=== PATIENT | female | born 1935 | race African-American/Black ===

== ENCOUNTER 2018-01-19 12:11 | Inpatient (IN) | payer OTHER ==
[2018-01-19] MEDS ORDERED: ACETAMINOPHEN 1000 MG/100 ML VIAL (NON FORMULARY) IVPB ONE ×2 (12:38→17:57)
[2018-01-19] MEDS ORDERED: ACETAMINOPHEN INJECTION 100 ML IVPB ONE ×2 (12:40→13:04)
[2018-01-19] MEDS ORDERED: SODIUM CHLORIDE 1,000 ML IV SCH (12:45)
[2018-01-19 13:15] LABS: BASO % 0.4 % (0-2.0); HEMATOCRIT 38.2 % (32.4-45.2); HEMOGLOBIN 12.4 GM/dL (10.7-15.3); LYMPH % 7.8 % (8-40); MCH 28.6 pg (25.7-33.7); MCHC 32.3 g/dl (32.0-36.0); MEAN CELL VOLUME 88.4 fl (80-96); MEAN PLT VOLUME 10.2 fl (7.5-11.1); MONO % 6.7 % (3.8-10.2); NEUT % 85.1 % (42.8-82.8); PLATELET COUNT 183 K/MM3 (134-434); RBC 4.32 M/mm3 (3.60-5.2); RDW 15.8 % (11.6-15.6); WHITE BLOOD COUNT 9.6 K/mm3 (4.0-10.0)
--- NOTE | 2018-01-19 13:20 | PDOC ---
History of Present Illness - General Chief Complaint: Weakness Stated Complaint: STROKE Time Seen by Provider: 01/19/18 13:03 History Source: Patient, Family Exam Limitations: No Limitations - History of Present Illness Initial Comments: 01/19/18 14:54 82 persistent atrial fibrillation/flutter s/p cardioversion , dCHF with mod pHTN , DM, HTN/HL and carotid stenosis s/p R CEA 07/2015 and endarterectomy presents with right side paralysis since Wednesday night. She states that she felt very weak on Wednesday night and went to bed but couldnt get out of it and couldnt reach her phone by her left side. Was found by daughter who saw her face was drooping on the right side, slurring her speech and called 911. Past History - Past Medical History Allergies/Adverse Reactions: Allergies Allergy/AdvReac Type Severity Reaction Status Date / Time pregabalin [From Lyrica] Allergy Severe Hives Verified 01/19/18 12:20 ceftriaxone sodium Allergy Intermediate Hives Verified 01/19/18 12:20 [From Rocephin] Penicillins Allergy Intermediate Hives Verified 01/19/18 12:20 chicken derived Allergy Mild Hives Verified 01/19/18 12:20 oats AdvReac Mild DIARRHEA Verified 01/19/18 12:20 Home Medications: Ambulatory Orders Spironolactone 25 mg PO UTDICT 11/29/14 Atorvastatin Ca [Lipitor] 20 mg PO DAILY 06/12/15 Ferrous Sulfate [Feosol] 325 mg PO DAILY 06/12/15 Potassium Chloride 20 meq PO DAILY 06/12/15 Ascorbate Calcium [Vitamin C] 500 mg PO DAILY 06/13/15 Levocarnitine Tartrate [l-Carnitine] 500 mg PO DAILY 06/13/15 Pantoprazole Sodium [Protonix] 40 mg PO DAILY #30 tablet. 06/13/15 Ubidecarenone [Coq-10] 100 mg PO DAILY 06/13/15 Vitamin B Complex [B Complex] 1 each PO DAILY 06/13/15 Vitamin E 100 unit PO DAILY 06/13/15 metFORMIN XR [Glucophage Xr -] 500 mg PO ACDIN 06/13/15 Amiodarone HCl 200 mg PO DAILY 11/18/15 Rivaroxaban [Xarelto -] 20 mg PO DAILY 11/18/15 Valsartan [Diovan] 160 mg PO DAILY 11/18/15 Torsemide [Demadex -] 40 mg PO DAILY #30 tablet 11/20/15 Fluocinonide 0.05% Cream [Lidex 0.05% Cream -] 1 applic TP DAILY #1 tube Anemia: Yes Asthma: No Cancer: No Cardiac Disorders: Yes (A FIB) CVA: No COPD: No CHF: Yes Dementia: No Diabetes: Yes GI Disorders: Yes (COLONIC POLYPS) Disorders: No HTN: Yes Hypercholesterolemia: Yes Liver Disease: No Seizures: No Thyroid Disease: No - Surgical History Abdominal Surgery: No Appendectomy: No Cardiac Surgery: Yes (CARDIOVERSION (12/10)) Cholecystectomy: No Lung Surgery: No Neurologic Surgery: No Orthopedic Surgery: No - Immunization History Immunization Up to Date: Yes - Suicide/Smoking/Psychosocial Hx Smoking History: Unknown if ever smoked Have you smoked in the past 12 months: No If you are a former smoker, when did you quit?: Never smoker Information on smoking cessation initiated: No Hx Alcohol Use: No Drug/Substance Use Hx: No Substance Use Type: None Hx Substance Use Treatment: No Review of Systems - Review of Systems Able to Perform ROS?: Yes Is the patient limited Croatian proficient: No Constitutional: Yes: Weakness HEENTM: No: Symptoms Reported Respiratory: No: Symptoms reported, Hemoptysis Cardiac (ROS): No: Symptoms Reported ABD/GI: No: Symptoms Reported : No: Symptoms Reported Musculoskeletal: No: Symptoms Reported Integumentary: No: Symptoms Reported Neurological: Yes: See HPI, Numbness, Paresthesia, Weakness All Other Systems: Reviewed and Negative *Physical Exam - Vital Signs Last Vital Signs Temp Pulse Resp BP Pulse Ox 101.7 F H 74 18 143/93 92 L 01/19/18 12:23 01/19/18 12:23 01/19/18 12:23 01/19/18 12:23 01/19/18 12:23 - Physical Exam General Appearance: Yes: Nourished, Appropriately Dressed, Apparent Distress HEENT: positive: Other (flattening nasolabial fold right side, slurred speech) Neck: negative: Carotid bruit Respiratory/Chest: positive: Lungs Clear, Normal Breath Sounds. negative: Chest Tender, Respiratory Distress Cardiovascular: positive: Irregularly Irregular Gastrointestinal/Abdominal: positive: Normal Bowel Sounds, Soft, Protuberent. negative: Tender Musculoskeletal: positive: Other (paralysis of right art and leg, full sensory loss on right arm, decreased sensory over right leg. ) Extremity: positive: Normal Capillary Refill, Normal Inspection, Normal Range of Motion Integumentary: positive: Normal Color, Dry, Warm Neurologic: positive: Fully Oriented, Alert, Normal Mood/Affect, Normal Response ED Treatment Course - LABORATORY CBC & Chemistry Diagram: 01/19/18 13:00 01/19/18 13:00 - ADDITIONAL ORDERS Additional order review: Laboratory Results 01/19/18 12:23 POC Glucometer [id number] 01/19/18 01/19/18 13:00 12:23 RBC 4.32 MCV 88.4 MCHC 32.3 RDW 15.8 H D MPV 10.2 Neutrophils % 85.1 H D Lymphocytes % 7.8 L D Monocytes % 6.7 Eosinophils % 0.0 D Basophils % 0.4 POC Glucometer [id number] - Medications Given in the ED: ED Medications Discontinued Medications Generic Name Dose Route Start Last Admin Trade Name Fatimah PRN Reason Stop Dose Admin Acetaminophen 1,000 mg 01/19/18 12:38 01/19/18 13:05 Ofirmev Injection - IVPB 01/19/18 12:39 1,000 mg ONCE ONE Administration Medical Decision Making - Medical Decision Making 01/19/18 15:10 Stroke order set, Ct head pending. CT negative. Consulted with Dr. Dumont who suggest admit with MRI/MRA order. This is likely L MCA ischemic stroke. Will admit. 01/19/18 15:19 EKG: Atrial fibrillation with pvcs, nonspecific intraventricular block, cannot rule out anterior infarct. 01/19/18 15:22 Previous EKG from 10/2015: a-flutter with variable AV Block. 01/19/18 15:23 Elevated troponin. Consult with Cardiology. Will admit to telemetry. 01/19/18 15:39 01/19/18 15:48 CXR: Imaging reveals a large heart, sclerotic unfolded aorta and some congestive changes. An early right upper lobe infiltrate cannot be excluded. Follow-up recommended. 01/19/18 15:[address]: No evidence of acute intracranial hemorrhage, edema, midline shift, mass effect, or skull fracture. No CT evidence of acute territorial ischemic changes. White matter microangiopathic changes are noted in the posterior limb of internal capsules, left retrolenticular portion of the internal capsule. *DC/Admit/Observation/Transfer Diagnosis at time of Disposition: Stroke - Referrals Referrals: Rajesh Mas MD [Primary Care Provider] - - Patient Instructions - Post Discharge Activity NIH Stroke Scale - Last Known Well Date/Time & Onset Date Last Known Well: 01/16/18 - Initial Evaluation Level of consciousness: Alert Ask patient the month and their age: Answers both correctly Ask patient to open & close eyes; make fist and let go: Obeys both correctly Best gaze (horizontal eye movement): Normal Visual field testing: No visual field loss Facial paresis (Show teeth/raise eyebrows/close eyes tight): Minor paralysis ( flattened nasolabial fold, asymmetry on smiling) Motor Function: Left Arm: Normal Motor Function: Right Arm: No movement Motor Function: Left Leg: Normal (extends leg 30 degrees for 5 seconds without drift) Motor Function: Right Leg: No movement Limb Ataxia: Present in two limbs Sensory(Use pinprick test arms,legs,trunk,face/side to side): Severe to total sensory loss Best language (Describe picture, name items, read sentences): No Aphasia Dysarthria (read several words): Mild to moderate slurring of words Extinction and Inattention: No abnormality - Total Score NIH Stroke Scale Score: 14
[2018-01-19 13:38] LABS: ANION GAP 11 (8-16); BILIRUBIN,TOTAL 0.9 mg/dL (0.2-1.0); BLOOD UREA NITROGEN 16 mg/dL (7-18); CALCIUM 8.5 mg/dL (8.5-10.1); CHLORIDE 105 mmol/L (98-107); CHOLESTEROL 195 mg/dL (50-200); CO2 24 mmol/L (21-32); CREATININE 1.1 mg/dL (0.55-1.02); GLUCOSE,RANDOM 184 mg/dL (74-106); POTASSIUM 3.9 mmol/L (3.5-5.1); SGOT/AST 19 U/L (15-37); SGPT/ALT 18 U/L (12-78); SODIUM 140 mmol/L (136-145); TOT PROT 7.8 g/dl (6.4-8.2); TRIGLYCERIDES 106 mg/dL (35-160)
[2018-01-19 13:39] LABS: ALK PHOS 125 U/L (45-117); HDL CHOLESTEROL 48 mg/dL (40-60)
[2018-01-19 13:56] LABS: INR 1.26 (0.82-1.09); PROTHROMBIN TIME (PATIENT) 14.2 SEC (9.7-13.0)
[2018-01-19 13:58] LABS: ACTIVATED PTT 23.5 SECONDS (25.2-36.5)
[2018-01-19] MEDS ORDERED: SODIUM CHLORIDE 500 ML IV STA (14:56)
[2018-01-19] MEDS ORDERED: VANCOMYCIN 1,500 MG in DEXTROSE 5%-WATER - 250 ML IVPB ONE (15:16)
[2018-01-19] MEDS ORDERED: AZTREONAM 2 GM in DEXTROSE 5%-WATER 100 ML IVPB ONE (15:16)
--- NOTE | 2018-01-19 15:17 | PDOC ---
Attending Attestation - Resident Resident Name: Branden Madera - ED Attending Attestation I have performed the following: I have examined & evaluated the patient, The case was reviewed & discussed with the resident, I agree w/resident's findings & plan, Exceptions are as noted - HPI HPI: 01/19/18 15:14 "The patient is an 82 year old female with significant past medical history of anemia, a-fib, diastolic CHF, diabetes, colonic polyps, hypertension, hypercholesterolemia, who presents to the emergency department with R sided weakness. The patient states that she first noticed the weakness 3 days ago while she was walking to the bathroom. She states that she felt herself leaning to one side and unable to maintain her balance. She went back to bed and states that once she reached her bed, she was unable to get up until she was found by family today. Denies HUIZAR. Denies CP/SOB. Allergies: pregabalin, ceftriaxone sodium, Penicillins, oats, chicken derivatives Social history: None reported Surgical history: cardioversion (11/2014) PCP: Dr. Rajesh Mas " - Physicial Exam PE: 01/19/18 15:15 "GENERAL: Awake, alert, and fully oriented, in no acute distress. HEAD: No signs of trauma EYES: PERRLA, EOMI, sclera anicteric, conjunctiva clear ENT: Auricles normal inspection, hearing grossly normal, nares patent, oropharynx clear without exudates. Moist mucosa NECK: Nontender, no stepoffs, Normal ROM, supple, no lymphadenopathy, JVD, or masses LUNGS: Breath sounds equal, clear to auscultation bilaterally. No wheezes, and no crackles HEART: Regular rate and rhythm, normal S1 and S2, no murmurs, rubs or gallops ABDOMEN: Soft, nontender, normoactive bowel sounds. No guarding, no rebound. No masses EXTREMITIES: Normal range of motion, no edema. No clubbing or cyanosis. No cords, erythema, or tenderness NEUROLOGICAL: + R sided flaccid paralysis, + R facial droop SKIN: Warm, Dry, normal turgor, no rashes or lesions noted. " - Medical Decision Making 01/19/18 15:16 82 F with new R sided paralysis x 3 days. Likely CVA. Pt outside window for TPA. Pt also found to be febrile to 101.7 with O2 sat 92. Concerning for possible PNA. Pt is aspiration risk. - Labs - CT head - Cultures - Neuro consult - CXR - Admit 01/19/18 15:33 CTH unremarkable. Neuro consulted, Dr. Pierre recommends further stroke w/u with MRI. CXR notable for possible RUL PNA, will cover with vanc and aztreonam (pen allergic) Labs notable for trop 4, EKG without SANYA/STDs. Will consult cards. Pt admitted to Dr. Mills <Saqib Perdomo - Last Filed: 01/19/18 15:33> ED Treatment Course - LABORATORY CBC & Chemistry Diagram: 01/19/18 13:00 01/19/18 13:00 - ADDITIONAL ORDERS Additional order review: Laboratory Results 01/19/18 01/19/18 01/19/18 13:07 13:00 13:00 PT with INR 14.20 H INR 1.26 H PTT (Actin FS) 23.5 L Sodium 140 Potassium 3.9 Chloride 105 Carbon Dioxide 24 Anion Gap 11 BUN 16 Creatinine 1.1 H Creat Clearance w eGFR 47.67 POC Glucometer Random Glucose 184 H Calcium 8.5 Total Bilirubin 0.9 AST 19 ALT 18 Alkaline Phosphatase 125 H Creatine Kinase 120 Troponin I 4.77 H* Total Protein 7.8 Albumin 3.0 L Triglycerides 106 Cholesterol 195 Total LDL Cholesterol 132 H HDL Cholesterol 48 Blood Type A POSITIVE Antibody Screen Negative 01/19/18 12:23 PT with INR INR PTT (Actin FS) Sodium Potassium Chloride Carbon Dioxide Anion Gap BUN Creatinine Creat Clearance w eGFR POC Glucometer [id number] Random Glucose Calcium Total Bilirubin AST ALT Alkaline Phosphatase Creatine Kinase Troponin I Total Protein Albumin Triglycerides Cholesterol Total LDL Cholesterol HDL Cholesterol Blood Type Antibody Screen 01/19/18 01/19/18 13:00 12:23 RBC 4.32 MCV 88.4 MCHC 32.3 RDW 15.8 H D MPV 10.2 Neutrophils % 85.1 H D Lymphocytes % 7.8 L D Monocytes % 6.7 Eosinophils % 0.0 D Basophils % 0.4 POC Glucometer [id number] - RADIOLOGY Radiograph Interpretation: 01/19/18 16:[address] was reviewed by Dr. Perdomo and over-read by Radiology. Impression: No evidence of acute intracranial hemorrhage, edema, midline shift, mass effect , or skull fracture. No CT evidence of acute territorial ischemic changes. White matter microangiopathic changes are noted in the posterior limb of internal capsules, left retrolenticular portion of the internal capsule. If acute stroke is suspected, MRI of the brain may be considered for further evaluation. Chest X-Ray was reviewed by Dr. Perdomo and over-read by Radiology. Radiology report: Imaging reveals a large heart, sclerotic unfolded aorta and some congestive changes. An early right upper lobe infiltrate cannot be excluded. Follow-up recommended. - Medications Given in the ED: ED Medications Discontinued Medications Generic Name Dose Route Start Last Admin Trade Name Ginoq PRN Reason Stop Dose Admin Acetaminophen 1,000 mg 01/19/18 12:38 01/19/18 13:05 Ofirmev Injection - IVPB 01/19/18 12:39 1,000 mg ONCE ONE Administration Sodium Chloride 500 mls @ 500 mls/hr 01/19/18 14:56 01/19/18 15:06 Normal Saline - IV 01/19/18 15:55 500 mls/hr ASDIR STA Administration <Gretchen Luong - Last Filed: 01/19/18 16:28> Attestations - Attestations 01/19/18 16:27 Documentation prepared by Gretchen Luong, acting as medical insurance collector for Saqib Perdomo MD. <Gretchen Luong - Last Filed: 01/19/18 16:28>
--- NOTE | 2018-01-19 15:49 | EKG ---
Test Reason : Blood Pressure : / mmHG Vent. Rate : 087 BPM Atrial Rate : 071 BPM P-R Int : 000 ms QRS Dur : 138 ms QT Int : 430 ms P-R-T Axes : 000 017 071 degrees QTc Int : 517 ms ATRIAL FIBRILLATION WITH PREMATURE VENTRICULAR OR ABERRANTLY CONDUCTED COMPLEXES NON-SPECIFIC INTRA-VENTRICULAR CONDUCTION BLOCK CANNOT RULE OUT ANTERIOR INFARCT , AGE UNDETERMINED ABNORMAL ECG WHEN COMPARED WITH ECG OF 18-NOV-2015 15:15, ATRIAL FIBRILLATION HAS REPLACED ATRIAL FLUTTER QRS DURATION HAS INCREASED ST ELEVATION NOW PRESENT IN ANTERIOR LEADS QT HAS LENGTHENED Confirmed by CLIFF SCHERER, YUMI ([id number]) on 01/19/2018 3:49:34 PM Referred By: Confirmed By:YUMI CORONADO MD
--- NOTE | 2018-01-19 15:50 | PDOC ---
*Physical Exam - Vital Signs Last Vital Signs Temp Pulse Resp BP Pulse Ox 98.2 F 79 21 159/84 100 01/19/18 15:07 01/19/18 15:07 01/19/18 15:07 01/19/18 15:07 01/19/18 15:07 ED Treatment Course - LABORATORY CBC & Chemistry Diagram: 01/19/18 13:00 01/19/18 13:00 - ADDITIONAL ORDERS Additional order review: Laboratory Results 01/19/18 01/19/18 01/19/18 13:07 13:00 13:00 PT with INR 14.20 H INR 1.26 H PTT (Actin FS) 23.5 L Sodium 140 Potassium 3.9 Chloride 105 Carbon Dioxide 24 Anion Gap 11 BUN 16 Creatinine 1.1 H Creat Clearance w eGFR 47.67 POC Glucometer Random Glucose 184 H Calcium 8.5 Total Bilirubin 0.9 AST 19 ALT 18 Alkaline Phosphatase 125 H Creatine Kinase 120 Troponin I 4.77 H* Total Protein 7.8 Albumin 3.0 L Triglycerides 106 Cholesterol 195 Total LDL Cholesterol 132 H HDL Cholesterol 48 Blood Type A POSITIVE Antibody Screen Negative 01/19/18 12:23 PT with INR INR PTT (Actin FS) Sodium Potassium Chloride Carbon Dioxide Anion Gap BUN Creatinine Creat Clearance w eGFR POC Glucometer 212.10794 Random Glucose Calcium Total Bilirubin AST ALT Alkaline Phosphatase Creatine Kinase Troponin I Total Protein Albumin Triglycerides Cholesterol Total LDL Cholesterol HDL Cholesterol Blood Type Antibody Screen 01/19/18 01/19/18 13:00 12:23 RBC 4.32 MCV 88.4 MCHC 32.3 RDW 15.8 H D MPV 10.2 Neutrophils % 85.1 H D Lymphocytes % 7.8 L D Monocytes % 6.7 Eosinophils % 0.0 D Basophils % 0.4 POC Glucometer [id number] - RADIOLOGY Radiology Studies Ordered: Category Date Time Status BRAIN MRA W&W/O CONTRAST [MRI] Stat MRI 01/19/18 14:52 Ordered BRAIN MRI W/O CONTRAST [MRI] Stat MRI 01/19/18 14:52 Ordered NECK MRA W&W/O CONTRAST [MRI] Stat MRI 01/19/18 14:52 Ordered - Medications Given in the ED: ED Medications Discontinued Medications Generic Name Dose Route Start Last Admin Trade Name Freq PRN Reason Stop Dose Admin Acetaminophen 1,000 mg 01/19/18 12:38 01/19/18 13:05 Ofirmev Injection - IVPB 01/19/18 12:39 1,000 mg ONCE ONE Administration *DC/Admit/Observation/Transfer Diagnosis at time of Disposition: Stroke, Atrial fibrillation and flutter, CHF (congestive heart failure), HLD ( hyperlipidemia), Elevated troponin - Discharge Dispostion Condition at time of disposition: Stable Decision to Admit order: Yes - Referrals Referrals: Rajesh Mas MD [Primary Care Provider] - - Patient Instructions - Post Discharge Activity
[2018-01-19] MEDS ORDERED: VANCOMYCIN 1,500 MG in DEXTROSE 5%-WATER - 500 ML IVPB ONE (16:00)
--- NOTE | 2018-01-19 16:53 | HP ---
Admitting History and Physical - Primary Care Physician PCP: Rajesh Mas - Admission Chief Complaint: I had a stroke History of Present Illness: Ms Cooper is a very pleasant 82 year old female coming in with complaint of having a stroke. Her symptoms began on Wednesday morning. She says that she went to the bathroom and she says she felt strange. She says that she felt very weak and had a hard time making it back to bed. She said it was mainly her right side that felt weak. She made it to bed and could not get up. Because of that she laid in bed and was not found until today by her daughter who brought her in. Patient is confused and unclear on many questions. However she says she did not have lightheadedness, dizziness, passing out, chest pain or pressure, shortness of breath, nausea, vomiting, diarrhea, constipation, she held her urine according to her, and she did not have leg swelling. She is quite confused though and often pauses long periods of time and appears to not be sure of many of her answers. History Source: Patient Limitations to Obtaining History: No Limitations - Past Medical History Cardiovascular: Yes: AFIB (Persistent. History of cardioversion. ), CHF ( diastolic), HTN, Hyperlipdemia, Pulmonary Hypertension, Other (carotid artery stenosis) Heme/Onc: Yes: Anemia Endocrine: Yes: Diabetes Mellitus - Past Surgical History Past Surgical History: Yes: Colonoscopy, Tonsillectomy - Smoking History Smoking history: Unknown if ever smoked Have you smoked in the past 12 months: No If you are a former smoker, when did you quit?: Never smoker - Alcohol/Substance Use Hx Alcohol Use: No History of Substance Use: reports: None - Social History Usual Living Arrangement: Yes: Alone ADL: Independent History of Recent Travel: No Home Medications - Allergies Allergies/Adverse Reactions: Allergies Allergy/AdvReac Type Severity Reaction Status Date / Time pregabalin [From Lyrica] Allergy Severe Hives Verified 01/19/18 12:20 ceftriaxone sodium Allergy Intermediate Hives Verified 01/19/18 12:20 [From Rocephin] Penicillins Allergy Intermediate Hives Verified 01/19/18 12:20 chicken derived Allergy Mild Hives Verified 01/19/18 12:20 oats AdvReac Mild DIARRHEA Verified 01/19/18 12:20 - Home Medications Home Medications: Ambulatory Orders Spironolactone 25 mg PO UTDICT 11/29/14 Atorvastatin Ca [Lipitor] 20 mg PO DAILY 06/12/15 Ferrous Sulfate [Feosol] 325 mg PO DAILY 06/12/15 Potassium Chloride 20 meq PO DAILY 06/12/15 Ascorbate Calcium [Vitamin C] 500 mg PO DAILY 06/13/15 Levocarnitine Tartrate [l-Carnitine] 500 mg PO DAILY 06/13/15 Pantoprazole Sodium [Protonix] 40 mg PO DAILY #30 tablet. 06/13/15 Ubidecarenone [Coq-10] 100 mg PO DAILY 06/13/15 Vitamin B Complex [B Complex] 1 each PO DAILY 06/13/15 Vitamin E 100 unit PO DAILY 06/13/15 metFORMIN XR [Glucophage Xr -] 500 mg PO ACDIN 06/13/15 Amiodarone HCl 200 mg PO DAILY 11/18/15 Rivaroxaban [Xarelto -] 20 mg PO DAILY 11/18/15 Valsartan [Diovan] 160 mg PO DAILY 11/18/15 Torsemide [Demadex -] 40 mg PO DAILY #30 tablet 11/20/15 Fluocinonide 0.05% Cream [Lidex 0.05% Cream -] 1 applic TP DAILY #1 tube Family Disease History - Family Disease History Family Disease History: Other: Father (, hip fracture), Mother ( , unknown) Review of Systems Findings/Remarks: full review of systems obtained, as per HPI and otherwise negative Physical Examination Vital Signs: Vital Signs Temperature 36.8 C 01/19/18 15:07 Pulse Rate 79 01/19/18 15:07 Respiratory Rate 21 01/19/18 15:07 Blood Pressure 159/84 01/19/18 15:07 O2 Sat by Pulse Oximetry (%) 100 01/19/18 15:07 Constitutional: Yes: No Distress, Calm, Obese Eyes: Yes: Conjunctiva Clear, EOM Intact, PERRL HENT: Yes: Atraumatic, Normocephalic Cardiovascular: Yes: Pulse Irregular. No: Tachycardia, Gallop, Murmur, Rub Respiratory: Yes: Regular, CTA Bilaterally. No: Rales, Rhonchi, Wheezes Gastrointestinal: Yes: Normal Bowel Sounds, Soft. No: Distention, Tenderness Neurological: Yes: Loss of Sensation (RUE and RLE) ...Motor Strength: RUE (0/5), RLE (0/5) Labs: CBC, BMP 01/19/18 13:00 01/19/18 13:00 Imaging - Results Chest X-ray: Report Reviewed, Image Reviewed Cat Scan: Report Reviewed Problem List - Problems (1) Acute CVA (cerebrovascular accident) Assessment/Plan: -suspect large L sided stroke -case d/w Dr Pierre -will continue aspirin and plavix -MRI head ordered -ECHO and carotid ultrasound -max out lipitor dose -physical and speech therapy consulted -monitor on telemetry Code(s): I63.9 - CEREBRAL INFARCTION, UNSPECIFIED (2) Atrial fibrillation and flutter Assessment/Plan: -unable to be anticoagulated secondary to bleeding -maintained on aspirin and plavix -suspect cause of acute CVA -monitor on telemetry -cannot anticoagulate now secondary to possible hemorrhagic conversion of CVA -case discussed with cardiology -currently rate controlled Code(s): I48.91 - UNSPECIFIED ATRIAL FIBRILLATION; I48.92 - UNSPECIFIED ATRIAL FLUTTER (3) CHF (congestive heart failure) Assessment/Plan: -not in exacerbation -will continue aldactone currently -hold torsemide and aldactone currently Code(s): I50.9 - HEART FAILURE, UNSPECIFIED (4) Elevated troponin Assessment/Plan: -concern for possible NSTEMI -however could be secondary to stroke -no cp or sob, EKG unchanged -however patient may not recall earlier chest pain -case d/w Dr Hough -trend currently -cannot anticoagulate as above Code(s): R74.8 - ABNORMAL LEVELS OF OTHER SERUM ENZYMES (5) HLD (hyperlipidemia) Assessment/Plan: -LDL not in range -increase lipitor to 80mg Code(s): E78.5 - HYPERLIPIDEMIA, UNSPECIFIED (6) Carotid artery stenosis Assessment/Plan: -carotid artery ultrasound ordered -continue aspirin and plavix Code(s): I65.29 - OCCLUSION AND STENOSIS OF UNSPECIFIED CAROTID ARTERY (7) Diabetes Assessment/Plan: -currently npo until seen by speech therapy -manage on SSI currently Code(s): E11.9 - TYPE 2 DIABETES MELLITUS WITHOUT COMPLICATIONS (8) HTN (hypertension), malignant Assessment/Plan: -allow permissive HTN tonight Code(s): I10 - ESSENTIAL (PRIMARY) HYPERTENSION (9) Continued fever Assessment/Plan: -suspect patient has UTI from inability to urinate -however possibly could be pneumonia -blood cultures drawn before antibiotics, to be sent -unable to obtain urine, awaiting patient to urinate and she refuses cath currently -will continue aztreonam since patient has multiple allergies -ID consult Code(s): R50.9 - FEVER, UNSPECIFIED
--- NOTE | 2018-01-19 17:02 | PN ---
Progress Note (short form) - Note Progress Note: CC: right sided weakness hpi: 82 yo f, patient of Dr. Coley, with history of persistent atrial fibrillation/flutter s/p cardioversion with reversion back to flutter, dCHF with mod pHTN, DM, HTN/HL and carotid stenosis s/p R CEA 07/2015 who is here with right sided weakness. Wednesday noticed right sided arm and leg weakness. She was too weak to get out of bed or use phone so was not found at home until today (wednesday) and she was brought to ER. Suspected cva. Also with +trops. No cp, sob, palps dizzy loc pnd orthopnea le edema. Past Medical hx: per hpi past surg hx: Colonoscopy, Tonsillectomy Social hx: Former tobacco (as teenager), no etoh or illicits Family hx: Mother with unknown heart problems. ROS: per hpi; no nvd cough vision changes, muscle pain gib hematuria dysuria Home Medications Medication Instructions Recorded Spironolactone 25 mg PO UTDICT 11/29/14 Atorvastatin Ca [Lipitor] 20 mg PO DAILY 06/12/15 Ferrous Sulfate [Feosol] 325 mg PO DAILY 06/12/15 Potassium Chloride 20 meq PO DAILY 06/12/15 Ascorbate Calcium [Vitamin C] 500 mg PO DAILY 06/13/15 Levocarnitine Tartrate 500 mg PO DAILY 06/13/15 [l-Carnitine] Pantoprazole Sodium [Protonix] 40 mg PO DAILY #30 tablet. 06/13/15 Ubidecarenone [Coq-10] 100 mg PO DAILY 06/13/15 Vitamin B Complex [B Complex] 1 each PO DAILY 06/13/15 Vitamin E 100 unit PO DAILY 06/13/15 metFORMIN XR [Glucophage Xr -] 500 mg PO ACDIN 06/13/15 Amiodarone HCl 200 mg PO DAILY 11/18/15 Rivaroxaban [Xarelto -] 20 mg PO DAILY 11/18/15 Valsartan [Diovan] 160 mg PO DAILY 11/18/15 Torsemide [Demadex -] 40 mg PO DAILY #30 tablet 11/20/15 Fluocinonide 0.05% Cream [Lidex 1 applic TP DAILY #1 tube 02/22/17 0.05% Cream -] Vital Signs Temp 98.2 F 01/19/18 15:07 Pulse 79 01/19/18 15:07 Resp 21 01/19/18 15:07 BP 159/84 01/19/18 15:07 Pulse Ox 100 01/19/18 15:07 Intake & Output 01/18/18 01/19/18 01/19/18 23:59 11:59 23:59 Weight 230 lb Other: Voiding Method Toilet Height 5 ft 8 in Body Mass Index (BMI) 34.9 Weight Measurement Method Est/Stated by Patient NAD, calm JVD flat, neck supple CTAB, nl effort Irregular rhythm, regular rate nl s1, s2 no m/r/g + bs soft nt nd ext with trace edema, no clubbing or cyanosis + dp/pt, no carotid bruits no jaundice, diaphoresis Laboratory Last Values WBC 9.6 K/mm3 (4.0-10.0) 01/19/18 13:00 RBC 4.32 M/mm3 (3.60-5.2) 01/19/18 13:00 Hgb 12.4 GM/dL (10.7-15.3) 01/19/18 13:00 Hct 38.2 % (32.4-45.2) D 01/19/18 13:00 MCV 88.4 fl (80-96) 01/19/18 13:00 MCH 28.6 pg (25.7-33.7) 01/19/18 13:00 MCHC 32.3 g/dl (32.0-36.0) 01/19/18 13:00 RDW 15.8 % (11.6-15.6) H D 01/19/18 13:00 Plt Count 183 K/MM3 (134-434) 01/19/18 13:00 MPV 10.2 fl (7.5-11.1) 01/19/18 13:00 Absolute Neuts (auto) 8.1 # 01/19/18 13:00 Neutrophils % 85.1 % (42.8-82.8) H D 01/19/18 13:00 Lymphocytes % 7.8 % (8-40) L D 01/19/18 13:00 Monocytes % 6.7 % (3.8-10.2) 01/19/18 13:00 Eosinophils % 0.0 % (0-4.5) D 01/19/18 13:00 Basophils % 0.4 % (0-2.0) 01/19/18 13:00 Nucleated RBC % 0 % (0-0) 01/19/18 13:00 PT with INR 14.20 SEC (9.7-13.0) H 01/19/18 13:00 INR 1.26 (0.82-1.09) H 01/19/18 13:00 PTT (Actin FS) 23.5 SECONDS (25.2-36.5) L 01/19/18 13:00 Sodium 140 mmol/L (136-145) 01/19/18 13:00 Potassium 3.9 mmol/L (3.5-5.1) 01/19/18 13:00 Chloride 105 mmol/L (98-107) 01/19/18 13:00 Carbon Dioxide 24 mmol/L (21-32) 01/19/18 13:00 Anion Gap 11 (8-16) 01/19/18 13:00 BUN 16 mg/dL (7-18) 01/19/18 13:00 Creatinine 1.1 mg/dL (0.55-1.02) H 01/19/18 13:00 Creat Clearance w eGFR 47.67 (>60) 01/19/18 13:00 POC Glucometer 212.08467 UNITS (80-120) 01/19/18 12:23 Random Glucose 184 mg/dL (74-106) H 01/19/18 13:00 Calcium 8.5 mg/dL (8.5-10.1) 01/19/18 13:00 Total Bilirubin 0.9 mg/dL (0.2-1.0) 01/19/18 13:00 AST 19 U/L (15-37) 01/19/18 13:00 ALT 18 U/L (12-78) 01/19/18 13:00 Alkaline Phosphatase 125 U/L (45-117) H 01/19/18 13:00 Creatine Kinase 120 IU/L (26-192) 01/19/18 13:00 Troponin I 4.77 ng/ml (0.00-0.05) H* 01/19/18 13:00 Total Protein 7.8 g/dl (6.4-8.2) 01/19/18 13:00 Albumin 3.0 g/dl (3.4-5.0) L 01/19/18 13:00 Triglycerides 106 mg/dL (35-160) 01/19/18 13:00 Cholesterol 195 mg/dL (50-200) 01/19/18 13:00 Total LDL Cholesterol 132 mg/dL (5-100) H 01/19/18 13:00 HDL Cholesterol 48 mg/dL (40-60) 01/19/18 13:00 Blood Type A POSITIVE 01/19/18 13:07 Antibody Screen Negative 01/19/18 13:07 EKG: A flutter with variable block. No ischemic changes CXR: ?right infiltrate MIBI 10/10 (deena): AF/flutter, no STs; no ischemia (+ breast); nl EF, mild LVE, no TID SANTA 12/10: nl LV/RV, severe TANIKA, mild LAE; mild MR; mod-sev TR Echo 09/09: NL LV/RV; L/TANIKA, tethered MV with mod MR; mod TR; mod pHTN echo 08/2017: nl lv/rv, sev lae, mod tanika, mod mr/tr, mod phtn Carotids 12/10: SANJAY 80-99% stenosis head acute: no acute findings tele: aflutter , rate ok est cct 35 mins a/p: 82 yo f, patient of Dr. Coley, with history of persistent atrial fibrillation/flutter s/p cardioversion with reversion back to flutter, dCHF with mod pHTN, DM, HTN/HL and carotid stenosis s/p R CEA 07/2015 who is here with right sided weakness. suspected cva: -head ct w/o acute findings, mri pending -possibly related to afib/flutter (pt not on ac 2/2 gib) -on dapt -check echo, monitor on tele chronic diastolic CHF: -stable, no vol overload -was on torsemide 20/40 qd alternating days at home -can hold for now as pt has not been eating/drinking much past few days aflutter - rate controlled off of meds, monitor on tele - was on ac in past but had recurrent gib so it has been stopped and pt has been on dapt since then HTN - con't spironolactone, monitor bp s/p CEA - cont atorvastatin, asa pos trops/possible nstemi: -trop mildly elevated with normal ck. no cardiac sxs. no ischemic ecg changes. possibly trop related to cva. would trend for now. check echo for new wma's. would hold off on ac in setting of acute cva until bleed ruled out
[2018-01-19 20:55] LABS: VENOUS PH 7.39 (7.32-7.42)
[2018-01-19 20:56] LABS: VENOUS PC02 36.5 mmHg (38-52); VENOUS PO2 30.4 mmHg (28-48)
[2018-01-19 21:09] LABS: URINE APPEARANCE CLOUDY; URINE BILIRUBIN NEGATIVE (<2.0 mg/dL); URINE COLOR YELLOW; URINE GLUCOSE (UA) NEGATIVE (NEGATIVE); URINE KETONE TRACE (NEGATIVE); URINE LEUK ESTERASE NEGATIVE (NEGATIVE); URINE NITRITE NEGATIVE (NEGATIVE); URINE PROTEIN 2+ (NEGATIVE)
[2018-01-19 21:13] LABS: EPI CELLS MANY /HPF (FEW); URINE BACTERIA FEW /hpf (NONE SEEN); URINE MUCUS FEW
[2018-01-19] MEDS: INSULIN SLIDING SCALE (NOVOLOG) 1 VIAL SQ SCH ×2 (22:49→23:23)
[2018-01-19] MEDS: ASPIRIN 81 MG CHEWABLE TABLETS PO SCH (23:54)
[2018-01-19] MEDS: CLOPIDOGREL BISULFATE 75 MG TABLET (FP) PO SCH (23:54)
[2018-01-19] MEDS: ATORVASTATIN CA 80 MG TABLET (FP) PO SCH (23:54)
[2018-01-20] MEDS ORDERED: AZTREONAM 1 GM in DEXTROSE 5%-WATER - 50 ML IVPB ONE (06:00)
[2018-01-20] MEDS: INSULIN SLIDING SCALE (NOVOLOG) 1 VIAL SQ SCH ×4 (06:02→21:23)
[2018-01-20 07:01] LABS: CHLORIDE 105 mmol/L (98-107); POTASSIUM 4.3 mmol/L (3.5-5.1); SODIUM 139 mmol/L (136-145)
[2018-01-20 07:14] LABS: ALBUMIN 2.8 g/dl (3.4-5.0); ALK PHOS 106 U/L (45-117); ANION GAP 7 (8-16); BILIRUBIN,TOTAL 0.9 mg/dL (0.2-1.0); BLOOD UREA NITROGEN 21 mg/dL (7-18); CALCIUM 8.3 mg/dL (8.5-10.1); CO2 27 mmol/L (21-32); CREATININE 1.1 mg/dL (0.55-1.02); GLUCOSE,RANDOM 143 mg/dL (74-106); MAGNESIUM 2.6 mg/dL (1.8-2.4); PHOSPHOROUS 3.9 mg/dL (2.5-4.9); SGOT/AST 20 U/L (15-37); SGPT/ALT 18 U/L (12-78); TOT PROT 7.2 g/dl (6.4-8.2)
[2018-01-20] MEDS: CLOPIDOGREL BISULFATE 75 MG TABLET (FP) PO SCH (09:24)
[2018-01-20] MEDS: ASCORBIC ACID 500 MG TABLET (FP) PO SCH (09:24)
[2018-01-20] MEDS: ASPIRIN 81 MG CHEWABLE TABLETS PO SCH (09:24)
[2018-01-20] MEDS: FERROUS SO4 325 MG TABLET (FP) PO SCH (09:24)
[2018-01-20] MEDS: PANTOPRAZOLE 40 MG TABLET (FP) PO SCH (09:24)
--- NOTE | 2018-01-20 09:31 | CONSULT ---
Consult - text type - Consultation Consultation Note: Neurology History of Present Illness: 82 year old female coming in with complaint of weakness. Per patient, symptoms began on Tuesday 01/16, morning when went to the bathroom and she says she felt very weak and had a difficulty with ambulation. She said it was mainly her right sideed and went to bed. Reportedly not found until daughter who brought her in the following Wednesday. I was contacted by ER and patient was out of TPA window. CT head was completed and without acute changes. MRI brain done the of admission and showed L striatial and capsular infarcts, also in L insula and L external capsule. Not large in size but has hemiplegia in RUE and b/l LE. Patient on ASA, plavix. Further complication is she also has elevated troponins which cardiology would typically treat possible MA with anticoagulation. However , given recent CVA, would not recommend this right now. However, can be started tomorrow if cardiology desires. At that point, would be 5 days since symptoms onset and lower risk for hemoragic conversion. Patient does have prior h/o of bleed on Xarelto so AC may not be pursued at all, defer to cards. Discussed all this with daughter, Josie, at bedside in detail. Also discussed importance of therapy, likely rehab placement (she lives in [place], but interested in [place]) . - Past Medical History Cardiovascular: Yes: AFIB (Persistent. History of cardioversion. ), CHF ( diastolic), HTN, Hyperlipdemia, Pulmonary Hypertension, Other (carotid artery stenosis) Heme/Onc: Yes: Anemia Endocrine: Yes: Diabetes Mellitus - Past Surgical History Past Surgical History: Yes: Colonoscopy, Tonsillectomy - Smoking History Smoking history: Unknown if ever smoked Have you smoked in the past 12 months: No If you are a former smoker, when did you quit?: Never smoker - Alcohol/Substance Use Hx Alcohol Use: No History of Substance Use: reports: None - Social History Usual Living Arrangement: Yes: Alone ADL: Independent History of Recent Travel: No Home Medications - Allergies Allergies/Adverse Reactions: Allergies Allergy/AdvReac Type Severity Reaction Status Date / Time pregabalin [From Lyrica] Allergy Severe Hives Verified 01/19/18 12:20 ceftriaxone sodium Allergy Intermediate Hives Verified 01/19/18 12:20 [From Rocephin] Penicillins Allergy Intermediate Hives Verified 01/19/18 12:20 chicken derived Allergy Mild Hives Verified 01/19/18 12:20 oats AdvReac Mild DIARRHEA Verified 01/19/18 12:20 Active Medications Acetaminophen (Tylenol -) 650 mg PO Q4H PRN PRN Reason: PAIN LEVEL 1-5 Ascorbic Acid (Vitamin C -) 500 mg PO DAILY [facility] Last Admin: 01/20/18 09:24 Dose: 500 mg Aspirin (Asa -) 81 mg PO DAILY [facility] Last Admin: 01/20/18 09:24 Dose: 81 mg Atorvastatin Calcium (Lipitor -) 80 mg PO HS [facility] Last Admin: 01/19/18 23:54 Dose: 80 mg Clopidogrel Bisulfate (Plavix -) 75 mg PO DAILY [facility] Last Admin: 01/20/18 09:24 Dose: 75 mg Ferrous Sulfate (Feosol -) 325 mg PO DAILY [facility] Last Admin: 01/20/18 09:24 Dose: 325 mg Aztreonam 1 gm/ Dextrose 50 mls @ 100 mls/hr IVPB Q12H [facility]; Protocol Insulin Aspart (Novolog Vial Sliding Scale -) 1 vial SQ ACHS [facility]; Protocol Last Admin: 01/20/18 06:02 Dose: Not Given Pantoprazole Sodium (Protonix -) 40 mg PO DAILY [facility] Last Admin: 01/20/18 09:24 Dose: 40 mg Family Disease History - Family Disease History Family Disease History: Other: Father (, hip fracture), Mother ( , unknown) Review of Systems Findings/Remarks: full review of systems obtained, as per HPI and otherwise negative Physical Examination Vital Signs: Vital Signs Period Temp Pulse Resp BP Sys/Vasquez Pulse Ox Last 24 Hr 97.6 F-101.7 F 64-92 18-21 125-159/60-101 92-100 Constitutional: Yes: No Distress, Calm, Obese Eyes: Yes: Conjunctiva Clear, EOM Intact, PERRL HENT: Yes: Atraumatic, Normocephalic Cardiovascular: Yes: Pulse Irregular. No: Tachycardia, Gallop, Murmur, Rub Respiratory: Yes: Regular, CTA Bilaterally. No: Rales, Rhonchi, Wheezes Gastrointestinal: Yes: Normal Bowel Sounds, Soft. No: Distention, Tenderness Neurological: R Facial droop noted, diminished PP on RUE and RLE, 0/5 in b/l LE , 0/5 in RUE, 5-/5 in LUE. CBCD WBC 9.6 K/mm3 (4.0-10.0) 01/19/18 13:00 RBC 4.32 M/mm3 (3.60-5.2) 01/19/18 13:00 Hgb 12.4 GM/dL (10.7-15.3) 01/19/18 13:00 Hct 38.2 % (32.4-45.2) D 01/19/18 13:00 MCV 88.4 fl (80-96) 01/19/18 13:00 MCHC 32.3 g/dl (32.0-36.0) 01/19/18 13:00 RDW 15.8 % (11.6-15.6) H D 01/19/18 13:00 Plt Count 183 K/MM3 (134-434) 01/19/18 13:00 MPV 10.2 fl (7.5-11.1) 01/19/18 13:00 CMP Sodium 139 mmol/L (136-145) 01/20/18 06:00 Potassium 4.3 mmol/L (3.5-5.1) 01/20/18 06:00 Chloride 105 mmol/L (98-107) 01/20/18 06:00 Carbon Dioxide 27 mmol/L (21-32) 01/20/18 06:00 Anion Gap 7 (8-16) L 01/20/18 06:00 BUN 21 mg/dL (7-18) H 01/20/18 06:00 Creatinine 1.1 mg/dL (0.55-1.02) H 01/20/18 06:00 Creat Clearance w eGFR 47.67 (>60) 01/20/18 06:00 Calcium 8.3 mg/dL (8.5-10.1) L 01/20/18 06:00 Total Bilirubin 0.9 mg/dL (0.2-1.0) 01/20/18 06:00 AST 20 U/L (15-37) 01/20/18 06:00 ALT 18 U/L (12-78) 01/20/18 06:00 Alkaline Phosphatase 106 U/L (45-117) D 01/20/18 06:00 Total Protein 7.2 g/dl (6.4-8.2) 01/20/18 06:00 Albumin 2.8 g/dl (3.4-5.0) L 01/20/18 06:[address] head reviewed MRI brain reviewed Plan: 82 year old female coming in with complaint of weakness. Per patient, symptoms began on Tuesday 01/16, morning when went to the bathroom and she says she felt very weak and had a difficulty with ambulation. She said it was mainly her right sideed and went to bed. Reportedly not found until daughter who brought her in the following Wednesday. I was contacted by ER and patient was out of TPA window. CT head was completed and without acute changes. MRI brain done the of admission and showed L striatial and capsular infarcts, also in L insula and L external capsule. Not large in size but has hemiplegia in RUE and b/l LE. Can continue ASA, plavix. From neuro point of view can be started on AC tomorrow if cardiology desires. Would be 5 days since symptoms onset and lower risk for hemoragic conversion. Patient does have prior h/o of bleed on Xarelto so AC may not be pursued at all , defer to cards. Discussed all this with daughter, Josie, at bedside in detail. Also discussed importance of therapy, likely rehab placement (she lives in [place] , but interested in [place]) Continue Statin 80mg for now, goal LDL < 70 Monitor Afib, CVA likely embolic based on distribution Monitor glucose, maintain normal range Monitor bp, would recommend < 150/90 Permissive HTN no longer required
[2018-01-20 09:46] LABS: BASO % 0.4 % (0-2.0); EOS % 0.4 % (0-4.5); HEMATOCRIT 33.3 % (32.4-45.2); HEMOGLOBIN 10.7 GM/dL (10.7-15.3); LYMPH % 14.5 % (8-40); MCH 28.8 pg (25.7-33.7); MCHC 32.1 g/dl (32.0-36.0); MEAN CELL VOLUME 89.7 fl (80-96); MEAN PLT VOLUME 10.4 fl (7.5-11.1); MONO % 11.3 % (3.8-10.2); NEUT % 73.4 % (42.8-82.8); PLATELET COUNT 157 K/MM3 (134-434); RBC 3.71 M/mm3 (3.60-5.2); RDW 15.9 % (11.6-15.6); WHITE BLOOD COUNT 7.8 K/mm3 (4.0-10.0)
[2018-01-20] MEDS ORDERED: SPIRONOLACTONE 25 MG TABLET (FP) PO SCH (10:00)
--- NOTE | 2018-01-20 10:38 | CONSULT ---
Admitting History and Physical - Primary Care Physician PCP: Crescencio Mills - Admission History of Present Illness: 82 yo f, PMH of persistent atrial fibrillation/flutter s/p cardioversion with reversion back to flutter, dCHF with mod pHTN, DM, HTN/HL and carotid stenosis s /p R CEA 07/2015 who is here with right sided weakness. Passed Bedside swallow eval. ASA, plavix, and lipitor ordered. Otherwise Npo Patient was out of TPA window. CT head was completed and without acute changes. MRI brain done the of admission and showed L striatial and capsular infarcts, also in L insula and L external capsule. Right Hemiplegia. Right hand dominant. Echo ordered. History Source: Patient, Family Member, Medical Record Limitations to Obtaining History: No Limitations - Past Medical History Cardiovascular: Yes: AFIB (Persistent. History of cardioversion. ), CHF ( diastolic), HTN, Hyperlipdemia, Pulmonary Hypertension, Other (carotid artery stenosis) ...: No Heme/Onc: Yes: Anemia Endocrine: Yes: Diabetes Mellitus - Past Surgical History Past Surgical History: Yes: Colonoscopy, Tonsillectomy - Advance Directives Advance Directives: Yes: Health Care Proxy - Smoking History Smoking history: Never smoked Have you smoked in the past 12 months: No Aproximately how many cigarettes per day: 0 If you are a former smoker, when did you quit?: Never smoker - Alcohol/Substance Use Hx Alcohol Use: No History of Substance Use: reports: None - Social History ADL: Independent 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 History of Recent Travel: No History - Admission Reason For Visit: ATRIAL FIB & FLUTTER,CHF,ELEVATED TROPONIN LEVEL - Diagnostics X-ray: Report Reviewed CT Scan: Report Reviewed MRI: Report Reviewed - General Mental Status: Alert and Oriented, Awake and Alert, Able to Follow Commands Attention: Intact Ability to Follow Directions: Excellent - Hearing Hearing: Normal Speech Evaluation - Communication Primary Language: CHINESE Communication: Yes: Within Normal Limits Oral Expression Ability: Yes: No Impairment - Speech Production Able to Make Needs Known: Yes: WNL Intelligibility: Yes: WNL - Speech Characteristics Voice Loudness: Normal Voice Pitch: Yes: Pitch Breaks Voice Phonatory-based Quality: Yes: Normal Speech Pattern: Normal Speech Clarity: < 100% Nasal Resonance: Normal Articulation: Yes: Precise Rate of Speech: Intact - Language/Auditory Comprehension Follows: Yes: 2 Stage Simple Commands - Language/Verbal Expression Able to Respond to Simple Queries: Yes: WNL Able to Communicate Wants and Needs: Yes: WNL Functional Communication Status: Yes: WNL - Memory/Perception longterm Memory: Yes: WNL Short Term Memory: Yes: WNL - Swallow Evaluation/Bedside Assessment Current Nutritional Intake: NPO Oral Secretions: Yes: WFL Dentition: Yes: Adequate Facial Symmetry at Rest: Symmetrical Facial Symmetry on Retraction: Symmetrical Sensation: Normal Against Resistance Opening: Normal Against Resistance Closing: Normal Pucker Lips: Normal Smile: Normal Lingual Movement: Normal, Symmetric Lingual Speed of Movement: Normal Lingual Movement Strgth Against Opposition: Normal Lingual Movement Characteristics: Normal Velopharyngeal Movement: Normal Laryngeal Elevation: WFL Laryngeal Movement: Able to Palpate Rate of Intake: WFL Bolus Size: WFL Labial Seal: WFL Chewing: WFL Oral Prep Time: WFL A-P Transit: WFL Timing of Swallow: WFL Coughing/Throat Clear: No Change in Voice: No Recommendations - Speech Evaluation, Impression/Plan Impression: Speech,language,swallowing,cognition appear intact. Pitch breaks- baseline? - [facility]position [facility] to[facility] ([facility] - Dysphagia Impressions/Plan Swallowing Skills: WFL Dysphagia Impressions: No Impairment *Silent aspiration: cannot be R/O at bedside Recommendations: Other (Monitor tolerance) - Recommendations Diet Consistency: Regular Medication Administration: Whole with water Liquids: Thin Liquids
--- NOTE | 2018-01-20 10:49 | PN ---
Progress Note (short form) - Note Progress Note: s: no cp sob palps dizzy no cigs o: Vital Signs Temp 98.6 F 01/20/18 05:55 Pulse 64 01/20/18 05:55 Resp 18 01/20/18 05:55 BP 125/60 01/20/18 05:55 Pulse Ox 97 01/19/18 22:00 Intake & Output 01/19/18 01/19/18 01/20/18 11:59 23:59 11:59 Intake Total 500 0 Balance 500 0 Weight 231 lb 3.2 oz Intake: IVPB 500 Oral 0 Other: Voiding Method Toilet Bowel Movement No Height 5 ft 8 in Body Mass Index (BMI) 35.2 Weight Measurement Method Patient Lift Scale Weight Measurement Method Est/Stated by Patient NAD, calm JVD flat, neck supple CTAB, nl effort Irregular rhythm, regular rate nl s1, s2 no m/r/g + bs soft nt nd ext with trace edema, no clubbing or cyanosis + dp/pt, no carotid bruits no jaundice, diaphoresis Current Medications Generic Name Dose Route Start Last Admin Trade Name Freq PRN Reason Stop Dose Admin Acetaminophen 650 mg 01/19/18 16:27 Tylenol - PO Q4H PRN PAIN LEVEL 1-5 Ascorbic Acid 500 mg 01/20/18 10:00 01/20/18 09:24 Vitamin C - PO 500 mg DAILY RAGINI Administration Aspirin 81 mg 01/19/18 17:00 01/20/18 09:24 Asa - PO 81 mg DAILY RAGINI Administration Atorvastatin Calcium 80 mg 01/19/18 22:00 01/19/18 23:54 Lipitor - PO 80 mg HS RAGINI Administration Clopidogrel Bisulfate 75 mg 01/19/18 17:00 01/20/18 09:24 Plavix - PO 75 mg DAILY RAGINI Administration Ferrous Sulfate 325 mg 01/20/18 10:00 01/20/18 09:24 Feosol - PO 325 mg DAILY RAGINI Administration Aztreonam 1 gm/ Dextrose 50 mls @ 100 mls/hr 01/19/18 16:45 IVPB Q12H RAGINI Protocol Insulin Aspart 1 vial 01/19/18 16:30 01/20/18 06:02 Novolog Vial Sliding Scale - SQ Not Given ACHS [facility] Protocol Pantoprazole Sodium 40 mg 01/20/18 10:00 01/20/18 09:24 Protonix - PO 40 mg DAILY RAGINI Administration Laboratory Last Values WBC 7.8 K/mm3 (4.0-10.0) 01/20/18 06:00 RBC 3.71 M/mm3 (3.60-5.2) 01/20/18 06:00 Hgb 10.7 GM/dL (10.7-15.3) 01/20/18 06:00 Hct 33.3 % (32.4-45.2) 01/20/18 06:00 MCV 89.7 fl (80-96) 01/20/18 06:00 MCH 28.8 pg (25.7-33.7) 01/20/18 06:00 MCHC 32.1 g/dl (32.0-36.0) 01/20/18 06:00 RDW 15.9 % (11.6-15.6) H 01/20/18 06:00 Plt Count 157 K/MM3 (134-434) 01/20/18 06:00 MPV 10.4 fl (7.5-11.1) 01/20/18 06:00 Absolute Neuts (auto) 5.7 # 01/20/18 06:00 Neutrophils % 73.4 % (42.8-82.8) 01/20/18 06:00 Lymphocytes % 14.5 % (8-40) D 01/20/18 06:00 Monocytes % 11.3 % (3.8-10.2) H 01/20/18 06:00 Eosinophils % 0.4 % (0-4.5) D 01/20/18 06:00 Basophils % 0.4 % (0-2.0) 01/20/18 06:00 Nucleated RBC % 0 % (0-0) 01/20/18 06:00 PT with INR 14.20 SEC (9.7-13.0) H 01/19/18 13:00 INR 1.26 (0.82-1.09) H 01/19/18 13:00 PTT (Actin FS) 23.5 SECONDS (25.2-36.5) L 01/19/18 13:00 VBG pH 7.39 (7.32-7.42) 01/19/18 13:00 POC VBG pCO2 36.5 mmHg (38-52) L 01/19/18 13:00 POC VBG pO2 30.4 mmHg (28-48) 01/19/18 13:00 Mixed VBG HCO3 21.7 meq/L (19-25) 01/19/18 13:00 Sodium 139 mmol/L (136-145) 01/20/18 06:00 Potassium 4.3 mmol/L (3.5-5.1) 01/20/18 06:00 Chloride 105 mmol/L (98-107) 01/20/18 06:00 Carbon Dioxide 27 mmol/L (21-32) 01/20/18 06:00 Anion Gap 7 (8-16) L 01/20/18 06:00 BUN 21 mg/dL (7-18) H 01/20/18 06:00 Creatinine 1.1 mg/dL (0.55-1.02) H 01/20/18 06:00 Creat Clearance w eGFR 47.67 (>60) 01/20/18 06:00 POC Glucometer 155 UNITS (80-120) 01/20/18 05:35 Random Glucose 143 mg/dL (74-106) H 01/20/18 06:00 Lactic Acid 1.7 mmol/L (0.0-2.0) 01/19/18 21:45 Calcium 8.3 mg/dL (8.5-10.1) L 01/20/18 06:00 Phosphorus 3.9 mg/dL (2.5-4.9) 01/20/18 06:00 Magnesium 2.6 mg/dL (1.8-2.4) H 01/20/18 06:00 Total Bilirubin 0.9 mg/dL (0.2-1.0) 01/20/18 06:00 AST 20 U/L (15-37) 01/20/18 06:00 ALT 18 U/L (12-78) 01/20/18 06:00 Alkaline Phosphatase 106 U/L (45-117) D 01/20/18 06:00 Creatine Kinase 178 IU/L (26-192) 01/20/18 06:00 Troponin I 5.07 ng/ml (0.00-0.05) H* 01/20/18 06:00 Total Protein 7.2 g/dl (6.4-8.2) 01/20/18 06:00 Albumin 2.8 g/dl (3.4-5.0) L 01/20/18 06:00 Triglycerides 106 mg/dL (35-160) 01/19/18 13:00 Cholesterol 195 mg/dL (50-200) 01/19/18 13:00 Total LDL Cholesterol 132 mg/dL (5-100) H 01/19/18 13:00 HDL Cholesterol 48 mg/dL (40-60) 01/19/18 13:00 Urine Color Yellow 01/19/18 20:45 Urine Appearance Cloudy 01/19/18 20:45 Urine pH 5.0 (5.0-8.0) 01/19/18 20:45 Ur Specific Panther Burn 1.029 (1.001-1.035) 01/19/18 20:45 Urine Protein 2+ (NEGATIVE) H 01/19/18 20:45 Urine Glucose (UA) Negative (NEGATIVE) 01/19/18 20:45 Urine Ketones Trace (NEGATIVE) H 01/19/18 20:45 Urine Blood Negative (NEGATIVE) 01/19/18 20:45 Urine Nitrite Negative (NEGATIVE) 01/19/18 20:45 Urine Bilirubin Negative (<2.0 mg/dL) 01/19/18 20:45 Urine Urobilinogen 2.0 mg/dL (0.2-1.0) H 01/19/18 20:45 Ur Leukocyte Esterase Negative (NEGATIVE) 01/19/18 20:45 Urine WBC (Auto) 3 /hpf (3-5) 01/19/18 20:45 Urine RBC (Auto) 4 /hpf (0-3) 01/19/18 20:45 Ur Epithelial Cells Many /HPF (FEW) 01/19/18 20:45 Urine Bacteria Few /hpf (NONE SEEN) 01/19/18 20:45 Urine Mucus Few 01/19/18 20:45 Blood Type A POSITIVE 01/19/18 13:07 Antibody Screen Negative 01/19/18 13:07 EKG: A flutter with variable block. No ischemic changes CXR: ?right infiltrate MIBI 10/10 (deena): AF/flutter, no STs; no ischemia (+ breast); nl EF, mild LVE, no TID SANTA 12/10: nl LV/RV, severe TANIKA, mild LAE; mild MR; mod-sev TR Echo 09/09: NL LV/RV; L/TANIKA, tethered MV with mod MR; mod TR; mod pHTN echo 08/2017: nl lv/rv, sev lae, mod tanika, mod mr/tr, mod phtn Carotids 12/10: SANJAY 80-99% stenosis tele: aflutter , rate ok a/p: 82 yo f, patient of Dr. Coley, with history of persistent atrial fibrillation/flutter s/p cardioversion with reversion back to flutter, dCHF with mod pHTN, DM, HTN/HL and carotid stenosis s/p R CEA 07/2015 who is here with right sided weakness. acute cva: -seen on mri -possibly related to afib/flutter (pt not on ac 07/30 gib) -on dapt -check echo, monitor on tele -neuro following chronic diastolic CHF: -stable, no vol overload -was on torsemide 20/40 qd alternating days at home -can hold for now until pt eating/drinking better aflutter - rate controlled off of meds - was on ac in past but had recurrent gib so it has been stopped and pt has been on dapt since then - she was also evaluated for watchman device but pt declined this - discussed ac, watchman again today but pt still declining HTN - resume home bp meds s/p CEA - cont atorvastatin, asa pos trops/possible nstemi: -trop mildly elevated with flat trend and normal ck. no cardiac sxs. no ischemic ecg changes. possibly trop related to cva. check echo for new wma's.
--- NOTE | 2018-01-20 11:28 | PN ---
Progress Note, Physician Chief Complaint: Ms Cooper says she is feeling better today now that she can eat. Still with right sided weakness and loss of sensation, unchanged. No cp, sob, n/v. - Current Medication List Current Medications: Active Medications Acetaminophen (Tylenol -) 650 mg PO Q4H PRN PRN Reason: PAIN LEVEL 1-5 Ascorbic Acid (Vitamin C -) 500 mg PO DAILY [facility] Last Admin: 01/20/18 09:24 Dose: 500 mg Aspirin (Asa -) 81 mg PO DAILY [facility] Last Admin: 01/20/18 09:24 Dose: 81 mg Atorvastatin Calcium (Lipitor -) 80 mg PO HS [facility] Last Admin: 01/19/18 23:54 Dose: 80 mg Clopidogrel Bisulfate (Plavix -) 75 mg PO DAILY [facility] Last Admin: 01/20/18 09:24 Dose: 75 mg Ferrous Sulfate (Feosol -) 325 mg PO DAILY [facility] Last Admin: 01/20/18 09:24 Dose: 325 mg Aztreonam 1 gm/ Dextrose 50 mls @ 100 mls/hr IVPB Q12H [facility]; Protocol Insulin Aspart (Novolog Vial Sliding Scale -) 1 vial SQ ACHS [facility]; Protocol Last Admin: 01/20/18 06:02 Dose: Not Given Metoprolol Tartrate (Lopressor -) 25 mg PO BID [facility] Pantoprazole Sodium (Protonix -) 40 mg PO DAILY [facility] Last Admin: 01/20/18 09:24 Dose: 40 mg - Objective Vital Signs: Vital Signs Temperature 37.0 C 01/20/18 05:55 Pulse Rate 64 01/20/18 05:55 Respiratory Rate 18 01/20/18 05:55 Blood Pressure 125/60 01/20/18 05:55 O2 Sat by Pulse Oximetry (%) 97 01/19/18 22:00 Constitutional: Yes: No Distress, Calm, Obese Cardiovascular: Yes: Pulse Irregular. No: Gallop, Murmur, Rub Respiratory: Yes: Regular, CTA Bilaterally. No: Rales, Rhonchi, Wheezes Gastrointestinal: Yes: Normal Bowel Sounds, Soft. No: Distention, Tenderness Extremities: Yes: WNL Edema: No Labs: CBC, BMP 01/20/18 06:00 01/20/18 06:00 INR, PTT INR 1.26 (0.82-1.09) H 01/19/18 13:00 Problem List - Problems (1) Acute CVA (cerebrovascular accident) Code(s): I63.9 - CEREBRAL INFARCTION, UNSPECIFIED (2) Atrial fibrillation and flutter Code(s): I48.91 - UNSPECIFIED ATRIAL FIBRILLATION; I48.92 - UNSPECIFIED ATRIAL FLUTTER (3) CHF (congestive heart failure) Code(s): I50.9 - HEART FAILURE, UNSPECIFIED (4) Elevated troponin Code(s): R74.8 - ABNORMAL LEVELS OF OTHER SERUM ENZYMES (5) HLD (hyperlipidemia) Code(s): E78.5 - HYPERLIPIDEMIA, UNSPECIFIED (6) Carotid artery stenosis Code(s): I65.29 - OCCLUSION AND STENOSIS OF UNSPECIFIED CAROTID ARTERY (7) Diabetes Code(s): E11.9 - TYPE 2 DIABETES MELLITUS WITHOUT COMPLICATIONS (8) HTN (hypertension), malignant Code(s): I10 - ESSENTIAL (PRIMARY) HYPERTENSION (9) Continued fever Code(s): R50.9 - FEVER, UNSPECIFIED Assessment/Plan (1) Acute CVA (cerebrovascular accident) Assessment/Plan: -appreciate neurology assistance -MRI positive for acute CVA -continue aspirin and plavix currently -continue max dose lipitor -cleared by speech therapy -PT following -ECHO reviewed -carotid dopplers pending Code(s): I63.9 - CEREBRAL INFARCTION, UNSPECIFIED (2) Atrial fibrillation and flutter Assessment/Plan: -cause of acute CVA -cardiology following -will add low dose metoprolol for both HTN and HR control -d/w patient possibility of future anticoagulation, will consider Code(s): I48.91 - UNSPECIFIED ATRIAL FIBRILLATION; I48.92 - UNSPECIFIED ATRIAL FLUTTER (3) CHF (congestive heart failure) Assessment/Plan: -not in exacerbation -holding torsemide and aldactone Code(s): I50.9 - HEART FAILURE, UNSPECIFIED (4) Elevated troponin Assessment/Plan: -ECHO reviewed -trending down -less likely NSTEMI -cardiology following -start metoprolol -may benefit from low dose ACEI, will follow blood pressure and renal function -continue to trend Code(s): R74.8 - ABNORMAL LEVELS OF OTHER SERUM ENZYMES (5) HLD (hyperlipidemia) Assessment/Plan: -LDL not in range -increased lipitor to 80mg Code(s): E78.5 - HYPERLIPIDEMIA, UNSPECIFIED (6) Carotid artery stenosis Assessment/Plan: -carotid artery ultrasound ordered -continue aspirin and plavix Code(s): I65.29 - OCCLUSION AND STENOSIS OF UNSPECIFIED CAROTID ARTERY (7) Diabetes Assessment/Plan: -diabetic diet -continue SSI Code(s): E11.9 - TYPE 2 DIABETES MELLITUS WITHOUT COMPLICATIONS (8) HTN (hypertension), malignant Assessment/Plan: -control blood pressure -add low dose metoprolol -consider ACEI if needed -will add back torsemide and aldactone prior to adding ACEI Code(s): I10 - ESSENTIAL (PRIMARY) HYPERTENSION (9) Continued fever Assessment/Plan: -currently resolved -? if secondary to immobility and stroke -urinalysis negative -await cultures -ID consulted but will stop antibiotics currently Code(s): R50.9 - FEVER, UNSPECIFIED
--- NOTE | 2018-01-20 14:51 | ECHO ---
Name: SEBASTIEN, HEATH Exam:Adult Echocardiogram Study Date: 01/20/2018 11:30 AM Age: 82 yrs Reason For Study: ACUTE CVA Height: 68 in Weight: 230 lb BSA: 2.2 m2 MMode/2D Measurements & Calculations IVSd: 1.0 cm Ao root diam: 2.9 cm LVIDd: 5.4 cm LA dimension: 4.0 cm LVIDs: 4.1 cm LVPWd: 0.80 cm EDV(Teich): 142.3 ml RV S Rj: 12.0 cm/sec ESV(Teich): 75.5 ml Doppler Measurements & Calculations MV E max rj: 67.6 cm/sec MR max rj: 500.7 cm/sec MV A max rj: 45.4 cm/sec MR max P.3 mmHg MV E/A: 1.5 MV dec time: 0.14 sec TR max rj: 227.3 cm/sec PI end-d rj: 89.3 cm/sec TR max P.2 mmHg Med Peak E' Rj: 7.3 cm/sec Med E/e': 9.2 Lat Peak E' Rj: 5.9 cm/sec Lat E/e': 11.5 Procedure A complete two-dimensional transthoracic echocardiogram was performed (2D, M-mode, Doppler and color flow Doppler). The study was technically difficult with many images being suboptimal in quality. Left Ventricle The left ventricular size, thickness and function are normal. Ejection Fraction = 55-60%. The left ve ntricular ejection fraction is normal. No regional wall motion abnormalities noted. Right Ventricle The right ventricle is normal in size and function. Atria The left atrium is mildly dilated. Right atrial size is normal. Mitral Valve There is moderate mitral regurgitation. Tricuspid Valve There is trace tricuspid regurgitation. Aortic Valve The aortic valve is trileaflet. No hemodynamically significant valvular aortic stenosis. No aortic regurgitation is present. Pulmonic Valve Trace pulmonic valvular regurgitation. Great Vessels The aortic root is normal size. Pericardium/Pleura There is no pericardial effusion. Interpretation Summary The study was technically difficult with many images being suboptimal in quality. The left ventricular size, thickness and function are normal. The right ventricle is normal in size and function. The left atrium is mildly dilated. There is moderate mitral regurgitation. There is trace tricuspid regurgitation. Trace pulmonic valvular regurgitation. MD Anirudh Hough 01/20/2018 02:50 PM
--- NOTE | 2018-01-20 16:06 | PN ---
Progress Note, Physician - Current Medication List Current Medications: Active Medications Acetaminophen (Tylenol -) 650 mg PO Q4H PRN PRN Reason: PAIN LEVEL 1-5 Ascorbic Acid (Vitamin C -) 500 mg PO DAILY [facility] Last Admin: 01/20/18 09:24 Dose: 500 mg Aspirin (Asa -) 81 mg PO DAILY [facility] Last Admin: 01/20/18 09:24 Dose: 81 mg Atorvastatin Calcium (Lipitor -) 80 mg PO HS [facility] Last Admin: 01/19/18 23:54 Dose: 80 mg Clopidogrel Bisulfate (Plavix -) 75 mg PO DAILY [facility] Last Admin: 01/20/18 09:24 Dose: 75 mg Ferrous Sulfate (Feosol -) 325 mg PO DAILY [facility] Last Admin: 01/20/18 09:24 Dose: 325 mg Insulin Aspart (Novolog Vial Sliding Scale -) 1 vial SQ ACHS [facility]; Protocol Last Admin: 01/20/18 12:01 Dose: Not Given Metoprolol Tartrate (Lopressor -) 25 mg PO BID [facility] Pantoprazole Sodium (Protonix -) 40 mg PO DAILY [facility] Last Admin: 01/20/18 09:24 Dose: 40 mg - Objective Vital Signs: Vital Signs Temperature 98.8 F 01/20/18 15:02 Pulse Rate 69 01/20/18 15:02 Respiratory Rate 18 01/20/18 15:02 Blood Pressure 161/76 01/20/18 15:02 O2 Sat by Pulse Oximetry (%) 97 01/20/18 10:00 Labs: CBC, BMP 01/20/18 06:00 01/20/18 06:00 INR, PTT INR 1.26 (0.82-1.09) H 01/19/18 13:00
[2018-01-20] MEDS: AZTREONAM 1 GM in DEXTROSE 5%-WATER - 50 ML IVPB SCH ×2 (16:09→17:53)
[2018-01-20] MEDS: ACETAMINOPHEN 325 MG TABLET (FP) PO PRN ×2 (18:26→23:04)
[2018-01-20] MEDS: METOPROLOL TARTRATE 25 MG TABLET (FP) PO SCH (21:23)
[2018-01-20] MEDS: ATORVASTATIN CA 80 MG TABLET (FP) PO SCH (21:23)
[2018-01-21] MEDS: INSULIN SLIDING SCALE (NOVOLOG) 1 VIAL SQ SCH ×4 (06:04→22:26)
[2018-01-21 08:20] LABS: BASO % 0.4 % (0-2.0); EOS % 1.1 % (0-4.5); HEMATOCRIT 36.4 % (32.4-45.2); HEMOGLOBIN 11.8 GM/dL (10.7-15.3); LYMPH % 22.4 % (8-40); MCH 28.9 pg (25.7-33.7); MCHC 32.4 g/dl (32.0-36.0); MEAN CELL VOLUME 89.4 fl (80-96); MEAN PLT VOLUME 10.6 fl (7.5-11.1); NEUT % 65.1 % (42.8-82.8); PLATELET COUNT 178 K/MM3 (134-434); RBC 4.07 M/mm3 (3.60-5.2); RDW 15.4 % (11.6-15.6); WHITE BLOOD COUNT 6.4 K/mm3 (4.0-10.0)
[2018-01-21 08:22] LABS: CHLORIDE 106 mmol/L (98-107); POTASSIUM 4.6 mmol/L (3.5-5.1); SODIUM 142 mmol/L (136-145)
[2018-01-21 08:28] LABS: ANION GAP 9 (8-16); BLOOD UREA NITROGEN 26 mg/dL (7-18); CALCIUM 8.6 mg/dL (8.5-10.1); CO2 27 mmol/L (21-32); CREATININE 1.1 mg/dL (0.55-1.02); GLUCOSE,RANDOM 156 mg/dL (74-106); MAGNESIUM 2.8 mg/dL (1.8-2.4); PHOSPHOROUS 4.5 mg/dL (2.5-4.9)
--- NOTE | 2018-01-21 09:22 | PN ---
Progress Note (short form) - Note Progress Note: Neurology History of Present Illness: 82 year old female coming in with complaint of weakness. Per patient, symptoms began on Tuesday 01/16, morning when went to the bathroom and she says she felt very weak and had a difficulty with ambulation. She said it was mainly her right sideed and went to bed. Reportedly not found until daughter who brought her in the following Wednesday. I was contacted by ER and patient was out of TPA window. CT head was completed and without acute changes. MRI brain done the night of admission and showed L striatial and capsular infarcts, also in L insula and L external capsule. Not large in size but has hemiplegia in RUE and b /l LE. Patient on ASA, plavix. Further complication is she also has elevated troponins which cardiology would typically treat possible UT with anticoagulation. However, given recent CVA, was not recommend. However, can be started now if cardiology desires. 5 days since symptoms onset and lower risk for hemoragic conversion. Patient does have prior h/o of bleed on Xarelto so AC may not be pursued at all, defer to cards. Discussed all this with daughter, Josie, and other daughter at bedside today. Echo reviewed and nml LV function, RV nml size and function, moderate TR. Also discussed importance of therapy, likely rehab placement (she [facility], but [place]). No new neurologic events overnight or this. No significant change in exam. Active Medications Acetaminophen (Tylenol -) 650 mg PO Q4H PRN PRN Reason: PAIN LEVEL 1-5 Last Admin: 01/20/18 23:04 Dose: 650 mg Ascorbic Acid (Vitamin C -) 500 mg PO DAILY [facility] Last Admin: 01/20/18 09:24 Dose: 500 mg Aspirin (Asa -) 81 mg PO DAILY [facility] Last Admin: 01/20/18 09:24 Dose: 81 mg Atorvastatin Calcium (Lipitor -) 80 mg PO HS [facility] Last Admin: 01/20/18 21:23 Dose: 80 mg Clopidogrel Bisulfate (Plavix -) 75 mg PO DAILY [facility] Last Admin: 01/20/18 09:24 Dose: 75 mg Ferrous Sulfate (Feosol -) 325 mg PO DAILY [facility] Last Admin: 01/20/18 09:24 Dose: 325 mg Insulin Aspart (Novolog Vial Sliding Scale -) 1 vial SQ [facility]; Protocol Last Admin: 01/21/18 06:04 Dose: Not Given Metoprolol Tartrate (Lopressor -) 25 mg PO BID [facility] Last Admin: 01/20/18 21:23 Dose: 25 mg Pantoprazole Sodium (Protonix -) 40 mg PO DAILY [facility] Last Admin: 01/20/18 09:24 Dose: 40 mg Vital Signs Period Temp Pulse Resp BP Sys/Vasquez Pulse Ox Last 24 Hr 97.5 F-99.6 F 53-84 18-20 124-161/52-88 97-97 Constitutional: Yes: No Distress, Calm, Obese Eyes: Yes: Conjunctiva Clear, EOM Intact, PERRL HENT: Yes: Atraumatic, Normocephalic Cardiovascular: Yes: Pulse Irregular. No: Tachycardia, Gallop, Murmur, Rub Respiratory: Yes: Regular, CTA Bilaterally. No: Rales, Rhonchi, Wheezes Gastrointestinal: Yes: Normal Bowel Sounds, Soft. No: Distention, Tenderness Neurological: R Facial droop noted, diminished PP on RUE and RLE, 0/5 in b/l LE , 0/5 in RUE, 5-/5 in LUE. CBCD WBC 6.4 K/mm3 (4.0-10.0) 01/21/18 06:58 RBC 4.07 M/mm3 (3.60-5.2) 01/21/18 06:58 Hgb 11.8 GM/dL (10.7-15.3) 01/21/18 06:58 Hct 36.4 % (32.4-45.2) 01/21/18 06:58 MCV 89.4 fl (80-96) 01/21/18 06:58 MCHC 32.4 g/dl (32.0-36.0) 01/21/18 06:58 RDW 15.4 % (11.6-15.6) 01/21/18 06:58 Plt Count 178 K/MM3 (134-434) 01/21/18 06:58 MPV 10.6 fl (7.5-11.1) 01/21/18 06:58 CMP Sodium 142 mmol/L (136-145) 01/21/18 06:58 Potassium 4.6 mmol/L (3.5-5.1) 01/21/18 06:58 Chloride 106 mmol/L (98-107) 01/21/18 06:58 Carbon Dioxide 27 mmol/L (21-32) 01/21/18 06:58 Anion Gap 9 (8-16) 01/21/18 06:58 BUN 26 mg/dL (7-18) H 01/21/18 06:58 Creatinine 1.1 mg/dL (0.55-1.02) H 01/21/18 06:58 Creat Clearance w eGFR 47.67 (>60) 01/21/18 06:58 Random Glucose 156 mg/dL (74-106) H 01/21/18 06:58 Calcium 8.6 mg/dL (8.5-10.1) 01/21/18 06:58 Total Bilirubin 0.9 mg/dL (0.2-1.0) 01/20/18 06:00 AST 20 U/L (15-37) 01/20/18 06:00 ALT 18 U/L (12-78) 01/20/18 06:00 Alkaline Phosphatase 106 U/L (45-117) D 01/20/18 06:00 Total Protein 7.2 g/dl (6.4-8.2) 01/20/18 06:00 Albumin 2.8 g/dl (3.4-5.0) L 01/20/18 06:00 CARDIAC ENZYMES Creatine Kinase 237 IU/L (26-192) H 01/21/18 06:58 Troponin I 4.25 ng/ml (0.00-0.05) H* 01/21/18 06:[address] head reviewed MRI brain reviewed Echo reviewed Plan: 82 year old female coming in with complaint of weakness. Per patient, symptoms began on Tuesday 01/16, morning when went to the bathroom and she says she felt very weak and had a difficulty with ambulation. She said it was mainly her right sideed and went to bed. Reportedly not found until daughter who brought her in the following Wednesday. I was contacted by ER and patient was out of TPA window. CT head was completed and without acute changes. MRI brain done the of admission and showed L striatial and capsular infarcts, also in L insula and L external capsule. Not large in size but has hemiplegia in RUE and b/l LE. Can continue ASA, plavix. From neuro point of view can be started on AC 5 days since symptoms onset and lower risk for hemoragic conversion. Patient does have prior h/o of bleed on Xarelto so AC may not be pursued at all , defer to cards. Discussed all this with daughter, Josie, at bedside in detail again along with second daughter Also discussed importance of therapy, likely rehab placement (she lives in [facility] , but interested in [place]) Continue Statin 80mg for now, goal LDL < 70 Monitor Afib, CVA likely embolic based on distribution Monitor glucose, maintain normal range Monitor bp, would recommend < 140/90 Permissive HTN no longer required Placement planning
[2018-01-21] MEDS: METOPROLOL TARTRATE 25 MG TABLET (FP) PO SCH ×2 (10:15→22:29)
[2018-01-21] MEDS: ASPIRIN 81 MG CHEWABLE TABLETS PO SCH (10:15)
[2018-01-21] MEDS: ASCORBIC ACID 500 MG TABLET (FP) PO SCH (10:15)
[2018-01-21] MEDS: CLOPIDOGREL BISULFATE 75 MG TABLET (FP) PO SCH (10:15)
[2018-01-21] MEDS: ACETAMINOPHEN 325 MG TABLET (FP) PO PRN (10:17)
--- NOTE | 2018-01-21 11:19 | PN ---
Progress Note (short form) - Note Progress Note: s: no cp sob palps dizzy no cigs o: Vital Signs Temp 98 F 01/21/18 10:00 Pulse 64 01/21/18 10:00 Resp 20 01/21/18 10:00 BP 144/65 01/21/18 10:00 Pulse Ox 97 01/20/18 20:45 Intake & Output 01/20/18 01/20/18 01/21/18 11:59 23:59 11:59 Intake Total 0 450 Balance 0 450 Intake: Oral 0 450 Other: Voiding Method Toilet Toilet # Unmeasured Voids Void 1 1 Bowel Movement No No NAD, calm JVD flat, neck supple CTAB, nl effort Irregular rhythm, regular rate nl s1, s2 no m/r/g + bs soft nt nd ext with trace edema, no clubbing or cyanosis + dp/pt, no carotid bruits no jaundice, diaphoresis Current Medications Generic Name Dose Route Start Last Admin Trade Name Freq PRN Reason Stop Dose Admin Acetaminophen 650 mg 01/19/18 16:27 01/21/18 10:17 Tylenol - PO 650 mg Q4H PRN Administration PAIN LEVEL 1-5 Ascorbic Acid 500 mg 01/20/18 10:00 01/21/18 10:15 Vitamin C - PO 500 mg DAILY [facility] Administration Aspirin 81 mg 01/19/18 17:00 01/21/18 10:15 Asa - PO 81 mg DAILY [facility] Administration Atorvastatin Calcium 80 mg 01/19/18 22:00 01/20/18 21:23 Lipitor - PO 80 mg HS [facility] Administration Clopidogrel Bisulfate 75 mg 01/19/18 17:00 01/21/18 10:15 Plavix - PO 75 mg DAILY [facility] Administration Ferrous Sulfate 325 mg 01/20/18 10:00 01/20/18 09:24 Feosol - PO 325 mg DAILY [facility] Administration Insulin Aspart 1 vial 01/19/18 16:30 01/21/18 06:04 Novolog Vial Sliding Scale - SQ Not Given ACHS [facility] Protocol Metoprolol Tartrate 25 mg 01/20/18 22:00 01/21/18 10:15 Lopressor - PO 25 mg BID [facility] Administration Pantoprazole Sodium 40 mg 01/20/18 10:00 01/20/18 09:24 Protonix - PO 40 mg DAILY [facility] Administration Laboratory Last Values WBC 6.4 K/mm3 (4.0-10.0) 01/21/18 06:58 RBC 4.07 M/mm3 (3.60-5.2) 01/21/18 06:58 Hgb 11.8 GM/dL (10.7-15.3) 01/21/18 06:58 Hct 36.4 % (32.4-45.2) 01/21/18 06:58 MCV 89.4 fl (80-96) 01/21/18 06:58 MCH 28.9 pg (25.7-33.7) 01/21/18 06:58 MCHC 32.4 g/dl (32.0-36.0) 01/21/18 06:58 RDW 15.4 % (11.6-15.6) 01/21/18 06:58 Plt Count 178 K/MM3 (134-434) 01/21/18 06:58 MPV 10.6 fl (7.5-11.1) 01/21/18 06:58 Absolute Neuts (auto) 4.2 # 01/21/18 06:58 Neutrophils % 65.1 % (42.8-82.8) 01/21/18 06:58 Lymphocytes % 22.4 % (8-40) D 01/21/18 06:58 Monocytes % 11.0 % (3.8-10.2) H 01/21/18 06:58 Eosinophils % 1.1 % (0-4.5) D 01/21/18 06:58 Basophils % 0.4 % (0-2.0) 01/21/18 06:58 Nucleated RBC % 0 % (0-0) 01/21/18 06:58 PT with INR 14.20 SEC (9.7-13.0) H 01/19/18 13:00 INR 1.26 (0.82-1.09) H 01/19/18 13:00 PTT (Actin FS) 23.5 SECONDS (25.2-36.5) L 01/19/18 13:00 VBG pH 7.39 (7.32-7.42) 01/19/18 13:00 POC VBG pCO2 36.5 mmHg (38-52) L 01/19/18 13:00 POC VBG pO2 30.4 mmHg (28-48) 01/19/18 13:00 Mixed VBG HCO3 21.7 meq/L (19-25) 01/19/18 13:00 Sodium 142 mmol/L (136-145) 01/21/18 06:58 Potassium 4.6 mmol/L (3.5-5.1) 01/21/18 06:58 Chloride 106 mmol/L (98-107) 01/21/18 06:58 Carbon Dioxide 27 mmol/L (21-32) 01/21/18 06:58 Anion Gap 9 (8-16) 01/21/18 06:58 BUN 26 mg/dL (7-18) H 01/21/18 06:58 Creatinine 1.1 mg/dL (0.55-1.02) H 01/21/18 06:58 Creat Clearance w eGFR 47.67 (>60) 01/21/18 06:58 POC Glucometer 153 UNITS (80-120) 01/21/18 05:22 Random Glucose 156 mg/dL (74-106) H 01/21/18 06:58 Lactic Acid 1.7 mmol/L (0.0-2.0) 01/19/18 21:45 Calcium 8.6 mg/dL (8.5-10.1) 01/21/18 06:58 Phosphorus 4.5 mg/dL (2.5-4.9) 01/21/18 06:58 Magnesium 2.8 mg/dL (1.8-2.4) H 01/21/18 06:58 Total Bilirubin 0.9 mg/dL (0.2-1.0) 01/20/18 06:00 AST 20 U/L (15-37) 01/20/18 06:00 ALT 18 U/L (12-78) 01/20/18 06:00 Alkaline Phosphatase 106 U/L (45-117) D 01/20/18 06:00 Creatine Kinase 237 IU/L (26-192) H 01/21/18 06:58 Creatine Kinase Index 1.0 % (0.0-5.0) 01/21/18 06:58 CK-MB (CK-2) 2.44 ng/mL (0.5-3.6) 01/21/18 06:58 Troponin I 4.25 ng/ml (0.00-0.05) H* 01/21/18 06:58 Total Protein 7.2 g/dl (6.4-8.2) 01/20/18 06:00 Albumin 2.8 g/dl (3.4-5.0) L 01/20/18 06:00 Triglycerides 106 mg/dL (35-160) 01/19/18 13:00 Cholesterol 195 mg/dL (50-200) 01/19/18 13:00 Total LDL Cholesterol 132 mg/dL (5-100) H 01/19/18 13:00 HDL Cholesterol 48 mg/dL (40-60) 01/19/18 13:00 Urine Color Yellow 01/19/18 20:45 Urine Appearance Cloudy 01/19/18 20:45 Urine pH 5.0 (5.0-8.0) 01/19/18 20:45 Ur Specific [place] 1.029 (1.001-1.035) 01/19/18 20:45 Urine Protein 2+ (NEGATIVE) H 01/19/18 20:45 Urine Glucose (UA) Negative (NEGATIVE) 01/19/18 20:45 Urine Ketones Trace (NEGATIVE) H 01/19/18 20:45 Urine Blood Negative (NEGATIVE) 01/19/18 20:45 Urine Nitrite Negative (NEGATIVE) 01/19/18 20:45 Urine Bilirubin Negative (<2.0 mg/dL) 01/19/18 20:45 Urine Urobilinogen 2.0 mg/dL (0.2-1.0) H 01/19/18 20:45 Ur Leukocyte Esterase Negative (NEGATIVE) 01/19/18 20:45 Urine WBC (Auto) 3 /hpf (3-5) 01/19/18 20:45 Urine RBC (Auto) 4 /hpf (0-3) 01/19/18 20:45 Ur Epithelial Cells Many /HPF (FEW) 01/19/18 20:45 Urine Bacteria Few /hpf (NONE SEEN) 01/19/18 20:45 Urine Mucus Few 01/19/18 20:45 Blood Type A POSITIVE 01/19/18 13:07 Antibody Screen Negative 01/19/18 13:07 EKG: A flutter with variable block. No ischemic changes CXR: ?right infiltrate MIBI 10/10 (deena): AF/flutter, no STs; no ischemia (+ breast); nl EF, mild LVE, no TID SANTA 12/10: nl LV/RV, severe TANIKA, mild LAE; mild MR; mod-sev TR Echo 09/09: NL LV/RV; L/TANIKA, tethered MV with mod MR; mod TR; mod pHTN echo 08/2017: nl lv/rv, sev lae, mod tanika, mod mr/tr, mod phtn echo12/2017: tds; nl lv/rv, lae, mod mr Carotids 12/10: SANJAY 80-99% stenosis tele: aflutter , rate ok a/p: 82 yo f, patient of Dr. Coley, with history of persistent atrial fibrillation/flutter s/p cardioversion with reversion back to flutter, dCHF with mod pHTN, DM, HTN/HL and carotid stenosis s/p R CEA 07/2015 who is here with right sided weakness. acute cva: -seen on mri -possibly related to afib/flutter (pt not on ac 07/30 gib) -on dapt -neuro following chronic diastolic CHF: -stable, no vol overload -was on torsemide 20/40 qd alternating days at home -can hold for now until pt eating/drinking better aflutter - rate controlled off of meds - was on ac in past but had recurrent gib so it has been stopped and pt has been on dapt since then - she was also evaluated for watchman device but pt declined this - discussed ac, watchman again while here but pt still declining HTN - controlled on bb s/p CEA - cont atorvastatin, asa pos trops/possible nstemi: -trop mildly elevated with flat trend and normal ck. no cardiac sxs. no ischemic ecg changes. echo with preserved lvef. possibly trop related to cva, not acs. cardiac groves stable
[2018-01-21] MEDS ORDERED: morphine CARPU-JECT 2 MG/1 ML DISP.SYRIN IVPUSH PRN (12:22)
[2018-01-21 12:26] VITALS: BMI 35.1
[2018-01-21] MEDS ORDERED: morphine SULFATE 4 MG/ML VIAL ONE (12:27)
[2018-01-21] MEDS ORDERED: SODIUM CHLORIDE 250 ML IV STA (12:44)
--- NOTE | 2018-01-21 13:26 | PN ---
Progress Note, Physician - Current Medication List Current Medications: Active Medications Acetaminophen (Tylenol -) 650 mg PO Q4H PRN PRN Reason: PAIN LEVEL 1-5 Last Admin: 01/21/18 10:17 Dose: 650 mg Ascorbic Acid (Vitamin C -) 500 mg PO DAILY [facility] Last Admin: 01/21/18 10:15 Dose: 500 mg Aspirin (Asa -) 81 mg PO DAILY [facility] Last Admin: 01/21/18 10:15 Dose: 81 mg Atorvastatin Calcium (Lipitor -) 80 mg PO HS [facility] Last Admin: 01/20/18 21:23 Dose: 80 mg Clopidogrel Bisulfate (Plavix -) 75 mg PO DAILY [facility] Last Admin: 01/21/18 10:15 Dose: 75 mg Ferrous Sulfate (Feosol -) 325 mg PO DAILY [facility] Last Admin: 01/20/18 09:24 Dose: 325 mg Sodium Chloride (Normal Saline -) 250 mls @ 42 mls/hr IV ASDIR STA Stop: 01/21/18 18:41 Insulin Aspart (Novolog Vial Sliding Scale -) 1 vial SQ [facility]; Protocol Last Admin: 01/21/18 12:45 Dose: Not Given Metoprolol Tartrate (Lopressor -) 25 mg PO BID [facility] Last Admin: 01/21/18 10:15 Dose: 25 mg Morphine Sulfate (Morphine Injection -) 1 mg IVPUSH Q6H PRN PRN Reason: PAIN LEVEL 6-10 Pantoprazole Sodium (Protonix -) 40 mg PO DAILY [facility] Last Admin: 01/20/18 09:24 Dose: 40 mg - Objective Vital Signs: Vital Signs Temperature 98 F 01/21/18 10:00 Pulse Rate 64 01/21/18 10:00 Respiratory Rate 20 01/21/18 10:00 Blood Pressure 144/65 01/21/18 10:00 O2 Sat by Pulse Oximetry (%) 97 01/20/18 20:45 Labs: CBC, BMP 01/21/18 06:58 01/21/18 06:58 INR, PTT INR 1.26 (0.82-1.09) H 01/19/18 13:00
[2018-01-21] MEDS: PANTOPRAZOLE 40 MG TABLET (FP) PO SCH (13:35)
[2018-01-21] MEDS: FERROUS SO4 325 MG TABLET (FP) PO SCH (13:35)
--- NOTE | 2018-01-21 14:18 | EKG ---
Test Reason : Blood Pressure : / mmHG Vent. Rate : 057 BPM Atrial Rate : 046 BPM P-R Int : 312 ms QRS Dur : 138 ms QT Int : 556 ms P-R-T Axes : 018 026 -15 degrees QTc Int : 541 ms NORMAL SINUS RHYTHM 0CC PREMATURE VENTRICULAR COMPLEXES 1 st degree AVB NON-SPECIFIC INTRA-VENTRICULAR CONDUCTION BLOCK POSSIBLE ANTEROLATERAL INFARCT (CITED ON OR BEFORE 19-JAN-2018) T WAVE ABNORMALITY, CONSIDER INFERIOR ISCHEMIA ABNORMAL ECG Confirmed by YUMI CORONADO MD ([id number]) on 01/21/2018 2:18:09 PM Referred By: BARNEY YAP DR Confirmed By:YUMI CORONADO MD
[2018-01-21] MEDS ORDERED: SIMETHICONE 40 MG/0.6 ML BOTTLE PO PRN (14:59)
--- NOTE | 2018-01-21 16:01 | PN ---
Progress Note, Physician Chief Complaint: Ms Cooper is in acute distress upon seeing. She is diaphoretic and complaining of severe nausea and left back and shoulder pain. Unable to obtain further subjective until after receiving morphine where she says she feels better but still with nausea. - Current Medication List Current Medications: Active Medications Acetaminophen (Tylenol -) 650 mg PO Q4H PRN PRN Reason: PAIN LEVEL 1-5 Last Admin: 01/21/18 10:17 Dose: 650 mg Ascorbic Acid (Vitamin C -) 500 mg PO DAILY [facility] Last Admin: 01/21/18 10:15 Dose: 500 mg Aspirin (Asa -) 81 mg PO DAILY [facility] Last Admin: 01/21/18 10:15 Dose: 81 mg Atorvastatin Calcium (Lipitor -) 80 mg PO HS [facility] Last Admin: 01/20/18 21:23 Dose: 80 mg Clopidogrel Bisulfate (Plavix -) 75 mg PO DAILY [facility] Last Admin: 01/21/18 10:15 Dose: 75 mg Ferrous Sulfate (Feosol -) 325 mg PO DAILY [facility] Last Admin: 01/21/18 13:35 Dose: Not Given Sodium Chloride (Normal Saline -) 250 mls @ 42 mls/hr IV ASDIR STA Stop: 01/21/18 18:41 Last Admin: 01/21/18 12:30 Dose: 42 mls/hr Insulin Aspart (Novolog Vial Sliding Scale -) 1 vial SQ ACHS [facility]; Protocol Last Admin: 01/21/18 12:45 Dose: Not Given Metoprolol Tartrate (Lopressor -) 25 mg PO BID [facility] Last Admin: 01/21/18 10:15 Dose: 25 mg Morphine Sulfate (Morphine Injection -) 1 mg IVPUSH Q6H PRN PRN Reason: PAIN LEVEL 6-10 Last Admin: 01/21/18 12:30 Dose: 1 mg Pantoprazole Sodium (Protonix -) 40 mg PO DAILY [facility] Last Admin: 01/21/18 13:35 Dose: Not Given Simethicone (Mylicon Liquid -) 80 mg PO QID PRN PRN Reason: GAS Last Admin: 01/21/18 15:32 Dose: 80 mg - Objective Vital Signs: Vital Signs Temperature 36.6 C 01/21/18 10:00 Pulse Rate 64 01/21/18 10:00 Respiratory Rate 20 01/21/18 10:00 Blood Pressure 144/65 01/21/18 10:00 O2 Sat by Pulse Oximetry (%) 97 01/20/18 20:45 Constitutional: Yes: Diaphoresis, Mild Distress, Obese Cardiovascular: Yes: Pulse Irregular. No: Tachycardia, Gallop, Murmur, Rub Respiratory: Yes: CTA Bilaterally, On Nasal O2, Tachypnea. No: Regular, Rales, Rhonchi, Wheezes Gastrointestinal: Yes: Normal Bowel Sounds, Soft. No: Distention, Tenderness Extremities: Yes: WNL Edema: No Labs: CBC, BMP 01/21/18 06:58 01/21/18 06:58 INR, PTT INR 1.26 (0.82-1.09) H 01/19/18 13:00 Problem List - Problems (1) Acute CVA (cerebrovascular accident) Code(s): I63.9 - CEREBRAL INFARCTION, UNSPECIFIED (2) Atrial fibrillation and flutter Code(s): I48.91 - UNSPECIFIED ATRIAL FIBRILLATION; I48.92 - UNSPECIFIED ATRIAL FLUTTER (3) CHF (congestive heart failure) Code(s): I50.9 - HEART FAILURE, UNSPECIFIED (4) Elevated troponin Code(s): R74.8 - ABNORMAL LEVELS OF OTHER SERUM ENZYMES (5) HLD (hyperlipidemia) Code(s): E78.5 - HYPERLIPIDEMIA, UNSPECIFIED (6) Carotid artery stenosis Code(s): I65.29 - OCCLUSION AND STENOSIS OF UNSPECIFIED CAROTID ARTERY (7) Diabetes Code(s): E11.9 - TYPE 2 DIABETES MELLITUS WITHOUT COMPLICATIONS (8) HTN (hypertension), malignant Code(s): I10 - ESSENTIAL (PRIMARY) HYPERTENSION (9) Continued fever Code(s): R50.9 - FEVER, UNSPECIFIED Assessment/Plan (1) Acute CVA (cerebrovascular accident) Assessment/Plan: -appreciate neurology assistance -MRI positive for acute CVA -continue aspirin and plavix currently -continue max dose lipitor -plan for rehab when stable Code(s): I63.9 - CEREBRAL INFARCTION, UNSPECIFIED (2) Atrial fibrillation and flutter Assessment/Plan: -continue metoprolol -rate controlled -no AC currently Code(s): I48.91 - UNSPECIFIED ATRIAL FIBRILLATION; I48.92 - UNSPECIFIED ATRIAL FLUTTER (3) CHF (congestive heart failure) Assessment/Plan: -not in exacerbation -holding torsemide and aldactone -will give NS 250ml x1 Code(s): I50.9 - HEART FAILURE, UNSPECIFIED (4) Elevated troponin Assessment/Plan: -presentation concerning for ACS -case d/w cardiology -stat EKG reviewed, unchanged -given dose of morphine, symptoms improved -on max medical management with exception of ACEI but bp can not tolerate at this time -troponin trending down -check second troponin in 6 hours Code(s): R74.8 - ABNORMAL LEVELS OF OTHER SERUM ENZYMES (5) HLD (hyperlipidemia) Assessment/Plan: -LDL not in range -increased lipitor to 80mg Code(s): E78.5 - HYPERLIPIDEMIA, UNSPECIFIED (6) Carotid artery stenosis Assessment/Plan: -carotid artery ultrasound recently performed, does not need to be repeated -continue aspirin and plavix Code(s): I65.29 - OCCLUSION AND STENOSIS OF UNSPECIFIED CAROTID ARTERY (7) Diabetes Assessment/Plan: -diabetic diet -continue SSI Code(s): E11.9 - TYPE 2 DIABETES MELLITUS WITHOUT COMPLICATIONS (8) HTN (hypertension), malignant Assessment/Plan: -control blood pressure -add low dose metoprolol -consider ACEI if needed -will add back torsemide and aldactone prior to adding ACEI Code(s): I10 - ESSENTIAL (PRIMARY) HYPERTENSION (9) Continued fever Assessment/Plan: -resolved Code(s): R50.9 - FEVER, UNSPECIFIED 40 minutes spent in care of this patient
[2018-01-21] MEDS ORDERED: LORazepam 2 MG/ML SDV VIAL IVPUSH PRN (16:17)
[2018-01-21] MEDS: MORPHINE SULFATE 2 MG/ML VIAL IVPUSH PRN (19:49)
[2018-01-21] MEDS: ATORVASTATIN CA 80 MG TABLET (FP) PO SCH (22:27)
[2018-01-22] MEDS: INSULIN SLIDING SCALE (NOVOLOG) 1 VIAL SQ SCH ×4 (07:36→22:26)
[2018-01-22 07:46] LABS: BASO % 0.3 % (0-2.0); EOS % 1.8 % (0-4.5); HEMATOCRIT 32.3 % (32.4-45.2); HEMOGLOBIN 10.4 GM/dL (10.7-15.3); LYMPH % 25.9 % (8-40); MCHC 32.3 g/dl (32.0-36.0); MEAN CELL VOLUME 89.8 fl (80-96); MEAN PLT VOLUME 10.2 fl (7.5-11.1); MONO % 9.8 % (3.8-10.2); NEUT % 62.2 % (42.8-82.8); PLATELET COUNT 168 K/MM3 (134-434); RDW 15.3 % (11.6-15.6); WHITE BLOOD COUNT 5.8 K/mm3 (4.0-10.0)
[2018-01-22 08:06] LABS: ANION GAP 6 (8-16); BLOOD UREA NITROGEN 31 mg/dL (7-18); CALCIUM 8.2 mg/dL (8.5-10.1); CHLORIDE 104 mmol/L (98-107); CO2 29 mmol/L (21-32); GLUCOSE,RANDOM 131 mg/dL (74-106); MAGNESIUM 2.7 mg/dL (1.8-2.4); POTASSIUM 4.6 mmol/L (3.5-5.1); SODIUM 139 mmol/L (136-145)
[2018-01-22 08:13] LABS: PHOSPHOROUS 3.7 mg/dL (2.5-4.9)
--- NOTE | 2018-01-22 08:52 | PN ---
Progress Note, Physician Chief Complaint: No new complaints remained hemodynamically stable - Current Medication List Current Medications: Active Medications Acetaminophen (Tylenol -) 650 mg PO Q4H PRN PRN Reason: PAIN LEVEL 1-5 Last Admin: 01/21/18 10:17 Dose: 650 mg Ascorbic Acid (Vitamin C -) 500 mg PO DAILY [facility] Last Admin: 01/21/18 10:15 Dose: 500 mg Aspirin (Asa -) 81 mg PO DAILY [facility] Last Admin: 01/21/18 10:15 Dose: 81 mg Atorvastatin Calcium (Lipitor -) 80 mg PO HS [facility] Last Admin: 01/21/18 22:27 Dose: 80 mg Clopidogrel Bisulfate (Plavix -) 75 mg PO DAILY [facility] Last Admin: 01/21/18 10:15 Dose: 75 mg Ferrous Sulfate (Feosol -) 325 mg PO DAILY [facility] Last Admin: 01/21/18 13:35 Dose: Not Given Insulin Aspart (Novolog Vial Sliding Scale -) 1 vial SQ [facility]; Protocol Last Admin: 01/22/18 07:36 Dose: Not Given Lorazepam (Ativan Injection -) 0.5 mg IVPUSH Q8H PRN PRN Reason: NAUSEA Metoprolol Tartrate (Lopressor -) 25 mg PO BID [facility] Last Admin: 01/21/18 22:29 Dose: Not Given Morphine Sulfate (Morphine Sulfate) 1 mg IVPUSH Q6H PRN PRN Reason: PAIN LEVEL 6-10 Last Admin: 01/21/18 19:49 Dose: 1 mg Pantoprazole Sodium (Protonix -) 40 mg PO DAILY [facility] Last Admin: 01/21/18 13:35 Dose: Not Given Simethicone (Mylicon Liquid -) 80 mg PO QID PRN PRN Reason: GAS Last Admin: 01/21/18 15:32 Dose: 80 mg - Objective Vital Signs: Vital Signs Temperature 97.8 F 01/22/18 06:00 Pulse Rate 60 01/22/18 06:00 Respiratory Rate 18 01/22/18 06:00 Blood Pressure 141/68 01/22/18 06:00 O2 Sat by Pulse Oximetry (%) 97 01/21/18 21:00 Elderly F not in distress HEENT: Mm moist, mild anemia NECK: No JVD No Bruit CHEST: CTA b/L CVS; s1S2 Irr ABD: No distention, non tender Bs + EXT: No edema feet STUMP BLOWER: AOx3 Rt sided weakness Labs: CBC, BMP 01/22/18 06:00 01/22/18 06:00 INR, PTT INR 1.26 (0.82-1.09) H 01/19/18 13:00 Problem List - Problems (1) Acute CVA (cerebrovascular accident) Assessment/Plan: With Afib not on AC Cont ASA, Plavix, BP optimization and PT evaluation., Neurology on the case, MRI shows new Left Striatal infarct Code(s): I63.9 - CEREBRAL INFARCTION, UNSPECIFIED (2) NSTEMI (non-ST elevated myocardial infarction) Assessment/Plan: Elevated troponin on admission now Plateued , cont Statin, B Blockers, ASA and Plavix F/U Cardiology recommendations. Code(s): I21.4 - NON-ST ELEVATION (NSTEMI) MYOCARDIAL INFARCTION (3) Permanent atrial fibrillation Assessment/Plan: Not on AC due to H/O GI bleed in the past , AC was offerred patient declined cont ASA and Plavix Code(s): I48.2 - CHRONIC ATRIAL FIBRILLATION (4) Diastolic CHF Assessment/Plan: Compensated Code(s): I50.30 - UNSPECIFIED DIASTOLIC (CONGESTIVE) HEART FAILURE Qualifiers: Heart failure chronicity: chronic Qualified Code(s): I50.32 - Chronic diastolic (congestive) heart failure (5) HLD (hyperlipidemia) Assessment/Plan: Cont Statin Code(s): E78.5 - HYPERLIPIDEMIA, UNSPECIFIED (6) Carotid artery stenosis Assessment/Plan: Cont Statin Plavix and ASA Code(s): I65.29 - OCCLUSION AND STENOSIS OF UNSPECIFIED CAROTID ARTERY (7) HTN (hypertension) Code(s): I10 - ESSENTIAL (PRIMARY) HYPERTENSION Qualifiers: Qualified Code(s): I10 - Essential (primary) hypertension (8) Anemia Assessment/Plan: Cont Iron and PPI H/H stable Code(s): D64.9 - ANEMIA, UNSPECIFIED
--- NOTE | 2018-01-22 09:16 | PN ---
Progress Note (short form) - Note Progress Note: [facility] *LIVE* Progress Note: s: no cp sob palps dizzy. had episode of left arm pain yesterday that resolved with morphine, stable EKG and trop. this morning low rates on tele tele SB 40s-50s o: Vital Signs Period Temp Pulse Resp BP Sys/Vasquez Pulse Ox Last 24 Hr 97 F-98.5 F 40-78 18-24 108-157/38-78 97 NAD, calm JVD flat, neck supple CTAB, nl effort Irregular rhythm, regular rate nl s1, s2 no m/r/g + bs soft nt nd ext with trace edema, no clubbing or cyanosis + dp/pt, no carotid bruits no jaundice, diaphoresis Current Medications Generic Name Dose Route Start Last Admin Trade Name Freq PRN Reason Stop Dose Admin Acetaminophen 650 mg 01/19/18 16:27 01/21/18 10:17 Tylenol - PO 650 mg Q4H PRN Administration PAIN LEVEL 1-5 Ascorbic Acid 500 mg 01/20/18 10:00 01/21/18 10:15 Vitamin C - PO 500 mg DAILY RAGINI Administration Aspirin 81 mg 01/19/18 17:00 01/21/18 10:15 Asa - PO 81 mg DAILY [facility] Administration Atorvastatin Calcium 80 mg 01/19/18 22:00 01/21/18 22:27 Lipitor - PO 80 mg HS [facility]AG[facility]I Administration Clopidogrel Bisulfate 75 mg 01/19/18 17:00 01/21/18 10:15 Plavix - PO 75 mg DAILY RAG[facility]I Administration Ferrous Sulfate 325 mg 01/20/18 10:00 01/21/18 13:35 Feosol - PO Not Given DAILY RAGINI Insulin Aspart 1 vial 01/19/18 16:30 01/22/18 07:36 Novolog Vial Sliding Scale - SQ Not Given ACHS [facility] Protocol Lorazepam 0.5 mg 01/21/18 16:17 Ativan Injection - IVPUSH Q8H PRN NAUSEA Metoprolol Tartrate 25 mg 01/20/18 22:00 01/21/18 22:29 Lopressor - PO Not Given BID RAGINI Morphine Sulfate 1 mg 01/21/18 19:41 01/21/18 19:49 Morphine Sulfate IVPUSH 1 mg Q6H PRN Administration PAIN LEVEL 6-10 Pantoprazole Sodium 40 mg 01/20/18 10:00 01/21/18 13:35 Protonix - PO Not Given DAILY [facility] Simethicone 80 mg 01/21/18 14:59 01/21/18 15:32 Mylicon Liquid - PO 80 mg QID PRN Administration GAS EKG: A flutter with variable block. No ischemic changes CXR: ?right infiltrate MIBI 10/10 (deena): AF/flutter, no STs; no ischemia (+ breast); nl EF, mild LVE, no TID SANTA 12/10: nl LV/RV, severe TANIKA, mild LAE; mild MR; mod-sev TR Echo 09/09: NL LV/RV; L/TANIKA, tethered MV with mod MR; mod TR; mod pHTN echo 08/2017: nl lv/rv, sev lae, mod tanika, mod mr/tr, mod phtn echo12/2017: tds; nl lv/rv, lae, mod mr Carotids 12/10: SANJAY 80-99% stenosis tele: aflutter , rate ok a/p: 82 yo f, patient of Dr. Mena's, with history of persistent atrial fibrillation/flutter s/p cardioversion with reversion back to flutter, dCHF with mod pHTN, DM, HTN/HL and carotid stenosis s/p R CEA 07/2015 who is here with right sided weakness. acute cva: -seen on mri -possibly related to afib/flutter (pt not on ac 2/2 gib) -on dapt -neuro following chronic diastolic CHF: -stable, no vol overload -was on torsemide 20/40 qd alternating days at home - holding until pt eating/drinking better aflutter - rate controlled off of meds - was on ac in past but had recurrent gib so it has been stopped and pt has been on dapt since then - she was also evaluated for watchman device but pt declined this - discussed ac, watchman again while here but pt still declining HTN - dc metoprolol due to bradycardia,per patient has had this issue in the past s/p CEA - cont atorvastatin, asa pos trops/possible nstemi: -trop mildly elevated with flat trend and normal ck. no cardiac sxs. no ischemic ecg changes. echo with preserved lvef. possibly trop related to cva, not acs. - trop now downtrending cardiac groves stable
[2018-01-22] MEDS: ASPIRIN 81 MG CHEWABLE TABLETS PO SCH (11:06)
[2018-01-22] MEDS: ASCORBIC ACID 500 MG TABLET (FP) PO SCH (11:06)
[2018-01-22] MEDS: CLOPIDOGREL BISULFATE 75 MG TABLET (FP) PO SCH (11:06)
[2018-01-22] MEDS: PANTOPRAZOLE 40 MG TABLET (FP) PO SCH (11:07)
[2018-01-22] MEDS: METOPROLOL TARTRATE 25 MG TABLET (FP) PO SCH (11:07)
[2018-01-22] MEDS: FERROUS SO4 325 MG TABLET (FP) PO SCH (11:07)
--- NOTE | 2018-01-22 11:40 | PN ---
Progress Note (short form) - Note Progress Note: Neurology History of Present Illness: 82 year old female coming in with complaint of weakness. Per patient, symptoms began on Tuesday 01/16, morning when went to the bathroom and she says she felt very weak and had a difficulty with ambulation. She said it was mainly her right sideed and went to bed. Reportedly not found until daughter who brought her in the following Wednesday. I was contacted by ER and patient was out of TPA window. CT head was completed and without acute changes. MRI brain done the night of admission and showed L striatial and capsular infarcts, also in L insula and L external capsule. Not large in size but has hemiplegia in RUE and b /l LE. Patient on ASA, plavix. Further complication is she also has elevated troponins which cardiology would typically treat possible MO with anticoagulation. However, given recent CVA, was not recommend. However, can be started now if cardiology desires. 5 days since symptoms onset and lower risk for hemoragic conversion. Patient does have prior h/o of bleed on Xarelto so AC may not be pursued at all, defer to cards. Discussed all this with daughter, Josie, and other daughter previously. Echo with nml LV function, RV nml size and function, moderate TR. Likely rehab placement (she lives in [facility], but interested in [place]). No new neurologic events overnight or this. No significant improvement in exam. Daughter at bedside and they are also considering [facility] if [facility] does not accept as PCP, Dr. Mas goes to that facility and would helpful in continuity of care. Informed nurse who will inform social psychologist. Cardiology note reviewed, not planned for AC. Active Medications Acetaminophen (Tylenol -) 650 mg PO Q4H PRN PRN Reason: PAIN LEVEL 1-5 Last Admin: 01/21/18 10:17 Dose: 650 mg Ascorbic Acid (Vitamin C -) 500 mg PO DAILY [facility] Last Admin: 01/22/18 11:06 Dose: 500 mg Aspirin (Asa -) 81 mg PO DAILY [facility] Last Admin: 01/22/18 11:06 Dose: 81 mg Atorvastatin Calcium (Lipitor -) 80 mg PO HS [facility] Last Admin: 01/21/18 22:27 Dose: 80 mg Clopidogrel Bisulfate (Plavix -) 75 mg PO DAILY [facility] Last Admin: 01/22/18 11:06 Dose: 75 mg Ferrous Sulfate (Feosol -) 325 mg PO DAILY [facility] Last Admin: 01/22/18 11:07 Dose: Not Given Insulin Aspart (Novolog Vial Sliding Scale -) 1 vial SQ ACHS [facility]; Protocol Last Admin: 01/22/18 07:36 Dose: Not Given Lorazepam (Ativan Injection -) 0.5 mg IVPUSH Q8H PRN PRN Reason: NAUSEA Morphine Sulfate (Morphine Sulfate) 1 mg IVPUSH Q6H PRN PRN Reason: PAIN LEVEL 6-10 Last Admin: 01/21/18 19:49 Dose: 1 mg Pantoprazole Sodium (Protonix -) 40 mg PO DAILY [facility] Last Admin: 01/22/18 11:07 Dose: Not Given Simethicone (Mylicon Liquid -) 80 mg PO QID PRN PRN Reason: GAS Last Admin: 01/21/18 15:32 Dose: 80 mg Vital Signs Period Temp Pulse Resp BP Sys/Vasquez Pulse Ox Last 24 Hr 97 F-98.5 F 40-78 18-24 108-164/38-78 97 Constitutional: Yes: No Distress, Calm, Obese Eyes: Yes: Conjunctiva Clear, EOM Intact, PERRL HENT: Yes: Atraumatic, Normocephalic Cardiovascular: Yes: Pulse Irregular. No: Tachycardia, Gallop, Murmur, Rub Respiratory: Yes: Regular, CTA Bilaterally. No: Rales, Rhonchi, Wheezes Gastrointestinal: Yes: Normal Bowel Sounds, Soft. No: Distention, Tenderness Neurological: R Facial droop noted, diminished PP on RUE and RLE, 0/5 in b/l LE , 0/5 in RUE, 5-/5 in LUE. CBCD WBC 5.8 K/mm3 (4.0-10.0) 01/22/18 06:00 RBC 3.60 M/mm3 (3.60-5.2) 01/22/18 06:00 Hgb 10.4 GM/dL (10.7-15.3) L 01/22/18 06:00 Hct 32.3 % (32.4-45.2) L 01/22/18 06:00 MCV 89.8 fl (80-96) 01/22/18 06:00 MCHC 32.3 g/dl (32.0-36.0) 01/22/18 06:00 RDW 15.3 % (11.6-15.6) 01/22/18 06:00 Plt Count 168 K/MM3 (134-434) 01/22/18 06:00 MPV 10.2 fl (7.5-11.1) 01/22/18 06:00 CMP Sodium 139 mmol/L (136-145) 01/22/18 06:00 Potassium 4.6 mmol/L (3.5-5.1) 01/22/18 06:00 Chloride 104 mmol/L (98-107) 01/22/18 06:00 Carbon Dioxide 29 mmol/L (21-32) 01/22/18 06:00 Anion Gap 6 (8-16) L 01/22/18 06:00 BUN 31 mg/dL (7-18) H 01/22/18 06:00 Creatinine 1.0 mg/dL (0.55-1.02) 01/22/18 06:00 Creat Clearance w eGFR 53.21 (>60) 01/22/18 06:00 Random Glucose 131 mg/dL (74-106) H 01/22/18 06:00 Calcium 8.2 mg/dL (8.5-10.1) L 01/22/18 06:00 Total Bilirubin 0.9 mg/dL (0.2-1.0) 01/20/18 06:00 AST 20 U/L (15-37) 01/20/18 06:00 ALT 18 U/L (12-78) 01/20/18 06:00 Alkaline Phosphatase 106 U/L (45-117) D 01/20/18 06:00 Total Protein 7.2 g/dl (6.4-8.2) 01/20/18 06:00 Albumin 2.8 g/dl (3.4-5.0) L 01/20/18 06:00 CARDIAC ENZYMES Creatine Kinase 211 IU/L (26-192) H 01/22/18 06:00 Troponin I 3.58 ng/ml (0.00-0.05) H* 01/22/18 06:[address] head reviewed MRI brain reviewed Echo reviewed Plan: 82 year old female coming in with complaint of weakness. Per patient, symptoms began on Tuesday 01/16, morning when went to the bathroom and she says she felt very weak and had a difficulty with ambulation. She said it was mainly her right sideed and went to bed. Reportedly not found until daughter who brought her in the following Wednesday. I was contacted by ER and patient was out of TPA window. CT head was completed and without acute changes. MRI brain done the of admission and showed L striatial and capsular infarcts, also in L insula and L external capsule. Not large in size but has hemiplegia in RUE and b/l LE. Can continue ASA, plavix. From neuro point of view can be started on AC Patient does have prior h/o of bleed defer to cards, not planned to be started on AC [facility] sent in, if not accepted they're interested in [facility] Continue Statin 80mg for now, goal LDL < 70 Monitor Afib, CVA likely embolic based on distribution Monitor glucose, maintain normal range Monitor bp, would recommend < 140/90 Permissive HTN no longer required Placement planning
--- NOTE | 2018-01-22 16:16 | PN ---
Progress Note, Physician - Current Medication List Current Medications: Active Medications Acetaminophen (Tylenol -) 650 mg PO Q4H PRN PRN Reason: PAIN LEVEL 1-5 Last Admin: 01/21/18 10:17 Dose: 650 mg Ascorbic Acid (Vitamin C -) 500 mg PO DAILY [facility] Last Admin: 01/22/18 11:06 Dose: 500 mg Aspirin (Asa -) 81 mg PO DAILY [facility] Last Admin: 01/22/18 11:06 Dose: 81 mg Atorvastatin Calcium (Lipitor -) 80 mg PO HS [facility] Last Admin: 01/21/18 22:27 Dose: 80 mg Clopidogrel Bisulfate (Plavix -) 75 mg PO DAILY [facility] Last Admin: 01/22/18 11:06 Dose: 75 mg Ferrous Sulfate (Feosol -) 325 mg PO DAILY [facility] Last Admin: 01/22/18 11:07 Dose: Not Given Insulin Aspart (Novolog Vial Sliding Scale -) 1 vial SQ [facility]; Protocol Last Admin: 01/22/18 12:18 Dose: Not Given Lorazepam (Ativan Injection -) 0.5 mg IVPUSH Q8H PRN PRN Reason: NAUSEA Morphine Sulfate (Morphine Sulfate) 1 mg IVPUSH Q6H PRN PRN Reason: PAIN LEVEL 6-10 Last Admin: 01/21/18 19:49 Dose: 1 mg Pantoprazole Sodium (Protonix -) 40 mg PO DAILY [facility] Last Admin: 01/22/18 11:07 Dose: Not Given Simethicone (Mylicon Liquid -) 80 mg PO QID PRN PRN Reason: GAS Last Admin: 01/21/18 15:32 Dose: 80 mg - Objective Vital Signs: Vital Signs Temperature 99.4 F 01/22/18 13:15 Pulse Rate 57 L 01/22/18 13:15 Respiratory Rate 18 01/22/18 13:15 Blood Pressure 142/60 01/22/18 13:15 O2 Sat by Pulse Oximetry (%) 97 01/22/18 09:00 Labs: CBC, BMP 01/22/18 06:00 01/22/18 06:00 INR, PTT INR 1.26 (0.82-1.09) H 01/19/18 13:00
[2018-01-22] MEDS: ATORVASTATIN CA 80 MG TABLET (FP) PO SCH (22:26)
[2018-01-22] MEDS: ACETAMINOPHEN 325 MG TABLET (FP) PO PRN (22:26)
[2018-01-23] MEDS: INSULIN SLIDING SCALE (NOVOLOG) 1 VIAL SQ SCH ×4 (06:39→22:07)
[2018-01-23] MEDS ORDERED: INSULIN (NOVOLOG) ASPART 100 UNITS/ML 10ML VIAL ONE (07:01)
[2018-01-23] MEDS ORDERED: INSULIN (LEVEMIR) 100 UNITS/ML UNITS SQ ONE (07:01)
[2018-01-23 07:29] LABS: BASO % 0.6 % (0-2.0); EOS % 2.2 % (0-4.5); HEMOGLOBIN 10.8 GM/dL (10.7-15.3); LYMPH % 24.8 % (8-40); MCH 29.1 pg (25.7-33.7); MCHC 32.6 g/dl (32.0-36.0); MEAN CELL VOLUME 89.2 fl (80-96); MEAN PLT VOLUME 10.2 fl (7.5-11.1); MONO % 10.2 % (3.8-10.2); NEUT % 62.2 % (42.8-82.8); PLATELET COUNT 184 K/MM3 (134-434); RDW 15.4 % (11.6-15.6); WHITE BLOOD COUNT 5.4 K/mm3 (4.0-10.0)
[2018-01-23 07:51] LABS: ANION GAP 6 (8-16); BLOOD UREA NITROGEN 26 mg/dL (7-18); CALCIUM 8.6 mg/dL (8.5-10.1); CHLORIDE 104 mmol/L (98-107); CO2 30 mmol/L (21-32); CREATININE 0.9 mg/dL (0.55-1.02); GLUCOSE,RANDOM 153 mg/dL (74-106); POTASSIUM 4.3 mmol/L (3.5-5.1); SODIUM 140 mmol/L (136-145)
[2018-01-23] MEDS: ASCORBIC ACID 500 MG TABLET (FP) PO SCH (09:36)
[2018-01-23] MEDS: ASPIRIN 81 MG CHEWABLE TABLETS PO SCH (09:36)
[2018-01-23] MEDS: CLOPIDOGREL BISULFATE 75 MG TABLET (FP) PO SCH (09:36)
[2018-01-23] MEDS: PANTOPRAZOLE 40 MG TABLET (FP) PO SCH (09:36)
[2018-01-23] MEDS: FERROUS SO4 325 MG TABLET (FP) PO SCH (09:36)
--- NOTE | 2018-01-23 09:47 | PN ---
Progress Note (short form) - Note Progress Note: [facility] *LIVE* Progress Note: s: no cp sob palps dizzy. has right leg pain, going for ultrasound today tele sinus with PVCs o: Vital Signs Period Temp Pulse Resp BP Sys/Vasquez Pulse Ox Last 24 Hr 98 F-99.8 F 57-80 18-20 110-164/57-76 97 NAD, calm JVD flat, neck supple CTAB, nl effort Irregular rhythm, regular rate nl s1, s2 no m/r/g + bs soft nt nd ext with trace edema, no clubbing or cyanosis + dp/pt, no carotid bruits no jaundice, diaphoresis Current Medications Generic Name Dose Route Start Last Admin Trade Name Freq PRN Reason Stop Dose Admin Acetaminophen 650 mg 01/19/18 16:27 01/22/18 22:26 Tylenol - PO 650 mg Q4H PRN Administration PAIN LEVEL 1-5 Ascorbic Acid 500 mg 01/20/18 10:00 01/23/18 09:36 Vitamin C - PO 500 mg DAILY RAGINI Administration Aspirin 81 mg 01/19/18 17:00 01/23/18 09:36 Asa - PO 81 mg DAILY [facility]I Administration Atorvastatin Calcium 80 mg 01/19/18 22:00 01/22/18 22:26 Lipitor - PO 80 mg HS RAG[facility]I Administration Clopidogrel Bisulfate 75 mg 01/19/18 17:00 01/23/18 09:36 Plavix - PO 75 mg DAILY RAG[facility]I Administration Ferrous Sulfate 325 mg 01/20/18 10:00 01/23/18 09:36 Feosol - PO 325 mg DAILY [facility]AG[facility] Administration Insulin Aspart 1 vial 01/19/18 16:30 01/23/18 06:39 Novolog Vial Sliding Scale - SQ Not Given ACHS [facility] Protocol Lorazepam 0.5 mg 01/21/18 16:17 Ativan Injection - IVPUSH Q8H PRN NAUSEA Morphine Sulfate 1 mg 01/21/18 19:41 01/21/18 19:49 Morphine Sulfate IVPUSH 1 mg Q6H PRN Administration PAIN LEVEL 6-10 Pantoprazole Sodium 40 mg 01/20/18 10:00 01/23/18 09:36 Protonix - PO 40 mg DAILY [facility]I Administration Simethicone 80 mg 01/21/18 14:59 01/21/18 15:32 Mylicon Liquid - PO 80 mg QID PRN Administration GAS EKG: A flutter with variable block. No ischemic changes CXR: ?right infiltrate MIBI 10/10 (deena): AF/flutter, no STs; no ischemia (+ breast); nl EF, mild LVE, no TID SANTA 12/10: nl LV/RV, severe TANIKA, mild LAE; mild MR; mod-sev TR Echo 09/09: NL LV/RV; L/TANIKA, tethered MV with mod MR; mod TR; mod pHTN echo 08/2017: nl lv/rv, sev lae, mod tanika, mod mr/tr, mod phtn echo12/2017: tds; nl lv/rv, lae, mod mr Carotids 12/10: SANJAY 80-99% stenosis tele: aflutter , rate ok a/p: 82 yo f, patient of Dr. Coley, with history of persistent atrial fibrillation/flutter s/p cardioversion with reversion back to flutter, dCHF with mod pHTN, DM, HTN/HL and carotid stenosis s/p R CEA 07/2015 who is here with right sided weakness. acute cva: -seen on mri -possibly related to afib/flutter (pt not on ac / gib) -on dapt -neuro following chronic diastolic CHF: -stable, no vol overload -was on torsemide 20/40 qd alternating days at home - holding until pt eating/drinking better aflutter - rate controlled off of meds - was on ac in past but had recurrent gib so it has been stopped and pt has been on dapt since then - she was also evaluated for watchman device but pt declined this - discussed ac, watchman again while here but pt still declining - on metoprolol during hospitalization whch was dc due to bradycardia - continue to hold anticoagulation given prior bleed hx HTN - stable not on meds, metoprolol dc due to bradycardia s/p CEA - cont atorvastatin, asa pos trops/possible nstemi: -trop mildly elevated with flat trend and normal ck. no cardiac sxs. no ischemic ecg changes. echo with preserved lvef. possibly trop related to cva, not acs. - trop now downtrending cardiac groves stable
--- NOTE | 2018-01-23 09:51 | PN ---
Progress Note, Physician Chief Complaint: No new complaints remained hemodynamically stable - Current Medication List Current Medications: Active Medications Acetaminophen (Tylenol -) 650 mg PO Q4H PRN PRN Reason: PAIN LEVEL 1-5 Last Admin: 01/22/18 22:26 Dose: 650 mg Ascorbic Acid (Vitamin C -) 500 mg PO DAILY [facility] Last Admin: 01/23/18 09:36 Dose: 500 mg Aspirin (Asa -) 81 mg PO DAILY [facility] Last Admin: 01/23/18 09:36 Dose: 81 mg Atorvastatin Calcium (Lipitor -) 80 mg PO HS [facility] Last Admin: 01/22/18 22:26 Dose: 80 mg Clopidogrel Bisulfate (Plavix -) 75 mg PO DAILY [facility] Last Admin: 01/23/18 09:36 Dose: 75 mg Ferrous Sulfate (Feosol -) 325 mg PO DAILY [facility] Last Admin: 01/23/18 09:36 Dose: 325 mg Insulin Aspart (Novolog Vial Sliding Scale -) 1 vial SQ [facility]; Protocol Last Admin: 01/23/18 06:39 Dose: Not Given Lorazepam (Ativan Injection -) 0.5 mg IVPUSH Q8H PRN PRN Reason: NAUSEA Morphine Sulfate (Morphine Sulfate) 1 mg IVPUSH Q6H PRN PRN Reason: PAIN LEVEL 6-10 Last Admin: 01/21/18 19:49 Dose: 1 mg Pantoprazole Sodium (Protonix -) 40 mg PO DAILY [facility] Last Admin: 01/23/18 09:36 Dose: 40 mg Simethicone (Mylicon Liquid -) 80 mg PO QID PRN PRN Reason: GAS Last Admin: 01/21/18 15:32 Dose: 80 mg - Objective Vital Signs: Vital Signs Temperature 99.4 F 01/23/18 09:47 Pulse Rate 60 01/23/18 09:47 Respiratory Rate 18 01/23/18 09:47 Blood Pressure 155/53 01/23/18 09:47 O2 Sat by Pulse Oximetry (%) 97 01/22/18 21:00 Elderly F not in distress HEENT: Mm moist, mild anemia NECK: No JVD No Bruit CHEST: CTA b/L CVS; s1S2 Irr ABD: No distention, non tender Bs + EXT: No edema feet [employer]OR: AOx3 Rt sided weakness Labs: CBC, BMP 01/23/18 06:00 01/23/18 06:00 INR, PTT INR 1.26 (0.82-1.09) H 01/19/18 13:00 Problem List - Problems (1) Acute CVA (cerebrovascular accident) Assessment/Plan: With Afib not on AC Cont ASA, Plavix, BP optimization and PT evaluation., Neurology on the case, MRI shows new Left Striatal infarct Code(s): I63.9 - CEREBRAL INFARCTION, UNSPECIFIED (2) NSTEMI (non-ST elevated myocardial infarction) Assessment/Plan: Elevated troponin on admission now Plateued , cont Statin, B Blockers, ASA and Plavix F/U Cardiology recommendations. Code(s): I21.4 - NON-ST ELEVATION (NSTEMI) MYOCARDIAL INFARCTION (3) Permanent atrial fibrillation Assessment/Plan: Not on AC due to H/O GI bleed in the past , AC was offerred patient declined cont ASA and Plavix Code(s): I48.2 - CHRONIC ATRIAL FIBRILLATION (4) Diastolic CHF Assessment/Plan: Compensated Qualifiers: Heart failure chronicity: chronic Qualified Code(s): I50.32 - Chronic diastolic (congestive) heart failure (5) HLD (hyperlipidemia) Assessment/Plan: Cont Statin Code(s): E78.5 - HYPERLIPIDEMIA, UNSPECIFIED (6) Carotid artery stenosis Assessment/Plan: Cont Statin Plavix and ASA Code(s): I65.29 - OCCLUSION AND STENOSIS OF UNSPECIFIED CAROTID ARTERY (7) HTN (hypertension) Assessment/Plan: Well controlled cont current regimen Code(s): I10 - ESSENTIAL (PRIMARY) HYPERTENSION Qualifiers: Qualified Code(s): I10 - Essential (primary) hypertension (8) Anemia Assessment/Plan: Cont Iron and PPI H/H stable Code(s): D64.9 - ANEMIA, UNSPECIFIED (9) Lower extremity pain, right Assessment/Plan: Most likely due to post CVa contracture at Tylenol No3 F/U LE venous Doppler to R/O DVT Code(s): M79.604 - PAIN IN RIGHT LEG
--- NOTE | 2018-01-23 11:24 | PN ---
Progress Note, Physician - Current Medication List Current Medications: Active Medications Acetaminophen (Tylenol -) 650 mg PO Q4H PRN PRN Reason: PAIN LEVEL 1-5 Last Admin: 01/22/18 22:26 Dose: 650 mg Ascorbic Acid (Vitamin C -) [address] [facility] Last Admin: 01/23/18 09:36 Dose: 500 mg Aspirin (Asa -) [address] [facility] Last Admin: 01/23/18 09:36 Dose: 81 mg Atorvastatin Calcium (Lipitor -) [address] [facility] Last Admin: 01/22/18 22:26 Dose: 80 mg Clopidogrel Bisulfate (Plavix -) [address] [facility] Last Admin: 01/23/18 09:36 Dose: 75 mg Ferrous Sulfate (Feosol -) [address] [facility] Last Admin: 01/23/18 09:36 Dose: 325 mg Insulin Aspart (Novolog Vial Sliding Scale -) 1 vial SQ [facility]; Protocol Last Admin: 01/23/18 06:39 Dose: Not Given Lorazepam (Ativan Injection -) 0.5 mg IVPUSH Q8H PRN PRN Reason: NAUSEA Morphine Sulfate (Morphine Sulfate) 1 mg IVPUSH Q6H PRN PRN Reason: PAIN LEVEL 6-10 Last Admin: 01/21/18 19:49 Dose: 1 mg Pantoprazole Sodium (Protonix -) [address] [facility] Last Admin: 01/23/18 09:36 Dose: 40 mg Simethicone (Mylicon Liquid -) 80 mg PO QID PRN PRN Reason: GAS Last Admin: 01/21/18 15:32 Dose: 80 mg - Objective Vital Signs: Vital Signs Temperature 99.4 F 01/23/18 09:47 Pulse Rate 60 01/23/18 09:47 Respiratory Rate 18 01/23/18 09:47 Blood Pressure 155/53 01/23/18 09:47 O2 Sat by Pulse Oximetry (%) 97 01/22/18 21:00 Labs: CBC, BMP 01/23/18 06:00 01/23/18 06:00 INR, PTT INR 1.26 (0.82-1.09) H 01/19/18 13:00
--- NOTE | 2018-01-23 12:19 | PN ---
Progress Note (short form) - Note Progress Note: Neurology History of Present Illness: 82 year old female coming in with complaint of weakness. Per patient, symptoms began on Tuesday 01/16, morning when went to the bathroom and she says she felt very weak and had a difficulty with ambulation. She said it was mainly her right sideed and went to bed. Reportedly not found until daughter who brought her in the following Wednesday. I was contacted by ER and patient was out of TPA window. CT head was completed and without acute changes. MRI brain done the night of admission and showed L striatial and capsular infarcts, also in L insula and L external capsule. Not large in size but has hemiplegia in RUE and b /l LE. Patient on ASA, plavix. Further complication is she also has elevated troponins which cardiology would typically treat possible [place] with anticoagulation. However, given recent CVA, was not recommend. However, can be started now if cardiology desires. 5 days since symptoms onset and lower risk for hemoragic conversion. Patient does have prior h/o of bleed on Xarelto so AC may not be pursued at all, defer to cards. Discussed all this with daughter, Josie, and other daughter previously. Echo with nml LV function, RV nml size and function, moderate TR. Likely rehab placement (she lives in [facility], but interested in [place]). No new neurologic events overnight or this. No significant improvement in exam. Daughter at bedside and they are also considering [facility] if [facility] does not accept as PCP, Dr. Mas goes to that facility and would helpful in continuity of care. Cardiology note reviewed , not planned for AC. Was having discomfort in knees as only new complaints. Otherwise, neurologically stable. Active Medications Acetaminophen (Tylenol -) 650 mg PO Q4H PRN PRN Reason: PAIN LEVEL 1-5 Last Admin: 01/22/18 22:26 Dose: 650 mg Ascorbic Acid (Vitamin C -) 500 mg PO DAILY [facility] Last Admin: 01/23/18 09:36 Dose: 500 mg Aspirin (Asa -) 81 mg PO DAILY [facility] Last Admin: 01/23/18 09:36 Dose: 81 mg Atorvastatin Calcium (Lipitor -) 80 mg PO HS [facility] Last Admin: 01/22/18 22:26 Dose: 80 mg Clopidogrel Bisulfate (Plavix -) 75 mg PO DAILY [facility] Last Admin: 01/23/18 09:36 Dose: 75 mg Ferrous Sulfate (Feosol -) 325 mg PO DAILY [facility] Last Admin: 01/23/18 09:36 Dose: 325 mg Insulin Aspart (Novolog Vial Sliding Scale -) 1 vial SQ [facility]; Protocol Last Admin: 01/23/18 06:39 Dose: Not Given Lorazepam (Ativan Injection -) 0.5 mg IVPUSH Q8H PRN PRN Reason: NAUSEA Morphine Sulfate (Morphine Sulfate) 1 mg IVPUSH Q6H PRN PRN Reason: PAIN LEVEL 6-10 Last Admin: 01/21/18 19:49 Dose: 1 mg Pantoprazole Sodium (Protonix -) 40 mg PO DAILY [facility] Last Admin: 01/23/18 09:36 Dose: 40 mg Simethicone (Mylicon Liquid -) 80 mg PO QID PRN PRN Reason: GAS Last Admin: 01/21/18 15:32 Dose: 80 mg Vital Signs Period Temp Pulse Resp BP Sys/Vasquez Pulse Ox Last 24 Hr 98.2 F-99.8 F 57-80 18-20 110-155/53-76 97 Constitutional: Yes: No Distress, Calm, Obese Eyes: Yes: Conjunctiva Clear, EOM Intact, PERRL HENT: Yes: Atraumatic, Normocephalic Cardiovascular: Yes: Pulse Irregular. No: Tachycardia, Gallop, Murmur, Rub Respiratory: Yes: Regular, CTA Bilaterally. No: Rales, Rhonchi, Wheezes Gastrointestinal: Yes: Normal Bowel Sounds, Soft. No: Distention, Tenderness Neurological: R Facial droop noted, diminished PP on RUE and RLE, 0/5 in b/l LE , 0/5 in RUE, 5-/5 in LUE. CBCD WBC 5.4 K/mm3 (4.0-10.0) 01/23/18 06:00 RBC 3.70 M/mm3 (3.60-5.2) 01/23/18 06:00 Hgb 10.8 GM/dL (10.7-15.3) 01/23/18 06:00 Hct 33.0 % (32.4-45.2) 01/23/18 06:00 MCV 89.2 fl (80-96) 01/23/18 06:00 MCHC 32.6 g/dl (32.0-36.0) 01/23/18 06:00 RDW 15.4 % (11.6-15.6) 01/23/18 06:00 Plt Count 184 K/MM3 (134-434) 01/23/18 06:00 MPV 10.2 fl (7.5-11.1) 01/23/18 06:00 CMP Sodium 140 mmol/L (136-145) 01/23/18 06:00 Potassium 4.3 mmol/L (3.5-5.1) 01/23/18 06:00 Chloride 104 mmol/L (98-107) 01/23/18 06:00 Carbon Dioxide 30 mmol/L (21-32) 01/23/18 06:00 Anion Gap 6 (8-16) L 01/23/18 06:00 BUN 26 mg/dL (7-18) H 01/23/18 06:00 Creatinine 0.9 mg/dL (0.55-1.02) 01/23/18 06:00 Creat Clearance w eGFR > 60 (>60) 01/23/18 06:00 Calcium 8.6 mg/dL (8.5-10.1) 01/23/18 06:00 Total Bilirubin 0.9 mg/dL (0.2-1.0) 01/20/18 06:00 AST 20 U/L (15-37) 01/20/18 06:00 ALT 18 U/L (12-78) 01/20/18 06:00 Alkaline Phosphatase 106 U/L (45-117) D 01/20/18 06:00 Total Protein 7.2 g/dl (6.4-8.2) 01/20/18 06:00 Albumin 2.8 g/dl (3.4-5.0) L 01/20/18 06:[address] head reviewed MRI brain reviewed Echo reviewed Plan: 82 year old female coming in with complaint of weakness. Per patient, symptoms began on Tuesday 01/16, morning when went to the bathroom and she says she felt very weak and had a difficulty with ambulation. She said it was mainly her right sideed and went to bed. Reportedly not found until daughter who brought her in the following Wednesday. I was contacted by ER and patient was out of TPA window. CT head was completed and without acute changes. MRI brain done the of admission and showed L striatial and capsular infarcts, also in L insula and L external capsule. Not large in size but has hemiplegia in RUE and b/l LE. Can continue ASA, plavix. Not planned to be started on AC [facility] sent in, if not accepted they're interested in [facility] Continue Statin 80mg for now, goal LDL < 70 Monitor Afib, CVA likely embolic based on distribution Monitor glucose, maintain normal range Monitor bp, would recommend < 140/90 Permissive HTN no longer required Placement planning Family in agreement
[2018-01-23] MEDS ORDERED: ACETAMINOPHEN WITH CODEINE 300MG/30MG TABLET PO PRN (16:05)
[2018-01-23] MEDS: ATORVASTATIN CA 80 MG TABLET (FP) PO SCH (22:00)
[2018-01-23] MEDS: MORPHINE SULFATE 2 MG/ML VIAL IVPUSH PRN (22:00)
[2018-01-23] MEDS: ACETAMINOPHEN 325 MG TABLET (FP) PO PRN (22:30)
[2018-01-23] MEDS ORDERED: MORPHINE SULFATE 2 MG/ML VIAL IVPUSH ONE (23:15)
[2018-01-24 06:25] LABS: BASO % 0.4 % (0-2.0); HEMATOCRIT 33.4 % (32.4-45.2); HEMOGLOBIN 11.1 GM/dL (10.7-15.3); LYMPH % 20.9 % (8-40); MCH 29.1 pg (25.7-33.7); MCHC 33.1 g/dl (32.0-36.0); MEAN CELL VOLUME 88.1 fl (80-96); MEAN PLT VOLUME 10.2 fl (7.5-11.1); MONO % 9.9 % (3.8-10.2); NEUT % 66.8 % (42.8-82.8); PLATELET COUNT 183 K/MM3 (134-434); RBC 3.79 M/mm3 (3.60-5.2); RDW 15.3 % (11.6-15.6); WHITE BLOOD COUNT 6.5 K/mm3 (4.0-10.0)
[2018-01-24 06:58] LABS: ANION GAP 7 (8-16); BLOOD UREA NITROGEN 20 mg/dL (7-18); CALCIUM 8.3 mg/dL (8.5-10.1); CHLORIDE 105 mmol/L (98-107); CO2 28 mmol/L (21-32); CREATININE 0.8 mg/dL (0.55-1.02); GLUCOSE,RANDOM 133 mg/dL (74-106); POTASSIUM 4.5 mmol/L (3.5-5.1); SODIUM 140 mmol/L (136-145)
--- NOTE | 2018-01-24 09:14 | PN ---
Progress Note (short form) - Note Progress Note: Neurology History of Present Illness: 82 year old female coming in with complaint of weakness. Per patient, symptoms began on Tuesday 01/16, morning when went to the bathroom and she says she felt very weak and had a difficulty with ambulation. She said it was mainly her right sideed and went to bed. Reportedly not found until daughter who brought her in the following Wednesday. I was contacted by ER and patient was out of TPA window. CT head was completed and without acute changes. MRI brain done the night of admission and showed L striatial and capsular infarcts, also in L insula and L external capsule. Not large in size but has hemiplegia in RUE and b/l LE. Patient on ASA, plavix. Further complication is she also has elevated troponins which cardiology would typically treat possible [place] with anticoagulation. However, given recent CVA, was not recommend. No started on AC by cards. Patient does have prior h/o of bleed on Xarelto. Discussed all this with daughter, Josie, and other daughter previously. Echo with nml LV function, RV nml size and function, moderate TR. Likely rehab placement (she lives in [facility], but interested in [place]). No new neurologic events overnight or this. No significant improvement in exam. No family at bedside. Considering [facility] if [facility] not accept as PCP, Dr. Mas goes to that facility and would helpful in continuity of care. Mentioned R foot pain overnight but improved. Otherwise, neurologically stable. Active Medications Acetaminophen (Tylenol -) 650 mg PO Q4H PRN PRN Reason: PAIN LEVEL 1-3 Last Admin: 01/23/18 22:30 Dose: 650 mg Acetaminophen/Codeine Phosphate (Tylenol # 3 -) 1 tab PO Q8H PRN PRN Reason: PAIN 4-6 Last Admin: 01/23/18 17:40 Dose: 1 tab Ascorbic Acid (Vitamin C -) 500 mg PO DAILY [facility] Last Admin: 01/23/18 09:36 Dose: 500 mg Aspirin (Asa -) 81 mg PO DAILY [facility] Last Admin: 01/23/18 09:36 Dose: 81 mg Atorvastatin Calcium (Lipitor -) 80 mg PO HS [facility] Last Admin: 01/23/18 22:00 Dose: 80 mg Clopidogrel Bisulfate (Plavix -) 75 mg PO DAILY [facility] Last Admin: 01/23/18 09:36 Dose: 75 mg Ferrous Sulfate (Feosol -) 325 mg PO DAILY [facility] Last Admin: 01/23/18 09:36 Dose: 325 mg Insulin Aspart (Novolog Vial Sliding Scale -) 1 vial SQ [facility]; Protocol Last Admin: 01/23/18 22:07 Dose: Not Given Lorazepam (Ativan Injection -) 0.5 mg IVPUSH Q8H PRN PRN Reason: NAUSEA Morphine Sulfate (Morphine Sulfate) 1 mg IVPUSH Q6H PRN PRN Reason: PAIN LEVEL 7-10 Last Admin: 01/23/18 22:00 Dose: 1 mg Pantoprazole Sodium (Protonix -) 40 mg PO DAILY [facility] Last Admin: 01/23/18 09:36 Dose: 40 mg Simethicone (Mylicon Liquid -) 80 mg PO QID PRN PRN Reason: GAS Last Admin: 01/21/18 15:32 Dose: 80 mg Vital Signs Period Temp Pulse Resp BP Sys/Vasquez Pulse Ox Last 24 Hr 97.6 F-99.4 F 58-76 18-20 140-159/53-76 97-97 Constitutional: Yes: No Distress, Calm, Obese Eyes: Yes: Conjunctiva Clear, EOM Intact, PERRL HENT: Yes: Atraumatic, Normocephalic Cardiovascular: Yes: Pulse Irregular. No: Tachycardia, Gallop, Murmur, Rub Respiratory: Yes: Regular, CTA Bilaterally. No: Rales, Rhonchi, Wheezes Gastrointestinal: Yes: Normal Bowel Sounds, Soft. No: Distention, Tenderness Neurological: R Facial droop noted, diminished PP on RUE and RLE, 0/5 in b/l LE , 0/5 in RUE, 5-/5 in LUE. CBCD WBC 6.5 K/mm3 (4.0-10.0) 01/24/18 05:45 RBC 3.79 M/mm3 (3.60-5.2) 01/24/18 05:45 Hgb 11.1 GM/dL (10.7-15.3) 01/24/18 05:45 Hct 33.4 % (32.4-45.2) 01/24/18 05:45 MCV 88.1 fl (80-96) 01/24/18 05:45 MCHC 33.1 g/dl (32.0-36.0) 01/24/18 05:45 RDW 15.3 % (11.6-15.6) 01/24/18 05:45 Plt Count 183 K/MM3 (134-434) 01/24/18 05:45 MPV 10.2 fl (7.5-11.1) 01/24/18 05:45 CMP Sodium 140 mmol/L (136-145) 01/24/18 05:45 Potassium 4.5 mmol/L (3.5-5.1) 01/24/18 05:45 Chloride 105 mmol/L (98-107) 01/24/18 05:45 Carbon Dioxide 28 mmol/L (21-32) 01/24/18 05:45 Anion Gap 7 (8-16) L 01/24/18 05:45 BUN 20 mg/dL (7-18) H 01/24/18 05:45 Creatinine 0.8 mg/dL (0.55-1.02) 01/24/18 05:45 Creat Clearance w eGFR > 60 (>60) 01/24/18 05:45 Random Glucose 133 mg/dL (74-106) H 01/24/18 05:45 Calcium 8.3 mg/dL (8.5-10.1) L 01/24/18 05:45 Total Bilirubin 0.9 mg/dL (0.2-1.0) 01/20/18 06:00 AST 20 U/L (15-37) 01/20/18 06:00 ALT 18 U/L (12-78) 01/20/18 06:00 Alkaline Phosphatase 106 U/L (45-117) D 01/20/18 06:00 Total Protein 7.2 g/dl (6.4-8.2) 01/20/18 06:00 Albumin 2.8 g/dl (3.4-5.0) L 01/20/18 06:00 CARDIAC ENZYMES Creatine Kinase 211 IU/L (26-192) H 01/22/18 06:00 Troponin I 3.58 ng/ml (0.00-0.05) H* 01/22/18 06:[address] head reviewed MRI brain reviewed Echo reviewed Plan: 82 year old female coming in with complaint of weakness. Per patient, symptoms began on Tuesday 01/16, morning when went to the bathroom and she says she felt very weak and had a difficulty with ambulation. She said it was mainly her right sideed and went to bed. Reportedly not found until daughter who brought her in the following Wednesday. I was contacted by ER and patient was out of TPA window. CT head was completed and without acute changes. MRI brain done the of admission and showed L striatial and capsular infarcts, also in L insula and L external capsule. Not large in size but has hemiplegia in RUE and b/l LE. Can continue ASA, plavix. Not planned to be started on AC [facility] sent in, if not accepted they're interested in [facility] Continue Statin 80mg for now, goal LDL < 70 Monitor Afib, CVA likely embolic based on distribution Monitor glucose, maintain normal range Monitor bp, would recommend < 140/90 Permissive HTN no longer required Placement planning No new neurologic events
[2018-01-24] MEDS: CLOPIDOGREL BISULFATE 75 MG TABLET (FP) PO SCH (09:32)
[2018-01-24] MEDS: ASPIRIN 81 MG CHEWABLE TABLETS PO SCH (09:32)
[2018-01-24] MEDS: FERROUS SO4 325 MG TABLET (FP) PO SCH (09:32)
[2018-01-24] MEDS: PANTOPRAZOLE 40 MG TABLET (FP) PO SCH (09:33)
[2018-01-24] MEDS: ASCORBIC ACID 500 MG TABLET (FP) PO SCH (09:33)
[2018-01-24] MEDS ORDERED: INSULIN (NOVOLOG) ASPART 100 UNITS/ML 10ML VIAL ONE (11:40)
[2018-01-24] MEDS: INSULIN SLIDING SCALE (NOVOLOG) 1 VIAL SQ SCH ×3 (11:55→21:42)
--- NOTE | 2018-01-24 13:04 | PN ---
Progress Note, Physician - Current Medication List Current Medications: Active Medications Acetaminophen (Tylenol -) 650 mg PO Q4H PRN PRN Reason: PAIN LEVEL 1-3 Last Admin: 01/23/18 22:30 Dose: 650 mg Acetaminophen/Codeine Phosphate (Tylenol # 3 -) 1 tab PO Q8H PRN PRN Reason: PAIN 4-6 Last Admin: 01/23/18 17:40 Dose: 1 tab Ascorbic Acid (Vitamin C -) 500 mg PO DAILY [facility] Last Admin: 01/24/18 09:33 Dose: 500 mg Aspirin (Asa -) 81 mg PO DAILY [facility] Last Admin: 01/24/18 09:32 Dose: 81 mg Atorvastatin Calcium (Lipitor -) 80 mg PO HS [facility] Last Admin: 01/23/18 22:00 Dose: 80 mg Clopidogrel Bisulfate (Plavix -) 75 mg PO DAILY [facility] Last Admin: 01/24/18 09:32 Dose: 75 mg Ferrous Sulfate (Feosol -) 325 mg PO DAILY [facility] Last Admin: 01/24/18 09:32 Dose: 325 mg Insulin Aspart (Novolog Vial Sliding Scale -) 1 vial SQ [facility]; Protocol Last Admin: 01/24/18 11:55 Dose: Not Given Lorazepam (Ativan Injection -) 0.5 mg IVPUSH Q8H PRN PRN Reason: NAUSEA Morphine Sulfate (Morphine Sulfate) 1 mg IVPUSH Q6H PRN PRN Reason: PAIN LEVEL 7-10 Last Admin: 01/23/18 22:00 Dose: 1 mg Pantoprazole Sodium (Protonix -) 40 mg PO DAILY [facility] Last Admin: 01/24/18 09:33 Dose: 40 mg Simethicone (Mylicon Liquid -) 80 mg PO QID PRN PRN Reason: GAS Last Admin: 01/21/18 15:32 Dose: 80 mg - Objective Vital Signs: Vital Signs Temperature 98.2 F 01/24/18 09:00 Pulse Rate 74 01/24/18 09:00 Respiratory Rate 18 01/24/18 09:00 Blood Pressure 141/99 01/24/18 09:00 O2 Sat by Pulse Oximetry (%) 97 01/23/18 21:00 Labs: CBC, BMP 01/24/18 05:45 01/24/18 05:45 INR, PTT INR 1.26 (0.82-1.09) H 01/19/18 13:00
[2018-01-24] MEDS ORDERED: oxyCODONE HCL 5 MG TABLET PO PRN (13:09)
--- NOTE | 2018-01-24 13:16 | PN ---
Progress Note, Physician Chief Complaint: Ms Cooper complains of RLE pain. No cp, sob, n/v. - Current Medication List Current Medications: Active Medications Acetaminophen (Tylenol -) 650 mg PO Q4H PRN PRN Reason: PAIN LEVEL 1-3 Last Admin: 01/23/18 22:30 Dose: 650 mg Ascorbic Acid (Vitamin C -) 500 mg PO DAILY [facility] Last Admin: 01/24/18 09:33 Dose: 500 mg Aspirin (Asa -) 81 mg PO DAILY [facility] Last Admin: 01/24/18 09:32 Dose: 81 mg Atorvastatin Calcium (Lipitor -) 80 mg PO HS [facility] Last Admin: 01/23/18 22:00 Dose: 80 mg Clopidogrel Bisulfate (Plavix -) 75 mg PO DAILY [facility] Last Admin: 01/24/18 09:32 Dose: 75 mg Cyclobenzaprine HCl (Cyclobenzaprine Hcl) 5 mg PO DAILY [facility] Ferrous Sulfate (Feosol -) 325 mg PO DAILY [facility] Last Admin: 01/24/18 09:32 Dose: 325 mg Insulin Aspart (Novolog Vial Sliding Scale -) 1 vial SQ [facility]; Protocol Last Admin: 01/24/18 11:55 Dose: Not Given Lorazepam (Ativan Injection -) 0.5 mg IVPUSH Q8H PRN PRN Reason: NAUSEA Morphine Sulfate (Morphine Sulfate) 1 mg IVPUSH Q6H PRN PRN Reason: PAIN LEVEL 7-10 Last Admin: 01/23/18 22:00 Dose: 1 mg Oxycodone HCl (Roxicodone -) 5 mg PO Q6H PRN PRN Reason: PAIN LEVEL 4 - 6 Pantoprazole Sodium (Protonix -) 40 mg PO DAILY [facility] Last Admin: 01/24/18 09:33 Dose: 40 mg Simethicone (Mylicon Liquid -) 80 mg PO QID PRN PRN Reason: GAS Last Admin: 01/21/18 15:32 Dose: 80 mg - Objective Vital Signs: Vital Signs Temperature 36.8 C 01/24/18 09:00 Pulse Rate 74 01/24/18 09:00 Respiratory Rate 18 01/24/18 09:00 Blood Pressure 141/99 01/24/18 09:00 O2 Sat by Pulse Oximetry (%) 97 01/23/18 21:00 Constitutional: Yes: No Distress, Calm, Obese Cardiovascular: Yes: Pulse Irregular. No: Gallop, Murmur, Rub Respiratory: Yes: Regular, CTA Bilaterally. No: Rales, Rhonchi, Wheezes Gastrointestinal: Yes: Normal Bowel Sounds, Soft. No: Distention, Tenderness Extremities: Yes: WNL Edema: No Labs: CBC, BMP 01/24/18 05:45 01/24/18 05:45 INR, PTT INR 1.26 (0.82-1.09) H 01/19/18 13:00 Problem List - Problems (1) Acute CVA (cerebrovascular accident) Code(s): I63.9 - CEREBRAL INFARCTION, UNSPECIFIED (2) Atrial fibrillation and flutter Code(s): I48.91 - UNSPECIFIED ATRIAL FIBRILLATION; I48.92 - UNSPECIFIED ATRIAL FLUTTER (3) CHF (congestive heart failure) Code(s): I50.9 - HEART FAILURE, UNSPECIFIED (4) Elevated troponin Code(s): R74.8 - ABNORMAL LEVELS OF OTHER SERUM ENZYMES (5) HLD (hyperlipidemia) Code(s): E78.5 - HYPERLIPIDEMIA, UNSPECIFIED (6) Carotid artery stenosis Code(s): I65.29 - OCCLUSION AND STENOSIS OF UNSPECIFIED CAROTID ARTERY (7) Diabetes Code(s): E11.9 - TYPE 2 DIABETES MELLITUS WITHOUT COMPLICATIONS (8) HTN (hypertension), malignant Code(s): I10 - ESSENTIAL (PRIMARY) HYPERTENSION (9) Continued fever Code(s): R50.9 - FEVER, UNSPECIFIED Assessment/Plan (1) Acute CVA (cerebrovascular accident) Assessment/Plan: -with pain in RLE secondary to immobility -will add daily flexeril -prn oxycodone -continue current management -will check LFTs tomorrow since on high dose lipitor Code(s): I63.9 - CEREBRAL INFARCTION, UNSPECIFIED (2) Atrial fibrillation and flutter Assessment/Plan: -continue metoprolol -rate controlled -no AC currently Code(s): I48.91 - UNSPECIFIED ATRIAL FIBRILLATION; I48.92 - UNSPECIFIED ATRIAL FLUTTER (3) CHF (congestive heart failure) Assessment/Plan: -not in exacerbation -cardiology holding diuretics Code(s): I50.9 - HEART FAILURE, UNSPECIFIED (4) Elevated troponin Assessment/Plan: -secondary to acute CVA -stable Code(s): R74.8 - ABNORMAL LEVELS OF OTHER SERUM ENZYMES (5) HLD (hyperlipidemia) Assessment/Plan: -LDL not in range -increased lipitor to 80mg Code(s): E78.5 - HYPERLIPIDEMIA, UNSPECIFIED (6) Carotid artery stenosis Assessment/Plan: -carotid artery ultrasound recently performed, does not need to be repeated -continue aspirin and plavix Code(s): I65.29 - OCCLUSION AND STENOSIS OF UNSPECIFIED CAROTID ARTERY (7) Diabetes Assessment/Plan: -diabetic diet -continue SSI Code(s): E11.9 - TYPE 2 DIABETES MELLITUS WITHOUT COMPLICATIONS (8) HTN (hypertension), malignant Assessment/Plan: -control blood pressure -add low dose metoprolol -consider ACEI if needed -d/w cardiology, considering adding back aldactone and torsemide Code(s): I10 - ESSENTIAL (PRIMARY) HYPERTENSION (9) Continued fever Assessment/Plan: -resolved Code(s): R50.9 - FEVER, UNSPECIFIED
--- NOTE | 2018-01-24 13:20 | PN ---
Progress Note (short form) - Note Progress Note: [facility] *LIVE* Progress Note: s: no cp sob palps dizzy. no complaints tele: sinus rhythm, PVCs o: Vital Signs Period Temp Pulse Resp BP Sys/Vasquez Pulse Ox Last 24 Hr 97.6 F-98.4 F 58-76 18-20 140-159/59-99 97 NAD, calm JVD flat, neck supple CTAB, nl effort Irregular rhythm, regular rate nl s1, s2 no m/r/g + bs soft nt nd ext with trace edema, no clubbing or cyanosis + dp/pt, no carotid bruits no jaundice, diaphoresis Current Medications Generic Name Dose Route Start Last Admin Trade Name Freq PRN Reason Stop Dose Admin Acetaminophen 650 mg 01/19/18 16:27 01/23/18 22:30 Tylenol - PO 650 mg Q4H PRN Administration PAIN LEVEL 1-3 Ascorbic Acid 500 mg 01/20/18 10:00 01/24/18 09:33 Vitamin C - PO 500 mg DAILY RAGINI Administration Aspirin 81 mg 01/19/18 17:00 01/24/18 09:32 Asa - PO 81 mg DAILY RAGINI Administration Atorvastatin Calcium 80 mg 01/19/18 22:00 01/23/18 22:00 Lipitor - PO 80 mg HS RAGINI Administration Clopidogrel Bisulfate 75 mg 01/19/18 17:00 01/24/18 09:32 Plavix - PO 75 mg DAILY RAGINI Administration Cyclobenzaprine HCl 5 mg 01/24/18 13:15 Flexeril - PO DAILY RAGINI Ferrous Sulfate 325 mg 01/20/18 10:00 01/24/18 09:32 Feosol - PO 325 mg DAILY RAGINI Administration Insulin Aspart 1 vial 01/19/18 16:30 01/24/18 11:55 Novolog Vial Sliding Scale - SQ Not Given ACHS [facility] Protocol Lorazepam 0.5 mg 01/21/18 16:17 Ativan Injection - IVPUSH Q8H PRN NAUSEA Morphine Sulfate 1 mg 01/21/18 19:41 01/23/18 22:00 Morphine Sulfate IVPUSH 1 mg Q6H PRN Administration PAIN LEVEL 7-10 Oxycodone HCl 5 mg 01/24/18 13:09 Roxicodone - PO Q6H PRN PAIN LEVEL 4 - 6 Pantoprazole Sodium 40 mg 01/20/18 10:00 01/24/18 09:33 Protonix - PO 40 mg DAILY RAGINI Administration Simethicone 80 mg 01/21/18 14:59 01/21/18 15:32 Mylicon Liquid - PO 80 mg QID PRN Administration GAS EKG: A flutter with variable block. No ischemic changes CXR: ?right infiltrate MIBI 10/10 (deena): AF/flutter, no STs; no ischemia (+ breast); nl EF, mild LVE, no TID SANTA 12/10: nl LV/RV, severe TANIKA, mild LAE; mild MR; mod-sev TR Echo 09/09: NL LV/RV; L/TANIKA, tethered MV with mod MR; mod TR; mod pHTN echo 08/2017: nl lv/rv, sev lae, mod tanika, mod mr/tr, mod phtn echo12/2017: tds; nl lv/rv, lae, mod mr Carotids 12/10: SANJAY 80-99% stenosis a/p: 82 yo f, patient of Dr. Coley, with history of persistent atrial fibrillation/flutter s/p cardioversion with reversion back to flutter, dCHF with mod pHTN, DM, HTN/HL and carotid stenosis s/p R CEA 07/2015 who is here with right sided weakness. acute cva: -seen on mri -possibly related to afib/flutter (pt not on ac 2/2 gib) -on dapt -neuro following chronic diastolic CHF: -stable, no vol overload -was on torsemide 20/40 qd alternating days at home - restarted home spironolactone, if Cr and BP stable may restart torsemide as well if patient's PO intake improving aflutter - rate controlled off of meds - was on ac in past but had recurrent gib so it has been stopped and pt has been on dapt since then - she was also evaluated for watchman device but pt declined this - discussed ac, watchman again while here but pt still declining - on metoprolol during hospitalization whch was dc due to bradycardia - continue to hold anticoagulation given prior bleed hx HTN - metoprolol dc due to bradycardia - restarting home spironolactone. monitor Cr s/p CEA - cont atorvastatin, asa pos trops/possible nstemi: -trop mildly elevated with flat trend and normal ck. no cardiac sxs. no ischemic ecg changes. echo with preserved lvef. possibly trop related to cva, not acs. - trop now downtrending cardiac groves stable
[2018-01-24] MEDS: CYCLOBENZAPRINE HCL 10 MG TABLET (FP) PO SCH (13:37)
[2018-01-24] MEDS: SPIRONOLACTONE 25 MG TABLET (FP) PO SCH (13:37)
[2018-01-24] MEDS: POLYETHYLENE GLYCOL 3350 119 GM BTL PO SCH ×2 (16:13→21:42)
[2018-01-24] MEDS: DOCUSATE SODIUM 100 MG CAPSULE (FP) PO SCH ×2 (16:13→21:42)
[2018-01-24] MEDS: ATORVASTATIN CA 80 MG TABLET (FP) PO SCH (21:42)
[2018-01-24] MEDS: MORPHINE SULFATE 2 MG/ML VIAL IVPUSH PRN (22:20)
[2018-01-25] MEDS: INSULIN SLIDING SCALE (NOVOLOG) 1 VIAL SQ SCH (06:06)
[2018-01-25 07:56] LABS: ALBUMIN 2.6 g/dl (3.4-5.0)
[2018-01-25 08:00] LABS: BILIRUBIN,DIRECT 0.2 mg/dL (0.0-0.2); BILIRUBIN,TOTAL 0.7 mg/dL (0.2-1.0); TOT PROT 6.6 g/dl (6.4-8.2)
--- NOTE | 2018-01-25 09:14 | PN ---
Progress Note (short form) - Note Progress Note: Neurology History of Present Illness: 82 year old female coming in with complaint of weakness. Per patient, symptoms began on Tuesday 01/16, morning when went to the bathroom and she says she felt very weak and had a difficulty with ambulation. She said it was mainly her right sideed and went to bed. Reportedly not found until daughter who brought her in the following Wednesday. I was contacted by ER and patient was out of TPA window. CT head was completed and without acute changes. MRI brain done the night of admission and showed L striatial and capsular infarcts, also in L insula and L external capsule. Not large in size but has hemiplegia in RUE and b/l LE. Patient on ASA, plavix. Further complication is she also has elevated troponins which cardiology would typically treat possible IN with anticoagulation. However, given recent CVA, was not recommend. No started on AC by cards. Patient does have prior h/o of bleed on Xarelto. Discussed all this with daughter, Josie, and other daughter previously. Echo with nml LV function, RV nml size and function, moderate TR. Likely rehab placement (she lives in [facility], but interested in [place]). No new neurologic events overnight or this. No significant improvement in exam. No family at bedside. Considering [facility] if [facility] does not accept as PCP, Dr. Mas goes to that facility and would helpful in continuity of care. Somewhat discouraged and tried to encourage her for rehab and therapy. Seems frustrated with situation. Work up completed, awaiting placement. Active Medications Acetaminophen (Tylenol -) 650 mg PO Q4H PRN PRN Reason: PAIN LEVEL 1-3 Last Admin: 01/23/18 22:30 Dose: 650 mg Ascorbic Acid (Vitamin C -) 500 mg PO DAILY [facility] Last Admin: 01/24/18 09:33 Dose: 500 mg Aspirin (Asa -) 81 mg PO DAILY [facility] Last Admin: 01/24/18 09:32 Dose: 81 mg Atorvastatin Calcium (Lipitor -) 80 mg PO HS [facility] Last Admin: 01/24/18 21:42 Dose: 80 mg Clopidogrel Bisulfate (Plavix -) 75 mg PO DAILY [facility] Last Admin: 01/24/18 09:32 Dose: 75 mg Cyclobenzaprine HCl (Flexeril -) 5 mg PO DAILY [facility] Last Admin: 01/24/18 13:37 Dose: 5 mg Docusate Sodium (Colace -) 100 mg PO BID [facility] Last Admin: 01/24/18 21:42 Dose: 100 mg Ferrous Sulfate (Feosol -) 325 mg PO DAILY [facility] Last Admin: 01/24/18 09:32 Dose: 325 mg Insulin Aspart (Novolog Vial Sliding Scale -) 1 vial SQ [facility]; Protocol Last Admin: 01/25/18 06:06 Dose: Not Given Lorazepam (Ativan Injection -) 0.5 mg IVPUSH Q8H PRN PRN Reason: NAUSEA Morphine Sulfate (Morphine Sulfate) 1 mg IVPUSH Q6H PRN PRN Reason: PAIN LEVEL 7-10 Last Admin: 01/24/18 22:20 Dose: 1 mg Oxycodone HCl (Roxicodone -) 5 mg PO Q6H PRN PRN Reason: PAIN LEVEL 4 - 6 Pantoprazole Sodium (Protonix -) 40 mg PO DAILY [facility] Last Admin: 01/24/18 09:33 Dose: 40 mg Polyethylene Glycol (Miralax (For Daily Use) -) 17 gm PO BID [facility] Last Admin: 01/24/18 21:42 Dose: 17 gm Simethicone (Mylicon Liquid -) 80 mg PO QID PRN PRN Reason: GAS Last Admin: 01/21/18 15:32 Dose: 80 mg Spironolactone (Aldactone -) 25 mg PO DAILY [facility] Last Admin: 01/24/18 13:37 Dose: 25 mg Vital Signs Period Temp Pulse Resp BP Sys/Vasquez Pulse Ox Last 24 Hr 98.7 F-99.2 F 67-74 18-18 139-146/72-94 96-96 Constitutional: Yes: No Distress, Calm, Obese Eyes: Yes: Conjunctiva Clear, EOM Intact, PERRL HENT: Yes: Atraumatic, Normocephalic Cardiovascular: Yes: Pulse Irregular. No: Tachycardia, Gallop, Murmur, Rub Respiratory: Yes: Regular, CTA Bilaterally. No: Rales, Rhonchi, Wheezes Gastrointestinal: Yes: Normal Bowel Sounds, Soft. No: Distention, Tenderness Neurological: R Facial droop noted, diminished PP on RUE and RLE, 0/5 in b/l LE , 0/5 in RUE, 5-/5 in LUE. CBCD WBC 6.5 K/mm3 (4.0-10.0) 01/24/18 05:45 RBC 3.79 M/mm3 (3.60-5.2) 01/24/18 05:45 Hgb 11.1 GM/dL (10.7-15.3) 01/24/18 05:45 Hct 33.4 % (32.4-45.2) 01/24/18 05:45 MCV 88.1 fl (80-96) 01/24/18 05:45 MCHC 33.1 g/dl (32.0-36.0) 01/24/18 05:45 RDW 15.3 % (11.6-15.6) 01/24/18 05:45 Plt Count 183 K/MM3 (134-434) 01/24/18 05:45 MPV 10.2 fl (7.5-11.1) 01/24/18 05:45 CMP Sodium 140 mmol/L (136-145) 01/24/18 05:45 Potassium 4.5 mmol/L (3.5-5.1) 01/24/18 05:45 Chloride 105 mmol/L (98-107) 01/24/18 05:45 Carbon Dioxide 28 mmol/L (21-32) 01/24/18 05:45 Anion Gap 7 (8-16) L 01/24/18 05:45 BUN 20 mg/dL (7-18) H 01/24/18 05:45 Creatinine 0.8 mg/dL (0.55-1.02) 01/24/18 05:45 Creat Clearance w eGFR > 60 (>60) 01/24/18 05:45 Calcium 8.3 mg/dL (8.5-10.1) L 01/24/18 05:45 Total Bilirubin 0.7 mg/dL (0.2-1.0) 01/25/18 06:10 AST 17 U/L (15-37) 01/25/18 06:10 ALT 24 U/L (12-78) 01/25/18 06:10 Alkaline Phosphatase 110 U/L (45-117) 01/25/18 06:10 Total Protein 6.6 g/dl (6.4-8.2) 01/25/18 06:10 Albumin 2.6 g/dl (3.4-5.0) L 01/25/18 06:[address] head reviewed MRI brain reviewed Echo reviewed Plan: 82 year old female coming in with complaint of weakness. Per patient, symptoms began on Tuesday 01/16, morning when went to the bathroom and she says she felt very weak and had a difficulty with ambulation. She said it was mainly her right sideed and went to bed. Reportedly not found until daughter who brought her in the following Wednesday. I was contacted by ER and patient was out of TPA window. CT head was completed and without acute changes. MRI brain done the of admission and showed L striatial and capsular infarcts, also in L insula and L external capsule. Not large in size but has hemiplegia in RUE and b/l LE. Can continue ASA, plavix. Not planned to be started on AC [facility] sent in, if not accepted they're interested in [place] Continue Statin 80mg for now, goal LDL < 70 Monitor Afib, CVA likely embolic based on distribution Monitor glucose, maintain normal range Monitor bp, would recommend < 140/90 Permissive HTN no longer required Work up completed Placement planning Encouraged patient No new neurologic events Stable for rehab placement
[2018-01-25] MEDS: SPIRONOLACTONE 25 MG TABLET (FP) PO SCH (09:44)
[2018-01-25] MEDS: PANTOPRAZOLE 40 MG TABLET (FP) PO SCH (09:44)
[2018-01-25] MEDS: ASCORBIC ACID 500 MG TABLET (FP) PO SCH (09:44)
[2018-01-25] MEDS: DOCUSATE SODIUM 100 MG CAPSULE (FP) PO SCH (09:45)
[2018-01-25] MEDS: CLOPIDOGREL BISULFATE 75 MG TABLET (FP) PO SCH (09:45)
[2018-01-25] MEDS: CYCLOBENZAPRINE HCL 10 MG TABLET (FP) PO SCH (09:45)
[2018-01-25] MEDS: ASPIRIN 81 MG CHEWABLE TABLETS PO SCH (09:47)
[2018-01-25] MEDS: POLYETHYLENE GLYCOL 3350 119 GM BTL PO SCH (09:48)
[2018-01-25] MEDS: FERROUS SO4 325 MG TABLET (FP) PO SCH (09:48)
[2018-01-25 09:59] VITALS: BP 136/64; PULSE 73; TEMP 98.6
--- NOTE | 2018-01-25 11:17 | DS ---
Physical Examination Vital Signs: Vital Signs Temperature 37.0 C 01/25/18 09:00 Pulse Rate 73 01/25/18 09:00 Respiratory Rate 18 01/25/18 09:00 Blood Pressure 136/64 01/25/18 09:00 O2 Sat by Pulse Oximetry (%) 96 01/25/18 00:00 Labs: CBC, BMP 01/24/18 05:45 01/24/18 05:45 Discharge Summary Reason For Visit: ATRIAL FIB & FLUTTER,CHF,ELEVATED TROPONIN LEVEL Current Active Problems Acute CVA (cerebrovascular accident) (Acute) Anemia (Acute) Atrial fibrillation and flutter (Acute) CHF (congestive heart failure) (Acute) Continued fever (Acute) Diastolic CHF (Acute) Elevated troponin (Acute) HLD (hyperlipidemia) (Acute) HTN (hypertension) (Acute) Lower extremity pain, right (Acute) NSTEMI (non-ST elevated myocardial infarction) (Acute) Permanent atrial fibrillation (Acute) Stroke (Acute) Condition: Stable - Instructions Diet, Activity, Other Instructions: cholesterol controlled/diabetic diet. Up with assistance, further activity per PT at SNF/STR. Referrals: Rajesh Mas MD [Primary Care Provider] - William Pierre MD [Staff Physician] - Anirudh Hough MD [Staff Physician] - Disposition: [facility]ILITY - Home Medications Comprehensive Discharge Medication List: Ambulatory Orders Ferrous Sulfate [Feosol] 325 mg PO DAILY 06/12/15 Ascorbate Calcium [Vitamin C] 500 mg PO DAILY 06/13/15 metFORMIN XR [Glucophage Xr -] 500 mg PO ACDIN 06/13/15 Acetaminophen [Tylenol .Regular Strength -] 650 mg PO Q4H PRN tablet 01/25/18 Aspirin [ASA -] 81 mg PO DAILY tab.chew 01/25/18 Atorvastatin Ca [Lipitor] 80 mg PO HS tablet 01/25/18 Clopidogrel Bisulfate [Plavix -] 75 mg PO DAILY tablet 01/25/18 Cyclobenzaprine HCl [Flexeril -] 5 mg PO DAILY tablet 01/25/18 Docusate Sodium [Colace -] 100 mg PO BID capsule 01/25/18 Pantoprazole Sodium [Protonix -] 40 mg PO DAILY tablet.ec 01/25/18 Polyethylene Glycol 3350 [Miralax 119 gm Btl -] 17 gm PO BID bottle 01/25/18 Simethicone Liquid [Mylicon Liquid -] 80 mg PO QID PRN ml 01/25/18 Spironolactone [Aldactone -] 25 mg PO DAILY tablet 01/25/18 oxyCODONE HCL [Roxicodone -] 5 mg PO Q6H PRN tablet MDD 30mg 01/25/18
== END 2018-01-25 12:33 | DRG 65 ==
LOC: JER 12:11 → JERBED 15:50 → J4S 22:12
PROVIDERS: ADMIT Internal Medicine; ATTEND Internal Medicine
DX: I63.9 Cerebral infarction, unspecified (principal); I48.1 Persistent atrial fibrillation; I50.32 Chronic diastolic (congestive) heart failure; G81.91 Hemiplegia, unspecified affecting right dominant side; I48.92 Unspecified atrial flutter; I27.20 Pulmonary hypertension, unspecified; I11.0 Hypertensive heart disease with heart failure; E78.5 Hyperlipidemia, unspecified; Z88.0 Allergy status to penicillin; R29.714 NIHSS score 14; D64.9 Anemia, unspecified; E66.9 Obesity, unspecified; R50.9 Fever, unspecified; E11.9 Type 2 diabetes mellitus without complications; Z79.84 Long term (current) use of oral hypoglycemic drugs; Z68.35 Body mass index [BMI] 35.0-35.9, adult; R74.8 Abnormal levels of other serum enzymes; M79.604 Pain in right leg
CPT/HCPCS: 36415; 70450-TC; 70551-TC; 71045-TC-FY; 80048; 80053; 80076; 81003; 81015; 82465; 82550; 82553; 82803; 82962; 83605; 83718; 83721; 83735; 84100; 84478; 84484; 85025; 85610; 85730; 86850; 86900; 86901; 87040; 87086; 87186; 93005; 93010; 93306-TC; 93971-TC; 97161-GP; 99285-25; J0131

== ENCOUNTER 2018-05-11 19:22 | Emergency (ER) | payer OTHER ==
[2018-05-11 19:35] VITALS: TEMP 97.9; BMI 25.7
--- NOTE | 2018-05-11 19:46 | PDOC ---
History of Present Illness - General Chief Complaint: Pain, Acute Stated Complaint: ABDOMINAL PAIN Time Seen by Provider: 05/11/18 19:46 History Source: Patient - History of Present Illness Initial Comments: 05/11/18 23:25 82 year old female send by Katia Iglesias suprapubic pain today with difficulty urinating with dyauria. denies fever /chills. patient has a history of right hemiparesis s/p stroke, urinary retention, afib, dm., htn, denies chest pain, NVD, fever/ chills, Past History - Past Medical History Allergies/Adverse Reactions: Allergies Allergy/AdvReac Type Severity Reaction Status Date / Time pregabalin [From Lyrica] Allergy Severe Hives Verified 05/11/18 19:34 ceftriaxone sodium Allergy Intermediate Hives Verified 05/11/18 19:34 [From Rocephin] Penicillins Allergy Intermediate Hives Verified 05/11/18 19:34 chicken derived Allergy Mild Hives Verified 05/11/18 19:34 oats AdvReac Mild DIARRHEA Verified 05/11/18 19:34 Home Medications: Ambulatory Orders Ferrous Sulfate [Feosol] 325 mg PO DAILY 06/12/15 Ascorbate Calcium [Vitamin C] 500 mg PO DAILY 06/13/15 metFORMIN XR [Glucophage Xr -] 500 mg PO DAILY 06/13/15 Acetaminophen [Tylenol .Regular Strength -] 650 mg PO Q4H PRN tablet 01/25/18 Aspirin [ASA -] 81 mg PO DAILY tab.chew 01/25/18 Atorvastatin Ca [Lipitor] 80 mg PO HS tablet 01/25/18 Clopidogrel Bisulfate [Plavix -] 75 mg PO DAILY tablet 01/25/18 Polyethylene Glycol 3350 [Miralax 119 gm Btl -] 17 gm PO BID bottle 01/25/18 Spironolactone [Aldactone -] 25 mg PO DAILY tablet 01/25/18 Acetaminophen 2 tablet PO BID 05/11/18 Amlodipine Besylate [Norvasc -] 2.5 mg PO DAILY 05/11/18 Baclofen 10 mg PO BID 05/11/18 Bisacodyl [Dulcolax] 10 mg RC DAILY PRN 05/11/18 Cholecalciferol (Vitamin D3) [Vitamin D3] 1,000 unit PO DAILY 05/11/18 Docusate Sodium [Colace -] 100 mg PO TID 05/11/18 Furosemide [Lasix] 40 mg PO DAILY 05/11/18 Magnesium Hydroxide [Milk of Magnesia] 30 ml PO BID PRN 05/11/18 Magnesium Oxide [Magox 400] 400 mg PO BID 05/11/18 Metoprolol Succinate [Toprol Xl] 12.5 mg PO DAILY 05/11/18 Pantoprazole Sodium [Protonix -] 20 mg PO DAILY 05/11/18 Pramoxine HCl/Zinc Oxide [Hemorrhoid 1%-12.5% Ointment] 56 gm TP Q8H PRN Sennosides [Senokot] 2 tablet PO DAILY 05/11/18 Simethicone [Mylicon -] 80 mg PO Q6H PRN 05/11/18 levoFLOXacin [Levaquin -] 500 mg PO DAILY #7 tablet 05/11/18 Anemia: Yes Asthma: No Cancer: No Cardiac Disorders: Yes (A FIB) CVA: No COPD: No CHF: Yes Dementia: No Diabetes: Yes GI Disorders: Yes (COLONIC POLYPS) Disorders: No HTN: Yes Hypercholesterolemia: Yes Liver Disease: No Seizures: No Thyroid Disease: No - Surgical History Abdominal Surgery: No Appendectomy: No Cardiac Surgery: Yes (CARDIOVERSION (12/10)) Cholecystectomy: No Lung Surgery: No Neurologic Surgery: No Orthopedic Surgery: No - Immunization History Immunization Up to Date: Yes - Suicide/Smoking/Psychosocial Hx Smoking History: Never smoked Have you smoked in the past 12 months: No Number of Cigarettes Smoked Daily: 0 If you are a former smoker, when did you quit?: Never smoker Information on smoking cessation initiated: No Hx Alcohol Use: No Drug/Substance Use Hx: No Substance Use Type: None Hx Substance Use Treatment: No *Physical Exam - Vital Signs Last Vital Signs Temp Pulse Resp BP Pulse Ox 97.9 F 98 H 18 146/94 96 05/11/18 19:34 05/11/18 19:34 05/11/18 19:34 05/11/18 19:34 05/11/18 19:34 - Physical Exam General Appearance: Yes: Appropriately Dressed Respiratory/Chest: positive: Lungs Clear, Normal Breath Sounds Gastrointestinal/Abdominal: positive: Normal Bowel Sounds, Tender (suprapubic), Soft Extremity: positive: Normal Capillary Refill, Normal Inspection, Normal Range of Motion Integumentary: positive: Normal Color, Dry, Warm Neurologic: positive: Fully Oriented, Alert, Normal Mood/Affect ED Treatment Course - LABORATORY CBC & Chemistry Diagram: 05/11/18 21:00 05/11/18 21:00 Progress Note - Progress Note Progress Note: A: UTI; urinary retention P: chu inserted ; ua ucx, labs Medical Decision Making - Medical Decision Making 05/11/18 23:41 I spoke to nursing telemarketing supervisor Max HAUSER [facility]. updated on current status. patient does not have abdominal pain now. is having right leg spasms. will [facility]c back to [facility]. will give scheduled dose of baclofen for the spasm. *DC/Admit/Observation/Transfer Diagnosis at time of Disposition: Acute urinary retention UTI (urinary tract infection) Qualifiers: Urinary tract infection type: acute cystitis Hematuria presence: without hematuria Qualified Code(s): N30.00 - Acute cystitis without hematuria - Discharge Dispostion [facility]position: [facility] - Prescriptions Prescriptions: levoFLOXacin [Levaquin -] 500 mg PO DAILY #7 tablet - Referrals - Patient Instructions Printed Discharge Instructions: Urinary Tract Infection Additional Instructions: indwelling chu put in with good output. levaquin 500 mg once daily x 7 days. Additional Instructions: * Please call your personal physician to report your Emergency Department visit and to report your progress, if any. * If there is no improvement in symptoms in 2 days call your physician. * Return to the Emergency Department for any worsening symptoms. - Post Discharge Activity
[2018-05-11 21:09] LABS: BASO % 0.4 % (0-2.0); EOS % 1.5 % (0-4.5); HEMATOCRIT 33.9 % (32.4-45.2); HEMOGLOBIN 11.1 GM/dL (10.7-15.3); LYMPH % 25.7 % (8-40); MCH 29.4 pg (25.7-33.7); MCHC 32.9 g/dl (32.0-36.0); MEAN CELL VOLUME 89.3 fl (80-96); MEAN PLT VOLUME 10.6 fl (7.5-11.1); MONO % 8.1 % (3.8-10.2); NEUT % 64.3 % (42.8-82.8); PLATELET COUNT 262 K/MM3 (134-434); RBC 3.79 M/mm3 (3.60-5.2); RDW 20.3 % (11.6-15.6); WHITE BLOOD COUNT 10.2 K/mm3 (4.0-10.0)
[2018-05-11 21:33] LABS: ALBUMIN 2.4 g/dl (3.4-5.0); ALK PHOS 98 U/L (45-117); ANION GAP 8 MMOL/L (8-16); BILIRUBIN,TOTAL 0.5 mg/dL (0.2-1); BLOOD UREA NITROGEN 22 mg/dL (7-18); CALCIUM 8.1 mg/dL (8.5-10.1); CHLORIDE 104 mmol/L (98-107); CO2 27 mmol/L (21-32); CREATININE 0.7 mg/dL (0.55-1.3); GLUCOSE,RANDOM 121 mg/dL (74-106); POTASSIUM 4.5 mmol/L (3.5-5.1); SGOT/AST 15 U/L (15-37); SGPT/ALT 11 U/L (13-61); SODIUM 139 mmol/L (136-145); TOT PROT 6.8 g/dl (6.4-8.2)
[2018-05-11] MEDS ORDERED: SODIUM CHLORIDE 250 ML IV STA (21:36)
[2018-05-11 21:40] LABS: URINE APPEARANCE SLCLOUDY; URINE BILIRUBIN NEGATIVE (<2.0 mg/dL); URINE COLOR YELLOW; URINE GLUCOSE (UA) NEGATIVE (NEGATIVE); URINE KETONE NEGATIVE (NEGATIVE); URINE LEUK ESTERASE 2+ (NEGATIVE); URINE NITRITE NEGATIVE (NEGATIVE); URINE PROTEIN NEGATIVE (NEGATIVE); URINE UROBILINOGEN NEGATIVE mg/dL (0.2-1.0)
[2018-05-11 21:44] LABS: EPI CELLS RARE /HPF (FEW); URINE HYALINE CAST 6 /lpf; URINE MUCUS RARE
[2018-05-11] MEDS ORDERED: ACETAMINOPHEN 1000 MG/100 ML VIAL (NON FORMULARY) IVPB ONE (21:54)
[2018-05-11] MEDS ORDERED: ACETAMINOPHEN INJECTION 100 ML IVPB ONE (21:57)
[2018-05-11 21:59] LABS: LDH 153 U/L (84-246)
[2018-05-11] MEDS ORDERED: BACLOFEN 10 MG TABLET (FP) PO ONE (23:42)
[2018-05-12] MEDS ORDERED: BACLOFEN 10 MG TABLET (FP) ONE (00:07)
[2018-05-12 02:03] VITALS: BP 144/61; PULSE 82
== END 2018-05-12 02:03 ==
LOC: JER 19:22
PROC: 3E033NZ Introduction of Analgesics, Hypnotics, Sedatives into Peripheral Vein, Percutaneous Approach (ICD-10-PCS; principal; 2018-05-11)
PROC: 3E03329 Introduction of Other Anti-infective into Peripheral Vein, Percutaneous Approach (ICD-10-PCS; 2018-05-11)
PROC: 3E0337Z Introduction of Electrolytic and Water Balance Substance into Peripheral Vein, Percutaneous Approach (ICD-10-PCS; 2018-05-11)
DX: N30.00 Acute cystitis without hematuria (principal); E78.00 Pure hypercholesterolemia, unspecified; I48.91 Unspecified atrial fibrillation; D64.9 Anemia, unspecified; I50.9 Heart failure, unspecified
CPT/HCPCS: 36415; 80053; 81003; 81015; 83615; 85025; 87086; 99283-25; J0131; J0475

== ENCOUNTER 2018-06-24 14:45 | Inpatient (IN) | payer OTHER ==
--- NOTE | 2018-06-24 15:32 | PDOC ---
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 Her correction states that she's lost 25-30 pounds since her admission in December. Patient states that she's not eating because she's not hungry. She denies having any new complaints. Denies chest pain, fever, nausea, vomiting, shortness of breath, abdominal pain, chu catheter issues, leg swelling. Patient is fully alert and oriented. Discussed case with Dr Mas from [facility]. He states that he is concerned because the patient has not eaten for the past week and has lost a lot of weight recently. He states that he has worked her up to the maximum of his capabilities at [facility] and feels like he can no longer take care of her at [facility]. Past History - Past Medical History Allergies/Adverse Reactions: Allergies Allergy/AdvReac Type Severity Reaction Status Date / Time pregabalin [From Lyrica] Allergy Severe Hives Verified 06/24/18 15:11 ceftriaxone sodium Allergy Intermediate Hives Verified 06/24/18 15:11 [From Rocephin] Penicillins Allergy Intermediate Hives Verified 06/24/18 15:11 chicken derived Allergy Mild Hives Verified 06/24/18 15:11 oats AdvReac Mild DIARRHEA Verified 06/24/18 15:11 Home Medications: Ambulatory Orders Acetaminophen [Pain Reliever] 1,000 mg PO BID 06/24/18 Amlodipine Besylate [Norvasc -] 5 mg PO DAILY 06/24/18 Ascorbic Acid [Vitamin C -] 500 mg PO DAILY 06/24/18 Aspirin [ASA -] 81 mg PO DAILY 06/24/18 Atorvastatin Ca [Lipitor] 80 mg PO HS 06/24/18 Baclofen 10 mg PO BID 06/24/18 Bisacodyl [Dulcolax] 10 mg RC PRN PRN 06/24/18 Cholecalciferol (Vitamin D3) [Vitamin D3 -] 1,000 unit PO DAILY 06/24/18 Clopidogrel Bisulfate [Plavix -] 75 mg PO DAILY 06/24/18 Collagenase Clostridium Hist. [Santyl] 1 applic TP DAILY 06/24/18 Docusate Sodium [Colace -] 100 mg PO HS 06/24/18 Ferrous Sulfate 325 mg PO DAILY 06/24/18 Fluoxetine HCl Liquid [Prozac Oral Solution -] 20 mg PO DAILY 06/24/18 Furosemide [Lasix -] 40 mg PO DAILY 06/24/18 Gabapentin 100 mg PO TID 06/24/18 Mag Hydrox/Al Hydrox/Simeth [Mylanta *Suspension*] 30 ml PO Q4H 06/24/18 Magnesium Hydroxide [Milk of Magnesia -] 30 ml PO BID PRN 06/24/18 Magnesium Oxide [Magox 400] 400 mg PO BID 06/24/18 Metoprolol Succinate [Toprol Xl -] 12.5 mg PO HS 06/24/18 Mirtazepine Alejandra Tabs [Remeron Soltab -] 45 mg PO DAILY 06/24/18 PE/Shark Liver Oil/Glyc/Wh.pet [Hemorrhoidal Cream] 1 applic RC Q8H PRN Polyethylene Glycol 3350 [Miralax (For Daily Use) -] 17 gm PO BID 06/24/18 Ranitidine [Zantac -] 150 mg PO DAILY 06/24/18 Sennosides [Senokot] 2 tab PO HS 06/24/18 Simethicone [Mylicon -] 80 mg PO Q6H PRN 06/24/18 Spironolactone [Aldactone] 25 mg PO DAILY 06/24/18 metFORMIN HCL [Glucophage -] 500 mg PO HS 06/24/18 traMADol HCL [Ultram -] 50 mg PO TID PRN 06/24/18 Anemia: Yes Asthma: No Cancer: No Cardiac Disorders: Yes (A FIB) CVA: No COPD: No CHF: Yes Dementia: No Diabetes: Yes GI Disorders: Yes (COLONIC POLYPS) Disorders: No HTN: Yes Hypercholesterolemia: Yes Liver Disease: No Seizures: No Thyroid Disease: No - Surgical History Abdominal Surgery: No Appendectomy: No Cardiac Surgery: Yes (CARDIOVERSION (12/10)) Cholecystectomy: No Lung Surgery: No Neurologic Surgery: No Orthopedic Surgery: No - Immunization History Immunization Up to Date: Yes - Suicide/Smoking/Psychosocial Hx Smoking History: Never smoked Have you smoked in the past 12 months: No Number of Cigarettes Smoked Daily: 0 If you are a former smoker, when did you quit?: Never smoker Information on smoking cessation initiated: No Hx Alcohol Use: No Drug/Substance Use Hx: No Substance Use Type: None Hx Substance Use Treatment: No Review of Systems - Review of Systems Comments:: 06/24/18 15:34 GENERAL/CONSTITUTIONAL: No fever or chills. No weakness. HEAD, EYES, EARS, NOSE AND THROAT: No change in vision. No ear pain or discharge. No sore throat. CARDIOVASCULAR: No chest pain or shortness of breath RESPIRATORY: No cough, wheezing, or hemoptysis. GASTROINTESTINAL: No nausea, vomiting, diarrhea or constipation. GENITOURINARY: No dysuria, frequency, or change in urination. MUSCULOSKELETAL: No joint or muscle swelling or pain. No neck or back pain. SKIN: No rash NEUROLOGIC: No headache, vertigo, loss of consciousness, +R sided hemiparesis, chronic ENDOCRINE: No increased thirst. No abnormal weight change HEMATOLOGIC/LYMPHATIC: No anemia, easy bleeding, or history of blood clots. ALLERGIC/IMMUNOLOGIC: No hives or skin allergy. *Physical Exam - Vital Signs Last Vital Signs Temp Pulse Resp BP Pulse Ox 98.1 F 83 16 143/73 95 06/24/18 14:45 06/24/18 14:45 06/24/18 14:45 06/24/18 14:45 06/24/18 14:45 - Physical Exam Comments: 06/24/18 15:35 GENERAL: Awake, alert, and fully oriented, in no acute distress HEAD: No signs of trauma, normocephalic, atraumatic EYES: PERRLA, EOMI, sclera anicteric, conjunctiva clear ENT: Auricles normal inspection, hearing grossly normal, nares patent, oropharynx clear without exudates. Moist mucosa NECK: Normal ROM, supple, no lymphadenopathy, JVD, or masses LUNGS: No distress, speaks full sentences, clear to auscultation bilaterally HEART: Regular rate and rhythm, normal S1 and S2, no murmurs, rubs or gallops, peripheral pulses normal and equal bilaterally. ABDOMEN: Soft, nontender, normoactive bowel sounds. No guarding, no rebound. No masses NEUROLOGICAL: Cranial nerves II through XII grossly intact. Normal speech, normal gait, +R arm and leg hemiparesis, chu in place SKIN: Warm, Dry, normal turgor, no rashes or lesions noted. EXTREMITIES: R leg wrapped by wound care, R arm swollen Moderate Sedation - Procedure Monitoring Vital Signs: Procedure Monitoring Vital Signs Temperature 98.1 F 06/24/18 14:45 Pulse Rate 83 06/24/18 14:45 Respiratory Rate 16 06/24/18 14:45 Blood Pressure 143/73 06/24/18 14:45 O2 Sat by Pulse Oximetry (%) 95 06/24/18 14:45 ED Treatment Course - LABORATORY CBC & Chemistry Diagram: 06/24/18 15:49 06/24/18 15:49 - RADIOLOGY Radiology Studies Ordered: Category Date Time Status CHEST X-RAY PORTABLE* [RAD] Stat Radiology 06/24/18 15:28 Ordered Medical Decision Making - Medical Decision Making 06/24/18 15:35 Patient is 82F here today with failure to thrive. Vitals normal and stable. No complaints at this time. Will evaluate with basic labs, UA/UC, cxr. Concern for failure to thrive, UTI, pneumonia. 06/24/18 17:40 EKG shows afib with rate of 102. No st elevations/depressions. Normal axis. Normal QTc/QRS. No significant t-wave abnormalities. EKG limited by motion artifact. Trop positive to 0.5. Patient given aspirin. Patient denies chest pain at this time and in the recent past. Patient is immobilized, will CTA for PE, then admit for likely nstemi. UA pending. Cr normal. CBC reassuring. 06/24/18 17:48 UA+ culture sent. PCN and ceftriaxone allergy. Given aztreonam in past and has tolerated. 06/24/18 20:29 Repeat trop hemolyzed, third ordered. D/w Dr Woods. *DC/Admit/Observation/Transfer Diagnosis at time of Disposition: UTI (urinary tract infection), Elevated troponin - Discharge Dispostion Condition at time of disposition: Stable Decision to Admit order: Yes - Referrals Referrals: Rajesh Mas MD [Primary Care Provider] - - Patient Instructions - Post Discharge Activity
--- NOTE | 2018-06-24 15:55 | PDOC ---
Attending Attestation - Resident Resident Name: Saul Morelos - ED Attending Attestation I have performed the following: I have examined & evaluated the patient, The case was reviewed & discussed with the resident, I agree w/resident's findings & plan, Exceptions are as noted - HPI HPI: 82 yo F history CVA with R hemiparesis, DM, anemia, indwelling chu sent by PMD for failure to thrive. She has been in fdc since her CVA in December and states that she does not like the food. Denies any specific complaint- no cp , SOB, abd pain, fever, chills. She states her chu bag was recently changed, however, the catheter itself was not changed since April. - Physicial Exam PE: GENERAL: Awake, alert, and fully oriented, in no acute distress HEAD: No signs of trauma EYES: PERRLA, EOMI, sclera anicteric, conjunctiva clear ENT: Auricles normal inspection, hearing grossly normal, nares patent, oropharynx clear without exudates. Dry mucosa NECK: Normal ROM, supple, no lymphadenopathy, JVD, or masses LUNGS: Breath sounds equal, clear to auscultation bilaterally. No wheezes, and no crackles HEART: Regular rate and rhythm, normal S1 and S2, no murmurs, rubs or gallops ABDOMEN: Soft, nontender, normoactive bowel sounds. No guarding, no rebound. No masses : +Chu catheter. EXTREMITIES: Normal range of motion, no edema. No clubbing or cyanosis. No cords, erythema, or tenderness NEUROLOGICAL: Cranial nerves II through XII grossly intact. +R hemiparesis. SKIN: Warm, Dry, normal turgor, no rashes or lesions noted. - Medical Decision Making Pt sent for evaluation for poss failure to thrive. Will search for any infectious causes. Urine in the chu appears cloudy, will change chu in ED. Likely admit.
[2018-06-24 16:12] LABS: HEMATOCRIT 31.3 % (32.4-45.2); HEMOGLOBIN 10.7 GM/dL (10.7-15.3); MCH 30.7 pg (25.7-33.7); MCHC 34.2 g/dl (32.0-36.0); MEAN CELL VOLUME 89.9 fl (80-96); MEAN PLT VOLUME 9.7 fl (7.5-11.1); PLATELET COUNT 324 K/MM3 (134-434); RBC 3.48 M/mm3 (3.60-5.2); RDW 16.8 % (11.6-15.6)
[2018-06-24 16:41] LABS: INR 1.16 (0.83-1.09); PROTHROMBIN TIME (PATIENT) 13.7 SEC (9.7-13.0)
[2018-06-24 17:16] LABS: URINE APPEARANCE CLOUDY; URINE BILIRUBIN NEGATIVE (<2.0 mg/dL); URINE COLOR AMBER; URINE GLUCOSE (UA) NEGATIVE (NEGATIVE); URINE KETONE NEGATIVE (NEGATIVE); URINE LEUK ESTERASE 3+ (NEGATIVE); URINE NITRITE NEGATIVE (NEGATIVE); URINE PROTEIN 2+ (NEGATIVE)
[2018-06-24 17:24] LABS: ALBUMIN 2.1 g/dl (3.4-5.0); ALK PHOS 84 U/L (45-117); ANION GAP 7 MMOL/L (8-16); BILIRUBIN,TOTAL 0.3 mg/dL (0.2-1); BLOOD UREA NITROGEN 12 mg/dL (7-18); CHLORIDE 100 mmol/L (98-107); CO2 29 mmol/L (21-32); CREATININE 0.7 mg/dL (0.55-1.3); GLUCOSE,RANDOM 146 mg/dL (74-106); MAGNESIUM 1.9 mg/dL (1.8-2.4); PHOSPHOROUS 3.2 mg/dL (2.5-4.9); POTASSIUM 4.4 mmol/L (3.5-5.1); SGOT/AST 18 U/L (15-37); SGPT/ALT 10 U/L (13-61); SODIUM 136 mmol/L (136-145); TOT PROT 7.1 g/dl (6.4-8.2)
[2018-06-24] MEDS ORDERED: ASPIRIN 81 MG CHEWABLE TABLETS PO ONE (17:29)
[2018-06-24 17:35] LABS: EPI CELLS RARE /HPF (FEW); URINE BACTERIA RARE /hpf (NONE SEEN); URINE MUCUS FEW
[2018-06-24] MEDS ORDERED: AZTREONAM 2 GM in DEXTROSE 5%-WATER 100 ML IVPB ONE (17:48)
[2018-06-24] MEDS ORDERED: ASPIRIN 81 MG CHEWABLE TABLETS ONE (19:34)
[2018-06-24] MEDS ORDERED: MAG HYDROX/AL HYDROX/SIMETH 30 ML UNIT-DOSE CUP PO SCH (21:30)
[2018-06-24] MEDS ORDERED: BISACODYL 10 MG SUPP.RECT RC PRN (21:30)
--- NOTE | 2018-06-24 21:31 | PN ---
Teaching Attending Note Name of Resident: Portia Woods ATTENDING PHYSICIAN STATEMENT I saw and evaluated the patient. I reviewed the resident's note and discussed the case with the resident. I agree with the resident's findings and plan as documented. CC: [facility]; she feels she has a chest cold SUBJECTIVE: Seen and examined; please refer to resident note for further historical information. Briefly, this is an 82 y/o female with a complex PMH involving Afib (s/p cardioversion 2014 not on AC), D-CHF, HTN, HLD, Pulmonary HTN, CA Stenosis s/p CEA (2016, Dr. Russo), CVA with R-sided hemiparesis. She presents to the hospital from her NH after being sent in by her primary for weight loss/ suspected FTT; she states that this is because she doens't have an appetite and doesn't like the food. Estimated 10-15lb weight loss. She is concerned she has a chest cold as she has had a mild unproductive cough; afebrile, hemodynamics stable, saturating well on RA. She just had her chu bag changed but I am told by the ER that the chu itself hasn't been exchanged since some time in april. She had some mild SPT on exam. She noticed some leg swelling over the past month or two with R-leg swelling worse than L;She doesn' t have any other complaints. Possible subacute PE seen on CTA alongside +UA and mildly +troponin. Will admit her to the medicine service and monitor her on telemetry. 10 sys ROS done and negative aside from HPI PMH and PSH reviewed FH asked and noncontributory Socially she is a [facility] and has a chronic chu, needs help with IADLs, is a nonsmoker/nondrinker. Wheelchair bound. Medication list reviewed with resident and is pending reconciliation. OBJECTIVE: VS, labs, imaging reviewed Labs show no white count, unremarkable H/H, unremarkable coags, unremarkable chemistry. Troponin is 0.54 with repeat pending; albumin is 2.1. UA shows 2+ protein, negative nitrite, 3+ LE with 769 WBC and rare epithelial cells. CTA shows subacute vs. chronic PE; recommended LE UA, possible LLL nodule vs. atelectesis ASSESSMENT AND PLAN: Patient presents with weight loss and complains of nonproductive cough, swelling ; found to have a subacute vs. chronic PE with likely UTI. 1) Weakness/Weight Loss/Failure to Thrive -PT consultation; encourage mobilization, fall precautions. Note that she is wheelchair bound at bedside. -Confirmed Full Code -Check prealbumin (albumin 2.1); obtain nutrition consultation 2) Subacute Vs. Chronic PE in the Setting of RLE>LLE swelling -Noted on CTA; she does have the aforementioned swelling. Venous duplex pending -1mg/kg BID lovenox; need to discuss with family overall risks v benefits with this as she is a fall risk, was not on AC for the Afib. She is already on ASA and Plavix which does increase the bleeding risk. Need to consider overarching goals of care, etc. -Incentive spirometry 3) Positive Troponin -Only 0.54; could be secondary to demand/strain. Checking BNP to see if any component of CHF (though clinically euvolemic) and also considering this could have a component from the subacute/chronic PE especially when considering any input from the infection. We will check a R-sided echo to see if any strain from the aforementioned. 4) Dry Cough -Check flu, BNP. Not requiring O2 satting 98% on RA. Could also be 2/2 #2 5) History of D-CHF -Last echo reviewed; suboptimal quality but noted normal LVEF and RVEF without any severe valvular abnormalities. Careful fluid management. Could be contributing to strain, especially given any impaired relaxation with a subacute PE. 6) Hx DM -SSI while inpt. 7) Hx HTN -Continue home norvasc, etc. FENA -PO fluids with QD weights and strict Is and Os -PRN replete -Cardiac diet, nutrition consult, 2.5L restriction on fluid -As tolerated, PT consult Consultations: None Full Code
--- NOTE | 2018-06-24 21:35 | HP ---
<Portia Woods - Last Filed: 06/25/18 07:00> CHIEF COMPLAINT: failure to thrive, chest cold PCP: Dr. Mas HISTORY OF PRESENT ILLNESS: 82 y/o F with PMH CVA (R hemiparesis; December 2017), DM, anemia, indwelling chu for urinary retention (April), afib (on asa), CHF, pulm HTN, who was brought to [facility] ED from [facility] for FTT by PMD, Dr. Mas. As per pt, since December, she has had 15 lb weight loss. Denies constitutional sx; states that she would "not prepare the food as they do at [facility]." Pt's only other complaints are that she is just getting over a "chest cold" that she has had for the past two weeks. States that she has had productive cough, however does not know the color of her sputum. During this time, she also endorses dysuria and swelling in her RLE that "improved recently". Unable to specify further. Otherwise pt without complaint. Denies HUIZAR, fever, chills, SOB, chest pain or pressure, or changes in bowel function. States that ever since her CVA in December 2017, pt has been bed-ridden and has only been able to use wheelchair to ambulate. ER course was notable for: (1) azactam x 1 (2) trop 0.54 (3) Recent Travel: denies PAST MEDICAL HISTORY: as above PAST SURGICAL HISTORY: states that she does not remember Social History: Smoking: states she experimented with cigarettes in past; does not know for how many years or how much Alcohol: in past, socially Drugs: denies Family History: mother- DM, HTN, HLD Allergies pregabalin [From Lyrica] Allergy (Severe, Verified 06/24/18 15:11) Hives ceftriaxone sodium [From Rocephin] Allergy (Intermediate, Verified 06/24/18 15: 11) Hives Penicillins Allergy (Intermediate, Verified 06/24/18 15:11) Hives HIVES chicken derived Allergy (Mild, Verified 06/24/18 15:11) Hives oats Adverse Reaction (Mild, Verified 06/24/18 15:11) DIARRHEA HOME MEDICATIONS: Home Medications Medication Instructions Recorded Acetaminophen [Pain Reliever] 1,000 mg PO BID 06/24/18 Amlodipine Besylate [Norvasc -] 5 mg PO DAILY 06/24/18 Ascorbic Acid [Vitamin C -] 500 mg PO DAILY 06/24/18 Aspirin [ASA -] 81 mg PO DAILY 06/24/18 Atorvastatin Ca [Lipitor] 80 mg PO HS 06/24/18 Baclofen 10 mg PO BID 06/24/18 Bisacodyl [Dulcolax] 10 mg RC PRN PRN 06/24/18 Cholecalciferol (Vitamin D3) 1,000 unit PO DAILY 06/24/18 [Vitamin D3 -] Clopidogrel Bisulfate [Plavix -] 75 mg PO DAILY 06/24/18 Collagenase Clostridium Hist. 1 applic TP DAILY 06/24/18 [Santyl] Docusate Sodium [Colace -] 100 mg PO HS 06/24/18 Ferrous Sulfate 325 mg PO DAILY 06/24/18 Fluoxetine HCl Liquid [Prozac Oral 20 mg PO DAILY 06/24/18 Solution -] Furosemide [Lasix -] 40 mg PO DAILY 06/24/18 Gabapentin 100 mg PO TID 06/24/18 Mag Hydrox/Al Hydrox/Simeth 30 ml PO Q4H 06/24/18 [Mylanta *Suspension*] Magnesium Hydroxide [Milk of 30 ml PO BID PRN 06/24/18 Magnesia -] Magnesium Oxide [Magox 400] 400 mg PO BID 06/24/18 Metoprolol Succinate [Toprol Xl -] 12.5 mg PO HS 06/24/18 Mirtazepine Alejandra Tabs [Remeron 45 mg PO DAILY 06/24/18 Soltab -] PE/Shark Liver Oil/Glyc/Wh.pet 1 applic RC Q8H PRN 06/24/18 [Hemorrhoidal Cream] Polyethylene Glycol 3350 [Miralax 17 gm PO BID 06/24/18 (For Daily Use) -] Ranitidine [Zantac -] 150 mg PO DAILY 06/24/18 Sennosides [Senokot] 2 tab PO HS 06/24/18 Simethicone [Mylicon -] 80 mg PO Q6H PRN 06/24/18 Spironolactone [Aldactone] 25 mg PO DAILY 06/24/18 metFORMIN HCL [Glucophage -] 500 mg PO HS 06/24/18 traMADol HCL [Ultram -] 50 mg PO TID PRN 06/24/18 REVIEW OF SYSTEMS CONSTITUTIONAL: +loss of appetite, weight change Absent: fever, chills, diaphoresis, generalized weakness, malaise HEENT: Absent: rhinorrhea, nasal congestion, throat pain, throat swelling, difficulty swallowing, mouth swelling, ear pain, eye pain, visual changes CARDIOVASCULAR: Absent: chest pain, syncope, palpitations, irregular heart rate, lightheadedness , peripheral edema RESPIRATORY: Absent: cough, shortness of breath, dyspnea with exertion, orthopnea, wheezing, stridor, hemoptysis GASTROINTESTINAL: Absent: abdominal pain, abdominal distension, nausea, vomiting, diarrhea, constipation, melena, hematochezia GENITOURINARY: +dysuria Absent: frequency, urgency, hesitancy, hematuria, flank pain, genital pain MUSCULOSKELETAL: +leg swelling Absent: myalgia, arthralgia, joint swelling, back pain, neck pain SKIN: Absent: rash, itching, pallor HEMATOLOGIC/IMMUNOLOGIC: Absent: easy bleeding, easy bruising, lymphadenopathy, frequent infections ENDOCRINE: Absent: unexplained weight gain, unexplained weight loss, heat intolerance, cold intolerance NEUROLOGIC: Absent: headache, focal weakness or paresthesias, dizziness, unsteady gait, seizure, mental status changes, bladder or bowel incontinence PSYCHIATRIC: Absent: anxiety, depression, suicidal or homicidal ideation, hallucinations. PHYSICAL EXAMINATION Vital Signs - 24 hr 06/24/18 14:45 Temperature 98.1 F Pulse Rate 83 Respiratory 16 Rate Blood Pressure 143/73 O2 Sat by Pulse 95 Oximetry (%) GENERAL: Very pleasant. Resting in bed. Awake, alert, and fully oriented, in no acute distress. Sat well on RA (98) HEAD: Normal with no signs of trauma. EYES: Pupils equal, round and reactive to light, extraocular movements intact, sclera anicteric, conjunctiva clear. EARS, NOSE, THROAT: Ears normal, nares patent, oropharynx clear without exudates. Moist mucous membranes. NECK: Normal range of motion, supple LUNGS: Breath sounds equal, clear to auscultation bilaterally. No wheezes, and no crackles. No accessory muscle use. HEART: +irregularly irregular rate and rhythm, normal S1 and S2 without murmur, rub or gallop. ABDOMEN: Soft, not distended, normoactive bowel sounds, no guarding, no rebound. +suprapubic tenderness UPPER EXTREMITIES: +RUE- swollen and tender. without erythema. unable to lift LOWER EXTREMITIES: 2+ pt pulses, warm, well-perfused. +RLE - unable to move, contracted. with bandages ("from sores" as per pt) NEUROLOGICAL: Cranial nerves II-XII intact. good inker machine strength in LUE. difficulty moving RUE, RLE, LLE. sensation intact. PSYCHIATRIC: Cooperative. Good eye contact. Laboratory Results - last 24 hr 06/24/18 06/24/18 06/24/18 15:49 15:49 15:49 WBC 7.0 RBC 3.48 L Hgb 10.7 Hct 31.3 L MCV 89.9 MCH 30.7 MCHC 34.2 RDW 16.8 H Plt Count 324 D MPV 9.7 PT with INR 13.70 H INR 1.16 H Sodium 136 Potassium 4.4 Chloride 100 Carbon Dioxide 29 Anion Gap 7 L BUN 12 Creatinine 0.7 Creat Clearance w eGFR > 60 Random Glucose 146 H Calcium 8.0 L Phosphorus 3.2 Magnesium 1.9 Total Bilirubin 0.3 AST 18 ALT 10 L Alkaline Phosphatase 84 Creatine Kinase 34 Troponin I 0.54 H Total Protein 7.1 Albumin 2.1 L Urine Color Urine Appearance Urine Protein Urine Glucose (UA) Urine Blood Urine Nitrite Urine Urobilinogen Ur Leukocyte Esterase Urine WBC (Auto) Urine RBC (Auto) Ur Epithelial Cells Urine Bacteria Urine Mucus 06/24/18 06/24/18 17:00 21:00 WBC Hgb Hct MCV MCH MCHC RDW MPV PT with INR INR Sodium Potassium Chloride Carbon Dioxide Anion Gap BUN Creatinine Creat Clearance w eGFR Random Glucose Calcium Magnesium Total Bilirubin AST ALT Alkaline Phosphatase Creatine Kinase 28 Troponin I 0.53 H Total Protein Albumin Urine Color Maye Urine Appearance Cloudy Urine pH 5.0 Ur Specific Colo 1.030 Urine Protein 2+ H Urine Glucose (UA) Negative Urine Ketones Negative Urine Blood Negative Urine Nitrite Negative Urine Bilirubin Negative Urine Urobilinogen 2.0 H Ur Leukocyte Esterase 3+ H Urine WBC (Auto) 769 Urine RBC (Auto) 36 Ur Epithelial Cells Rare Urine Bacteria Rare Urine Mucus Few CTA: small intraluminal linear strand seen in posterior basal segmental branch of RLL which may represent a chronic or subacute embolus and much less likely an acute embolus. no other intraluminal defect is seen. trace L pleural effusion , 1.3cm focal subpleural opacity in posterior basal segment of LLL probably on basis of atelectasis. EKG: with afib, PVCs. no ST-t wave changes seen. Qtc 453ms ASSESSMENT/PLAN: 82 y/o F with PMH CVA (R hemiparesis; December 2017), DM, anemia, indwelling chu for urinary retention (April), afib (on asa), CHF, pulm HTN, who was brought to [facility] ED from [facility] for FTT by PMD, Dr. Mas. #FTT -without constitutional sx less likely malignancy. likely 2/2 poor appetite from diet -nutrition consult -pre-albumin -f/u tsh to check for alternate etiology #UTI -s/p azactam in ED -PCN allergic, rocephin allergic -will start on levaquin IVPB 750mg qd to start tomorrow for next dose. -f/u Ucx -need to change chu -cont to follow Qtc currently 453ms #Possible PE -with evidence of chronic/subacute embolus as seen on CTA. sat well (98) on RA. without resp distress -without ambulation (wheelchair bound), as well as swollen leg -f/u duplex lower extremities, as well as RUE. d/t swelling -will tx with lovenox. 70mg BID -f/u ECHO to check for RH strain -tele monitoring #elevated troponin -may be demand ischemia 2/2 clot burden as seen on CTA, however could also be 2/ 2 infection. -continue to trend -repeat EKG in AM to check for changes -consider cardio consult in AM if without improvement #afib -cont asa 81mg qd. likely her a/c d/t fall risk #HTN- currently uncontrolled -c/w toprol, norvasc #CHF -c/w lasix, aldactone #HLD -c/w lipitor #carotid dz -cont plavix #F/E/N no fluids at this time; avoid overload w/hx CHF continue to follow lytes sodium controlled, diabetic heart healthy diet #PPX on lovenox #Dispo monitoring on tele Visit type - Emergency Visit Emergency Visit: Yes ED Registration Date: 06/24/18 Care time: The patient presented to the Emergency Department on the above date and was hospitalized for further evaluation of their emergent condition. - New Patient This patient is new to me today: Yes Date on this admission: 06/25/18 - Critical Care Critical Care patient: No <Danilo Hearn - Last Filed: 07/07/18 20:41> Was present for all vital parts of encounter; plan discussed with me. Agree with above as documented by the resident.
[2018-06-24] MEDS ORDERED: ENOXAPARIN NA (PORCINE) 80 MG/0.8 ML DISP.SYRIN SQ SCH (22:00)
[2018-06-24] MEDS ORDERED: GABAPENTIN 100 MG CAPSULE (FP) PO SCH (22:00)
[2018-06-24] MEDS ORDERED: ATORVASTATIN CA 80 MG TABLET (FP) ONE (22:24)
[2018-06-24] MEDS ORDERED: BACLOFEN 10 MG TABLET (FP) ONE (22:24)
[2018-06-24] MEDS ORDERED: DOCUSATE SODIUM 100 MG CAPSULE (FP) PO ONE (22:24)
[2018-06-24] MEDS ORDERED: METOPROLOL TARTRATE 25 MG TABLET (FP) ONE (22:24)
[2018-06-24] MEDS ORDERED: ENOXAPARIN NA (PORCINE) 80 MG/0.8 ML DISP.SYRIN SQ ONE (22:25)
[2018-06-24] MEDS: ATORVASTATIN CA 80 MG TABLET (FP) PO SCH (22:32)
[2018-06-24] MEDS: BACLOFEN 10 MG TABLET (FP) PO SCH (22:32)
[2018-06-24] MEDS: DOCUSATE SODIUM 100 MG CAPSULE (FP) PO SCH (22:32)
[2018-06-24] MEDS: metoPROLOL SUCCINATE 25 MG TAB.SR.24H (FP) PO SCH (22:33)
[2018-06-24] MEDS: POLYETHYLENE GLYCOL 3350 119 GM BTL PO SCH (22:33)
[2018-06-24] MEDS: SENNOSIDES 8.6MG TABLET (FP) PO SCH (22:33)
[2018-06-24] MEDS: INSULIN SLIDING SCALE (NOVOLOG) 1 VIAL SQ SCH (22:39)
[2018-06-24] MEDS ORDERED: MAG HYDROX/AL HYDROX/SIMETH 30 ML UNIT-DOSE CUP PO PRN (23:14)
[2018-06-25 01:42] LABS: PREALBUMIN 9.5 mg/dl (20-40)
[2018-06-25 06:14] LABS: BASO % 0.6 % (0-2.0); EOS % 2.8 % (0-4.5); HEMATOCRIT 31.3 % (32.4-45.2); HEMOGLOBIN 9.9 GM/dL (10.7-15.3); MCH 28.8 pg (25.7-33.7); MCHC 31.7 g/dl (32.0-36.0); MEAN PLT VOLUME 9.4 fl (7.5-11.1); MONO % 8.4 % (3.8-10.2); NEUT % 64.2 % (42.8-82.8); PLATELET COUNT 283 K/MM3 (134-434); RBC 3.44 M/mm3 (3.60-5.2); WHITE BLOOD COUNT 6.4 K/mm3 (4.0-10.0)
[2018-06-25 06:33] LABS: ALBUMIN 2.1 g/dl (3.4-5.0); ALK PHOS 83 U/L (45-117); ANION GAP 6 MMOL/L (8-16); BILIRUBIN,TOTAL 0.5 mg/dL (0.2-1); BLOOD UREA NITROGEN 10 mg/dL (7-18); CALCIUM 8.2 mg/dL (8.5-10.1); CHLORIDE 101 mmol/L (98-107); CO2 30 mmol/L (21-32); CREATININE 0.6 mg/dL (0.55-1.3); GLUCOSE,RANDOM 118 mg/dL (74-106); MAGNESIUM 2.1 mg/dL (1.8-2.4); PHOSPHOROUS 3.5 mg/dL (2.5-4.9); POTASSIUM 4.1 mmol/L (3.5-5.1); SGOT/AST 15 U/L (15-37); SGPT/ALT 10 U/L (13-61); SODIUM 138 mmol/L (136-145); TOT PROT 6.9 g/dl (6.4-8.2)
[2018-06-25] MEDS: INSULIN SLIDING SCALE (NOVOLOG) 1 VIAL SQ SCH ×3 (06:42→16:50)
--- NOTE | 2018-06-25 08:23 | PN ---
Progress Note, Physician Chief Complaint: Ms Cooper says she is doing well. Denies cp, sob, n/v. Is hoping to not be in the hospital long. - Current Medication List Current Medications: Active Medications Al Hydroxide/Mg Hydroxide (Mylanta Oral Suspension -) 30 ml PO Q4H PRN PRN Reason: INDIGESTION Amlodipine Besylate (Norvasc -) 5 mg PO DAILY [facility] Aspirin (Asa -) 81 mg PO DAILY [facility] Atorvastatin Calcium (Lipitor -) 80 mg PO HS [facility] Last Admin: 06/24/18 22:32 Dose: 80 mg Baclofen (Lioresal -) 10 mg PO BID [facility] Last Admin: 06/24/18 22:32 Dose: 10 mg Bisacodyl (Dulcolax Suppository -) 10 mg RC PRN PRN PRN Reason: CONSTIPATION Clopidogrel Bisulfate (Plavix -) 75 mg PO DAILY [facility] Collagenase (Santyl -) 1 applic TP DAILY [facility]; Protocol Docusate Sodium (Colace -) 100 mg PO HS [facility] Last Admin: 06/24/18 22:32 Dose: Not Given Enoxaparin Sodium (Lovenox -) 70 mg SQ BID [facility] Last Admin: 06/24/18 22:33 Dose: Not Given Ferrous Sulfate (Feosol -) 325 mg PO DAILY [facility] Fluoxetine HCl (Prozac -) 20 mg PO DAILY [facility] Furosemide (Lasix -) 40 mg PO DAILY [facility] Levofloxacin (Levaquin 750 Mg Premixed Ivpb -) 750 mg in 150 mls @ 100 mls/hr IVPB Q24H [facility]; Protocol Insulin Aspart (Novolog Vial Sliding Scale -) 1 vial SQ TIDAC [facility]; Protocol Last Admin: 06/25/18 06:42 Dose: Not Given Metoprolol Succinate (Toprol Xl -) 12.5 mg PO HS [facility] Last Admin: 06/24/18 22:33 Dose: 12.5 mg Mirtazapine (Remeron -) 45 mg PO HS [facility] Polyethylene Glycol (Miralax (For Daily Use) -) 17 gm PO BID [facility] Last Admin: 06/24/18 22:33 Dose: Not Given Ranitidine HCl (Zantac -) 150 mg PO DAILY [facility] Senna (Senna -) 2 tab PO HS [facility] Last Admin: 06/24/18 22:33 Dose: Not Given Spironolactone (Aldactone -) 25 mg PO DAILY [facility] Tramadol HCl (Ultram -) 50 mg PO TID PRN PRN Reason: PAIN - Objective Vital Signs: Vital Signs Temperature 36.7 C 06/25/18 07:23 Pulse Rate 89 06/25/18 07:23 Respiratory Rate 17 06/25/18 07:23 Blood Pressure 146/82 06/25/18 07:23 O2 Sat by Pulse Oximetry (%) 98 06/25/18 07:23 Constitutional: Yes: Well Nourished, No Distress, Calm Cardiovascular: Yes: Regular Rate and Rhythm. No: Gallop, Murmur, Rub Respiratory: Yes: Regular, CTA Bilaterally. No: Rales, Rhonchi, Wheezes Gastrointestinal: Yes: Normal Bowel Sounds, Soft. No: Distention, Tenderness Extremities: Yes: Other (R foot wrapped) Edema: No Labs: CBC, BMP 06/25/18 05:49 06/25/18 05:49 INR, PTT INR 1.16 (0.83-1.09) H 06/24/18 15:49 Problem List - Problems (1) UTI (urinary tract infection) Assessment/Plan: -urinalysis positive for UTI -given aztreonam in the ED -agree with change to levaquin -follow up urine culture Code(s): N39.0 - URINARY TRACT INFECTION, SITE NOT SPECIFIED Qualifiers: Urinary tract infection type: catheter-associated UTI Indwelling urinary catheter type: indwelling urethral catheter Encounter type: initial encounter Qualified Code(s): T83.511A - Infection and inflammatory reaction due to indwelling urethral catheter, initial encounter; N39.0 - Urinary tract infection , site not specified (2) Elevated troponin Assessment/Plan: -suspect stress induced -trending down -cardiology consulted for further recommendations -treat underlying infection and PE Code(s): R74.8 - ABNORMAL LEVELS OF OTHER SERUM ENZYMES (3) Pulmonary embolism Assessment/Plan: -subacute to chronic PE -agree with ECHO for R heart strain -stable -patient refused lovenox overnight -will change to eliquis -has h/o GIB in past so will place on 5mg bid since this is not an acute PE -will stop DAPT while on eliquis -GI protection Code(s): I26.99 - OTHER PULMONARY EMBOLISM WITHOUT ACUTE COR PULMONALE Qualifiers: Pulmonary embolism type: unspecified Chronicity: chronic Acute cor pulmonale presence: without acute cor pulmonale Qualified Code(s): I27.82 - Chronic pulmonary embolism (4) CHF (congestive heart failure) Assessment/Plan: -not in exacerbation -follow up ECHO -continue lasix and aldactone Code(s): I50.9 - HEART FAILURE, UNSPECIFIED Qualifiers: Heart failure type: diastolic Heart failure chronicity: chronic Qualified Code(s): I50.32 - Chronic diastolic (congestive) heart failure (5) Atrial fibrillation and flutter Assessment/Plan: -currently sounds in sinus rhythm -was taken off xarelto in the past secondary to GIB -using DAPT instead -however now with small PE -will stop DAPT and place on eliquis -continue toprol xl Code(s): I48.91 - UNSPECIFIED ATRIAL FIBRILLATION; I48.92 - UNSPECIFIED ATRIAL FLUTTER (6) Diabetes Assessment/Plan: -diabetic diet -monitor FSBS -currently on SSI -if remains controlled for 24 hours, stop FSBS and SSI and monitor on BMP Code(s): E11.9 - TYPE 2 DIABETES MELLITUS WITHOUT COMPLICATIONS (7) HLD (hyperlipidemia) Assessment/Plan: -continue statin -will check lipid profile -if with weight loss and FTT, consider decreasing or stopping Code(s): E78.5 - HYPERLIPIDEMIA, UNSPECIFIED (8) HTN (hypertension) Assessment/Plan: -controlled -continue home regimen -does not need tight blood pressure control Code(s): I10 - ESSENTIAL (PRIMARY) HYPERTENSION Qualifiers: Qualified Code(s): I10 - Essential (primary) hypertension (9) Lower extremity pain, right Assessment/Plan: -consult Dr Russo for chronic wound -follows as an outpatient Code(s): M79.604 - PAIN IN RIGHT LEG (10) History of stroke Assessment/Plan: -noted Code(s): Z86.73 - PRSNL HX OF TIA (TIA), AND CEREB INFRC W/O RESID DEFICITS (11) Failure to thrive in adult Assessment/Plan: -sent over from [facility] for this -suspect multifactorial -will treat infection -will attempt to simplify medication regimen -add supplements -may need to liberalize diet to make it more appetizing Code(s): R62.7 - ADULT FAILURE TO THRIVE
[2018-06-25] MEDS: SPIRONOLACTONE 25 MG TABLET (FP) PO SCH (09:26)
[2018-06-25] MEDS: SUCRALFATE 1 GM TABLET (FP) PO SCH ×2 (09:26→21:46)
[2018-06-25] MEDS: APIXABAN 5 MG TABLET PO SCH ×2 (09:27→21:48)
[2018-06-25] MEDS: BACLOFEN 10 MG TABLET (FP) PO SCH ×2 (09:27→21:48)
[2018-06-25] MEDS: FERROUS SO4 325 MG TABLET (FP) PO SCH (09:27)
[2018-06-25] MEDS: FUROSEMIDE 40 MG TABLET (FP) PO SCH (09:27)
[2018-06-25] MEDS: POLYETHYLENE GLYCOL 3350 119 GM BTL PO SCH ×2 (09:27→21:48)
[2018-06-25] MEDS: FLUoxetine HCL 20 MG CAPSULE (FP) PO SCH (09:28)
[2018-06-25] MEDS: amLODIPine BESYLATE 5 MG TABLET (FP) PO SCH (09:28)
[2018-06-25] MEDS: PANTOPRAZOLE 20 MG TABLET (FP) PO SCH (09:28)
[2018-06-25] MEDS: MIRTAZAPINE 15 MG TABLET (FP) PO SCH ×2 (09:29→21:46)
[2018-06-25] MEDS: COLLAGENASE CLOSTRIDIUM HIST. 30 GRAMS TUBE TP SCH (09:29)
[2018-06-25] MEDS ORDERED: RANITIDINE HCL 150 MG TABLET (FP) PO SCH (10:00)
[2018-06-25] MEDS ORDERED: ASPIRIN 81 MG CHEWABLE TABLETS PO SCH (10:00)
[2018-06-25] MEDS ORDERED: CLOPIDOGREL BISULFATE 75 MG TABLET (FP) PO SCH (10:00)
--- NOTE | 2018-06-25 10:09 | EKG ---
Test Reason : Blood Pressure : / mmHG Vent. Rate : 102 BPM Atrial Rate : 249 BPM P-R Int : 000 ms QRS Dur : 116 ms QT Int : 348 ms P-R-T Axes : 000 -24 116 degrees QTc Int : 453 ms POOR DATA QUALITY, INTERPRETATION MAY BE ADVERSELY AFFECTED ATRIAL FLUTTER WITH VARIABLE A-V BLOCK WITH PREMATURE VENTRICULAR OR ABERRANTLY CONDUCTED COMPLEXES CANNOT RULE OUT ANTERIOR INFARCT (CITED ON OR BEFORE 19-JAN-2018) ABNORMAL ECG WHEN COMPARED WITH ECG OF 21-JAN-2018 12:29, SIGNIFICANT CHANGES HAVE OCCURRED Confirmed by EZEQUIEL SPIVEY MD ([id number]) on 06/25/2018 10:08:34 AM Referred By: Confirmed By:EZEQUIEL SPIVEY MD
--- NOTE | 2018-06-25 12:55 | CON.CARD ---
Cardiology Consult (text) - Consultation Consultation Note: CC: sent from [place] for FTT hpi: 82 yo f, patient of Dr. Coley, with history of persistent atrial fibrillation/flutter s/p cardioversion with reversion back to flutter, dCHF with mod pHTN, DM, HTN/HL and carotid stenosis s/p R CEA 07/2015 who was sent from [place] for FTT. Pt denies complaints. No cp sob palps dizzy loc pnd orthopnea le edema. Found to have PE and uti. Past Medical hx: per hpi past surg hx: Colonoscopy, Tonsillectomy Social hx: Former tobacco (as teenager), no etoh or illicits Family hx: Mother with unknown heart problems. ROS: per hpi; no nvd cough vision changes, muscle pain gib hematuria dysuria Current Medications Generic Name Dose Route Start Last Admin Trade Name Freq PRN Reason Stop Dose Admin Al Hydroxide/Mg Hydroxide 30 ml 06/24/18 23:14 Mylanta Oral Suspension - PO Q4H PRN INDIGESTION Amlodipine Besylate 5 mg 06/25/18 10:00 06/25/18 09:28 Norvasc - PO 5 mg DAILY [facility] Administration Apixaban 5 mg 06/25/18 10:00 06/25/18 09:27 Eliquis - PO 5 mg BID [facility] Administration Atorvastatin Calcium 80 mg 06/24/18 22:00 06/24/18 22:32 Lipitor - PO 80 mg HS [facility] Administration Baclofen 10 mg 06/24/18 22:00 06/25/18 09:27 Lioresal - PO 10 mg BID [facility] Administration Bisacodyl 10 mg 06/24/18 21:30 Dulcolax Suppository - RC PRN PRN CONSTIPATION Collagenase 1 applic 06/25/18 10:00 06/25/18 09:29 Santyl - TP 1 applic DAILY [facility] Administration Protocol Docusate Sodium 100 mg 06/24/18 22:00 06/24/18 22:32 Colace - PO Not Given HS [facility] Ferrous Sulfate 325 mg 06/25/18 10:00 06/25/18 09:27 Feosol - PO 325 mg DAILY [facility] Administration Fluoxetine HCl 20 mg 06/25/18 10:00 06/25/18 09:28 Prozac - PO 20 mg DAILY [facility] Administration Furosemide 40 mg 06/25/18 10:00 06/25/18 09:27 Lasix - PO 40 mg DAILY [facility] Administration Levofloxacin 750 mg in 150 mls @ 100 mls/hr 06/25/18 19:00 Levaquin 750 Mg Premixed Ivpb - IVPB Q24H [facility] Protocol Insulin Aspart 1 vial 06/24/18 21:45 06/25/18 10:11 Novolog Vial Sliding Scale - SQ Not Given TIDAC [facility] Protocol Metoprolol Succinate 12.5 mg 06/24/18 22:00 06/24/18 22:33 Toprol Xl - PO 12.5 mg HS [facility] Administration Mirtazapine 45 mg 06/25/18 10:00 06/25/18 09:29 Remeron - PO 45 mg HS [facility] Administration Pantoprazole Sodium 20 mg 06/25/18 10:00 06/25/18 09:28 Protonix - PO 20 mg DAILY [facility] Administration Polyethylene Glycol 17 gm 06/24/18 22:00 06/25/18 09:27 Miralax (For Daily Use) - PO 17 gm BID [facility] Administration Senna 2 tab 06/24/18 22:00 06/24/18 22:33 Senna - PO Not Given HS [facility] Spironolactone 25 mg 06/25/18 10:00 06/25/18 09:26 Aldactone - PO 25 mg DAILY [facility] Administration Sucralfate 1 gm 06/25/18 10:00 06/25/18 09:26 Carafate - PO 1 gm BID [facility] Administration Tramadol HCl 50 mg 06/24/18 21:30 Ultram - PO TID PRN PAIN Vital Signs Period Temp Pulse Resp BP Sys/Vasquez Pulse Ox Last 24 Hr 98.1 F-98.1 F 83-90 16-17 140-146/68-82 95-98 NAD, calm JVD flat, neck supple CTAB, nl effort Irregular rhythm, regular rate nl s1, s2 no m/r/g + bs soft nt nd ext with trace edema, no clubbing or cyanosis + dp/pt, no carotid bruits no jaundice, diaphoresis Laboratory Last Values WBC 6.4 K/mm3 (4.0-10.0) 06/25/18 05:49 RBC 3.44 M/mm3 (3.60-5.2) L 06/25/18 05:49 Hgb 9.9 GM/dL (10.7-15.3) L 06/25/18 05:49 Hct 31.3 % (32.4-45.2) L 06/25/18 05:49 MCV 91.0 fl (80-96) 06/25/18 05:49 MCH 28.8 pg (25.7-33.7) 06/25/18 05:49 MCHC 31.7 g/dl (32.0-36.0) L 06/25/18 05:49 RDW 17.0 % (11.6-15.6) H 06/25/18 05:49 Plt Count 283 K/MM3 (134-434) 06/25/18 05:49 MPV 9.4 fl (7.5-11.1) 06/25/18 05:49 Absolute Neuts (auto) 4.1 K/mm3 (1.5-8.0) 06/25/18 05:49 Neutrophils % 64.2 % (42.8-82.8) 06/25/18 05:49 Lymphocytes % 24.0 % (8-40) 06/25/18 05:49 Monocytes % 8.4 % (3.8-10.2) 06/25/18 05:49 Eosinophils % 2.8 % (0-4.5) D 06/25/18 05:49 Basophils % 0.6 % (0-2.0) 06/25/18 05:49 Nucleated RBC % 0 % (0-0) 06/25/18 05:49 PT with INR 13.70 SEC (9.7-13.0) H 06/24/18 15:49 INR 1.16 (0.83-1.09) H 06/24/18 15:49 Sodium 138 mmol/L (136-145) 06/25/18 05:49 Potassium 4.1 mmol/L (3.5-5.1) 06/25/18 05:49 Chloride 101 mmol/L (98-107) 06/25/18 05:49 Carbon Dioxide 30 mmol/L (21-32) 06/25/18 05:49 Anion Gap 6 MMOL/L (8-16) L 06/25/18 05:49 BUN 10 mg/dL (7-18) 06/25/18 05:49 Creatinine 0.6 mg/dL (0.55-1.3) 06/25/18 05:49 Creat Clearance w eGFR > 60 (>60) 06/25/18 05:49 POC Glucometer 137.23145 UNITS (80-120) 06/25/18 10:04 Random Glucose 118 mg/dL (74-106) H 06/25/18 05:49 Calcium 8.2 mg/dL (8.5-10.1) L 06/25/18 05:49 Phosphorus 3.5 mg/dL (2.5-4.9) 06/25/18 05:49 Magnesium 2.1 mg/dL (1.8-2.4) 06/25/18 05:49 Total Bilirubin 0.5 mg/dL (0.2-1) 06/25/18 05:49 AST 15 U/L (15-37) 06/25/18 05:49 ALT 10 U/L (13-61) L 06/25/18 05:49 Alkaline Phosphatase 83 U/L (45-117) 06/25/18 05:49 Creatine Kinase 28 IU/L (26-192) 06/24/18 21:00 Troponin I 0.35 ng/ml (0.00-0.05) H 06/25/18 04:00 Total Protein 6.9 g/dl (6.4-8.2) 06/25/18 05:49 Albumin 2.1 g/dl (3.4-5.0) L 06/25/18 05:49 Prealbumin 9.5 mg/dl (20-40) L 06/24/18 15:50 TSH 3.01 uIU/ml (0.358-3.74) 06/24/18 15:50 Urine Color Maye 06/24/18 17:00 Urine Appearance Cloudy 06/24/18 17:00 Urine pH 5.0 (5.0-8.0) 06/24/18 17:00 Ur Specific [place] 1.030 (1.010-1.035) 06/24/18 17:00 Urine Protein 2+ (NEGATIVE) H 06/24/18 17:00 Urine Glucose (UA) Negative (NEGATIVE) 06/24/18 17:00 Urine Ketones Negative (NEGATIVE) 06/24/18 17:00 Urine Blood Negative (NEGATIVE) 06/24/18 17:00 Urine Nitrite Negative (NEGATIVE) 06/24/18 17:00 Urine Bilirubin Negative (<2.0 mg/dL) 06/24/18 17:00 Urine Urobilinogen 2.0 mg/dL (0.2-1.0) H 06/24/18 17:00 Ur Leukocyte Esterase 3+ (NEGATIVE) H 06/24/18 17:00 Urine WBC (Auto) 769 /hpf (3-5) 06/24/18 17:00 Urine RBC (Auto) 36 /hpf (0-3) 06/24/18 17:00 Ur Epithelial Cells Rare /HPF (FEW) 06/24/18 17:00 Urine Bacteria Rare /hpf (NONE SEEN) 06/24/18 17:00 Urine Mucus Few 06/24/18 17:00 Influenza A (Rapid) Negative 06/25/18 01:20 Influenza B (Rapid) Negative 06/25/18 01:20 EKG: A flutter, rbbb, rate 102 cta chest: subacute vs chronic right pe MIBI 10/10 (deena): AF/flutter, no STs; no ischemia (+ breast); nl EF, mild LVE, no TID SANTA 12/10: nl LV/RV, severe TANIKA, mild LAE; mild MR; mod-sev TR Echo 09/09: NL LV/RV; L/TANIKA, tethered MV with mod MR; mod TR; mod pHTN echo 08/2017: nl lv/rv, sev lae, mod tanika, mod mr/tr, mod phtn echo12/2017: tds; nl lv/rv, lae, mod mr Carotids 12/10: SANJAY 80-99% stenosis a/p: 82 yo f, patient of Dr. Coley, with history of persistent atrial fibrillation/flutter s/p cardioversion with reversion back to flutter, dCHF with mod pHTN, DM, HTN/HL and carotid stenosis s/p R CEA 07/2015 who was sent from [place] for FTT. uti: -abc per pmd pe: -cta shows subacute vs chronic PE, pt now started on eliquis -check echo pos trop: -trop borderline elevated with flat trend and normal ck, levels similar to baseline in 2016. Not c/w acs. chronic diastolic CHF: -stable, no vol overload -cont home diuretics aflutter - rate controlled on bb - was on ac in past but had recurrent gib so it has been stopped and pt has been on dapt since then-->now dapt stopped and started on eliquis for PE HTN -cont home meds s/p CEA - cont atorvastatin, asa
--- NOTE | 2018-06-25 13:26 | EKG ---
Test Reason : Blood Pressure : / mmHG Vent. Rate : 082 BPM Atrial Rate : 245 BPM P-R Int : 000 ms QRS Dur : 116 ms QT Int : 402 ms P-R-T Axes : 000 -32 095 degrees QTc Int : 469 ms ATRIAL FLUTTER WITH VARIABLE A-V BLOCK WITH PREMATURE VENTRICULAR OR ABERRANTLY CONDUCTED COMPLEXES LEFT AXIS DEVIATION POSSIBLE ANTERIOR INFARCT (CITED ON OR BEFORE 19-JAN-2018) ABNORMAL ECG WHEN COMPARED WITH ECG OF 24-JUN-2018 15:25, NO SIGNIFICANT CHANGE WAS FOUND Confirmed by EZEQUIEL SPIVEY MD ([id number]) on 06/25/2018 1:25:46 PM Referred By: Lynda MIXON Confirmed By:EZEQUIEL SPIVEY MD
[2018-06-25] MEDS: metoPROLOL SUCCINATE 25 MG TAB.SR.24H (FP) PO SCH (21:47)
[2018-06-25] MEDS: DOCUSATE SODIUM 100 MG CAPSULE (FP) PO SCH (21:48)
[2018-06-25] MEDS: ATORVASTATIN CA 80 MG TABLET (FP) PO SCH (21:48)
[2018-06-25] MEDS: SENNOSIDES 8.6MG TABLET (FP) PO SCH (21:50)
[2018-06-25] MEDS: traMADol HCL 50 MG TABLET PO PRN (21:50)
[2018-06-26] MEDS: INSULIN SLIDING SCALE (NOVOLOG) 1 VIAL SQ SCH ×2 (06:34→12:39)
[2018-06-26 07:18] LABS: BASO % 0.4 % (0-2.0); EOS % 1.7 % (0-4.5); HEMATOCRIT 30.9 % (32.4-45.2); HEMOGLOBIN 9.9 GM/dL (10.7-15.3); LYMPH % 26.9 % (8-40); MCH 29.2 pg (25.7-33.7); MEAN CELL VOLUME 91.4 fl (80-96); MEAN PLT VOLUME 9.6 fl (7.5-11.1); MONO % 8.2 % (3.8-10.2); NEUT % 62.8 % (42.8-82.8); PLATELET COUNT 271 K/MM3 (134-434); RBC 3.38 M/mm3 (3.60-5.2); WHITE BLOOD COUNT 7.4 K/mm3 (4.0-10.0)
[2018-06-26 07:38] LABS: ANION GAP 6 MMOL/L (8-16); BLOOD UREA NITROGEN 12 mg/dL (7-18); CALCIUM 8.6 mg/dL (8.5-10.1); CHLORIDE 100 mmol/L (98-107); CHOLESTEROL 94 mg/dL (50-200); CO2 30 mmol/L (21-32); CREATININE 0.6 mg/dL (0.55-1.3); GLUCOSE,RANDOM 78 mg/dL (74-106); PHOSPHOROUS 4.2 mg/dL (2.5-4.9); POTASSIUM 4.5 mmol/L (3.5-5.1); SODIUM 136 mmol/L (136-145); TRIGLYCERIDES 90 mg/dL (0-150)
[2018-06-26 09:22] LABS: HDL CHOLESTEROL 29 mg/dL (40-60)
[2018-06-26] MEDS: FERROUS SO4 325 MG TABLET (FP) PO SCH (09:59)
[2018-06-26] MEDS: PANTOPRAZOLE 20 MG TABLET (FP) PO SCH (09:59)
[2018-06-26] MEDS: FUROSEMIDE 40 MG TABLET (FP) PO SCH (10:00)
[2018-06-26] MEDS: COLLAGENASE CLOSTRIDIUM HIST. 30 GRAMS TUBE TP SCH (10:00)
[2018-06-26] MEDS: SUCRALFATE 1 GM TABLET (FP) PO SCH ×2 (10:00→21:38)
[2018-06-26] MEDS: APIXABAN 5 MG TABLET PO SCH ×2 (10:00→21:39)
[2018-06-26] MEDS: BACLOFEN 10 MG TABLET (FP) PO SCH ×2 (10:00→21:39)
[2018-06-26] MEDS: POLYETHYLENE GLYCOL 3350 119 GM BTL PO SCH ×2 (10:00→21:43)
[2018-06-26] MEDS: amLODIPine BESYLATE 5 MG TABLET (FP) PO SCH (10:00)
[2018-06-26] MEDS: FLUoxetine HCL 20 MG CAPSULE (FP) PO SCH (10:00)
[2018-06-26] MEDS: SPIRONOLACTONE 25 MG TABLET (FP) PO SCH (10:01)
[2018-06-26] MEDS: traMADol HCL 50 MG TABLET PO PRN ×2 (10:04→17:34)
--- NOTE | 2018-06-26 11:01 | PN ---
Progress Note (short form) - Note Progress Note: s: no cp sob palps dizzy o: Vital Signs Period Temp Pulse Resp BP Sys/Vasquez Pulse Ox Last 24 Hr 97.7 F-99.5 F 79-94 18-20 115-140/61-75 98 NAD, calm JVD flat, neck supple CTAB, nl effort Irregular rhythm, regular rate nl s1, s2 no m/r/g + bs soft nt nd ext with trace edema, no clubbing or cyanosis no jaundice, diaphoresis Current Medications Generic Name Dose Route Start Last Admin Trade Name Freq PRN Reason Stop Dose Admin Al Hydroxide/Mg Hydroxide 30 ml 06/24/18 23:14 Mylanta Oral Suspension - PO Q4H PRN INDIGESTION Amlodipine Besylate 5 mg 06/25/18 10:00 06/26/18 10:00 Norvasc - PO 5 mg DAILY [facility] Administration Apixaban 5 mg 06/25/18 10:00 06/26/18 10:00 Eliquis - PO 5 mg BID [facility] Administration Atorvastatin Calcium 80 mg 06/24/18 22:00 06/25/18 21:48 Lipitor - PO 80 mg HS [facility] Administration Baclofen 10 mg 06/24/18 22:00 06/26/18 10:00 Lioresal - PO 10 mg BID [facility] Administration Bisacodyl 10 mg 06/24/18 21:30 Dulcolax Suppository - RC PRN PRN CONSTIPATION Collagenase 1 applic 06/25/18 10:00 06/26/18 10:00 Santyl - TP 1 applic DAILY [facility] Administration Protocol Docusate Sodium 100 mg 06/24/18 22:00 06/25/18 21:48 Colace - PO 100 mg HS [facility] Administration Ferrous Sulfate 325 mg 06/25/18 10:00 06/26/18 09:59 Feosol - PO 325 mg DAILY [facility] Administration Fluoxetine HCl 20 mg 06/25/18 10:00 06/26/18 10:00 Prozac - PO 20 mg DAILY [facility] Administration Furosemide 40 mg 06/25/18 10:00 06/26/18 10:00 Lasix - PO 40 mg DAILY [facility] Administration Levofloxacin 750 mg in 150 mls @ 100 mls/hr 06/25/18 19:00 06/25/18 19:04 Levaquin 750 Mg Premixed Ivpb - IVPB 100 mls/hr Q24H [facility] Administration Protocol Insulin Aspart 1 vial 06/24/18 21:45 06/26/18 06:34 Novolog Vial Sliding Scale - SQ Not Given TIDAC [facility] Protocol Metoprolol Succinate 12.5 mg 06/24/18 22:00 06/25/18 21:47 Toprol Xl - PO 12.5 mg HS [facility] Administration Mirtazapine 45 mg 06/25/18 10:00 06/25/18 21:46 Remeron - PO 45 mg HS [facility] Administration Pantoprazole Sodium 20 mg 06/25/18 10:00 06/26/18 09:59 Protonix - PO 20 mg DAILY [facility] Administration Polyethylene Glycol 17 gm 06/24/18 22:00 06/26/18 10:00 Miralax (For Daily Use) - PO Not Given BID [facility] Senna 2 tab 06/24/18 22:00 06/25/18 21:50 Senna - PO 2 tab HS [facility] Administration Spironolactone 25 mg 06/25/18 10:00 06/26/18 10:01 Aldactone - PO 25 mg DAILY [facility] Administration Sucralfate 1 gm 06/25/18 10:00 06/26/18 10:00 Carafate - PO 1 gm BID [facility] Administration Tramadol HCl 50 mg 06/24/18 21:30 06/26/18 10:04 Ultram - PO 50 mg TID PRN Administration PAIN CBC, BMP 06/26/18 06:15 06/26/18 06:15 EKG: A flutter, rbbb, rate 102 cta chest: subacute vs chronic right pe MIBI 10/10 (deena): AF/flutter, no STs; no ischemia (+ breast); nl EF, mild LVE, no TID SANTA 12/10: nl LV/RV, severe TANIKA, mild LAE; mild MR; mod-sev TR Echo 09/09: NL LV/RV; L/TANIKA, tethered MV with mod MR; mod TR; mod pHTN echo 08/2017: nl lv/rv, sev lae, mod tanika, mod mr/tr, mod phtn echo12/2017: tds; nl lv/rv, lae, mod mr Carotids 12/10: SANJAY 80-99% stenosis a/p: 82 yo f, patient of Dr. Gitig's, with history of persistent atrial fibrillation/flutter s/p cardioversion with reversion back to flutter, dCHF with mod pHTN, DM, HTN/HL and carotid stenosis s/p R CEA 07/2015 who was sent [place]. uti: -abx per pmd pe: -cta shows subacute vs chronic PE, pt now started on eliquis -check echo pos trop: -trop borderline elevated with flat trend and normal ck, levels similar to baseline in 2016. Not c/w acs. chronic diastolic CHF: -stable, no vol overload -cont home diuretics aflutter - rate controlled on bb - was on ac in past but had recurrent gib so it has been stopped and pt has been on dapt since then-->now dapt stopped and started on eliquis for PE HTN -cont home meds s/p CEA - cont atorvastatin, asa dc tele
[2018-06-26] MEDS ORDERED: PROMETHAZINE HCL 25 MG/1 ML VIAL IVPB PRN (16:30)
--- NOTE | 2018-06-26 16:34 | PN ---
Progress Note, Physician Chief Complaint: Ms Cooper says she felt nausea earlier but has resolved. No vomiting. No cp or sob. - Current Medication List Current Medications: Active Medications Al Hydroxide/Mg Hydroxide (Mylanta Oral Suspension -) 30 ml PO Q4H PRN PRN Reason: INDIGESTION Amlodipine Besylate (Norvasc -) 5 mg PO DAILY [facility] Last Admin: 06/26/18 10:00 Dose: 5 mg Apixaban (Eliquis -) 5 mg PO BID [facility] Last Admin: 06/26/18 10:00 Dose: 5 mg Atorvastatin Calcium (Lipitor -) 80 mg PO HS [facility] Last Admin: 06/25/18 21:48 Dose: 80 mg Baclofen (Lioresal -) 10 mg PO BID [facility] Last Admin: 06/26/18 10:00 Dose: 10 mg Bisacodyl (Dulcolax Suppository -) 10 mg RC PRN PRN PRN Reason: CONSTIPATION Collagenase (Santyl -) 1 applic TP DAILY [facility]; Protocol Last Admin: 06/26/18 10:00 Dose: 1 applic Docusate Sodium (Colace -) 100 mg PO [facility] Last Admin: 06/25/18 21:48 Dose: 100 mg Ferrous Sulfate (Feosol -) 325 mg PO DAILY [facility] Last Admin: 06/26/18 09:59 Dose: 325 mg Fluoxetine HCl (Prozac -) 20 mg PO DAILY [facility] Last Admin: 06/26/18 10:00 Dose: 20 mg Furosemide (Lasix -) 40 mg PO DAILY [facility] Last Admin: 06/26/18 10:00 Dose: 40 mg Levofloxacin (Levaquin 750 Mg Premixed Ivpb -) 750 mg in 150 mls @ 100 mls/hr IVPB Q24H [facility]; Protocol Last Admin: 06/25/18 19:04 Dose: 100 mls/hr Insulin Aspart (Novolog Vial Sliding Scale -) 1 vial SQ TIDAC [facility]; Protocol Last Admin: 06/26/18 12:39 Dose: Not Given Metoprolol Succinate (Toprol Xl -) 12.5 mg PO HS [facility] Last Admin: 06/25/18 21:47 Dose: 12.5 mg Mirtazapine (Remeron -) 45 mg PO HS [facility] Last Admin: 06/25/18 21:46 Dose: 45 mg Pantoprazole Sodium (Protonix -) 20 mg PO DAILY [facility] Last Admin: 06/26/18 09:59 Dose: 20 mg Polyethylene Glycol (Miralax (For Daily Use) -) 17 gm PO BID [facility] Last Admin: 06/26/18 10:00 Dose: Not Given Promethazine HCl (Phenergan Injection -) 12.5 mg IVPB Q6H PRN PRN Reason: NAUSEA AND/OR VOMITING Senna (Senna -) 2 tab PO HS [facility] Last Admin: 06/25/18 21:50 Dose: 2 tab Spironolactone (Aldactone -) 25 mg PO DAILY [facility] Last Admin: 06/26/18 10:01 Dose: 25 mg Sucralfate (Carafate -) 1 gm PO BID [facility] Last Admin: 06/26/18 10:00 Dose: 1 gm Tramadol HCl (Ultram -) 50 mg PO TID PRN PRN Reason: PAIN Last Admin: 06/26/18 10:04 Dose: 50 mg - Objective Vital Signs: Vital Signs Temperature 37.1 C 06/26/18 15:46 Pulse Rate 82 06/26/18 15:46 Respiratory Rate 20 06/26/18 15:46 Blood Pressure 177/69 H 06/26/18 15:46 O2 Sat by Pulse Oximetry (%) 99 06/26/18 09:00 Constitutional: Yes: Well Nourished, No Distress, Calm Cardiovascular: Yes: Regular Rate and Rhythm. No: Tachycardia, Gallop, Murmur, Rub Respiratory: Yes: Regular, CTA Bilaterally. No: Rales, Rhonchi, Wheezes Gastrointestinal: Yes: Normal Bowel Sounds, Soft. No: Distention, Tenderness Extremities: Yes: WNL Edema: No Labs: CBC, BMP 06/26/18 06:15 06/26/18 06:15 INR, PTT INR 1.16 (0.83-1.09) H 06/24/18 15:49 Problem List - Problems (1) UTI (urinary tract infection) Code(s): N39.0 - URINARY TRACT INFECTION, SITE NOT SPECIFIED Qualifiers: Urinary tract infection type: catheter-associated UTI Indwelling urinary catheter type: indwelling urethral catheter Encounter type: initial encounter Qualified Code(s): T83.511A - Infection and inflammatory reaction due to indwelling urethral catheter, initial encounter; N39.0 - Urinary tract infection , site not specified (2) Elevated troponin Code(s): R74.8 - ABNORMAL LEVELS OF OTHER SERUM ENZYMES (3) Pulmonary embolism Code(s): I26.99 - OTHER PULMONARY EMBOLISM WITHOUT ACUTE COR PULMONALE Qualifiers: Pulmonary embolism type: unspecified Chronicity: chronic Acute cor pulmonale presence: without acute cor pulmonale Qualified Code(s): I27.82 - Chronic pulmonary embolism (4) CHF (congestive heart failure) Code(s): I50.9 - HEART FAILURE, UNSPECIFIED Qualifiers: Heart failure type: diastolic Heart failure chronicity: chronic Qualified Code(s): I50.32 - Chronic diastolic (congestive) heart failure (5) Atrial fibrillation and flutter Code(s): I48.91 - UNSPECIFIED ATRIAL FIBRILLATION; I48.92 - UNSPECIFIED ATRIAL FLUTTER (6) Diabetes Code(s): E11.9 - TYPE 2 DIABETES MELLITUS WITHOUT COMPLICATIONS (7) HLD (hyperlipidemia) Code(s): E78.5 - HYPERLIPIDEMIA, UNSPECIFIED (8) HTN (hypertension) Code(s): I10 - ESSENTIAL (PRIMARY) HYPERTENSION Qualifiers: Qualified Code(s): I10 - Essential (primary) hypertension (9) Lower extremity pain, right Code(s): M79.604 - PAIN IN RIGHT LEG (10) History of stroke Code(s): Z86.73 - PRSNL HX OF TIA (TIA), AND CEREB INFRC W/O RESID DEFICITS (11) Failure to thrive in adult Code(s): R62.7 - ADULT FAILURE TO THRIVE Assessment/Plan (1) UTI (urinary tract infection) Assessment/Plan: -urinalysis positive for UTI -urinalysis growing gram negative rods -continue levaquin -follow up final culture results Code(s): N39.0 - URINARY TRACT INFECTION, SITE NOT SPECIFIED Qualifiers: Urinary tract infection type: catheter-associated UTI Indwelling urinary catheter type: indwelling urethral catheter Encounter type: initial encounter Qualified Code(s): T83.511A - Infection and inflammatory reaction due to indwelling urethral catheter, initial encounter; N39.0 - Urinary tract infection , site not specified (2) Elevated troponin Assessment/Plan: -appreciate cardiology assistance -stress induced -follow up ECHO -will transfer to med/surg Code(s): R74.8 - ABNORMAL LEVELS OF OTHER SERUM ENZYMES (3) Pulmonary embolism Assessment/Plan: -subacute to chronic PE -agree with ECHO for R heart strain -stable -continue eliquis 5mg, lower dose since stable and h/o GIB -will stop DAPT while on eliquis -GI protection Code(s): I26.99 - OTHER PULMONARY EMBOLISM WITHOUT ACUTE COR PULMONALE Qualifiers: Pulmonary embolism type: unspecified Chronicity: chronic Acute cor pulmonale presence: without acute cor pulmonale Qualified Code(s): I27.82 - Chronic pulmonary embolism (4) CHF (congestive heart failure) Assessment/Plan: -not in exacerbation -follow up ECHO -continue lasix and aldactone Code(s): I50.9 - HEART FAILURE, UNSPECIFIED Qualifiers: Heart failure type: diastolic Heart failure chronicity: chronic Qualified Code(s): I50.32 - Chronic diastolic (congestive) heart failure (5) Atrial fibrillation and flutter Assessment/Plan: -currently sounds in sinus rhythm -was taken off xarelto in the past secondary to GIB -using DAPT instead -however now with small PE -will stop DAPT and currently on eliquis -continue toprol xl Code(s): I48.91 - UNSPECIFIED ATRIAL FIBRILLATION; I48.92 - UNSPECIFIED ATRIAL FLUTTER (6) Diabetes Assessment/Plan: -diabetic diet -can monitor on bmp Code(s): E11.9 - TYPE 2 DIABETES MELLITUS WITHOUT COMPLICATIONS (7) HLD (hyperlipidemia) Assessment/Plan: -well controlled -will stop statin to simplify medication regimen Code(s): E78.5 - HYPERLIPIDEMIA, UNSPECIFIED (8) HTN (hypertension) Assessment/Plan: -controlled -continue home regimen -does not need tight blood pressure control Code(s): I10 - ESSENTIAL (PRIMARY) HYPERTENSION Qualifiers: Qualified Code(s): I10 - Essential (primary) hypertension (9) Lower extremity pain, right Assessment/Plan: -consult Dr Russo for chronic wound -follows as an outpatient Code(s): M79.604 - PAIN IN RIGHT LEG (10) History of stroke Assessment/Plan: -noted Code(s): Z86.73 - PRSNL HX OF TIA (TIA), AND CEREB INFRC W/O RESID DEFICITS (11) Failure to thrive in adult Assessment/Plan: -sent over from [facility] for this -suspect multifactorial -will treat infection -will attempt to simplify medication regimen -add supplements -may need to liberalize diet to make it more appetizing Code(s): R62.7 - ADULT FAILURE TO THRIVE
[2018-06-26] MEDS: MIRTAZAPINE 15 MG TABLET (FP) PO SCH (21:38)
[2018-06-26] MEDS: DOCUSATE SODIUM 100 MG CAPSULE (FP) PO SCH (21:38)
[2018-06-26] MEDS: metoPROLOL SUCCINATE 25 MG TAB.SR.24H (FP) PO SCH (21:39)
[2018-06-26] MEDS: SENNOSIDES 8.6MG TABLET (FP) PO SCH (21:39)
[2018-06-27] MEDS ORDERED: BISACODYL 10 MG SUPP.RECT RC PRN (00:26)
[2018-06-27] MEDS ORDERED: MAG HYDROX/AL HYDROX/SIMETH 30 ML UNIT-DOSE CUP PO PRN (00:26)
[2018-06-27] MEDS: traMADol HCL 50 MG TABLET PO PRN ×3 (00:56→18:32)
[2018-06-27 04:07] LABS: SERUM IRON SATURATION 14 % (15-55); TOTAL IRON BINDING CAPACITY 159 ug/dL (250-450); UIBC 136 ug/dL (118-369)
[2018-06-27 06:52] LABS: BASO % 0.5 % (0-2.0); EOS % 2.3 % (0-4.5); HEMOGLOBIN 9.9 GM/dL (10.7-15.3); LYMPH % 26.7 % (8-40); MCH 28.9 pg (25.7-33.7); MCHC 31.8 g/dl (32.0-36.0); MEAN CELL VOLUME 90.7 fl (80-96); MEAN PLT VOLUME 9.7 fl (7.5-11.1); NEUT % 60.5 % (42.8-82.8); PLATELET COUNT 303 K/MM3 (134-434); RBC 3.42 M/mm3 (3.60-5.2); RDW 17.2 % (11.6-15.6); WHITE BLOOD COUNT 7.9 K/mm3 (4.0-10.0)
[2018-06-27 07:18] LABS: ANION GAP 8 MMOL/L (8-16); BLOOD UREA NITROGEN 13 mg/dL (7-18); CALCIUM 8.8 mg/dL (8.5-10.1); CHLORIDE 98 mmol/L (98-107); CO2 28 mmol/L (21-32); CREATININE 0.7 mg/dL (0.55-1.3); GLUCOSE,RANDOM 89 mg/dL (74-106); MAGNESIUM 2.1 mg/dL (1.8-2.4); PHOSPHOROUS 3.4 mg/dL (2.5-4.9); POTASSIUM 4.3 mmol/L (3.5-5.1); SODIUM 135 mmol/L (136-145)
[2018-06-27] MEDS: SUCRALFATE 1 GM TABLET (FP) PO SCH ×2 (08:00→18:30)
[2018-06-27] MEDS: FLUoxetine HCL 20 MG CAPSULE (FP) PO SCH (09:10)
[2018-06-27] MEDS: FUROSEMIDE 40 MG TABLET (FP) PO SCH (09:11)
[2018-06-27] MEDS: APIXABAN 5 MG TABLET PO SCH ×2 (09:12→21:46)
[2018-06-27] MEDS: amLODIPine BESYLATE 5 MG TABLET (FP) PO SCH (09:12)
[2018-06-27] MEDS: PANTOPRAZOLE 20 MG TABLET (FP) PO SCH (09:12)
[2018-06-27] MEDS: BACLOFEN 10 MG TABLET (FP) PO SCH ×2 (09:12→21:46)
[2018-06-27] MEDS: SPIRONOLACTONE 25 MG TABLET (FP) PO SCH (09:13)
[2018-06-27] MEDS: POLYETHYLENE GLYCOL 3350 119 GM BTL PO SCH ×2 (09:23→21:47)
--- NOTE | 2018-06-27 09:29 | PN ---
Progress Note, Physician Chief Complaint: FTT History of Present Illness: denies sob, wheezing. denies cp, palpitations. RUE swelling/pain continues - Current Medication List Current Medications: Active Medications Al Hydroxide/Mg Hydroxide (Mylanta Oral Suspension -) 30 ml PO Q4H PRN PRN Reason: INDIGESTION Amlodipine Besylate (Norvasc -) 5 mg PO DAILY [facility] Last Admin: 06/27/18 09:12 Dose: 5 mg Apixaban (Eliquis -) 5 mg PO BID [facility] Last Admin: 06/27/18 09:12 Dose: 5 mg Baclofen (Lioresal -) 10 mg PO BID [facility] Last Admin: 06/27/18 09:12 Dose: 10 mg Bisacodyl (Dulcolax Suppository -) 10 mg RC PRN PRN PRN Reason: CONSTIPATION Collagenase (Santyl -) 1 applic TP DAILY [facility]; Protocol Docusate Sodium (Colace -) 100 mg PO HS [facility] Fluoxetine HCl (Prozac -) 20 mg PO DAILY [facility] Last Admin: 06/27/18 09:10 Dose: 20 mg Furosemide (Lasix -) 40 mg PO DAILY [facility] Last Admin: 06/27/18 09:11 Dose: 40 mg Levofloxacin (Levaquin 750 Mg Premixed Ivpb -) 750 mg in 150 mls @ 100 mls/hr IVPB Q24H [facility]; Protocol Metoprolol Succinate (Toprol Xl -) 12.5 mg PO HS [facility] Mirtazapine (Remeron -) 45 mg PO HS [facility] Pantoprazole Sodium (Protonix -) 20 mg PO DAILY [facility] Last Admin: 06/27/18 09:12 Dose: 20 mg Polyethylene Glycol (Miralax (For Daily Use) -) 17 gm PO BID [facility] Last Admin: 06/27/18 09:23 Dose: Not Given Promethazine HCl (Phenergan Injection -) 12.5 mg IVPB Q6H PRN PRN Reason: NAUSEA AND/OR VOMITING Senna (Senna -) 2 tab PO HS [facility] Spironolactone (Aldactone -) 25 mg PO DAILY [facility] Last Admin: 06/27/18 09:13 Dose: 25 mg [facility] Tramadol HCl (Ultram -) 50 mg PO TID PRN PRN Reason: PAIN Last Admin: 06/27/18 09:10 Dose: 50 mg - Objective Vital Signs: Vital Signs Temperature 97.6 F 06/27/18 05:48 Pulse Rate 103 H 06/27/18 05:48 Respiratory Rate 20 06/27/18 05:48 Blood Pressure 137/66 06/27/18 05:48 O2 Sat by Pulse Oximetry (%) 99 06/26/18 21:00 Constitutional: Yes: Well Nourished, No Distress, Calm Cardiovascular: Yes: Pulse Irregular. No: JVD, Gallop, Murmur Respiratory: Yes: Regular, CTA Bilaterally, Diminished (R base (difficult to examine due to pain in arm with movement)). No: Rales, Wheezes Extremities: No: Cold Edema: Yes (++ RUE) Neurological: Yes: Alert, Oriented Psychiatric: No: Agitated Labs: CBC, BMP 06/27/18 05:30 06/27/18 05:30 INR, PTT INR 1.16 (0.83-1.09) H 06/24/18 15:49 Assessment/Plan EKG: A flutter, rbbb, rate 102 cta chest: subacute vs chronic right pe MIBI 10/10 (deena): AF/flutter, no STs; no ischemia (+ breast); nl EF, mild LVE, no TID SANTA 12/10: nl LV/RV, severe TANIKA, mild LAE; mild MR; mod-sev TR Echo 09/09: NL LV/RV; L/TANIKA, tethered MV with mod MR; mod TR; mod pHTN echo 08/2017: nl lv/rv, sev lae, mod tanika, mod mr/tr, mod phtn echo 12/2017: tds; nl lv/rv, lae, mod mr Carotids 12/10: SANJAY 80-99% stenosis tele: AFL, good HR. a/p: 82 yo f, patient of Dr. Coley, with history of persistent atrial fibrillation/flutter s/p cardioversion with reversion back to flutter, dCHF with mod pHTN, DM, HTN/HL and carotid stenosis s/p R CEA 07/2015 who was sent from [place] for FTT. uti: -abx per pmd RUE swelling/pain: -no DVT on sono -plan per hospitalist pe: -cta shows subacute vs chronic PE, pt now started on eliquis -? 6 vs 12 mo course given age-indeterminate PE and ? provoked (long-term immobility)?? -if echo (done today) ok, will d/c telemetry pos trop: -trop borderline elevated with flat trend and normal ck, levels similar to baseline in 2016. Not c/w acs. chronic diastolic CHF: -stable, no vol overload -cont home diuretics aflutter - rate controlled on bb - was on ac in past. had UGIB with gastric AVMs cauterized by dr montes--he cleared pt for trial of AC after that but she declined due to fears of bleeding. - now on AC given age-indeterminate PE. - if tolerates AC, would continue this indefinitely (holding asa and plavix, as these are not obligatory). HTN -controlled -cont home meds s/p CEA - cont atorvastatin, asa
[2018-06-27] MEDS ORDERED: FERROUS SO4 325 MG TABLET (FP) PO SCH (10:00)
--- NOTE | 2018-06-27 10:37 | PN ---
Progress Note, Physician Chief Complaint: Pt lying in bed in no acute distress - Current Medication List Current Medications: Active Medications Al Hydroxide/Mg Hydroxide (Mylanta Oral Suspension -) 30 ml PO Q4H PRN PRN Reason: INDIGESTION Amlodipine Besylate (Norvasc -) 5 mg PO DAILY [facility] Last Admin: 06/27/18 09:12 Dose: 5 mg Apixaban (Eliquis -) 5 mg PO BID [facility] Last Admin: 06/27/18 09:12 Dose: 5 mg Baclofen (Lioresal -) 10 mg PO BID [facility] Last Admin: 06/27/18 09:12 Dose: 10 mg Bisacodyl (Dulcolax Suppository -) 10 mg RC PRN PRN PRN Reason: CONSTIPATION Collagenase (Santyl -) 1 applic TP DAILY [facility]; Protocol Docusate Sodium (Colace -) 100 mg PO HS [facility] Fluoxetine HCl (Prozac -) 20 mg PO DAILY [facility] Last Admin: 06/27/18 09:10 Dose: 20 mg Furosemide (Lasix -) 40 mg PO DAILY [facility] Last Admin: 06/27/18 09:11 Dose: 40 mg Levofloxacin (Levaquin 750 Mg Premixed Ivpb -) 750 mg in 150 mls @ 100 mls/hr IVPB Q24H [facility]; Protocol Metoprolol Succinate (Toprol Xl -) 12.5 mg PO HS [facility] Mirtazapine (Remeron -) 45 mg PO HS [facility] Pantoprazole Sodium (Protonix -) 20 mg PO DAILY [facility] Last Admin: 06/27/18 09:12 Dose: 20 mg Polyethylene Glycol (Miralax (For Daily Use) -) 17 gm PO BID [facility] Last Admin: 06/27/18 09:23 Dose: Not Given Promethazine HCl (Phenergan Injection -) 12.5 mg IVPB Q6H PRN PRN Reason: NAUSEA AND/OR VOMITING Senna (Senna -) 2 tab PO HS [facility] Spironolactone (Aldactone -) 25 mg PO DAILY [facility] Last Admin: 06/27/18 09:13 Dose: 25 mg Sucralfate (Carafate -) 1 gm PO BIDAC [facility] Tramadol HCl (Ultram -) 50 mg PO TID PRN PRN Reason: PAIN Last Admin: 06/27/18 09:10 Dose: 50 mg - Objective Vital Signs: Vital Signs Temperature 97.6 F 06/27/18 05:48 Pulse Rate 103 H 06/27/18 05:48 Respiratory Rate 20 06/27/18 05:48 Blood Pressure 137/66 06/27/18 05:48 O2 Sat by Pulse Oximetry (%) 99 06/26/18 21:00 Constitutional: Yes: No Distress Cardiovascular: Yes: Regular Rate and Rhythm Respiratory: Yes: WNL, Regular, CTA Bilaterally. No: Accessory Muscle Use, SOB , Tachypnea, Wheezes Gastrointestinal: Yes: WNL, Normal Bowel Sounds, Soft. No: Distention, Tenderness Genitourinary: Yes: Shepard Present Edema: Yes Edema: RUE: 2+ Integumentary: Yes: Other (right heel) Wound/Incision: Yes: Dressing Dry and Intact Neurological: Yes: WNL, Alert, Oriented Psychiatric: Yes: WNL, Alert, Oriented Labs: CBC, BMP 06/27/18 05:30 06/27/18 05:30 INR, PTT INR 1.16 (0.83-1.09) H 06/24/18 15:49 Assessment/Plan (1) UTI (urinary tract infection) Assessment/Plan: UA+, UC growing NLF gnb levaquin day 3 await final sensitivity Code(s): N39.0 - URINARY TRACT INFECTION, SITE NOT SPECIFIED Qualifiers: Urinary tract infection type: catheter-associated UTI Indwelling urinary catheter type: indwelling urethral catheter Encounter type: initial encounter Qualified Code(s): T83.511A - Infection and inflammatory reaction due to indwelling urethral catheter, initial encounter; N39.0 - Urinary tract infection , site not specified (2) Elevated troponin Assessment/Plan: no acute ACS cardiology evaluated Code(s): R74.8 - ABNORMAL LEVELS OF OTHER SERUM ENZYMES (3) Pulmonary embolism Assessment/Plan: subacute to chronic PE echo pending continue eliquis dapt stopped Code(s): I26.99 - OTHER PULMONARY EMBOLISM WITHOUT ACUTE COR PULMONALE Qualifiers: Pulmonary embolism type: unspecified Chronicity: chronic Acute cor pulmonale presence: without acute cor pulmonale Qualified Code(s): I27.82 - Chronic pulmonary embolism (4) CHF (congestive heart failure) Assessment/Plan: stable continue lasix and aldactone Code(s): I50.9 - HEART FAILURE, UNSPECIFIED Qualifiers: Heart failure type: diastolic Heart failure chronicity: chronic Qualified Code(s): I50.32 - Chronic diastolic (congestive) heart failure (5) Atrial fibrillation and flutter Assessment/Plan: controlled eliquis started- monitor for gib continue toprol xl Code(s): I48.91 - UNSPECIFIED ATRIAL FIBRILLATION; I48.92 - UNSPECIFIED ATRIAL FLUTTER (6) Diabetes Assessment/Plan: controlled diab diet Code(s): E11.9 - TYPE 2 DIABETES MELLITUS WITHOUT COMPLICATIONS (7) HLD (hyperlipidemia) Assessment/Plan: controlled discussed with cardiology, statin 40mg ordered Code(s): E78.5 - HYPERLIPIDEMIA, UNSPECIFIED (8) HTN (hypertension) Assessment/Plan: controlled continue home regimen Code(s): I10 - ESSENTIAL (PRIMARY) HYPERTENSION Qualifiers: Qualified Code(s): I10 - Essential (primary) hypertension (9) Lower extremity pain, right Assessment/Plan: chronic wound consult pending Code(s): M79.604 - PAIN IN RIGHT LEG (10) History of stroke Assessment/Plan: hemiplegia Code(s): Z86.73 - PRSNL HX OF TIA (TIA), AND CEREB INFRC W/O RESID DEFICITS (11) Failure to thrive in adult Assessment/Plan: currently treating UTI evaluated by skiing teacher pt started on glucerna Code(s): R62.7 - ADULT FAILURE TO THRIVE (2) Swelling of right upper extremity Assessment/Plan: per pt has been swollen since march, mild improvement duplex neg case discussed w/ radiology regarding venogram, reports no clinical benefit in attaining this appears chronic, monitor Code(s): M79.89 - OTHER SPECIFIED SOFT TISSUE DISORDERS
[2018-06-27] MEDS: COLLAGENASE CLOSTRIDIUM HIST. 30 GRAMS TUBE TP SCH (12:00)
--- NOTE | 2018-06-27 14:23 | ECHO ---
Name: SEBASTIEN, HEATH Exam:Adult Echocardiogram Study Date: 06/27/2018 08:45 AM Age: 82 yrs Reason For Study: RT HEART STRAIN Height: 64 in Weight: 169 lb BSA: 1.8 m2 MMode/2D Measurements & Calculations IVSd: 1.0 cm Ao root diam: 2.7 cm LVIDd: 5.4 cm LA dimension: 4.0 cm LVIDs: 3.5 cm LVPWd: 0.98 cm EDV(Teich): 138.9 ml LAV (MOD-bp): 105.0 ml ESV(Teich): 52.5 ml Doppler Measurements & Calculations MV E max rj: 90.7 cm/sec MR max rj: 544.9 cm/sec MV A max rj: 39.3 cm/sec MR max P.8 mmHg MV E/A: 2.3 MV dec time: 0.12 sec TR max rj: 325.3 cm/sec Med Peak E' Rj: 5.2 cm/sec TR max P.4 mmHg Med E/e': 17.4 Lat Peak E' Rj: 11.9 cm/sec Lat E/e': 7.6 PI Vmax: 244.3 cm/sec Procedure A complete two-dimensional transthoracic echocardiogram was performed (2D, M-mode, Doppler and color flow Doppler). Left Ventricle The left ventricle is normal in size. Left ventricular systolic function is moderately reduced. Eject ion Fraction = 40-45%. Diastolic dysfunction, Grade III (restrictive pattern), consistent with markedly i ncreased left atrial pressure. Ratio E/E'= 17. There is moderate global hypokinesis of the left ventricle. Right Ventricle The right ventricle is not well visualized. Atria The left atrium is severely dilated. LA volume index is 58 ml/m2. The right atrium is moderately dila sis. Mitral Valve The mitral valve is normal in structure and function. There is moderate mitral regurgitation. Tricuspid Valve The tricuspid valve is normal in structure and function. There is moderate tricuspid regurgitation. P ulmonary artery systolic pressure is at least 51 mmHg assuming RA pressure of 3 mmHg (normal IVC and >50% karma apse). Aortic Valve There is mild aortic sclerosis.;. No aortic regurgitation is present. Pulmonic Valve The pulmonic valve is not well visualized. Great Vessels The aortic root is normal size. Pericardium/Pleura There is no pericardial effusion. Interpretation Summary The left ventricle is normal in size. Left ventricular systolic function is moderately reduced. There is moderate global hypokinesis of the left ventricle. Ejection Fraction = 40-45%. Diastolic dysfunction, Grade III (restrictive pattern), consistent with markedly increased left atria l pressure. Ratio E/E'= 17 The right ventricle is not well visualized. The left atrium is severely dilated. LA volume index is 58 ml/m2 The right atrium is moderately dilated. There is moderate mitral regurgitation. There is moderate tricuspid regurgitation. Pulmonary artery systolic pressure is at least 51 mmHg assuming RA pressure of 3 mmHg (normal IVC and >50% collapse) There is mild aortic sclerosis. There is no pericardial effusion. When compared to study dated 01/20/18, LV systolic function appears diminished. Clinical correlation i s recommended Darrion Lantigua MD 06/27/2018 02:22 PM
[2018-06-27] MEDS ORDERED: PT OWN MED DRAWER 7, Y5N ONE (14:28)
[2018-06-27] MEDS ORDERED: MIRTAZAPINE 15 MG TABLET (FP) PO SCH (22:00)
[2018-06-27] MEDS ORDERED: ATORVASTATIN CA 40 MG TABLET (FP) PO SCH (22:00)
[2018-06-27] MEDS ORDERED: SENNOSIDES 8.6MG TABLET (FP) PO SCH (22:00)
[2018-06-27] MEDS ORDERED: metoPROLOL SUCCINATE 25 MG TAB.SR.24H (FP) PO SCH (22:00)
[2018-06-27] MEDS ORDERED: DOCUSATE SODIUM 100 MG CAPSULE (FP) PO SCH (22:00)
[2018-06-28] MEDS: SUCRALFATE 1 GM TABLET (FP) PO SCH ×2 (06:22→17:16)
[2018-06-28] MEDS: traMADol HCL 50 MG TABLET PO PRN ×2 (06:22→14:28)
[2018-06-28 07:40] LABS: BASO % 0.4 % (0-2.0); EOS % 1.4 % (0-4.5); HEMATOCRIT 31.4 % (32.4-45.2); MCH 29.3 pg (25.7-33.7); MCHC 31.9 g/dl (32.0-36.0); MEAN CELL VOLUME 91.8 fl (80-96); MEAN PLT VOLUME 9.7 fl (7.5-11.1); MONO % 7.8 % (3.8-10.2); NEUT % 73.4 % (42.8-82.8); PLATELET COUNT 256 K/MM3 (134-434); RBC 3.42 M/mm3 (3.60-5.2); RDW 16.9 % (11.6-15.6); WHITE BLOOD COUNT 6.5 K/mm3 (4.0-10.0)
[2018-06-28 08:21] LABS: ANION GAP 9 MMOL/L (8-16); BLOOD UREA NITROGEN 10 mg/dL (7-18); CALCIUM 8.5 mg/dL (8.5-10.1); CHLORIDE 98 mmol/L (98-107); CO2 28 mmol/L (21-32); CREATININE 0.6 mg/dL (0.55-1.3); GLUCOSE,RANDOM 97 mg/dL (74-106); POTASSIUM 4.2 mmol/L (3.5-5.1); SODIUM 136 mmol/L (136-145)
[2018-06-28] MEDS ORDERED: PT OWN MED DRAWER 7, Y5N ONE (08:28)
--- NOTE | 2018-06-28 09:00 | PN ---
Progress Note, Physician Chief Complaint: arm pain, wt loss History of Present Illness: denies sob, orthopnea no cp, palpit ongoing R arm pain - Current Medication List Current Medications: Active Medications Al Hydroxide/Mg Hydroxide (Mylanta Oral Suspension -) 30 ml PO Q4H PRN PRN Reason: INDIGESTION Last Admin: 06/27/18 21:56 Dose: 30 ml Amlodipine Besylate (Norvasc -) 5 mg PO DAILY [facility] Last Admin: 06/27/18 09:12 Dose: 5 mg Apixaban (Eliquis -) 5 mg PO BID [facility] Last Admin: 06/27/18 21:46 Dose: 5 mg Atorvastatin Calcium (Lipitor -) 40 mg PO HS [facility] Last Admin: 06/27/18 21:47 Dose: 40 mg Baclofen (Lioresal -) 10 mg PO BID [facility] Last Admin: 06/27/18 21:46 Dose: 10 mg Bisacodyl (Dulcolax Suppository -) 10 mg RC PRN PRN PRN Reason: CONSTIPATION Collagenase (Santyl -) 1 applic TP DAILY [facility]; Protocol Last Admin: 06/27/18 12:00 Dose: 1 applic Docusate Sodium (Colace -) 100 mg PO HS [facility] Last Admin: 06/27/18 21:46 Dose: 100 mg Fluoxetine HCl (Prozac -) 20 mg PO DAILY [facility] Last Admin: 06/27/18 09:10 Dose: 20 mg Furosemide (Lasix -) 40 mg PO DAILY [facility] Last Admin: 06/27/18 09:11 Dose: 40 mg Levofloxacin (Levaquin 750 Mg Premixed Ivpb -) 750 mg in 150 mls @ 100 mls/hr IVPB Q24H [facility]; Protocol Last Admin: 06/27/18 18:29 Dose: 100 mls/hr Metoprolol Succinate (Toprol Xl -) 12.5 mg PO HS [facility] Last Admin: 06/27/18 21:46 Dose: 12.5 mg Mirtazapine (Remeron -) 45 mg PO HS [facility] Last Admin: 06/27/18 21:47 Dose: 45 mg Pantoprazole Sodium (Protonix -) 20 mg PO DAILY [facility] Last Admin: 06/27/18 09:12 Dose: 20 mg Polyethylene Glycol (Miralax (For Daily Use) -) 17 gm PO BID [facility] Last Admin: 06/27/18 21:47 Dose: Not Given Promethazine HCl (Phenergan Injection -) 12.5 mg IVPB Q6H PRN PRN Reason: NAUSEA AND/OR VOMITING Senna (Senna -) 2 tab PO HS [facility] Last Admin: 06/27/18 21:47 Dose: 2 tab Spironolactone (Aldactone -) 25 mg PO DAILY [facility] Last Admin: 06/27/18 09:13 Dose: 25 mg Sucralfate (Carafate -) 1 gm PO BIDAC [facility] Last Admin: 06/28/18 06:22 Dose: 1 gm Tramadol HCl (Ultram -) 50 mg PO TID PRN PRN Reason: PAIN Last Admin: 06/28/18 06:22 Dose: 50 mg - Objective Vital Signs: Vital Signs Temperature 97.8 F 06/28/18 06:00 Pulse Rate 85 06/28/18 06:00 Respiratory Rate 20 06/28/18 06:00 Blood Pressure 155/61 06/28/18 06:00 O2 Sat by Pulse Oximetry (%) 93 L 06/27/18 21:00 Constitutional: Yes: Well Nourished, No Distress, Calm Cardiovascular: Yes: Pulse Irregular, JVD (prob (mild)), S1, S2. No: Gallop, Murmur Respiratory: Yes: Regular, CTA Bilaterally. No: Accessory Muscle Use, Rales, Wheezes Extremities: No: Cold Edema: Yes (R arm) Neurological: Yes: Alert, Oriented Psychiatric: No: Agitated Labs: CBC, BMP 06/28/18 06:25 06/28/18 06:25 INR, PTT INR 1.16 (0.83-1.09) H 06/24/18 15:49 Assessment/Plan EKG: A flutter, rbbb, rate 102 cta chest: subacute vs chronic right pe. bilat upper lobe groundglass findings c /w small airways dz vs subtle interstitial congestion MIBI 10/10 (deena): AF/flutter, no STs; no ischemia (+ breast); nl EF, mild LVE, no TID echo 06/14: mod decr EF 40-45%, global. hi E/e', restrictive filling pattern. RV tds. ++ R/LAE. mod MR/TR. PAST at least 51. echo 12/2017: tds; nl lv/rv, lae, mod mr echo 08/2017: nl lv/rv, sev lae, mod serena, mod mr/tr, mod phtn Carotids 12/10: SANJAY 80-99% stenosis tele: AFL, HR good. PVCs no VT a/p: 82 yo f, patient of Dr. Coley, with history of persistent atrial fibrillation/flutter s/p cardioversion with reversion back to flutter, dCHF with mod pHTN, DM, HTN/HL and carotid stenosis s/p R CEA 07/2015 who was sent from [place] for FTT. wt loss, FTT: -? etiology. per hospitalist uti: -abx per pmd RUE swelling/pain: -no DVT on sono -plan per hospitalist pe: -cta shows subacute vs chronic PE, pt now started on eliquis -? 6 vs 12 mo course given age-indeterminate PE and ? provoked (long-term immobility)?? mixed syst/diast CHF: -pt with chronic HFpEF syndrome well-controlled with diuretics in past -presently with mod decr EF (40-45%) with echo evidence of high filling pressure and at least mod pulm HTN. -no sob or LE swelling (which is prior HF sx), probable mild JVD on exam. possible mild intersitial pulm congestion on CT. check bnp. incr lasix 40 to 80 po daily. -global LV hypo, likely nonischemic etiology given many years of uncontrolled HTN (and DM?) prior to starting to see me few years back. (AF/flutter appears well-controlled, tachy-CMP unlikely). ? BUZZ--have to review prior office records re: PSGs, now s/p signif wt los. -will repeat ischemia eval with pharm MPI -titrate up metopr (change 12. to 25 qd, incr further as tolerates) -ARB as below -continue spironolactone 25 pos trop: -trop borderline elevated with flat trend and normal ck, levels similar to baseline in 2016. Not c/w acs. aflutter - rate controlled on bb - was on ac in past. had UGIB with gastric AVMs cauterized by dr montes--he cleared pt for trial of AC after that but she declined due to fears of bleeding. - now on AC given age-indeterminate PE. - if tolerates AC, would continue this indefinitely (holding asa and plavix, as these are not obligatory). HTN -resists increasing meds for long time as outpt -bp reasonably controlled here -rec target bp <130/80 given now with LV syst dysfunction -tolerated valsartan 320 qd in past, no hi creat/K on past trend here--start 80 bid (syst chf dosing) s/p CEA - cont atorvastatin, asa d/c tele
[2018-06-28] MEDS ORDERED: VALSARTAN 80 MG TABLET (UD) PO SCH (10:00)
[2018-06-28] MEDS ORDERED: metoPROLOL SUCCINATE 25 MG TAB.SR.24H (FP) PO SCH (10:00)
[2018-06-28] MEDS ORDERED: VALSARTAN 160 MG TABLET (UD) PO SCH (10:00)
[2018-06-28] MEDS: amLODIPine BESYLATE 5 MG TABLET (FP) PO SCH (10:05)
[2018-06-28] MEDS: FUROSEMIDE 40 MG TABLET (FP) PO SCH (10:05)
[2018-06-28] MEDS: FLUoxetine HCL 20 MG CAPSULE (FP) PO SCH (10:06)
[2018-06-28] MEDS: BACLOFEN 10 MG TABLET (FP) PO SCH ×2 (10:06→21:43)
[2018-06-28] MEDS: PANTOPRAZOLE 20 MG TABLET (FP) PO SCH (10:06)
[2018-06-28] MEDS: APIXABAN 5 MG TABLET PO SCH ×2 (10:06→21:42)
[2018-06-28] MEDS: SPIRONOLACTONE 25 MG TABLET (FP) PO SCH (10:06)
[2018-06-28] MEDS: POLYETHYLENE GLYCOL 3350 119 GM BTL PO SCH ×2 (10:07→21:52)
[2018-06-28] MEDS ORDERED: FUROSEMIDE 40 MG TABLET (FP) PO SCH (10:13)
[2018-06-28 10:51] LABS: N-TERMINAL BNP 2707.7 pg/ml (5-450)
--- NOTE | 2018-06-28 11:10 | PN ---
Progress Note, Physician Chief Complaint: Ms Cooper says she feels better today. No cp, sob, n/v. - Current Medication List Current Medications: Active Medications Al Hydroxide/Mg Hydroxide (Mylanta Oral Suspension -) 30 ml PO Q4H PRN PRN Reason: INDIGESTION Last Admin: 06/27/18 21:56 Dose: 30 ml Amlodipine Besylate (Norvasc -) 5 mg PO DAILY [facility] Last Admin: 06/28/18 10:05 Dose: 5 mg Apixaban (Eliquis -) 5 mg PO BID [facility] Last Admin: 06/28/18 10:06 Dose: 5 mg Atorvastatin Calcium (Lipitor -) 40 mg PO HS [facility] Last Admin: 06/27/18 21:47 Dose: 40 mg Baclofen (Lioresal -) 10 mg PO BID [facility] Last Admin: 06/28/18 10:06 Dose: 10 mg Bisacodyl (Dulcolax Suppository -) 10 mg RC PRN PRN PRN Reason: CONSTIPATION Collagenase (Santyl -) 1 applic TP DAILY [facility]; Protocol Last Admin: 06/27/18 12:00 Dose: 1 applic Docusate Sodium (Colace -) 100 mg PO HS [facility] Last Admin: 06/27/18 21:46 Dose: 100 mg Fluoxetine HCl (Prozac -) 20 mg PO DAILY [facility] Last Admin: 06/28/18 10:06 Dose: 20 mg Furosemide (Lasix -) 80 mg PO DAILY [facility] Levofloxacin (Levaquin 750 Mg Premixed Ivpb -) 750 mg in 150 mls @ 100 mls/hr IVPB Q24H [facility]; Protocol Last Admin: 06/27/18 18:29 Dose: 100 mls/hr Metoprolol Succinate (Toprol Xl -) 25 mg PO DAILY [facility] Last Admin: 06/28/18 10:06 Dose: 25 mg Mirtazapine (Remeron -) 45 mg PO HS [facility] Last Admin: 06/27/18 21:47 Dose: 45 mg Pantoprazole Sodium (Protonix -) 20 mg PO DAILY [facility] Last Admin: 06/28/18 10:06 Dose: 20 mg Polyethylene Glycol (Miralax (For Daily Use) -) 17 gm PO BID [facility] Last Admin: 06/28/18 10:07 Dose: 17 grams Promethazine HCl (Phenergan Injection -) 12.5 mg IVPB Q6H PRN PRN Reason: NAUSEA AND/OR VOMITING Senna (Senna -) 2 tab PO HS [facility] Last Admin: 06/27/18 21:47 Dose: 2 tab Spironolactone (Aldactone -) 25 mg PO DAILY [facility] Last Admin: 06/28/18 10:06 Dose: 25 mg Sucralfate (Carafate -) 1 gm PO BIDAC [facility] Last Admin: 06/28/18 06:22 Dose: 1 gm Tramadol HCl (Ultram -) 50 mg PO TID PRN PRN Reason: PAIN Last Admin: 06/28/18 06:22 Dose: 50 mg Valsartan (Diovan -) 80 mg PO BID [facility] Last Admin: 06/28/18 10:05 Dose: 80 mg - Objective Vital Signs: Vital Signs Temperature 36.6 C 06/28/18 10:00 Pulse Rate 85 06/28/18 10:00 Respiratory Rate 20 06/28/18 10:00 Blood Pressure 155/61 06/28/18 10:00 O2 Sat by Pulse Oximetry (%) 93 L 06/27/18 21:00 Constitutional: Yes: Well Nourished, No Distress, Calm Cardiovascular: Yes: Regular Rate and Rhythm. No: Gallop, Murmur, Rub Respiratory: Yes: Regular, CTA Bilaterally. No: Rales, Rhonchi, Wheezes Gastrointestinal: Yes: Normal Bowel Sounds, Soft. No: Distention, Tenderness Extremities: Yes: Other (RUE edema) Edema: No Labs: CBC, BMP 06/28/18 06:25 06/28/18 06:25 INR, PTT INR 1.16 (0.83-1.09) H 06/24/18 15:49 Problem List - Problems (1) UTI (urinary tract infection) Code(s): N39.0 - URINARY TRACT INFECTION, SITE NOT SPECIFIED Qualifiers: Urinary tract infection type: catheter-associated UTI Indwelling urinary catheter type: indwelling urethral catheter Encounter type: initial encounter Qualified Code(s): T83.511A - Infection and inflammatory reaction due to indwelling urethral catheter, initial encounter; N39.0 - Urinary tract infection , site not specified (2) Elevated troponin Code(s): R74.8 - ABNORMAL LEVELS OF OTHER SERUM ENZYMES (3) Pulmonary embolism Code(s): I26.99 - OTHER PULMONARY EMBOLISM WITHOUT ACUTE COR PULMONALE Qualifiers: Pulmonary embolism type: unspecified Chronicity: chronic Acute cor pulmonale presence: without acute cor pulmonale Qualified Code(s): I27.82 - Chronic pulmonary embolism (4) CHF (congestive heart failure) Code(s): I50.9 - HEART FAILURE, UNSPECIFIED Qualifiers: Heart failure type: diastolic Heart failure chronicity: chronic Qualified Code(s): I50.32 - Chronic diastolic (congestive) heart failure (5) Atrial fibrillation and flutter Code(s): I48.91 - UNSPECIFIED ATRIAL FIBRILLATION; I48.92 - UNSPECIFIED ATRIAL FLUTTER (6) Diabetes Code(s): E11.9 - TYPE 2 DIABETES MELLITUS WITHOUT COMPLICATIONS (7) HLD (hyperlipidemia) Code(s): E78.5 - HYPERLIPIDEMIA, UNSPECIFIED (8) HTN (hypertension) Code(s): I10 - ESSENTIAL (PRIMARY) HYPERTENSION Qualifiers: Qualified Code(s): I10 - Essential (primary) hypertension (9) Lower extremity pain, right Code(s): M79.604 - PAIN IN RIGHT LEG (10) History of stroke Code(s): Z86.73 - PRSNL HX OF TIA (TIA), AND CEREB INFRC W/O RESID DEFICITS (11) Failure to thrive in adult Code(s): R62.7 - ADULT FAILURE TO THRIVE Assessment/Plan (1) UTI (urinary tract infection) Assessment/Plan: -urine culture growing salmonella -continue levaquin -patient improved Code(s): N39.0 - URINARY TRACT INFECTION, SITE NOT SPECIFIED Qualifiers: Urinary tract infection type: catheter-associated UTI Indwelling urinary catheter type: indwelling urethral catheter Encounter type: initial encounter Qualified Code(s): T83.511A - Infection and inflammatory reaction due to indwelling urethral catheter, initial encounter; N39.0 - Urinary tract infection , site not specified (2) Elevated troponin Assessment/Plan: -stress induced Code(s): R74.8 - ABNORMAL LEVELS OF OTHER SERUM ENZYMES (3) Pulmonary embolism Assessment/Plan: -subacute to chronic PE -stable -continue eliquis 5mg, lower dose since stable and h/o GIB -will stop DAPT while on eliquis -GI protection Code(s): I26.99 - OTHER PULMONARY EMBOLISM WITHOUT ACUTE COR PULMONALE Qualifiers: Pulmonary embolism type: unspecified Chronicity: chronic Acute cor pulmonale presence: without acute cor pulmonale Qualified Code(s): I27.82 - Chronic pulmonary embolism (4) CHF (congestive heart failure) Assessment/Plan: -not in exacerbation -continue lasix and aldactone Code(s): I50.9 - HEART FAILURE, UNSPECIFIED Qualifiers: Heart failure type: diastolic Heart failure chronicity: chronic Qualified Code(s): I50.32 - Chronic diastolic (congestive) heart failure (5) Atrial fibrillation and flutter Assessment/Plan: -currently sounds in sinus rhythm -was taken off xarelto in the past secondary to GIB -using DAPT instead -however now with small PE -eliquis -continue toprol xl Code(s): I48.91 - UNSPECIFIED ATRIAL FIBRILLATION; I48.92 - UNSPECIFIED ATRIAL FLUTTER (6) Diabetes Assessment/Plan: -diabetic diet -can monitor on bmp Code(s): E11.9 - TYPE 2 DIABETES MELLITUS WITHOUT COMPLICATIONS (7) HLD (hyperlipidemia) Assessment/Plan: -well controlled -will stop statin to simplify medication regimen Code(s): E78.5 - HYPERLIPIDEMIA, UNSPECIFIED (8) HTN (hypertension) Assessment/Plan: -controlled -continue home regimen -does not need tight blood pressure control Code(s): I10 - ESSENTIAL (PRIMARY) HYPERTENSION Qualifiers: Qualified Code(s): I10 - Essential (primary) hypertension (9) Lower extremity pain, right Assessment/Plan: -consult Dr Russo for chronic wound -follows as an outpatient Code(s): M79.604 - PAIN IN RIGHT LEG (10) History of stroke Assessment/Plan: -noted Code(s): Z86.73 - PRSNL HX OF TIA (TIA), AND CEREB INFRC W/O RESID DEFICITS (11) Failure to thrive in adult Assessment/Plan: -continue supplements Code(s): R62.7 - ADULT FAILURE TO THRIVE
[2018-06-28] MEDS ORDERED: BISACODYL 10 MG SUPP.RECT RC PRN (16:56)
[2018-06-28] MEDS ORDERED: PROMETHAZINE HCL 25 MG/1 ML VIAL IVPB PRN (16:56)
[2018-06-28] MEDS ORDERED: MAG HYDROX/AL HYDROX/SIMETH 30 ML UNIT-DOSE CUP PO PRN (16:56)
[2018-06-28] MEDS: VALSARTAN 80 MG TABLET (UD) PO SCH (21:42)
[2018-06-28] MEDS: ATORVASTATIN CA 40 MG TABLET (FP) PO SCH (21:42)
[2018-06-28] MEDS: MIRTAZAPINE 15 MG TABLET (FP) PO SCH (21:42)
[2018-06-28] MEDS: SENNOSIDES 8.6MG TABLET (FP) PO SCH (21:42)
[2018-06-28] MEDS: DOCUSATE SODIUM 100 MG CAPSULE (FP) PO SCH (21:42)
[2018-06-29] MEDS: SUCRALFATE 1 GM TABLET (FP) PO SCH ×2 (06:19→16:36)
[2018-06-29 07:17] LABS: BASO % 0.4 % (0-2.0); EOS % 1.4 % (0-4.5); HEMATOCRIT 29.6 % (32.4-45.2); HEMOGLOBIN 9.5 GM/dL (10.7-15.3); LYMPH % 25.8 % (8-40); MCH 29.3 pg (25.7-33.7); MCHC 31.9 g/dl (32.0-36.0); MEAN CELL VOLUME 91.6 fl (80-96); MONO % 8.9 % (3.8-10.2); NEUT % 63.5 % (42.8-82.8); PLATELET COUNT 259 K/MM3 (134-434); RBC 3.23 M/mm3 (3.60-5.2); RDW 17.3 % (11.6-15.6); WHITE BLOOD COUNT 5.8 K/mm3 (4.0-10.0)
[2018-06-29 07:50] LABS: ANION GAP 6 MMOL/L (8-16); BLOOD UREA NITROGEN 14 mg/dL (7-18); CALCIUM 7.9 mg/dL (8.5-10.1); CHLORIDE 98 mmol/L (98-107); CO2 30 mmol/L (21-32); CREATININE 0.9 mg/dL (0.55-1.3); GLUCOSE,RANDOM 92 mg/dL (74-106); MAGNESIUM 1.8 mg/dL (1.8-2.4); PHOSPHOROUS 3.7 mg/dL (2.5-4.9); POTASSIUM 4.1 mmol/L (3.5-5.1); SODIUM 134 mmol/L (136-145)
--- NOTE | 2018-06-29 09:09 | CONSULT ---
- Consultation REQUESTING PROVIDER: CONSULT REQUEST: We have been asked to surgically evaluate this patient for ( specify). PCP:BRITTANI Garcia HISTORY OF PRESENT ILLNESS: Obtained from patient chart: Patient slightly confused, states she lives at home. 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 Her custodial states that she's lost 25-30 pounds since her admission in December. Patient states that she's not eating because she's not hungry. She is concerned she has a chest cold as she has had a mild unproductive cough; afebrile, hemodynamics stable, saturating well on RA. She noticed some leg swelling over the past month or two with R-leg swelling worse than L;She doesn't have any other complaints. She denies having any new complaints. Denies chest pain, fever, nausea, vomiting, shortness of breath, abdominal pain, chu catheter issues, leg swelling. Patient is fully alert and oriented. PMHx: Anemia: Yes Asthma: No Cancer: No Cardiac Disorders: Yes (A FIB) CVA: No COPD: No CHF: Yes Dementia: No Diabetes: Yes GI Disorders: Yes (COLONIC POLYPS) Disorders: No HTN: Yes Hypercholesterolemia: Yes Liver Disease: No Seizures: No Thyroid Disease: No - Surgical History Abdominal Surgery: No Appendectomy: No Cardiac Surgery: Yes (CARDIOVERSION (12/10)) Cholecystectomy: No Lung Surgery: No Neurologic Surgery: No Orthopedic Surgery: No Home Medications Medication Instructions Recorded Acetaminophen [Pain Reliever] 1,000 mg PO BID 06/24/18 Amlodipine Besylate [Norvasc -] 5 mg PO DAILY 06/24/18 Ascorbic Acid [Vitamin C -] 500 mg PO DAILY 06/24/18 Aspirin [ASA -] 81 mg PO DAILY 06/24/18 Atorvastatin Ca [Lipitor] 80 mg PO HS 06/24/18 Baclofen 10 mg PO BID 06/24/18 Bisacodyl [Dulcolax] 10 mg RC PRN PRN 06/24/18 Cholecalciferol (Vitamin D3) 1,000 unit PO DAILY 06/24/18 [Vitamin D3 -] Clopidogrel Bisulfate [Plavix -] 75 mg PO DAILY 06/24/18 Collagenase Clostridium Hist. 1 applic TP DAILY 06/24/18 [Santyl] Docusate Sodium [Colace -] 100 mg PO HS 06/24/18 Ferrous Sulfate 325 mg PO DAILY 06/24/18 Fluoxetine HCl Liquid [Prozac Oral 20 mg PO DAILY 06/24/18 Solution -] Furosemide [Lasix -] 40 mg PO DAILY 06/24/18 Gabapentin 100 mg PO TID 06/24/18 Mag Hydrox/Al Hydrox/Simeth 30 ml PO Q4H 06/24/18 [Mylanta *Suspension*] Magnesium Hydroxide [Milk of 30 ml PO BID PRN 06/24/18 Magnesia -] Magnesium Oxide [Magox 400] 400 mg PO BID 06/24/18 Metoprolol Succinate [Toprol Xl -] 12.5 mg PO HS 06/24/18 Mirtazepine Alejandra Tabs [Remeron 45 mg PO DAILY 06/24/18 Soltab -] PE/Shark Liver Oil/Glyc/Wh.pet 1 applic RC Q8H PRN 06/24/18 [Hemorrhoidal Cream] Polyethylene Glycol 3350 [Miralax 17 gm PO BID 06/24/18 (For Daily Use) -] Ranitidine [Zantac -] 150 mg PO DAILY 06/24/18 Sennosides [Senokot] 2 tab PO HS 06/24/18 Simethicone [Mylicon -] 80 mg PO Q6H PRN 06/24/18 Spironolactone [Aldactone] 25 mg PO DAILY 06/24/18 metFORMIN HCL [Glucophage -] 500 mg PO HS 06/24/18 traMADol HCL [Ultram -] 50 mg PO TID PRN 06/24/18 Allergies Allergy/AdvReac Type Severity Reaction Status Date / Time pregabalin [From Lyrica] Allergy Severe Hives Verified 06/24/18 15:11 ceftriaxone sodium Allergy Intermediate Hives Verified 06/24/18 15:11 [From Rocephin] Penicillins Allergy Intermediate Hives Verified 06/24/18 15:11 chicken derived Allergy Mild Hives Verified 06/24/18 15:11 oats AdvReac Mild DIARRHEA Verified 06/24/18 15:11 REVIEW OF SYSTEMS: Unable to obtain PHYSICAL EXAM: GENERAL: Awake, alert, in no acute distress. HEAD: Normal with no signs of trauma. EYES: sclera anicteric, conjunctiva clear. LUNGS: No auditory wheezes, No accessory muscle use. ABDOMEN: Soft, nontender, not distended, no guarding, no rebound, no masses. No organomegaly. UPPER EXTREMITIES: Right UE gross lymphedema with diffuse edema throughout extending into hand, No AROM in right UE (hemiparesis) with Pain on PROM at hand / fingers. warm, well-perfused. Left UE well perfused with no edema, no pain on PROM LOWER EXTREMITIES: Left LE no lesions or ulcers, warm with palpable DP pulse. Right LE. Externally rotated and slightly contracted at knee. Pain with hip and knee extension limited 2/2 pain. LE warm +signal on doppler at DP and PT. Several ulcers over lateral LE. 3 large stage 3 ulcers starting at mid calf laterally [id number] well circumscribed, rolled boarders, with no d/c, some fibrinous tissue seen 6cmx2.5cm-with boggy/wet gangrene component, bloody d/c and malodorous. [id number] circumscribed with clean boarders, no d/c, some fibrinous tissue seen 4cmx1.5cm- heel- dry escar stable with surrounding tissue intact, no bogginess [id number] lateral base of 5th MTP stage 2 clean with stable boarders early breakdown at medial tip of 5th toe-stable NEUROLOGICAL: Normal speech, gait not observed. PSYCH: Cooperative. Good eye contact. Appropriate mood and affect. SKIN: Warm, dry, normal turgor Vital Signs Temperature 98.0 F 06/29/18 06:00 Pulse Rate 76 06/29/18 06:00 Respiratory Rate 18 06/28/18 18:00 Blood Pressure 117/63 06/29/18 06:00 O2 Sat by Pulse Oximetry (%) 94 L 06/28/18 22:00 Lab Results WBC 5.8 K/mm3 (4.0-10.0) 06/29/18 06:30 RBC 3.23 M/mm3 (3.60-5.2) L 06/29/18 06:30 Hgb 9.5 GM/dL (10.7-15.3) L 06/29/18 06:30 Hct 29.6 % (32.4-45.2) L 06/29/18 06:30 MCV 91.6 fl (80-96) 06/29/18 06:30 MCHC 31.9 g/dl (32.0-36.0) L 06/29/18 06:30 RDW 17.3 % (11.6-15.6) H 06/29/18 06:30 Plt Count 259 K/MM3 (134-434) 06/29/18 06:30 Sodium 134 mmol/L (136-145) L 06/29/18 06:30 Potassium 4.1 mmol/L (3.5-5.1) 06/29/18 06:30 Chloride 98 mmol/L (98-107) 06/29/18 06:30 Carbon Dioxide 30 mmol/L (21-32) 06/29/18 06:30 Anion Gap 6 MMOL/L (8-16) L 06/29/18 06:30 BUN 14 mg/dL (7-18) 06/29/18 06:30 Creatinine 0.9 mg/dL (0.55-1.3) 06/29/18 06:30 Random Glucose 92 mg/dL (74-106) 06/29/18 06:30 Calcium 7.9 mg/dL (8.5-10.1) L 06/29/18 06:30 INR 1.16 (0.83-1.09) H 06/24/18 15:49 B/L LE duplex doppler and right UE duplex doppler reveal no evidence of DVT. Problem List - Problems (1) Decubitus skin ulcer Assessment/Plan: 82yo female admitted for FTT with several decubitus ulcers of right LE, one with wet gangrene component. 1) NPO after midnight for debridement in OR tomorrow with Dr Russo 2) Medical optimization/clearance for OR 3) GI/ DVT prophylaxis 4) Off load pressure sensitive areas 5) Continue current wound care as ordered. Evaluation and plan discussed with Dr Russo. Code(s): L89.90 - PRESSURE ULCER OF UNSPECIFIED SITE, UNSPECIFIED STAGE
[2018-06-29] MEDS ORDERED: SPIRONOLACTONE 25 MG TABLET (FP) PO SCH (10:00)
[2018-06-29] MEDS: VALSARTAN 80 MG TABLET (UD) PO SCH ×2 (10:19→22:22)
[2018-06-29] MEDS: BACLOFEN 10 MG TABLET (FP) PO SCH ×2 (10:19→22:23)
[2018-06-29] MEDS: APIXABAN 5 MG TABLET PO SCH ×2 (10:19→22:22)
[2018-06-29] MEDS: traMADol HCL 50 MG TABLET PO PRN ×2 (10:19→16:43)
[2018-06-29] MEDS: metoPROLOL SUCCINATE 25 MG TAB.SR.24H (FP) PO SCH (10:19)
[2018-06-29] MEDS: FLUoxetine HCL 20 MG CAPSULE (FP) PO SCH (10:19)
[2018-06-29] MEDS: POLYETHYLENE GLYCOL 3350 119 GM BTL PO SCH ×2 (10:20→22:23)
[2018-06-29] MEDS: amLODIPine BESYLATE 5 MG TABLET (FP) PO SCH (10:20)
[2018-06-29] MEDS: PANTOPRAZOLE 20 MG TABLET (FP) PO SCH (10:20)
[2018-06-29] MEDS: COLLAGENASE CLOSTRIDIUM HIST. 30 GRAMS TUBE TP SCH ×2 (10:20→12:48)
--- NOTE | 2018-06-29 10:21 | PN ---
Progress Note, Physician Chief Complaint: Pt lying in bed in no acute distress. Eating meals. Denies any chest pain, sob, n/v - Current Medication List Current Medications: Active Medications Al Hydroxide/Mg Hydroxide (Mylanta Oral Suspension -) 30 ml PO Q4H PRN PRN Reason: INDIGESTION Amlodipine Besylate (Norvasc -) 5 mg PO DAILY [facility] Apixaban (Eliquis -) 5 mg PO BID [facility] Last Admin: 06/28/18 21:42 Dose: 5 mg Atorvastatin Calcium (Lipitor -) 40 mg PO HS [facility] Last Admin: 06/28/18 21:42 Dose: 40 mg Baclofen (Lioresal -) 10 mg PO BID [facility] Last Admin: 06/28/18 21:43 Dose: 10 mg Bisacodyl (Dulcolax Suppository -) 10 mg RC PRN PRN PRN Reason: CONSTIPATION Collagenase (Santyl -) 1 applic TP DAILY [facility]; Protocol Docusate Sodium (Colace -) 100 mg PO HS [facility] Last Admin: 06/28/18 21:42 Dose: 100 mg Fluoxetine HCl (Prozac -) 20 mg PO DAILY [facility] Furosemide (Lasix -) 80 mg PO DAILY [facility] Levofloxacin (Levaquin 750 Mg Premixed Ivpb -) 750 mg in 150 mls @ 100 mls/hr IVPB Q24H [facility]; Protocol Last Admin: 06/28/18 18:11 Dose: 100 mls/hr Metoprolol Succinate (Toprol Xl -) 25 mg PO DAILY [facility] Mirtazapine (Remeron -) 45 mg PO HS [facility] Last Admin: 06/28/18 21:42 Dose: 45 mg Pantoprazole Sodium (Protonix -) 20 mg PO DAILY [facility] Polyethylene Glycol (Miralax (For Daily Use) -) 17 gm PO BID [facility] Last Admin: 06/28/18 21:52 Dose: 17 gm Promethazine HCl (Phenergan Injection -) 12.5 mg IVPB Q6H PRN PRN Reason: NAUSEA AND/OR VOMITING Last Admin: 06/28/18 18:22 Dose: 12.5 mg Senna (Senna -) 2 tab PO HS [facility] Last Admin: 06/28/18 21:42 Dose: 2 tab Spironolactone (Aldactone -) 25 mg PO DAILY [facility]) [facility] Last Admin: 06/29/18 06:19 Dose: 1 gm Tramadol HCl (Ultram -) 50 mg PO TID PRN PRN Reason: PAIN Valsartan (Diovan -) 80 mg PO BID [facility] Last Admin: 06/28/18 21:42 Dose: 80 mg - Objective Vital Signs: Vital Signs Temperature 98.0 F 06/29/18 06:00 Pulse Rate 76 06/29/18 06:00 Respiratory Rate 18 06/28/18 18:00 Blood Pressure 117/63 06/29/18 06:00 O2 Sat by Pulse Oximetry (%) 94 L 06/28/18 22:00 Constitutional: Yes: Well Nourished, No Distress, Calm Cardiovascular: Yes: Pulse Irregular Respiratory: Yes: WNL, Regular, CTA Bilaterally, Diminished. No: Accessory Muscle Use, Rhonchi, SOB, Tachypnea, Wheezes Gastrointestinal: Yes: WNL, Normal Bowel Sounds, Soft. No: Distention, Tenderness Genitourinary: Yes: WNL Edema: Yes Edema: RUE: 1+ Integumentary: Yes: Other (RLL decubitus ulcers) Wound/Incision: Yes: Dressing Dry and Intact Neurological: Yes: WNL, Alert, Oriented, Confusion (forgetful), Pre-Existing Deficit (Right hemiparesis) Psychiatric: Yes: WNL, Alert, Oriented Labs: CBC, BMP 06/29/18 06:30 06/29/18 06:30 INR, PTT INR 1.16 (0.83-1.09) H 06/24/18 15:49 Assessment/Plan (1) UTI (urinary tract infection) Assessment/Plan: UA+, UC grew salmonella levaquin day 5- last dose Code(s): N39.0 - URINARY TRACT INFECTION, SITE NOT SPECIFIED Qualifiers: Urinary tract infection type: catheter-associated UTI Indwelling urinary catheter type: indwelling urethral catheter Encounter type: initial encounter Qualified Code(s): T83.511A - Infection and inflammatory reaction due to indwelling urethral catheter, initial encounter; N39.0 - Urinary tract infection , site not specified (2) Elevated troponin Assessment/Plan: ruled out Code(s): R74.8 - ABNORMAL LEVELS OF OTHER SERUM ENZYMES (3) Pulmonary embolism Assessment/Plan: subacute to chronic PE continue eliquis dapt stopped Code(s): I26.99 - OTHER PULMONARY EMBOLISM WITHOUT ACUTE COR PULMONALE Qualifiers: Pulmonary embolism type: unspecified Chronicity: chronic Acute cor pulmonale presence: without acute cor pulmonale Qualified Code(s): I27.82 - Chronic pulmonary embolism (4) CHF (congestive heart failure) Assessment/Plan: stable continue lasix and aldactone cardiology following Code(s): I50.9 - HEART FAILURE, UNSPECIFIED Qualifiers: Heart failure type: diastolic Heart failure chronicity: chronic Qualified Code(s): I50.32 - Chronic diastolic (congestive) heart failure (5) Atrial fibrillation and flutter Assessment/Plan: controlled eliquis/ toprol xl Code(s): I48.91 - UNSPECIFIED ATRIAL FIBRILLATION; I48.92 - UNSPECIFIED ATRIAL FLUTTER (6) Diabetes Assessment/Plan: controlled diab diet Code(s): E11.9 - TYPE 2 DIABETES MELLITUS WITHOUT COMPLICATIONS (7) HLD (hyperlipidemia) Assessment/Plan: controlled continue statin Code(s): E78.5 - HYPERLIPIDEMIA, UNSPECIFIED (8) HTN (hypertension) Assessment/Plan: controlled continue home regimen Code(s): I10 - ESSENTIAL (PRIMARY) HYPERTENSION Qualifiers: Qualified Code(s): I10 - Essential (primary) hypertension (9) Lower extremity pain, right Assessment/Plan: chronic wound consult pending Code(s): M79.604 - PAIN IN RIGHT LEG (10) History of stroke Assessment/Plan: hemiplegia Code(s): Z86.73 - PRSNL HX OF TIA (TIA), AND CEREB INFRC W/O RESID DEFICITS (11) Failure to thrive in adult Assessment/Plan: currently treating UTI evaluated by farmworker bulbs pt started on glucerna Code(s): R62.7 - ADULT FAILURE TO THRIVE (12) Swelling of right upper extremity Assessment/Plan: per pt has been swollen since march, mild improvement duplex neg case discussed w/ radiology regarding venogram, reports no clinical benefit in attaining this appears chronic, monitor Code(s): M79.89 - OTHER SPECIFIED SOFT TISSUE DISORDERS (13) Decubitus skin ulcer Assessment/Plan: RLLE, evaluated by vascular plan for debridement tmrw Code(s): L89.90 - PRESSURE ULCER OF UNSPECIFIED SITE, UNSPECIFIED STAGE Qualifiers: Pressure injury location: calf Pressure injury stage: stage 3 Laterality : right Qualified Code(s): L89.893 - Pressure ulcer of other site, stage 3 Dispo: SNF when vascular cleared
--- NOTE | 2018-06-29 11:21 | PN ---
Progress Note (short form) - Note Progress Note: Chief Complaint: arm pain, wt loss History of Present Illness: no cp, palps, dizziness, lightheadedness Current Medications Al Hydroxide/Mg Hydroxide (Mylanta Oral Suspension -) 30 ml PO Q4H PRN PRN Reason: INDIGESTION Amlodipine Besylate (Norvasc -) 5 mg PO DAILY [facility] Last Admin: 06/29/18 10:20 Dose: 5 mg Apixaban (Eliquis -) 5 mg PO BID [facility] Last Admin: 06/29/18 10:19 Dose: 5 mg Atorvastatin Calcium (Lipitor -) 40 mg PO HS [facility] Last Admin: 06/28/18 21:42 Dose: 40 mg Baclofen (Lioresal -) 10 mg PO BID [facility] Last Admin: 06/29/18 10:19 Dose: 10 mg Bisacodyl (Dulcolax Suppository -) 10 mg RC PRN PRN PRN Reason: CONSTIPATION Collagenase (Santyl -) 1 applic TP DAILY [facility]; Protocol Last Admin: 06/29/18 10:20 Dose: 1 applic Docusate Sodium (Colace -) 100 mg PO HS [facility] Last Admin: 06/28/18 21:42 Dose: 100 mg Fluoxetine HCl (Prozac -) 20 mg PO DAILY [facility] Last Admin: 06/29/18 10:19 Dose: 20 mg Furosemide (Lasix -) 80 mg PO DAILY [facility] Last Admin: 06/29/18 10:19 Dose: 80 mg Levofloxacin (Levaquin 750 Mg Premixed Ivpb -) 750 mg in 150 mls @ 100 mls/hr IVPB Q24H [facility]; Protocol Stop: 06/29/18 22:00 Last Admin: 06/28/18 18:11 Dose: 100 mls/hr Metoprolol Succinate (Toprol Xl -) 25 mg PO DAILY [facility] Last Admin: 06/29/18 10:19 Dose: 25 mg Mirtazapine (Remeron -) 45 mg PO HS [facility] Last Admin: 06/28/18 21:42 Dose: 45 mg Pantoprazole Sodium (Protonix -) 20 mg PO DAILY [facility] Last Admin: 06/29/18 10:20 Dose: 20 mg Polyethylene Glycol (Miralax (For Daily Use) -) 17 gm PO BID [facility] Last Admin: 06/29/18 10:20 Dose: 17 gm Promethazine HCl (Phenergan Injection -) 12.5 mg IVPB Q6H PRN PRN Reason: NAUSEA AND/OR VOMITING Last Admin: 06/28/18 18:22 Dose: 12.5 mg Senna (Senna -) 2 tab PO HS [facility] Last Admin: 06/28/18 21:42 Dose: 2 tab Spironolactone (Aldactone -) 25 mg PO DAILY [facility] Last Admin: 06/29/18 10:19 Dose: 25 mg Sucralfate (Carafate -) 1 gm PO BIDAC [facility] Last Admin: 06/29/18 06:19 Dose: 1 gm Tramadol HCl (Ultram -) 50 mg PO TID PRN PRN Reason: PAIN Last Admin: 06/29/18 10:19 Dose: 50 mg Valsartan (Diovan -) 80 mg PO BID [facility] Last Admin: 06/29/18 10:19 Dose: 80 mg - Objective Vital Signs Period Temp Pulse Resp BP Sys/Vasquez Pulse Ox Last 24 Hr 97.5 F-99.3 F 64-85 18-18 105-125/41-63 94 Constitutional: Yes: Well Nourished, No Distress, Calm Cardiovascular: Yes: Pulse Irregular, JVD (prob (mild)), S1, S2. No: Gallop, Murmur Respiratory: Yes: Regular, CTA Bilaterally. No: Accessory Muscle Use, Rales, Wheezes Extremities: No: Cold Edema: Yes (R arm) Neurological: Yes: Alert, Oriented Psychiatric: No: Agitated Assessment/Plan EKG: A flutter, rbbb, rate 102 cta chest: subacute vs chronic right pe. bilat upper lobe groundglass findings c /w small airways dz vs subtle interstitial congestion MIBI 10/10 (deena): AF/flutter, no STs; no ischemia (+ breast); nl EF, mild LVE, no TID echo 06/14: mod decr EF 40-45%, global. hi E/e', restrictive filling pattern. RV tds. ++ R/LAE. mod MR/TR. PAST at least 51. echo 12/2017: tds; nl lv/rv, lae, mod mr echo 08/2017: nl lv/rv, sev lae, mod serena, mod mr/tr, mod phtn Carotids 12/10: SANJAY 80-99% stenosis tele: AFL, HR good. PVCs no VT a/p: 82 yo f, patient of Dr. Coley, with history of persistent atrial fibrillation/flutter s/p cardioversion with reversion back to flutter, dCHF with mod pHTN, DM, HTN/HL and carotid stenosis s/p R CEA 07/2015 who was sent [place] for FTT. wt loss, FTT: -? etiology. per hospitalist foot ulcers -plan for debridement tomorrow uti: -abx per pmd RUE swelling/pain: -no DVT on sono -plan per hospitalist pe: -cta shows subacute vs chronic PE, pt now started on eliquis - 6 vs 12 mo course given age-indeterminate PE and ? provoked (long-term immobility)?? mixed syst/diast CHF: -pt with chronic HFpEF syndrome well-controlled with diuretics in past -presently with mod decr EF (40-45%) with echo evidence of high filling pressure and at least mod pulm HTN. -no sob or LE swelling (which is prior HF sx), probable mild JVD on exam. possible mild intersitial pulm congestion on CT. check bnp. incr lasix 40 to 80 po daily. -global LV hypo, likely nonischemic etiology given many years of uncontrolled HTN (and DM?) prior to starting to see me few years back. (AF/flutter appears well-controlled, tachy-CMP unlikely). ? BUZZ--have to review prior office records re: PSGs, now s/p signif wt los. -plan to repeat ischemia eval with pharm MPI when acute issues resolve - metoprolol increased to 25 mg daily, continue -ARB as below -continue spironolactone 25, lasix 80 mg PO daily pos trop: -trop borderline elevated with flat trend and normal ck, levels similar to baseline in 2016. Not c/w acs. aflutter - rate controlled on bb - was on ac in past. had UGIB with gastric AVMs cauterized by dr montes--he cleared pt for trial of AC after that but she declined due to fears of bleeding. - now on AC given age-indeterminate PE. - if tolerates AC, would continue this indefinitely (holding asa and plavix, as these are not obligatory). HTN -resists increasing meds for long time as outpt -bp reasonably controlled here -rec target bp <130/80 given now with LV syst dysfunction -tolerated valsartan 320 qd in past, no hi creat/K on past trend here--start 80 bid (syst chf dosing) s/p CEA - cont atorvastatin, asa
[2018-06-29] MEDS ORDERED: oxyCODONE HCL 5 MG TABLET PO PRN (12:35)
[2018-06-29] MEDS: INSULIN SLIDING SCALE (NOVOLOG) 1 VIAL SQ SCH (12:49)
[2018-06-29] MEDS ORDERED: MAGNESIUM OXIDE 400 MG TABLET (FP) PO ONE (13:00)
--- NOTE | 2018-06-29 16:32 | PN ---
Progress Note (short form) - Note Progress Note: VAscular Surgery Pt seen and examined . RLE necrotic ulcers. will do debridement yoli. Can be DC home after debridement yoli on santyl. Bright Russo DO
[2018-06-29] MEDS: ATORVASTATIN CA 40 MG TABLET (FP) PO SCH (22:22)
[2018-06-29] MEDS: SENNOSIDES 8.6MG TABLET (FP) PO SCH (22:22)
[2018-06-29] MEDS: DOCUSATE SODIUM 100 MG CAPSULE (FP) PO SCH (22:22)
[2018-06-29] MEDS: MIRTAZAPINE 15 MG TABLET (FP) PO SCH (22:23)
[2018-06-30] MEDS: SUCRALFATE 1 GM TABLET (FP) PO SCH ×2 (06:02→16:26)
[2018-06-30 07:47] LABS: BASO % 0.3 % (0-2.0); EOS % 1.5 % (0-4.5); HEMATOCRIT 27.2 % (32.4-45.2); HEMOGLOBIN 9.4 GM/dL (10.7-15.3); LYMPH % 21.9 % (8-40); MCH 31.1 pg (25.7-33.7); MCHC 34.5 g/dl (32.0-36.0); MEAN PLT VOLUME 10.5 fl (7.5-11.1); MONO % 9.2 % (3.8-10.2); NEUT % 67.1 % (42.8-82.8); PLATELET COUNT 271 K/MM3 (134-434); RBC 3.03 M/mm3 (3.60-5.2); RDW 16.7 % (11.6-15.6)
[2018-06-30 08:12] LABS: ANION GAP 7 MMOL/L (8-16); BLOOD UREA NITROGEN 21 mg/dL (7-18); CALCIUM 8.1 mg/dL (8.5-10.1); CHLORIDE 100 mmol/L (98-107); CO2 28 mmol/L (21-32); CREATININE 1.8 mg/dL (0.55-1.3); GLUCOSE,RANDOM 94 mg/dL (74-106); POTASSIUM 4.3 mmol/L (3.5-5.1); SODIUM 135 mmol/L (136-145)
[2018-06-30] MEDS ORDERED: LIDOCAINE HCL 1%, 10 MG/ML (20ML VIAL) ONE (08:59)
[2018-06-30] MEDS ORDERED: LIDOCAINE HCL 1%, 10 MG/ML (20ML VIAL) INF ONE (09:32)
[2018-06-30] MEDS: COLLAGENASE CLOSTRIDIUM HIST. 30 GRAMS TUBE TP SCH (10:00)
[2018-06-30] MEDS: PANTOPRAZOLE 20 MG TABLET (FP) PO SCH (10:00)
[2018-06-30] MEDS: APIXABAN 5 MG TABLET PO SCH ×2 (10:00→21:49)
[2018-06-30] MEDS: amLODIPine BESYLATE 5 MG TABLET (FP) PO SCH ×2 (10:00→12:24)
[2018-06-30] MEDS: FLUoxetine HCL 20 MG CAPSULE (FP) PO SCH (10:00)
[2018-06-30] MEDS: POLYETHYLENE GLYCOL 3350 119 GM BTL PO SCH ×2 (10:00→21:50)
[2018-06-30] MEDS: metoPROLOL SUCCINATE 25 MG TAB.SR.24H (FP) PO SCH (10:00)
[2018-06-30] MEDS: BACLOFEN 10 MG TABLET (FP) PO SCH ×2 (10:00→21:49)
--- NOTE | 2018-06-30 10:03 | OP ---
Operative Note - Note: Operative Date: 06/30/18 Pre-Operative Diagnosis: Right lower extremity nerotic ulcers with tendon exposed. Operation: Excisional debridement right lateral leg -- skin, subcutaneous tissue , muscle, tendon x 2 Findings: necrotic ulcers, with tendon exposed. Post-Operative Diagnosis: Same as Pre-op Surgeon: Bright Russo Anesthesia: Fractional Estimated Blood Loss (mls): 15 Operative Report Dictated: Yes
--- NOTE | 2018-06-30 10:36 | OP ---
DATE OF OPERATION: 06/30/2018 PREOPERATIVE DIAGNOSIS: Right lower extremity necrotic ulcers with tendon exposed. POSTOPERATIVE DIAGNOSIS: Right lower extremity necrotic ulcers with tendon exposed. PROCEDURE: Excisional debridement, right lower extremity skin, subcutaneous tissue, muscle, tendon x2. SURGEON: Bright Avina MD ANESTHESIA: Fractional. BLOOD LOSS: 15 mL. INDICATIONS: The patient is an 82-year-old female who has right lower extremity necrotic ulcers. Vascular surgery was consulted to evaluate. Patient has necrotic eschars along with tendon exposure, and patient will need to have that debrided. Patients family member, , was consented for the procedure understanding all risks, benefits, and alternatives. Patient was then brought into the operating room. PROCEDURE IN DETAIL: Once in the operating suite, she was placed on the operating table in the supine manner, and the area of the right lower extremity was prepped and draped with Betadine in sterile surgical manner. We then went ahead and injected 15 mL of lidocaine 1% across both ulcers. We then took a No. 10 blade and sharply debrided away the eschar, the subcutaneous tissue, the muscle, and the exposed tendon that was all removed. Bovie electrocautery was used to control hemostasis. We were able to do that for both ulcers in the same manner. Once completed, we irrigated both wounds copiously. Xeroform was placed, wet 4x4s were placed, dry 4x4s were placed, and Kerlix was placed. Patient tolerated the procedure with no complications. Patient transferred to PACU in stable condition. BRIGHT AVINA DO [id number]
[2018-06-30] MEDS ORDERED: oxyCODONE HCL 5 MG TABLET PO PRN (10:56)
[2018-06-30] MEDS ORDERED: MAG HYDROX/AL HYDROX/SIMETH 30 ML UNIT-DOSE CUP PO PRN (10:56)
[2018-06-30] MEDS ORDERED: PROMETHAZINE HCL 25 MG/1 ML VIAL IVPB PRN (10:56)
[2018-06-30] MEDS ORDERED: BISACODYL 10 MG SUPP.RECT RC PRN (10:56)
[2018-06-30] MEDS: SODIUM CHLORIDE 1,000 ML IV SCH ×2 (12:25→22:51)
[2018-06-30] MEDS ORDERED: APIXABAN 5 MG TABLET PO ONE (12:30)
[2018-06-30] MEDS ORDERED: PANTOPRAZOLE 20 MG TABLET (FP) PO ONE (12:30)
[2018-06-30] MEDS ORDERED: amLODIPine BESYLATE 5 MG TABLET (FP) PO ONE (12:30)
[2018-06-30] MEDS ORDERED: metoPROLOL SUCCINATE 25 MG TAB.SR.24H (FP) PO ONE (12:30)
[2018-06-30] MEDS ORDERED: BACLOFEN 10 MG TABLET (FP) PO ONE (12:30)
[2018-06-30] MEDS ORDERED: FLUoxetine HCL 20 MG CAPSULE (FP) PO ONE (12:30)
[2018-06-30] MEDS: traMADol HCL 50 MG TABLET PO PRN (13:28)
--- NOTE | 2018-06-30 13:46 | PN ---
Progress Note, Physician Chief Complaint: Pt lying in bed in no acute distress. Denies any chest pain, sob, n/v - Current Medication List Current Medications: Active Medications Al Hydroxide/Mg Hydroxide (Mylanta Oral Suspension -) 30 ml PO Q4H PRN PRN Reason: INDIGESTION Amlodipine Besylate (Norvasc -) 10 mg PO DAILY [facility] Last Admin: 06/30/18 12:24 Dose: 10 mg Apixaban (Eliquis -) 5 mg PO BID [facility] Atorvastatin Calcium (Lipitor -) 40 mg PO HS [facility] Baclofen (Lioresal -) 10 mg PO BID [facility] Bisacodyl (Dulcolax Suppository -) 10 mg RC PRN PRN PRN Reason: CONSTIPATION Collagenase (Santyl -) 1 applic TP DAILY [facility]; Protocol Docusate Sodium (Colace -) 100 mg PO HS [facility] Fluoxetine HCl (Prozac -) 20 mg PO DAILY [facility] Furosemide (Lasix -) 80 mg PO DAILY [facility] Sodium Chloride (Normal Saline -) 1,000 mls @ 100 mls/hr IV ASDIR [facility] Last Admin: 06/30/18 12:25 Dose: 100 mls/hr Metoprolol Succinate (Toprol Xl -) 25 mg PO DAILY [facility] Mirtazapine (Remeron -) 45 mg PO HS [facility] Oxycodone HCl (Roxicodone -) 2.5 mg PO Q6H PRN PRN Reason: PAIN LEVEL 7 - 10 Pantoprazole Sodium (Protonix -) 20 mg PO DAILY [facility] Polyethylene Glycol (Miralax (For Daily Use) -) 17 gm PO BID [facility] Promethazine HCl (Phenergan Injection -) 12.5 mg IVPB Q6H PRN PRN Reason: NAUSEA AND/OR VOMITING Senna (Senna -) 2 tab PO HS [facility] Spironolactone (Aldactone -) 25 mg PO DAILY [facility] Sucralfate (Carafate -) 1 gm PO BIDAC [facility] Tramadol HCl (Ultram -) 50 mg PO TID PRN PRN Reason: PAIN Last Admin: 06/30/18 13:28 Dose: 50 mg - Objective Vital Signs: Vital Signs Temperature 98.5 F 06/30/18 11:59 Pulse Rate 99 H 06/30/18 11:59 Respiratory Rate 20 06/30/18 11:59 Blood Pressure 166/98 06/30/18 11:59 O2 Sat by Pulse Oximetry (%) 99 06/30/18 11:59 Constitutional: Yes: No Distress, Calm Cardiovascular: Yes: Regular Rate and Rhythm Respiratory: Yes: WNL, Regular, CTA Bilaterally. No: Accessory Muscle Use, SOB , Tachypnea, Wheezes Gastrointestinal: Yes: WNL, Normal Bowel Sounds, Soft. No: Distention, Tenderness Genitourinary: Yes: Shepard Present Edema: Yes Edema: LLE: Trace, RLE: Trace Integumentary: Yes: Other (decubitus ulcer, RLE) Wound/Incision: Yes: Dressing Dry and Intact Neurological: Yes: WNL, Alert, Confusion (intermittent), Pre-Existing Deficit ( hemiplegia) Psychiatric: Yes: Alert Labs: CBC, BMP 06/30/18 06:00 06/30/18 06:00 INR, PTT INR 1.16 (0.83-1.09) H 06/24/18 15:49 Assessment/Plan (1) UTI (urinary tract infection) Assessment/Plan: UC grew salmonella completed treatment Code(s): N39.0 - URINARY TRACT INFECTION, SITE NOT SPECIFIED Qualifiers: Urinary tract infection type: catheter-associated UTI Indwelling urinary catheter type: indwelling urethral catheter Encounter type: initial encounter Qualified Code(s): T83.511A - Infection and inflammatory reaction due to indwelling urethral catheter, initial encounter; N39.0 - Urinary tract infection , site not specified (2) Elevated troponin Assessment/Plan: ruled out Code(s): R74.8 - ABNORMAL LEVELS OF OTHER SERUM ENZYMES (3) Pulmonary embolism Assessment/Plan: subacute to chronic PE continue eliquis dapt stopped Code(s): I26.99 - OTHER PULMONARY EMBOLISM WITHOUT ACUTE COR PULMONALE Qualifiers: Pulmonary embolism type: unspecified Chronicity: chronic Acute cor pulmonale presence: without acute cor pulmonale Qualified Code(s): I27.82 - Chronic pulmonary embolism (4) CHF (congestive heart failure) Assessment/Plan: stable holding diuretics in the setting of eleni cardiology following Code(s): I50.9 - HEART FAILURE, UNSPECIFIED Qualifiers: Heart failure type: diastolic Heart failure chronicity: chronic Qualified Code(s): I50.32 - Chronic diastolic (congestive) heart failure (5) Atrial fibrillation and flutter Assessment/Plan: controlled eliquis/ toprol xl Code(s): I48.91 - UNSPECIFIED ATRIAL FIBRILLATION; I48.92 - UNSPECIFIED ATRIAL FLUTTER (6) Diabetes Assessment/Plan: controlled diab diet Code(s): E11.9 - TYPE 2 DIABETES MELLITUS WITHOUT COMPLICATIONS (7) HLD (hyperlipidemia) Assessment/Plan: controlled continue statin Code(s): E78.5 - HYPERLIPIDEMIA, UNSPECIFIED (8) HTN (hypertension) Assessment/Plan: varies, diuretics, arb on hold due to renal function ccb increased case discussed w/ cardiology Code(s): I10 - ESSENTIAL (PRIMARY) HYPERTENSION Qualifiers: Qualified Code(s): I10 - Essential (primary) hypertension (9) Lower extremity pain, right Assessment/Plan: chronic Code(s): M79.604 - PAIN IN RIGHT LEG (10) History of stroke Assessment/Plan: hemiplegia Code(s): Z86.73 - PRSNL HX OF TIA (TIA), AND CEREB INFRC W/O RESID DEFICITS (11) Failure to thrive in adult Assessment/Plan: improving evaluated by brief writer pt started on glucerna Code(s): R62.7 - ADULT FAILURE TO THRIVE (12) Swelling of right upper extremity Assessment/Plan: per pt has been swollen since march, mild improvement duplex neg case discussed w/ radiology regarding venogram, reports no clinical benefit in attaining this appears chronic, monitor Code(s): M79.89 - OTHER SPECIFIED SOFT TISSUE DISORDERS (13) Decubitus skin ulcer Assessment/Plan: s/p debridement outpt wound care f/u Code(s): L89.90 - PRESSURE ULCER OF UNSPECIFIED SITE, UNSPECIFIED STAGE Qualifiers: Pressure injury location: calf Pressure injury stage: stage 3 Laterality : right Qualified Code(s): L89.893 - Pressure ulcer of other site, stage 3 (14) ELENI (acute kidney injury) Assessment/Plan: suspect pre renal, contrast/diuretic induced HOLD lasix, arb, aldactone IVF monitor bmp Code(s): N17.9 - ACUTE KIDNEY FAILURE, UNSPECIFIED Dispo: SNF
--- NOTE | 2018-06-30 14:24 | PN ---
Progress Note (short form) - Note Progress Note: Chief Complaint: arm pain, wt loss History of Present Illness: no cp, palps, dizziness, lightheadedness, dyspnea. s/p wound debridement today Current Medications Al Hydroxide/Mg Hydroxide (Mylanta Oral Suspension -) 30 ml PO Q4H PRN PRN Reason: INDIGESTION Amlodipine Besylate (Norvasc -) 10 mg PO DAILY [facility] Last Admin: 06/30/18 12:24 Dose: 10 mg Apixaban (Eliquis -) 5 mg PO BID [facility] Atorvastatin Calcium (Lipitor -) 40 mg PO HS [facility] Baclofen (Lioresal -) 10 mg PO BID [facility] Bisacodyl (Dulcolax Suppository -) 10 mg RC PRN PRN PRN Reason: CONSTIPATION Collagenase (Santyl -) 1 applic TP DAILY [facility]; Protocol Docusate Sodium (Colace -) 100 mg PO HS [facility] Fluoxetine HCl (Prozac -) 20 mg PO DAILY [facility] Furosemide (Lasix -) 80 mg PO DAILY [facility] Sodium Chloride (Normal Saline -) 1,000 mls @ 100 mls/hr IV ASDIR [facility] Last Admin: 06/30/18 12:25 Dose: 100 mls/hr Metoprolol Succinate (Toprol Xl -) 25 mg PO DAILY [facility] Mirtazapine (Remeron -) 45 mg PO HS [facility] Oxycodone HCl (Roxicodone -) 2.5 mg PO Q6H PRN PRN Reason: PAIN LEVEL 7 - 10 Pantoprazole Sodium (Protonix -) 20 mg PO DAILY [facility] Polyethylene Glycol (Miralax (For Daily Use) -) 17 gm PO BID [facility] Promethazine HCl (Phenergan Injection -) 12.5 mg IVPB Q6H PRN PRN Reason: NAUSEA AND/OR VOMITING Senna (Senna -) 2 tab PO HS [facility] Spironolactone (Aldactone -) 25 mg PO DAILY [facility] Sucralfate (Carafate -) 1 gm PO BIDAC [facility] Tramadol HCl (Ultram -) 50 mg PO TID PRN PRN Reason: PAIN Last Admin: 06/30/18 13:28 Dose: 50 mg - Objective Vital Signs Period Temp Pulse Resp BP Sys/Vasquez Pulse Ox Last 24 Hr 98 F-99.5 F 62-99 14-20 91-166/44-98 97-100 Constitutional: Yes: Well Nourished, No Distress, Calm Cardiovascular: Yes: Pulse Irregular, JVD (prob (mild)), S1, S2. No: Gallop, Murmur Respiratory: Yes: Regular, CTA Bilaterally. No: Accessory Muscle Use, Rales, Wheezes Extremities: No: Cold Edema: Yes (R arm) Neurological: Yes: Alert, Oriented Psychiatric: No: Agitated Assessment/Plan EKG: A flutter, rbbb, rate 102 cta chest: subacute vs chronic right pe. bilat upper lobe groundglass findings c /w small airways dz vs subtle interstitial congestion MIBI 10/10 (deena): AF/flutter, no STs; no ischemia (+ breast); nl EF, mild LVE, no TID echo 06/14: mod decr EF 40-45%, global. hi E/e', restrictive filling pattern. RV tds. ++ R/LAE. mod MR/TR. PAST at least 51. echo 12/2017: tds; nl lv/rv, lae, mod mr echo 08/2017: nl lv/rv, sev lae, mod serena, mod mr/tr, mod phtn Carotids 12/10: SANJAY 80-99% stenosis a/p: 82 yo f, patient of Dr. Coley, with history of persistent atrial fibrillation/flutter s/p cardioversion with reversion back to flutter, dCHF with mod pHTN, DM, HTN/HL and carotid stenosis s/p R CEA 07/2015 who was sent from [place] for [place]TT. wt loss, FTT: -? etiology. per hospitalist leg ulcers -s/p debridement uti: -abx per pmd RUE swelling/pain: -no DVT on sono -plan per hospitalist pe: -cta shows subacute vs chronic PE, pt now started on eliquis - 6 vs 12 mo course given age-indeterminate PE and ? provoked (long-term immobility)?? mixed syst/diast CHF: -pt with chronic HFpEF syndrome well-controlled with diuretics in past -presently with mod decr EF (40-45%) with echo evidence of high filling pressure and at least mod pulm HTN. - currently appears euvolemic, on admission reportedly mild JVD on exam and mild interstitial pulm congestion on CT - lasix was inc from 40 to 80 mg PO daily -global LV hypo, likely nonischemic etiology given many years of uncontrolled HTN (and DM?) prior to starting to see me few years back. (AF/flutter appears well-controlled, tachy-CMP unlikely). ? BUZZ--have to review prior office records re: PSGs, now s/p signif wt los. -plan to repeat ischemia eval with pharm MPI when acute issues resolve - metoprolol increased to 25 mg daily, continue - 1/3 holding arb, spironolactone, lasix in setting of ELENI (cr 0.9->1.8) pos trop: -trop borderline elevated with flat trend and normal ck, levels similar to baseline in 2016. Not c/w acs. aflutter - rate controlled on bb - was on ac in past. had UGIB with gastric AVMs cauterized by dr montes--he cleared pt for trial of AC after that but she declined due to fears of bleeding. - now on AC given age-indeterminate PE. - if tolerates AC, would continue this indefinitely (holding asa and plavix, as these are not obligatory). HTN -resists increasing meds for long time as outpt -bp reasonably controlled here -rec target bp <130/80 given now with LV syst dysfunction - started on arb this admission valsartan 80 mg BID however now with ELENI, holding - amlodipine increased to 10 mg daily while arb, spironolactone, lasix held for ELENI - restart as renal function improves, monitor BP s/p CEA - cont atorvastatin, asa
[2018-06-30] MEDS: ATORVASTATIN CA 40 MG TABLET (FP) PO SCH (21:49)
[2018-06-30] MEDS: DOCUSATE SODIUM 100 MG CAPSULE (FP) PO SCH (21:49)
[2018-06-30] MEDS: SENNOSIDES 8.6MG TABLET (FP) PO SCH (21:50)
[2018-06-30] MEDS: MIRTAZAPINE 15 MG TABLET (FP) PO SCH (21:50)
[2018-06-30] MEDS ORDERED: VALSARTAN 80 MG TABLET (UD) PO SCH (22:00)
[2018-07-01] MEDS: SUCRALFATE 1 GM TABLET (FP) PO SCH ×2 (06:50→16:25)
[2018-07-01 09:03] LABS: BASO % 0.7 % (0-2.0); EOS % 0.3 % (0-4.5); HEMOGLOBIN 9.8 GM/dL (10.7-15.3); LYMPH % 15.2 % (8-40); MCH 28.7 pg (25.7-33.7); MCHC 31.5 g/dl (32.0-36.0); MEAN CELL VOLUME 91.2 fl (80-96); MEAN PLT VOLUME 9.9 fl (7.5-11.1); MONO % 6.1 % (3.8-10.2); NEUT % 77.7 % (42.8-82.8); PLATELET COUNT 311 K/MM3 (134-434); RDW 16.9 % (11.6-15.6)
[2018-07-01] MEDS ORDERED: ACETAMINOPHEN 325 MG TABLET (FP) PO PRN (09:31)
[2018-07-01] MEDS ORDERED: ACETAMINOPHEN 325 MG TABLET (FP) ONE (09:47)
[2018-07-01] MEDS: amLODIPine BESYLATE 5 MG TABLET (FP) PO SCH (09:49)
[2018-07-01] MEDS: PANTOPRAZOLE 20 MG TABLET (FP) PO SCH (09:49)
[2018-07-01] MEDS: metoPROLOL SUCCINATE 25 MG TAB.SR.24H (FP) PO SCH (09:49)
[2018-07-01] MEDS: APIXABAN 5 MG TABLET PO SCH ×2 (09:49→22:52)
[2018-07-01] MEDS: BACLOFEN 10 MG TABLET (FP) PO SCH ×2 (09:49→22:53)
[2018-07-01] MEDS: traMADol HCL 50 MG TABLET PO PRN (09:49)
[2018-07-01] MEDS: SODIUM CHLORIDE 1,000 ML IV SCH ×2 (09:50→14:34)
[2018-07-01] MEDS: COLLAGENASE CLOSTRIDIUM HIST. 30 GRAMS TUBE TP SCH (09:50)
[2018-07-01] MEDS: FLUoxetine HCL 20 MG CAPSULE (FP) PO SCH (09:51)
[2018-07-01] MEDS: POLYETHYLENE GLYCOL 3350 119 GM BTL PO SCH ×2 (09:53→22:53)
[2018-07-01] MEDS ORDERED: SPIRONOLACTONE 25 MG TABLET (FP) PO SCH (10:00)
[2018-07-01] MEDS ORDERED: FUROSEMIDE 40 MG TABLET (FP) PO SCH (10:00)
[2018-07-01] MEDS ORDERED: amLODIPine BESYLATE 5 MG TABLET (FP) PO SCH ×2 (10:00)
--- NOTE | 2018-07-01 10:40 | PN ---
Progress Note (short form) - Note Progress Note: s: no cp sob palps dizzy, confused o: Vital Signs Period Temp Pulse Resp BP Sys/Vasquez Pulse Ox Last 24 Hr 97.6 F-100.2 F 73-115 18-20 91-166/44-98 99-100 NAD, calm JVD flat, neck supple CTAB, nl effort Irregular rhythm, regular rate nl s1, s2 no m/r/g + bs soft nt nd ext with trace edema, no clubbing or cyanosis no jaundice, diaphoresis Current Medications Generic Name Dose Route Start Last Admin Trade Name Freq PRN Reason Stop Dose Admin Acetaminophen 650 mg 07/01/18 09:31 07/01/18 09:49 Tylenol - PO 650 mg Q6H PRN Administration FEVER Al Hydroxide/Mg Hydroxide 30 ml 06/30/18 10:56 Mylanta Oral Suspension - PO Q4H PRN INDIGESTION Amlodipine Besylate 10 mg 06/30/18 12:30 07/01/18 09:49 Norvasc - PO 10 mg DAILY RAG[facility]I Administration Apixaban 5 mg 06/30/18 22:00 07/01/18 09:49 Eliquis - PO 5 mg BID RAGINI Administration Atorvastatin Calcium 40 mg 06/30/18 22:00 06/30/18 21:49 Lipitor - PO 40 mg HS RAGINI Administration Baclofen 10 mg 06/30/18 22:00 07/01/18 09:49 Lioresal - PO 10 mg BID RAG[facility]I Administration Bisacodyl 10 mg 06/30/18 10:56 Dulcolax Suppository - RC PRN PRN CONSTIPATION Collagenase 1 applic 07/01/18 10:00 07/01/18 09:50 Santyl - TP Not Given DAILY RAG[facility]I Protocol Docusate Sodium 100 mg 06/30/18 22:00 06/30/18 21:49 Colace - PO 100 mg HS RAG[facility]I Administration Fluoxetine HCl 20 mg 07/01/18 10:00 07/01/18 09:51 Prozac - PO 20 mg DAILY [facility] Administration Furosemide 80 mg 07/01/18 10:00 Lasix - PO DAILY [facility] Sodium Chloride 1,000 mls @ 100 mls/hr 06/30/18 12:00 07/01/18 09:50 Normal Saline - IV 100 mls/hr ASDIR RAGINI Administration Metoprolol Succinate 25 mg 07/01/18 10:00 07/01/18 09:49 Toprol Xl - PO 25 mg DAILY [facility] Administration Mirtazapine 45 mg 06/30/18 22:00 06/30/18 21:50 Remeron - PO 45 mg HS [facility]I Administration Oxycodone HCl 2.5 mg 06/30/18 10:56 Roxicodone - PO Q6H PRN PAIN LEVEL 7 - 10 Pantoprazole Sodium 20 mg 07/01/18 10:00 07/01/18 09:49 Protonix - PO 20 mg DAILY [facility] Administration Polyethylene Glycol 17 gm 06/30/18 22:00 07/01/18 09:53 Miralax (For Daily Use) - PO 17 gm BID [facility]I Administration Promethazine HCl 12.5 mg 06/30/18 10:56 Phenergan Injection - IVPB Q6H PRN NAUSEA AND/OR VOMITING Senna 2 tab 06/30/18 22:00 06/30/18 21:50 Senna - PO 2 tab HS [facility] Administration Spironolactone 25 mg 07/01/18 10:00 Aldactone - PO DAILY [facility] Sucralfate 1 gm 06/30/18 16:30 07/01/18 06:50 Carafate - PO 1 gm BIDAC [facility] Administration Tramadol HCl 50 mg 06/30/18 10:56 07/01/18 09:49 Ultram - PO 50 mg TID PRN Administration PAIN CBC, BMP 07/01/18 08:40 07/01/18 08:40 EKG: A flutter, rbbb, rate 102 cta chest: subacute vs chronic right pe MIBI 10/10 (deena): AF/flutter, no STs; no ischemia (+ breast); nl EF, mild LVE, no TID SANTA 12/10: nl LV/RV, severe TANIKA, mild LAE; mild MR; mod-sev TR Echo 09/09: NL LV/RV; L/TANIKA, tethered MV with mod MR; mod TR; mod pHTN echo 08/2017: nl lv/rv, sev lae, mod tanika, mod mr/tr, mod phtn echo12/2017: tds; nl lv/rv, lae, mod mr Carotids 12/10: SANJAY 80-99% stenosis a/p: 82 yo f, patient of Dr. Coley, with history of persistent atrial fibrillation/flutter s/p cardioversion with reversion back to flutter, dCHF with mod pHTN, DM, HTN/HL and carotid stenosis s/p R CEA 07/2015 who was sent [place] for FTT. wt loss, FTT: -? etiology. per hospitalist leg ulcers -s/p debridement uti: -abx per pmd RUE swelling/pain: -no DVT on sono -plan per hospitalist pe: -cta shows subacute vs chronic PE, pt now started on eliquis mixed syst/diast CHF: -pt with chronic HFpEF syndrome well-controlled with diuretics in past -presently with mod decr EF (40-45%) with echo evidence of high filling pressure and at least mod pulm HTN. - currently appears euvolemic, on admission reportedly mild JVD on exam and mild interstitial pulm congestion on CT - lasix was inc from 40 to 80 mg PO daily -global LV hypo, likely nonischemic etiology given many years of uncontrolled HTN (and DM?) prior to starting to see me few years back. (AF/flutter appears well-controlled, tachy-CMP unlikely). ? BUZZ--have to review prior office records re: PSGs, now s/p signif wt los. -plan to repeat ischemia eval with pharm MPI when acute issues resolve - metoprolol increased to 25 mg daily, continue - 1/3-4 holding arb, spironolactone, lasix in setting of ELENI (cr 0.9->1.8) pos trop: -trop borderline elevated with flat trend and normal ck, levels similar to baseline in 2016. Not c/w acs. aflutter - rate controlled on bb - was on ac in past. had UGIB with gastric AVMs cauterized by dr montes--he cleared pt for trial of AC after that but she declined due to fears of bleeding. - now on AC given age-indeterminate PE. - if tolerates AC, would continue this indefinitely (holding asa and plavix, as these are not obligatory). HTN -resists increasing meds for long time as outpt -bp reasonably controlled here -rec target bp <130/80 given now with LV syst dysfunction - started on arb this admission valsartan 80 mg BID however now with ELENI, holding - amlodipine increased to 10 mg daily while arb, spironolactone, lasix held for ELENI - restart as renal function improves, monitor BP s/p CEA - cont atorvastatin, asa
--- NOTE | 2018-07-01 11:25 | PN ---
Progress Note (short form) - Note Progress Note: Anesthesia POD#1 S/P Right LE Wound Debridement under MAC VSS,no N/V,no pain. Cheli Camacho MD.
--- NOTE | 2018-07-01 12:10 | PN ---
Progress Note, Physician Chief Complaint: Pt lying in bed in no acute distress. non verbal today and refuses to eat or drink liquids. unable to obtain - Current Medication List Current Medications: Active Medications Acetaminophen (Tylenol -) 650 mg PO Q6H PRN PRN Reason: FEVER Last Admin: 07/01/18 09:49 Dose: 650 mg Al Hydroxide/Mg Hydroxide (Mylanta Oral Suspension -) 30 ml PO Q4H PRN PRN Reason: INDIGESTION Amlodipine Besylate (Norvasc -) 10 mg PO DAILY [facility] Last Admin: 07/01/18 09:49 Dose: 10 mg Apixaban (Eliquis -) 5 mg PO BID [facility] Last Admin: 07/01/18 09:49 Dose: 5 mg Atorvastatin Calcium (Lipitor -) 40 mg PO HS [facility] Last Admin: 06/30/18 21:49 Dose: 40 mg Baclofen (Lioresal -) 10 mg PO BID [facility] Last Admin: 07/01/18 09:49 Dose: 10 mg Bisacodyl (Dulcolax Suppository -) 10 mg RC PRN PRN PRN Reason: CONSTIPATION Collagenase (Santyl -) 1 applic TP DAILY [facility]; Protocol Last Admin: 07/01/18 09:50 Dose: Not Given Docusate Sodium (Colace -) 100 mg PO HS [facility] Last Admin: 06/30/18 21:49 Dose: 100 mg Fluoxetine HCl (Prozac -) 20 mg PO DAILY [facility] Last Admin: 07/01/18 09:51 Dose: 20 mg Furosemide (Lasix -) 80 mg PO DAILY [facility] Sodium Chloride (Normal Saline -) 1,000 mls @ 100 mls/hr IV ASDIR [facility] Last Admin: 07/01/18 09:50 Dose: 100 mls/hr Metoprolol Succinate (Toprol Xl -) 25 mg PO DAILY [facility] Last Admin: 07/01/18 09:49 Dose: 25 mg Mirtazapine (Remeron -) 45 mg PO HS [facility] Last Admin: 06/30/18 21:50 Dose: 45 mg Oxycodone HCl (Roxicodone -) 2.5 mg PO Q6H PRN PRN Reason: PAIN LEVEL 7 - 10 Pantoprazole Sodium (Protonix -) 20 mg PO DAILY [facility] Last Admin: 07/01/18 09:49 Dose: 20 mg Polyethylene Glycol (Miralax (For Daily Use) -) 17 gm PO BID [facility] Last Admin: 07/01/18 09:53 Dose: 17 gm Promethazine HCl (Phenergan Injection -) 12.5 mg IVPB Q6H PRN PRN Reason: NAUSEA AND/OR VOMITING Senna (Senna -) 2 tab PO HS [facility] Last Admin: 06/30/18 21:50 Dose: 2 tab Spironolactone (Aldactone -) 25 mg PO DAILY [facility] Sucralfate (Carafate -) 1 gm PO BIDAC [facility] Last Admin: 07/01/18 06:50 Dose: 1 gm Tramadol HCl (Ultram -) 50 mg PO TID PRN PRN Reason: PAIN Last Admin: 07/01/18 09:49 Dose: 50 mg - Objective Vital Signs: Vital Signs Temperature 100.2 F H 07/01/18 08:52 Pulse Rate 115 H 07/01/18 08:52 Respiratory Rate 20 07/01/18 08:52 Blood Pressure 128/78 07/01/18 08:52 O2 Sat by Pulse Oximetry (%) 97 07/01/18 09:00 Constitutional: Yes: No Distress Cardiovascular: Yes: Tachycardia Respiratory: Yes: Regular, CTA Bilaterally. No: Accessory Muscle Use, SOB, Tachypnea, Wheezes Gastrointestinal: Yes: WNL, Normal Bowel Sounds, Soft. No: Distention, Tenderness Genitourinary: Yes: Shepard Present Edema: Yes Edema: RUE: 1+ Integumentary: Yes: Other (RLE ulcer) Wound/Incision: Yes: Dressing Dry and Intact Neurological: Yes: Alert, Confusion Psychiatric: Yes: Alert Labs: CBC, BMP 07/01/18 08:40 INR, PTT INR 1.16 (0.83-1.09) H 06/24/18 15:49 Assessment/Plan (1) Sepsis Assessment/Plan: pt tachy, +ams today wbc increased from baseline suspect 2/2 RLE wound chest xray neg, repeat UA/UC sent blood cultured ordered ID consulted antibx per ID IVF- monitor for fluid overload Code(s): A41.9 - SEPSIS, UNSPECIFIED ORGANISM Qualifiers: Sepsis type: sepsis due to unspecified organism Qualified Code(s): A41.9 - Sepsis, unspecified organism (2) Metabolic encephalopathy Assessment/Plan: suspect 2/2 sepsis treat underlying and monitor Code(s): G93.41 - METABOLIC ENCEPHALOPATHY (3) UTI (urinary tract infection) Assessment/Plan: UC grew salmonella completed treatment Code(s): N39.0 - URINARY TRACT INFECTION, SITE NOT SPECIFIED Qualifiers: Urinary tract infection type: catheter-associated UTI Indwelling urinary catheter type: indwelling urethral catheter Encounter type: initial encounter Qualified Code(s): T83.511A - Infection and inflammatory reaction due to indwelling urethral catheter, initial encounter; N39.0 - Urinary tract infection , site not specified (4) Elevated troponin Assessment/Plan: ruled out Code(s): R74.8 - ABNORMAL LEVELS OF OTHER SERUM ENZYMES (5) Pulmonary embolism Assessment/Plan: subacute to chronic PE continue eliquis dapt stopped Code(s): I26.99 - OTHER PULMONARY EMBOLISM WITHOUT ACUTE COR PULMONALE Qualifiers: Pulmonary embolism type: unspecified Chronicity: chronic Acute cor pulmonale presence: without acute cor pulmonale Qualified Code(s): I27.82 - Chronic pulmonary embolism (6) CHF (congestive heart failure) Assessment/Plan: stable holding diuretics in the setting of eleni cardiology following Code(s): I50.9 - HEART FAILURE, UNSPECIFIED Qualifiers: Heart failure type: diastolic Heart failure chronicity: chronic Qualified Code(s): I50.32 - Chronic diastolic (congestive) heart failure (7) Atrial fibrillation and flutter Assessment/Plan: controlled eliquis/ toprol xl Code(s): I48.91 - UNSPECIFIED ATRIAL FIBRILLATION; I48.92 - UNSPECIFIED ATRIAL FLUTTER (8) Diabetes Assessment/Plan: controlled diab diet Code(s): E11.9 - TYPE 2 DIABETES MELLITUS WITHOUT COMPLICATIONS (9) HLD (hyperlipidemia) Assessment/Plan: controlled continue statin Code(s): E78.5 - HYPERLIPIDEMIA, UNSPECIFIED (10) HTN (hypertension) Assessment/Plan: varies diuretics, arb on hold due to renal function ccb increased case discussed w/ cardiology Code(s): I10 - ESSENTIAL (PRIMARY) HYPERTENSION Qualifiers: Qualified Code(s): I10 - Essential (primary) hypertension (11) Lower extremity pain, right Assessment/Plan: chronic Code(s): M79.604 - PAIN IN RIGHT LEG (12) History of stroke Assessment/Plan: hemiplegia Code(s): Z86.73 - PRSNL HX OF TIA (TIA), AND CEREB INFRC W/O RESID DEFICITS (13) Failure to thrive in adult Assessment/Plan: improving evaluated by oxygen therapy teacher pt started on glucerna Code(s): R62.7 - ADULT FAILURE TO THRIVE (14) Swelling of right upper extremity Assessment/Plan: per pt has been swollen since march, mild improvement duplex neg case discussed w/ radiology regarding venogram, reports no clinical benefit in attaining this appears chronic, monitor Code(s): M79.89 - OTHER SPECIFIED SOFT TISSUE DISORDERS (15) Decubitus skin ulcer Assessment/Plan: s/p debridement outpt wound care f/u Code(s): L89.90 - PRESSURE ULCER OF UNSPECIFIED SITE, UNSPECIFIED STAGE Qualifiers: Pressure injury location: calf Pressure injury stage: stage 3 Laterality : right Qualified Code(s): L89.893 - Pressure ulcer of other site, stage 3 (16) ELENI (acute kidney injury) Assessment/Plan: no improvement multifactorial- sepsis/diuretics/reduced po HOLD lasix, arb, aldactone IVF nephrology consulted Code(s): N17.9 - ACUTE KIDNEY FAILURE, UNSPECIFIED Dispo: SNF
--- NOTE | 2018-07-01 12:18 | PN ---
Progress Note (short form) - Note Progress Note: surgery POD #1 Excisional debridement right lateral leg -- skin, subcutaneous tissue, muscle, tendon x 2 patient seen and examined at bedside with no complaints. Patient is tolerating her diet and resting comfortably. Vital Signs Temp 100.2 F H 07/01/18 08:52 Pulse 115 H 07/01/18 08:52 Resp 20 07/01/18 08:52 BP 128/78 07/01/18 08:52 Pulse Ox 97 07/01/18 09:00 Intake & Output 06/30/18 07/01/18 07/01/18 23:59 11:59 23:59 Intake Total 600 Output Total 20 100 Balance 580 -100 Weight 166 lb 6 oz Intake: IV 600 Normal Saline - 1,000 ml 600 @ 100 mls/hr IV ASDIR RAGINI Rx#:[id number] Oral 0 Output: Urine 20 100 Shepard 20 100 Other: Voiding Method Indwelling Catheter Indwelling Catheter Bowel Movement No # Bowel Movements 0 Body Mass Index (BMI) 28.3 Weight Measurement Method Built in [facility] CBC, BMP 07/01/18 08:40 PE: A&Ox3, NAD-flat affect but responds to prompts. unlabored resp on RA Right LE debrided wounds over lateral aspect, clean with tendon exposed, well defined margins with surrounding tissue intact, no foul odor or active d/c, Ulcer over lateral malleolus with fibrinous tissue at base, no significant change since last exam, surrounding tissue intact with no d/c, no odor- santly applied. Leg wounds dressed with xeroform and kurlex. Foot warm and wel perfused. Problem List - Problems (1) Decubitus skin ulcer Assessment/Plan: 82yo female admitted for FTT s/p wound debridement of right LE x2, clean. 1) continue wound care as ordered santyl to ankle wound, xeroform over tendons 2) ABX per ID/Med 3) Off load pressure sensitive areas 5) d/c planning per medicine and follow up with Dr Russo in wound care clinic. Evaluation and plan discussed with Dr Russo. Code(s): L89.90 - PRESSURE ULCER OF UNSPECIFIED SITE, UNSPECIFIED STAGE Qualifiers: Pressure injury location: calf Pressure injury stage: stage 3 Laterality : right Qualified Code(s): L89.893 - Pressure ulcer of other site, stage 3
[2018-07-01 12:29] LABS: ANION GAP 6 MMOL/L (8-16); BLOOD UREA NITROGEN 29 mg/dL (7-18); CALCIUM 8.2 mg/dL (8.5-10.1); CHLORIDE 106 mmol/L (98-107); CO2 28 mmol/L (21-32); CREATININE 1.9 mg/dL (0.55-1.3); GLUCOSE,RANDOM 142 mg/dL (74-106); POTASSIUM 4.4 mmol/L (3.5-5.1); SODIUM 140 mmol/L (136-145)
--- NOTE | 2018-07-01 12:30 | CON.ID ---
Consult Consult Specialty:: infectious diseases Referred by:: Bela Reason for Consultation:: uti,fever,sepsis - History of Present Illness Chief Complaint: pain in the rt leg History of Present Illness: 82 y/o F with PMH CVA (R hemiparesis; December 2017), DM, anemia, indwelling chu for urinary retention afib , CHF, pulm HTN, who was brought to [facility] ED from [facility] for FTT by PMD, Dr. Mas. As per pt, since December, she has had 15 lb weight loss. Denies constitutional sx; states that she would "not prepare the food as they do at [facility]." Pt's only other complaints are that she is just getting over a "chest cold" that she has had for the past two weeks. States that she has had productive cough, however does not know the color of her sputum. During this time, she also endorses dysuria and swelling in her RLE that "improved recently". Unable to specify further. Otherwise pt without complaint. Denies HUIZAR, fever, chills, SOB, chest pain or pressure, or changes in bowel function. the above was the history on admission of the patient patient was then worked up and found to have uti with salmonella patient it seems was treated with levaquin for that. patient then underwent debridement of the ulcers of her rt foot and wound cx were send from the or which are growing multiple organisms patient then spiked a fever today and started having tachycardia and i was called to evaluate the patient - History Source History Provided By: Patient, Medical Record Limitations to Obtaining History: Poor Historian - Past Medical History Cardio/Vascular: Yes: AFIB (Persistent. History of cardioversion. 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 History of Recent Travel: No Home Medications - Allergies Allergies/Adverse Reactions: Allergies Allergy/AdvReac Type Severity Reaction Status Date / Time pregabalin [From Lyrica] Allergy Severe Hives Verified 06/24/18 15:11 ceftriaxone sodium Allergy Intermediate Hives Verified 06/24/18 15:11 [From Rocephin] Penicillins Allergy Intermediate Hives Verified 06/24/18 15:11 chicken derived Allergy Mild Hives Verified 06/24/18 15:11 oats AdvReac Mild DIARRHEA Verified 06/24/18 15:11 - Home Medications Home Medications: Ambulatory Orders Amlodipine Besylate [Norvasc -] 5 mg PO DAILY 06/24/18 Baclofen 10 mg PO BID 06/24/18 Collagenase Clostridium Hist. [Santyl -] 1 applic TP DAILY 06/24/18 Docusate Sodium [Colace -] 100 mg PO HS 06/24/18 Ferrous Sulfate 325 mg PO DAILY 06/24/18 Fluoxetine HCl Liquid [Prozac 20mg/5mL Oral Solution -] 20 mg PO DAILY 06/24/18 Gabapentin 100 mg PO TID 06/24/18 Mirtazepine Alejandra Tabs [Remeron Soltab -] 45 mg PO DAILY 06/24/18 PE/Shark Liver Oil/Glyc/Wh.pet [Hemorrhoidal Cream] 1 applic RC Q8H PRN Polyethylene Glycol 3350 [Miralax 119 gm Btl -] 17 gm PO BID 06/24/18 Ranitidine [Zantac -] 150 mg PO DAILY 06/24/18 Sennosides [Senokot] 2 tab PO HS 06/24/18 Spironolactone [Aldactone -] 25 mg PO DAILY 06/24/18 metFORMIN HCL [Glucophage -] 500 mg PO HS 06/24/18 traMADol HCL [Ultram -] 50 mg PO TID PRN 06/24/18 Apixaban [Eliquis -] 5 mg PO BID tablet 06/29/18 Atorvastatin Ca [Lipitor] 40 mg PO HS tablet 06/29/18 Collagenase Clostridium Hist. [Santyl -] 1 applic TP DAILY tube 06/29/18 Furosemide [Lasix -] 80 mg PO DAILY tablet 06/29/18 Metoprolol Succinate [Toprol XL -] 25 mg PO DAILY tab.sr.24h 06/29/18 Sucralfate [Carafate -] 1 gm PO BIDAC tablet 06/29/18 Valsartan [Diovan] 80 mg PO BID tablet 06/29/18 Family Disease History - Family Disease History Family Disease History: Other: Father (, hip fracture), Mother ( , unknown) Review of Systems - Review of Systems Constitutional: reports: Fever, Weakness Eyes: reports: No Symptoms HENT: reports: No Symptoms Neck: reports: No Symptoms Cardiovascular: reports: No Symptoms Respiratory: reports: No Symptoms Gastrointestinal: reports: No Symptoms Genitourinary: reports: No Symptoms Musculoskeletal: reports: No Symptoms Integumentary: reports: Erythema, Wound Neurological: reports: No Symptoms Endocrine: reports: No Symptoms Hematology/Lymphatic: reports: No Symptoms Psychiatric: reports: No Symptoms Physical Exam Vital Signs: Vital Signs Temperature 100.2 F H 07/01/18 08:52 Pulse Rate 114 H 07/01/18 12:28 Respiratory Rate 20 07/01/18 12:28 Blood Pressure 149/64 07/01/18 12:28 O2 Sat by Pulse Oximetry (%) 97 07/01/18 09:00 Constitutional: Yes: Calm, Mild Distress Eyes: Yes: Conjunctiva Clear Neck: Yes: Supple, Trachea Midline Cardiovascular: Yes: Pulse Irregular Respiratory: Yes: Regular, CTA Bilaterally Gastrointestinal: Yes: Normal Bowel Sounds, Soft Musculoskeletal: Yes: Other Extremities: Yes: Erythema (rt leg), Other Integumentary: Yes: Other (multiple wounds on the rt leg) Wound/Incision: Yes: Dressing Removed Neurological: Yes: Alert, Oriented Psychiatric: Yes: Alert, Oriented Labs: CBC, BMP 07/01/18 08:40 Imaging - Results Chest X-ray: Report Reviewed, Image Reviewed Cat Scan: Report Reviewed, Image Reviewed Ultrasound: Report Reviewed, Image Reviewed Assessment/Plan Assessment/Plan (1) Sepsis Code(s): A41.9 - SEPSIS, UNSPECIFIED ORGANISM Qualifiers: Sepsis type: sepsis due to unspecified organism Qualified Code(s): A41.9 - Sepsis, unspecified organism (2) Metabolic encephalopathy Code(s): G93.41 - METABOLIC ENCEPHALOPATHY (3) UTI (urinary tract infection) Code(s): N39.0 - URINARY TRACT INFECTION, SITE NOT SPECIFIED Qualifiers: Urinary tract infection type: catheter-associated UTI Indwelling urinary catheter type: indwelling urethral catheter Encounter type: initial encounter Qualified Code(s): T83.511A - Infection and inflammatory reaction due to indwelling urethral catheter, initial encounter; N39.0 - Urinary tract infection , site not specified (4) Elevated troponin Code(s): R74.8 - ABNORMAL LEVELS OF OTHER SERUM ENZYMES (5) Pulmonary embolism Code(s): I26.99 - OTHER PULMONARY EMBOLISM WITHOUT ACUTE COR PULMONALE Qualifiers: Pulmonary embolism type: unspecified Chronicity: chronic Acute cor pulmonale presence: without acute cor pulmonale Qualified Code(s): I27.82 - Chronic pulmonary embolism (6) CHF (congestive heart failure) Code(s): I50.9 - HEART FAILURE, UNSPECIFIED Qualifiers: Heart failure type: diastolic Heart failure chronicity: chronic Qualified Code(s): I50.32 - Chronic diastolic (congestive) heart failure (7) Atrial fibrillation and flutter Code(s): I48.91 - UNSPECIFIED ATRIAL FIBRILLATION; I48.92 - UNSPECIFIED ATRIAL FLUTTER (8) Diabetes Code(s): E11.9 - TYPE 2 DIABETES MELLITUS WITHOUT COMPLICATIONS (9) HLD (hyperlipidemia) Code(s): E78.5 - HYPERLIPIDEMIA, UNSPECIFIED (10) HTN (hypertension) Code(s): I10 - ESSENTIAL (PRIMARY) HYPERTENSION Qualifiers: Qualified Code(s): I10 - Essential (primary) hypertension (11) Lower extremity pain, right Code(s): M79.604 - PAIN IN RIGHT LEG (12) History of stroke Code(s): Z86.73 - PRSNL HX OF TIA (TIA), AND CEREB INFRC W/O RESID DEFICITS (13) Failure to thrive in adult Code(s): R62.7 - ADULT FAILURE TO THRIVE (14) Swelling of right upper extremity Code(s): M79.89 - OTHER SPECIFIED SOFT TISSUE DISORDERS (15) Decubitus skin ulcer Code(s): L89.90 - PRESSURE ULCER OF UNSPECIFIED SITE, UNSPECIFIED STAGE Qualifiers: Pressure injury location: calf Pressure injury stage: stage 3 Laterality : right Qualified Code(s): L89.893 - Pressure ulcer of other site, stage 3 (16) ELENI (acute kidney injury) Code(s): N17.9 - ACUTE KIDNEY FAILURE, UNSPECIFIED i think her source of infection could be coming from the skin patient tachy and febrile a worrisome picture plan will start patient on azactam await for identification of the wound cx wound care rest as per the team
--- NOTE | 2018-07-01 12:55 | PATH ---
Surgical Pathology Report Patient Name: HEATH CROWE Med. Rec. #: [id number] /Age/Gender: 1935 (Age: 82) / F Account: [id number] Location: [address] [place] [address]/[facility] Taken: 06/30/2018 Received: 06/30/2018 Reported: 07/01/2018 Physicians: [place] M.D. Specimen(s) Received DEBRIDEMENT TISSUE RIGHT LOWER EXTREMITY ULCER Clinical History Right extremity ulcer Final Diagnosis LOWER EXTREMITY/LEG, RIGHT, TISSUE, EXCISION: FIBROUS AND ADIPOSE TISSUE WITH MARKED ACUTE NECROTIZING INFLAMMATION. Electronically Signed Irlanda Pham M.D. Gross Description Received in formalin labeled "debridement tissue right lower leg," is a 4.5 x 4.0 x 0.6 cm aggregate of thompson-black, necrotic portions of skin and soft tissue. Wastewater Treatment Supervisor sections are submitted in one cassette. /06/30/2018 saudi06/30/2018
[2018-07-01] MEDS: AMINO ACIDS/PROTEIN HYDROLYS 30 ML LIQUID.PKT PO SCH (17:18)
[2018-07-01] MEDS: AZTREONAM 1 GM in DEXTROSE 5%-WATER - 50 ML IVPB SCH ×2 (17:18→22:53)
[2018-07-01 18:42] LABS: URINE APPEARANCE CLOUDY; URINE BILIRUBIN NEGATIVE (<2.0 mg/dL); URINE COLOR AMBER; URINE GLUCOSE (UA) NEGATIVE (NEGATIVE); URINE KETONE NEGATIVE (NEGATIVE); URINE LEUK ESTERASE TRACE (NEGATIVE); URINE NITRITE NEGATIVE (NEGATIVE); URINE PROTEIN 1+ (NEGATIVE)
[2018-07-01 18:45] LABS: EPI CELLS RARE /HPF (FEW); URINE BACTERIA RARE /hpf (NONE SEEN); URINE HYALINE CAST 7 /lpf; URINE MUCUS RARE; YEAST FEW
[2018-07-01] MEDS ORDERED: PT OWN MED DRAWER 7, Y5N ONE (22:42)
[2018-07-01] MEDS: DOCUSATE SODIUM 100 MG CAPSULE (FP) PO SCH (22:44)
[2018-07-01] MEDS: ATORVASTATIN CA 40 MG TABLET (FP) PO SCH (22:53)
[2018-07-01] MEDS: SENNOSIDES 8.6MG TABLET (FP) PO SCH (22:53)
[2018-07-01] MEDS: MIRTAZAPINE 15 MG TABLET (FP) PO SCH (22:53)
[2018-07-02] MEDS: SUCRALFATE 1 GM TABLET (FP) PO SCH ×2 (06:28→15:44)
[2018-07-02 08:26] LABS: BASO % 0.3 % (0-2.0); EOS % 1.3 % (0-4.5); HEMATOCRIT 27.9 % (32.4-45.2); HEMOGLOBIN 8.7 GM/dL (10.7-15.3); LYMPH % 28.1 % (8-40); MCH 28.6 pg (25.7-33.7); MCHC 31.3 g/dl (32.0-36.0); MEAN CELL VOLUME 91.5 fl (80-96); MEAN PLT VOLUME 9.6 fl (7.5-11.1); MONO % 6.5 % (3.8-10.2); NEUT % 63.8 % (42.8-82.8); PLATELET COUNT 263 K/MM3 (134-434); RBC 3.05 M/mm3 (3.60-5.2); RDW 16.6 % (11.6-15.6); WHITE BLOOD COUNT 6.9 K/mm3 (4.0-10.0)
[2018-07-02 09:00] LABS: ANION GAP 7 MMOL/L (8-16); BLOOD UREA NITROGEN 28 mg/dL (7-18); CALCIUM 7.8 mg/dL (8.5-10.1); CHLORIDE 110 mmol/L (98-107); CO2 24 mmol/L (21-32); CREATININE 1.2 mg/dL (0.55-1.3); GLUCOSE,RANDOM 114 mg/dL (74-106); MAGNESIUM 2.1 mg/dL (1.8-2.4); POTASSIUM 4.2 mmol/L (3.5-5.1); SODIUM 141 mmol/L (136-145)
[2018-07-02] MEDS: amLODIPine BESYLATE 5 MG TABLET (FP) PO SCH ×3 (09:42→15:44)
[2018-07-02] MEDS: PANTOPRAZOLE 20 MG TABLET (FP) PO SCH ×3 (09:42→15:44)
[2018-07-02] MEDS: COLLAGENASE CLOSTRIDIUM HIST. 30 GRAMS TUBE TP SCH (09:42)
[2018-07-02] MEDS: APIXABAN 5 MG TABLET PO SCH ×4 (09:42→23:43)
[2018-07-02] MEDS: metoPROLOL SUCCINATE 25 MG TAB.SR.24H (FP) PO SCH ×3 (09:42→15:44)
[2018-07-02] MEDS: AZTREONAM 1 GM in DEXTROSE 5%-WATER - 50 ML IVPB SCH ×2 (09:42→23:43)
[2018-07-02] MEDS: BACLOFEN 10 MG TABLET (FP) PO SCH ×2 (09:42→12:53)
[2018-07-02] MEDS: AMINO ACIDS/PROTEIN HYDROLYS 30 ML LIQUID.PKT PO SCH ×3 (09:42→17:39)
[2018-07-02] MEDS: FLUoxetine HCL 20 MG CAPSULE (FP) PO SCH ×2 (09:42→12:53)
[2018-07-02] MEDS: POLYETHYLENE GLYCOL 3350 119 GM BTL PO SCH ×2 (11:49→23:43)
--- NOTE | 2018-07-02 12:29 | CONSULT ---
Consult Consult Specialty:: Nephrology ( sebastien/ Brian) Reason for Consultation:: Acute kidney injury, with abnormal elevation of Serum Creatinine. - History of Present Illness Chief Complaint: Leg ulcerations and infections. History of Present Illness: 82 y/o F with PMH CVA , R hemiparesis, DM2, Chr. Anemia, indwelling chu for urinary retention Atrial fib , CHF, pulm HTN. The patient was brought in from [facility]. As per pt, since December, she has had 15 lb weight loss. Denies constitutional sx. Detailed history not given. The patient had debridement of the right leg wound. - History Source History Provided By: Medical Record - Past Medical History Cardio/Vascular: Yes: AFIB (Persistent. History of cardioversion. 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 History of Recent Travel: No Home Medications - Allergies Allergies/Adverse Reactions: Allergies Allergy/AdvReac Type Severity Reaction Status Date / Time pregabalin [From Lyrica] Allergy Severe Hives Verified 06/24/18 15:11 ceftriaxone sodium Allergy Intermediate Hives Verified 06/24/18 15:11 [From Rocephin] Penicillins Allergy Intermediate Hives Verified 06/24/18 15:11 chicken derived Allergy Mild Hives Verified 06/24/18 15:11 oats AdvReac Mild DIARRHEA Verified 06/24/18 15:11 - Home Medications Home Medications: Ambulatory Orders Amlodipine Besylate [Norvasc -] 5 mg PO DAILY 06/24/18 Baclofen 10 mg PO BID 06/24/18 Collagenase Clostridium Hist. [Santyl -] 1 applic TP DAILY 06/24/18 Docusate Sodium [Colace -] 100 mg PO HS 06/24/18 Ferrous Sulfate 325 mg PO DAILY 06/24/18 Fluoxetine HCl Liquid [Prozac 20mg/5mL Oral Solution -] 20 mg PO DAILY 06/24/18 Gabapentin 100 mg PO TID 06/24/18 Mirtazepine Alejandra Tabs [Remeron Soltab -] 45 mg PO DAILY 06/24/18 PE/Shark Liver Oil/Glyc/Wh.pet [Hemorrhoidal Cream] 1 applic RC Q8H PRN Polyethylene Glycol 3350 [Miralax 119 gm Btl -] 17 gm PO BID 06/24/18 Ranitidine [Zantac -] 150 mg PO DAILY 06/24/18 Sennosides [Senokot] 2 tab PO HS 06/24/18 Spironolactone [Aldactone -] 25 mg PO DAILY 06/24/18 metFORMIN HCL [Glucophage -] 500 mg PO HS 06/24/18 traMADol HCL [Ultram -] 50 mg PO TID PRN 06/24/18 Apixaban [Eliquis -] 5 mg PO BID tablet 06/29/18 Atorvastatin Ca [Lipitor] 40 mg PO HS tablet 06/29/18 Collagenase Clostridium Hist. [Santyl -] 1 applic TP DAILY tube 06/29/18 Furosemide [Lasix -] 80 mg PO DAILY tablet 06/29/18 Metoprolol Succinate [Toprol XL -] 25 mg PO DAILY tab.sr.24h 06/29/18 Sucralfate [Carafate -] 1 gm PO BIDAC tablet 06/29/18 Valsartan [Diovan] 80 mg PO BID tablet 06/29/18 Family Disease History - Family Disease History Family Disease History: Other: Father (, hip fracture), Mother ( , unknown) Review of Systems - Review of Systems Constitutional: reports: Unintentional Wgt. Loss, Weakness Neck: reports: No Symptoms Cardiovascular: denies: Chest Pain, Palpitations, Shortness of Breath Respiratory: denies: Cough Gastrointestinal: denies: Abdominal Pain Musculoskeletal: denies: Back Pain Neurological: reports: Confusion Physical Exam Vital Signs: Vital Signs Temperature 98.6 F 07/02/18 09:06 Pulse Rate 90 07/02/18 09:06 Respiratory Rate 20 07/02/18 09:06 Blood Pressure 149/60 07/02/18 09:06 O2 Sat by Pulse Oximetry (%) 99 07/02/18 09:00 Constitutional: Yes: Calm Eyes: Yes: Conjunctiva Clear HENT: Yes: Atraumatic Neck: Yes: Trachea Midline Cardiovascular: Yes: Pulse Irregular, S1, S2 Respiratory: Yes: CTA Bilaterally Gastrointestinal: Yes: Normal Bowel Sounds, Soft Renal/: Yes: Chu Present. No: Bladder Distention, CVA Tenderness - Left, CVA Tenderness - Right Extremities: Yes: Other (dressing over the right LE) Labs: CBC, BMP 07/02/18 07:30 07/02/18 07:30 Problem List - Problems (1) ELENI (acute kidney injury) Code(s): N17.9 - ACUTE KIDNEY FAILURE, UNSPECIFIED (2) Decubitus skin ulcer Code(s): L89.90 - PRESSURE ULCER OF UNSPECIFIED SITE, UNSPECIFIED STAGE Qualifiers: Pressure injury location: calf Pressure injury stage: stage 3 Laterality : right Qualified Code(s): L89.893 - Pressure ulcer of other site, stage 3 (3) Failure to thrive in adult Code(s): R62.7 - ADULT FAILURE TO THRIVE (4) Sepsis Code(s): A41.9 - SEPSIS, UNSPECIFIED ORGANISM Qualifiers: Sepsis type: sepsis due to unspecified organism Qualified Code(s): A41.9 - Sepsis, unspecified organism Assessment/Plan 82 y/o F with PMH CVA , R hemiparesis, DM2, Chr. Anemia, indwelling chu for urinary retention Atrial fib , CHF, pulm HTN. H/o unintentional weight loss. EELNI... most likely due to Hemodynamic changes in the setting of infection. IV fluids well tolerated. Antibiotics infusing. Renal functions expected to settle at her baseline with adequate hydration. Will be careful to monitor her closely to avoid fluid overload. Thank you. Bhumika Thao MD
[2018-07-02] MEDS: SODIUM CHLORIDE 1,000 ML IV SCH ×2 (14:34)
[2018-07-02] MEDS: traMADol HCL 50 MG TABLET PO PRN (14:34)
--- NOTE | 2018-07-02 15:56 | PN ---
Physical Exam: SUBJECTIVE: Patient seen and examined, lethargic, denies pain. minimal interaction. OBJECTIVE: Vital Signs Period Temp Pulse Resp BP Sys/Vasquez Pulse Ox Last 24 Hr 96.3 F-98.7 F 86-114 18-21 110-149/60-87 97-99 GENERAL: awake minimally responsive Neck: soft, supple, no JVD Chest: poor effort, no rales or wheezing appreciated Abdomen:soft, obese, NT Extremities: RLE dressing Neuro: Awake, minimal responsive, facial symmetry, Right hemiparesis, minimal interaction limiting further exam Laboratory Results - last 24 hr 07/01/18 07/01/18 07/01/18 17:00 17:00 17:00 WBC RBC Hgb Hct MCV MCH MCHC RDW Plt Count MPV Absolute Neuts (auto) Neutrophils % Lymphocytes % Monocytes % Eosinophils % Basophils % Nucleated RBC % Sodium Potassium Chloride Carbon Dioxide Anion Gap BUN Creatinine Creat Clearance w eGFR Random Glucose Calcium Phosphorus Magnesium Urine Color Maye Urine Appearance Cloudy Urine pH 5.0 Ur Specific Brinkley 1.025 Urine Protein 1+ H Urine Glucose (UA) Negative Urine Ketones Negative Urine Blood 3+ H Urine Nitrite Negative Urine Bilirubin Negative Urine Urobilinogen 2.0 H Ur Leukocyte Esterase Trace Urine WBC (Auto) 12 Urine RBC (Auto) 26 Ur Epithelial Cells Rare Urine Bacteria Rare Hyaline Casts 7 Urine Mucus Rare Urine Yeast Few U Random Total Protein Ur Random Sodium 24 L Ur Random Urea Nitrogn Urine Creatinine 311.0 H 07/01/18 07/01/18 07/02/18 17:00 17:00 07:30 WBC 6.9 RBC 3.05 L Hgb 8.7 L Hct 27.9 L MCV 91.5 MCH 28.6 MCHC 31.3 L RDW 16.6 H Plt Count 263 MPV 9.6 Absolute Neuts (auto) 4.4 Neutrophils % 63.8 Lymphocytes % 28.1 D Monocytes % 6.5 Eosinophils % 1.3 D Basophils % 0.3 Nucleated RBC % 0 Sodium Potassium Chloride Carbon Dioxide Anion Gap BUN Creatinine Creat Clearance w eGFR Random Glucose Calcium Phosphorus Magnesium Urine Color Urine Appearance Urine pH Ur Specific Brinkley Urine Protein Urine Glucose (UA) Urine Ketones Urine Blood Urine Nitrite Urine Bilirubin Urine Urobilinogen Ur Leukocyte Esterase Urine WBC (Auto) Urine RBC (Auto) Ur Epithelial Cells Urine Bacteria Hyaline Casts Urine Mucus Urine Yeast U Random Total Protein 118.1 H Ur Random Sodium Ur Random Urea Nitrogn 605 Urine Creatinine 07/02/18 07:30 WBC RBC Hgb Hct MCV MCH MCHC RDW Plt Count MPV Absolute Neuts (auto) Neutrophils % Lymphocytes % Monocytes % Eosinophils % Basophils % Nucleated RBC % Sodium 141 Potassium 4.2 Chloride 110 H Carbon Dioxide 24 Anion Gap 7 L BUN 28 H Creatinine 1.2 Creat Clearance w eGFR 43.12 Random Glucose 114 H Calcium 7.8 L Phosphorus 3.0 Magnesium 2.1 Urine Color Urine Appearance Urine pH Ur Specific Brinkley Urine Protein Urine Glucose (UA) Urine Ketones Urine Blood Urine Nitrite Urine Bilirubin Urine Urobilinogen Ur Leukocyte Esterase Urine WBC (Auto) Urine RBC (Auto) Ur Epithelial Cells Urine Bacteria Hyaline Casts Urine Mucus Urine Yeast U Random Total Protein Ur Random Sodium Ur Random Urea Nitrogn Urine Creatinine Active Medications Generic Name Dose Route Start Last Admin Trade Name Freq PRN Reason Stop Dose Admin Acetaminophen 650 mg 07/01/18 09:31 07/01/18 09:49 Tylenol - PO 650 mg Q6H PRN Administration FEVER Al Hydroxide/Mg Hydroxide 30 ml 06/30/18 10:56 Mylanta Oral Suspension - PO Q4H PRN INDIGESTION Amino Acids 30 ml 07/01/18 17:30 07/02/18 15:44 Prosource No Carb Liquid Pkt PO 30 ml BID@0800,1730 RAGINI Administration Amlodipine Besylate 10 mg 06/30/18 12:30 07/02/18 15:44 Norvasc - PO 10 mg DAILY RAGINI Administration Apixaban 5 mg 06/30/18 22:00 07/02/18 15:44 Eliquis - PO 5 mg BID RAGINI Administration Atorvastatin Calcium 40 mg 06/30/18 22:00 07/01/18 22:53 Lipitor - PO Not Given HS RAGINI Baclofen 10 mg 06/30/18 22:00 07/02/18 12:53 Lioresal - PO Not Given BID RAGINI Bisacodyl 10 mg 06/30/18 10:56 07/01/18 14:31 Dulcolax Suppository - RC 10 mg PRN PRN Administration CONSTIPATION Collagenase 1 applic 07/01/18 10:00 07/02/18 09:42 Santyl - TP 1 applic DAILY RAGINI Administration Protocol Docusate Sodium 100 mg 06/30/18 22:00 07/01/18 22:44 Colace - PO Not Given HS [facility] Fluoxetine HCl 20 mg 07/01/18 10:00 07/02/18 12:53 Prozac - PO Not Given DAILY [facility] Furosemide 80 mg 07/01/18 10:00 Lasix - PO DAILY [facility] Aztreonam 1 gm/ Dextrose 50 mls @ 100 mls/hr 07/01/18 15:45 07/02/18 09:42 IVPB 100 mls/hr BID RAGINI Administration Protocol Sodium Chloride 1,000 mls @ 65 mls/hr 07/02/18 14:13 07/02/18 14:34 Normal Saline - IV 65 mls/hr ASDIR RAGINI Administration Metoprolol Succinate 25 mg 07/01/18 10:00 07/02/18 15:44 Toprol Xl - PO 25 mg DAILY [facility] Administration Mirtazapine 45 mg 06/30/18 22:00 07/01/18 22:53 Remeron - PO Not Given HS [facility] Oxycodone HCl 2.5 mg 06/30/18 10:56 Roxicodone - PO Q6H PRN PAIN LEVEL 7 - 10 Pantoprazole Sodium 20 mg 07/01/18 10:00 07/02/18 15:44 Protonix - PO 20 mg DAILY [facility] Administration Polyethylene Glycol 17 gm 06/30/18 22:00 07/02/18 11:49 Miralax (For Daily Use) - PO Not Given BID [facility] Promethazine HCl 12.5 mg 06/30/18 10:56 Phenergan Injection - IVPB Q6H PRN NAUSEA AND/OR VOMITING Senna 2 tab 06/30/18 22:00 07/01/18 22:53 Senna - PO Not Given HS [facility] Spironolactone 25 mg 07/01/18 10:00 Aldactone - PO DAILY [facility] Sucralfate 1 gm 06/30/18 16:30 07/02/18 15:44 Carafate - PO 1 gm BIDAC [facility] Administration Tramadol HCl 50 mg 06/30/18 10:56 07/02/18 14:34 Ultram - PO 50 mg TID PRN Administration PAIN ASSESSMENT/PLAN: 82 yof with PMHx of CVA (R hemiparesis; December 2017), DM, anemia, indwelling chu for urinary retention (April), afib (on asa), CHF, pulm HTN, who was brought to [facility] ED from [facility] for FTT, found with UTI/subacute/chronic PE, then sepsis suspected from RLE wound infection and ELENI, now with ongoing refusal to PO and medications. -Sepsis, -Lower uncomplicated UTI (Urine cx with salmonella) s/p treatment -RLE wound infection -ELENI suspect from sepsis/poor oral intake -AMS suspect toxic metabolic encephalopathy from above, compounded by progresive decline since her stroke -Subacute to chronic RLL PE on eliquis -Chronic systolic heart failure -Atrial fibrillation/flutter -Elevated troponin, suspect demand induced Type II NSTEMi from above -Failure to thrive -CVA with right hemiparesis -RUE swelling, duplex neg -Decubitus ulcer Plan: Id input noted. wound cx noted. Aztreonam. Vascular surgery input noted, s/p debridement, daily wound care. renal input noted. Cr improved. Decrease IVF to 65 ml/hr. Close monitoring of volume status. Hold lasix/arb/ aldactone for now, resume gradually as renal function improves. Patient with minimal interaction, refused meds earlier today. Discussed with daughter Laurie, patient has been declining PO recently but none this severe. Explained, suspect multifactorial given sepsis/ELENI/dehydration compounded by cognitive decline from recent CVA. Will check CT head though low suspicion for acute process. d/c baclofen/ tramadol as lethargic today. Palliative care input to address overall goals of care if continues to refuse PO and medications May need to address alternative nutrition including PEG based on goals of care Plan discussed with lucía Sullivan in detail, all questions answered. Discussed with nursing. Visit type - Emergency Visit Emergency Visit: Yes ED Registration Date: 06/24/18 Care time: The patient presented to the Emergency Department on the above date and was hospitalized for further evaluation of their emergent condition. - New Patient This patient is new to me today: Yes Date on this admission: 07/02/18 - Critical Care Critical Care patient: No - Discharge Referral Referred to [facility] No
--- NOTE | 2018-07-02 18:58 | PN ---
Progress Note, Physician - Current Medication List Current Medications: Active Medications Acetaminophen (Tylenol -) 650 mg PO Q6H PRN PRN Reason: FEVER Last Admin: 07/01/18 09:49 Dose: 650 mg Al Hydroxide/Mg Hydroxide (Mylanta Oral Suspension -) 30 ml PO Q4H PRN PRN Reason: INDIGESTION Amino Acids (Prosource No Carb Liquid Pkt) 30 ml PO BID@0800,1730 [facility] Last Admin: 07/02/18 17:39 Dose: Not Given Amlodipine Besylate (Norvasc -) 10 mg PO DAILY [facility] Last Admin: 07/02/18 15:44 Dose: 10 mg Apixaban (Eliquis -) 5 mg PO BID [facility] Last Admin: 07/02/18 15:44 Dose: 5 mg Atorvastatin Calcium (Lipitor -) 40 mg PO HS [facility] Last Admin: 07/01/18 22:53 Dose: Not Given Bisacodyl (Dulcolax Suppository -) 10 mg RC PRN PRN PRN Reason: CONSTIPATION Last Admin: 07/01/18 14:31 Dose: 10 mg Collagenase (Santyl -) 1 applic TP DAILY [facility]; Protocol Last Admin: 07/02/18 09:42 Dose: 1 applic Docusate Sodium (Colace -) 100 mg PO HS [facility] Last Admin: 07/01/18 22:44 Dose: Not Given Fluoxetine HCl (Prozac -) 20 mg PO DAILY [facility] Last Admin: 07/02/18 12:53 Dose: Not Given Furosemide (Lasix -) 80 mg PO DAILY [facility] Aztreonam 1 gm/ Dextrose 50 mls @ 100 mls/hr IVPB BID [facility]; Protocol Last Admin: 07/02/18 09:42 Dose: 100 mls/hr Sodium Chloride (Normal Saline -) 1,000 mls @ 65 mls/hr IV ASDIR [facility] Last Admin: 07/02/18 14:34 Dose: 65 mls/hr Metoprolol Succinate (Toprol Xl -) 25 mg PO DAILY [facility] Last Admin: 07/02/18 15:44 Dose: 25 mg Mirtazapine (Remeron -) 45 mg PO HS [facility] Last Admin: 07/01/18 22:53 Dose: Not Given Oxycodone HCl (Roxicodone -) 2.5 mg PO Q6H PRN PRN Reason: PAIN LEVEL 7 - 10 Pantoprazole Sodium (Protonix -) 20 mg PO DAILY [facility] Last Admin: 07/02/18 15:44 Dose: 20 mg Polyethylene Glycol (Miralax (For Daily Use) -) 17 gm PO BID [facility] Last Admin: 07/02/18 11:49 Dose: Not Given Promethazine HCl (Phenergan Injection -) 12.5 mg IVPB Q6H PRN PRN Reason: NAUSEA AND/OR VOMITING Senna (Senna -) 2 tab PO HS [facility] Last Admin: 07/01/18 22:53 Dose: Not Given Spironolactone (Aldactone -) 25 mg PO DAILY [facility] Sucralfate (Carafate -) 1 gm PO BIDAC [facility] Last Admin: 07/02/18 15:44 Dose: 1 gm - Objective Vital Signs: Vital Signs Temperature 96.3 F L 07/02/18 15:38 Pulse Rate 86 07/02/18 15:38 Respiratory Rate 20 07/02/18 15:38 Blood Pressure 137/78 07/02/18 15:38 O2 Sat by Pulse Oximetry (%) 99 07/02/18 09:00 Labs: CBC, BMP 07/02/18 07:30 07/02/18 07:30 INR, PTT INR 1.16 (0.83-1.09) H 06/24/18 15:49
[2018-07-02] MEDS: DOCUSATE SODIUM 100 MG CAPSULE (FP) PO SCH (23:43)
[2018-07-02] MEDS: MIRTAZAPINE 15 MG TABLET (FP) PO SCH (23:43)
[2018-07-02] MEDS: ATORVASTATIN CA 40 MG TABLET (FP) PO SCH (23:43)
[2018-07-02] MEDS: SENNOSIDES 8.6MG TABLET (FP) PO SCH (23:43)
[2018-07-03] MEDS: SUCRALFATE 1 GM TABLET (FP) PO SCH ×2 (06:47→17:40)
[2018-07-03] MEDS: metoPROLOL SUCCINATE 25 MG TAB.SR.24H (FP) PO SCH (09:19)
[2018-07-03] MEDS: APIXABAN 5 MG TABLET PO SCH ×2 (09:19→22:06)
[2018-07-03] MEDS: FLUoxetine HCL 20 MG CAPSULE (FP) PO SCH (09:19)
[2018-07-03] MEDS: PANTOPRAZOLE 20 MG TABLET (FP) PO SCH (09:19)
[2018-07-03] MEDS: amLODIPine BESYLATE 5 MG TABLET (FP) PO SCH (09:19)
[2018-07-03] MEDS: COLLAGENASE CLOSTRIDIUM HIST. 30 GRAMS TUBE TP SCH (09:19)
[2018-07-03] MEDS: AZTREONAM 1 GM in DEXTROSE 5%-WATER - 50 ML IVPB SCH ×2 (09:19→22:05)
[2018-07-03] MEDS: AMINO ACIDS/PROTEIN HYDROLYS 30 ML LIQUID.PKT PO SCH ×2 (09:27→17:40)
[2018-07-03] MEDS: POLYETHYLENE GLYCOL 3350 119 GM BTL PO SCH ×2 (09:27→22:07)
--- NOTE | 2018-07-03 10:03 | PN ---
Progress Note, Physician Chief Complaint: The patient seen and examined iin her bed. Seems much more alert and comfortable. History of Present Illness: 82 y/o F with PMH CVA , R hemiparesis, DM2, Chr. Anemia, indwelling chu for urinary retention Atrial fib , CHF, pulm HTN. As per pt, since December, she has had 15 lb weight loss. Denies constitutional sx. Detailed history not given. The patient had debridement of the right leg wound. The right LE is wrapped - Current Medication List Current Medications: Active Medications Acetaminophen (Tylenol -) 650 mg PO Q6H PRN PRN Reason: FEVER Last Admin: 07/01/18 09:49 Dose: 650 mg Al Hydroxide/Mg Hydroxide (Mylanta Oral Suspension -) 30 ml PO Q4H PRN PRN Reason: INDIGESTION Amino Acids (Prosource No Carb Liquid Pkt) 30 ml PO BID@0800,1730 [facility] Last Admin: 07/03/18 09:27 Dose: 30 ml Amlodipine Besylate (Norvasc -) 10 mg PO DAILY [facility] Last Admin: 07/03/18 09:19 Dose: 10 mg Apixaban (Eliquis -) 5 mg PO BID [facility] Last Admin: 07/03/18 09:19 Dose: 5 mg Atorvastatin Calcium (Lipitor -) 40 mg PO HS [facility] Last Admin: 07/02/18 23:43 Dose: Not Given Bisacodyl (Dulcolax Suppository -) 10 mg RC PRN PRN PRN Reason: CONSTIPATION Last Admin: 07/01/18 14:31 Dose: 10 mg Collagenase (Santyl -) 1 applic TP DAILY [facility]; Protocol Last Admin: 07/03/18 09:19 Dose: 1 applic Docusate Sodium (Colace -) 100 mg PO HS [facility] Last Admin: 07/02/18 23:43 Dose: Not Given Fluoxetine HCl (Prozac -) 20 mg PO DAILY [facility] Last Admin: 07/03/18 09:19 Dose: 20 mg Furosemide (Lasix -) 80 mg PO DAILY [facility] Aztreonam 1 gm/ Dextrose 50 mls @ 100 mls/hr IVPB BID [facility]; Protocol Last Admin: 07/03/18 09:19 Dose: 100 mls/hr Sodium Chloride (Normal Saline -) 1,000 mls @ 65 mls/hr IV ASDIR [facility] Last Admin: 07/02/18 14:34 Dose: 65 mls/hr Metoprolol Succinate (Toprol Xl -) 25 mg PO DAILY [facility] Last Admin: 07/03/18 09:19 Dose: 25 mg Mirtazapine (Remeron -) 45 mg PO HS [facility] Last Admin: 07/02/18 23:43 Dose: Not Given Oxycodone HCl (Roxicodone -) 2.5 mg PO Q6H PRN PRN Reason: PAIN LEVEL 7 - 10 Last Admin: 07/03/18 07:47 Dose: 2.5 mg Pantoprazole Sodium (Protonix -) 20 mg PO DAILY [facility] Last Admin: 07/03/18 09:19 Dose: 20 mg Polyethylene Glycol (Miralax (For Daily Use) -) 17 gm PO BID [facility] Last Admin: 07/03/18 09:27 Dose: 17 gm Promethazine HCl (Phenergan Injection -) 12.5 mg IVPB Q6H PRN PRN Reason: NAUSEA AND/OR VOMITING Senna (Senna -) 2 tab PO HS [facility] Last Admin: 07/02/18 23:43 Dose: Not Given Spironolactone (Aldactone -) 25 mg PO DAILY [facility] Sucralfate (Carafate -) 1 gm PO BIDAC [facility] Last Admin: 07/03/18 06:47 Dose: 1 gm - Objective Vital Signs: Vital Signs Temperature 98.1 F 07/03/18 08:21 Pulse Rate 87 07/03/18 08:21 Respiratory Rate 20 07/03/18 08:21 Blood Pressure 130/58 L 07/03/18 08:21 O2 Sat by Pulse Oximetry (%) 99 07/02/18 21:00 Constitutional: Yes: No Distress, Calm Eyes: Yes: Conjunctiva Clear HENT: Yes: Normocephalic Neck: Yes: Trachea Midline Cardiovascular: Yes: Regular Rate and Rhythm, S1, S2 Respiratory: Yes: Regular, Diminished Gastrointestinal: Yes: Normal Bowel Sounds, Soft Musculoskeletal: Yes: Joint Stiffness Extremities: Yes: Other (dressing over the right leg) Neurological: Yes: Alert Psychiatric: Yes: Alert Labs: CBC, BMP 07/02/18 07:30 INR, PTT INR 1.16 (0.83-1.09) H 06/24/18 15:49 Problem List - Problems (1) ELENI (acute kidney injury) Code(s): N17.9 - ACUTE KIDNEY FAILURE, UNSPECIFIED (2) Decubitus skin ulcer Code(s): L89.90 - PRESSURE ULCER OF UNSPECIFIED SITE, UNSPECIFIED STAGE Qualifiers: Pressure injury location: calf Pressure injury stage: stage 3 Laterality : right Qualified Code(s): L89.893 - Pressure ulcer of other site, stage 3 (3) Failure to thrive in adult Code(s): R62.7 - ADULT FAILURE TO THRIVE (4) Sepsis Code(s): A41.9 - SEPSIS, UNSPECIFIED ORGANISM Qualifiers: Sepsis type: sepsis due to unspecified organism Qualified Code(s): A41.9 - Sepsis, unspecified organism Assessment/Plan 82 y/o F with PMH CVA , R hemiparesis, DM2, Chr. Anemia, indwelling chu for urinary retention Atrial fib , CHF, pulm HTN. H/o unintentional weight loss. ELENI... most likely due to Hemodynamic changes in the setting of infection. IV fluids well tolerated. Antibiotics infusing. Renal functions expected to settle at her baseline with adequate hydration, and control of the infection. Will be careful to monitor her closely to avoid fluid overload. Concur with reducing the IV fluid rate. If the BP remains too low, can reduce/Dc Amlodipine. Thank you. Bhumika Thao MD
[2018-07-03 11:19] LABS: CO2 24 mmol/L (21-32); CREATININE 0.7 mg/dL (0.55-1.3)
[2018-07-03 11:20] LABS: ALBUMIN 1.7 g/dl (3.4-5.0)
[2018-07-03 12:32] LABS: ALK PHOS 58 U/L (45-117); ANION GAP 7 MMOL/L (8-16); BILIRUBIN,TOTAL 0.5 mg/dL (0.2-1); BLOOD UREA NITROGEN 26 mg/dL (7-18); CALCIUM 7.9 mg/dL (8.5-10.1); CHLORIDE 111 mmol/L (98-107); GLUCOSE,RANDOM 128 mg/dL (74-106); MAGNESIUM 2.1 mg/dL (1.8-2.4); PHOSPHOROUS 2.4 mg/dL (2.5-4.9); POTASSIUM 3.7 mmol/L (3.5-5.1); SGOT/AST 15 U/L (15-37); SGPT/ALT 10 U/L (13-61); SODIUM 141 mmol/L (136-145)
--- NOTE | 2018-07-03 12:47 | PN ---
Physical Exam: SUBJECTIVE: Patient seen and examined, awake,pleasant, more interactive today. Denies any pain. OBJECTIVE: Vital Signs Period Temp Pulse Resp BP Sys/Vasquez Pulse Ox Last 24 Hr 96.3 F-98.1 F 86-87 20-20 130-137/58-78 97-99 General: awake, pleasant, interactive today Neck: soft, supple, no JVD Chest: poor effort, no rales or wheezing appreciated Abdomen:soft, obese, NT Extremities: Right LE debrided wounds over lateral aspect, clean with tendon exposed, well defined margins with surrounding tissue intact, no foul odor or active d/c, Ulcer over lateral malleolus with fibrinous tissue at base, surrounding tissue intact , no odor neuro: awake, pleasant, oriented to self, right hemiparesis Laboratory Results - last 24 hr 07/02/18 07/03/18 19:00 07:00 Sodium 141 Potassium 3.7 Chloride 111 H Carbon Dioxide 24 Anion Gap 7 L BUN 26 H Creatinine 0.7 Creat Clearance w eGFR > 60 Random Glucose 128 H Calcium 7.9 L Phosphorus 2.4 L Magnesium 2.1 Total Bilirubin 0.5 AST 15 ALT 10 L Alkaline Phosphatase 58 Total Protein 6.0 L Albumin 1.7 L Stool Occult Blood Negative Home Medications Medication Instructions Recorded Amlodipine Besylate [Norvasc -] 5 mg PO DAILY 06/24/18 Baclofen 10 mg PO BID 06/24/18 Collagenase Clostridium Hist. 1 applic TP DAILY 06/24/18 [Santyl -] Docusate Sodium [Colace -] 100 mg PO HS 06/24/18 Ferrous Sulfate 325 mg PO DAILY 06/24/18 Fluoxetine HCl Liquid [Prozac 20 mg PO DAILY 06/24/18 20mg/5mL Oral Solution -] Gabapentin 100 mg PO TID 06/24/18 Mirtazepine Alejandra Tabs [Remeron 45 mg PO DAILY 06/24/18 Soltab -] PE/Shark Liver Oil/Glyc/Wh.pet 1 applic RC Q8H PRN 06/24/18 [Hemorrhoidal Cream] Polyethylene Glycol 3350 [Miralax 17 gm PO BID 06/24/18 119 gm Btl -] Ranitidine [Zantac -] 150 mg PO DAILY 06/24/18 Sennosides [Senokot] 2 tab PO HS 06/24/18 Spironolactone [Aldactone -] 25 mg PO DAILY 06/24/18 metFORMIN HCL [Glucophage -] 500 mg PO HS 06/24/18 traMADol HCL [Ultram -] 50 mg PO TID PRN 06/24/18 Apixaban [Eliquis -] 5 mg PO BID tablet 06/29/18 Atorvastatin Ca [Lipitor] 40 mg PO HS tablet 06/29/18 Collagenase Clostridium Hist. 1 applic TP DAILY tube 06/29/18 [Santyl -] Furosemide [Lasix -] 80 mg PO DAILY tablet 06/29/18 Metoprolol Succinate [Toprol XL -] 25 mg PO DAILY tab.sr.24h 06/29/18 Sucralfate [Carafate -] 1 gm PO BIDAC tablet 06/29/18 Valsartan [Diovan] 80 mg PO BID tablet 06/29/18 Active Medications Acetaminophen (Tylenol -) 650 mg PO Q6H PRN PRN Reason: FEVER Last Admin: 07/01/18 09:49 Dose: 650 mg Al Hydroxide/Mg Hydroxide (Mylanta Oral Suspension -) 30 ml PO Q4H PRN PRN Reason: INDIGESTION Amino Acids (Prosource No Carb Liquid Pkt) 30 ml PO BID@0800,1730 [facility] Last Admin: 07/03/18 09:27 Dose: 30 ml Amlodipine Besylate (Norvasc -) 10 mg PO DAILY [facility] Last Admin: 07/03/18 09:19 Dose: 10 mg Apixaban (Eliquis -) 5 mg PO BID [facility] Last Admin: 07/03/18 09:19 Dose: 5 mg Atorvastatin Calcium (Lipitor -) 40 mg PO HS [facility] Last Admin: 07/02/18 23:43 Dose: Not Given Bisacodyl (Dulcolax Suppository -) 10 mg RC PRN PRN PRN Reason: CONSTIPATION Last Admin: 07/01/18 14:31 Dose: 10 mg Collagenase (Santyl -) 1 applic TP DAILY [facility]; Protocol Last Admin: 07/03/18 09:19 Dose: 1 applic Docusate Sodium (Colace -) 100 mg PO HS [facility] Last Admin: 07/02/18 23:43 Dose: Not Given Fluoxetine HCl (Prozac -) 20 mg PO DAILY [facility] Last Admin: 07/03/18 09:19 Dose: 20 mg Furosemide (Lasix -) 80 mg PO DAILY [facility] Aztreonam 1 gm/ Dextrose 50 mls @ 100 mls/hr IVPB BID [facility]; Protocol Last Admin: 07/03/18 09:19 Dose: 100 mls/hr Sodium Chloride (Normal Saline -) 1,000 mls @ 65 mls/hr IV ASDIR [facility] Last Admin: 07/02/18 14:34 Dose: 65 mls/hr Metoprolol Succinate (Toprol Xl -) 25 mg PO DAILY [facility] Last Admin: 07/03/18 09:19 Dose: 25 mg Mirtazapine (Remeron -) 45 mg PO HS [facility] Last Admin: 07/02/18 23:43 Dose: Not Given Pantoprazole Sodium (Protonix -) 20 mg PO DAILY [facility] Last Admin: 07/03/18 09:19 Dose: 20 mg Polyethylene Glycol (Miralax (For Daily Use) -) 17 gm PO BID [facility] Last Admin: 07/03/18 09:27 Dose: 17 gm Promethazine HCl (Phenergan Injection -) 12.5 mg IVPB Q6H PRN PRN Reason: NAUSEA AND/OR VOMITING Senna (Senna -) 2 tab PO HS [facility] Last Admin: 07/02/18 23:43 Dose: Not Given Spironolactone (Aldactone -) 25 mg PO DAILY [facility] Sucralfate (Carafate -) 1 gm PO BIDAC [facility] Last Admin: 07/03/18 06:47 Dose: 1 gm Active Medications 07/01/18 09:50 Blood - Peripheral Venous Blood Culture - Preliminary NO GROWTH OBTAINED AFTER 48 HOURS, INCUBATION TO CONTINUE FOR 3 DAYS. 07/01/18 09:26 Blood - Peripheral Venous Blood Culture - Preliminary NO GROWTH OBTAINED AFTER 48 HOURS, INCUBATION TO CONTINUE FOR 3 DAYS. 07/01/18 17:00 Urine - Urine Clean Catch Urine Culture - Preliminary 06/30/18 10:00 Ulcer Gram Stain - Final 06/30/18 10:00 Ulcer Wound Culture - Final Escherichia Coli Enterococcus Faecalis Diphtheroid/Corynebacterium 06/24/18 17:00 Urine - Urine Chu Urine Culture - Preliminary Salmonella Species CT head results reviewed ASSESSMENT/PLAN: 82 yof with PMHx of CVA (R hemiparesis; December 2017), DM, anemia, indwelling chu for urinary retention (April), afib (on asa), CHF, pulm HTN, who was brought to [facility] ED from [facility] for FTT, found with UTI/subacute/chronic PE, then sepsis suspected from RLE wound infection and ELENI, now with ongoing refusal to PO and medications. -Sepsis -Lower uncomplicated UTI (Urine cx with salmonella) s/p treatment -RLE wound infection -ELENI suspect from sepsis/poor oral intake -AMS suspect toxic metabolic encephalopathy from above, compounded by progressive decline since her stroke -Subacute to chronic RLL PE on eliquis -Chronic systolic heart failure -Atrial fibrillation/flutter -Elevated troponin, suspect demand induced Type II NSTEMi from above -Failure to thrive -CVA with right hemiparesis -RUE swelling, duplex neg -Decubitus ulcer Plan: More awake and interactive today. CT brain neg for concerns. Tramadol/baclofen d /luis antonio for now. Caution with sedatives, resume at lower dose as needed. Id input noted. wound cx noted. Aztreonam. Vascular surgery input noted, s/p debridement, daily wound care. renal input noted. Cr normalized. D/c IVF. PO intake improved today Close monitoring of volume status. Hold lasix/arb/aldactone today, resume over next 2-3 days based on volume status and renal function. Palliative care input to address overall goals of care given overall decline, failure to thrive and intermittent refusal to PO and medications. dispo planning to SNF on PO abx in 1-2 days if improved and no new concerns. Discussed with nursing and all questions answered. Visit type - Emergency Visit Emergency Visit: Yes ED Registration Date: 06/24/18 Care time: The patient presented to the Emergency Department on the above date and was hospitalized for further evaluation of their emergent condition. - New Patient This patient is new to me today: No - Critical Care Critical Care patient: No - Discharge Referral Referred to [facility] Med P.C.: No
[2018-07-03 13:25] LABS: BASO % 1.3 % (0-2.0); EOS % 1.1 % (0-4.5); HEMATOCRIT 28.6 % (32.4-45.2); HEMOGLOBIN 9.5 GM/dL (10.7-15.3); LYMPH % 15.5 % (8-40); MCH 30.4 pg (25.7-33.7); MCHC 33.3 g/dl (32.0-36.0); MEAN CELL VOLUME 91.5 fl (80-96); MONO % 7.3 % (3.8-10.2); NEUT % 74.8 % (42.8-82.8); PLATELET COUNT 289 K/MM3 (134-434); RBC 3.13 M/mm3 (3.60-5.2); RDW 16.9 % (11.6-15.6); WHITE BLOOD COUNT 5.5 K/mm3 (4.0-10.0)
[2018-07-03] MEDS: traMADol HCL 50 MG TABLET PO PRN (13:58)
[2018-07-03 17:36] LABS: ANISOCYTOSIS 1+; MACROCYTOSIS 0; PLATELET ESTIMATE NORMAL
--- NOTE | 2018-07-03 17:55 | PN ---
Progress Note, Physician History of Present Illness: Pt seen and examined. Events noted/lab results noted. Currently weak but afebrile. c/o pain in RLE. - Current Medication List Current Medications: Active Medications Acetaminophen (Tylenol -) 650 mg PO Q6H PRN PRN Reason: FEVER Last Admin: 07/01/18 09:49 Dose: 650 mg Al Hydroxide/Mg Hydroxide (Mylanta Oral Suspension -) 30 ml PO Q4H PRN PRN Reason: INDIGESTION Amino Acids (Prosource No Carb Liquid Pkt) 30 ml PO BID@0800,1730 [facility] Last Admin: 07/03/18 17:40 Dose: 30 ml Amlodipine Besylate (Norvasc -) 10 mg PO DAILY [facility] Last Admin: 07/03/18 09:19 Dose: 10 mg Apixaban (Eliquis -) 5 mg PO BID [facility] Last Admin: 07/03/18 09:19 Dose: 5 mg Atorvastatin Calcium (Lipitor -) 40 mg PO HS [facility] Last Admin: 07/02/18 23:43 Dose: Not Given Bisacodyl (Dulcolax Suppository -) 10 mg RC PRN PRN PRN Reason: CONSTIPATION Last Admin: 07/01/18 14:31 Dose: 10 mg Collagenase (Santyl -) 1 applic TP DAILY [facility]; Protocol Last Admin: 07/03/18 09:19 Dose: 1 applic Docusate Sodium (Colace -) 100 mg PO HS [facility] Last Admin: 07/02/18 23:43 Dose: Not Given Fluoxetine HCl (Prozac -) 20 mg PO DAILY [facility] Last Admin: 07/03/18 09:19 Dose: 20 mg Furosemide (Lasix -) 80 mg PO DAILY [facility] Aztreonam 1 gm/ Dextrose 50 mls @ 100 mls/hr IVPB BID [facility]; Protocol Last Admin: 07/03/18 09:19 Dose: 100 mls/hr Sodium Chloride (Normal Saline -) 1,000 mls @ 65 mls/hr IV ASDIR [facility] Last Admin: 07/02/18 14:34 Dose: 65 mls/hr Metoprolol Succinate (Toprol Xl -) 25 mg PO DAILY [facility] Last Admin: 07/03/18 09:19 Dose: 25 mg Mirtazapine (Remeron -) 45 mg PO HS [facility] Last Admin: 07/02/18 23:43 Dose: Not Given Pantoprazole Sodium (Protonix -) 20 mg PO DAILY [facility] Last Admin: 07/03/18 09:19 Dose: 20 mg Polyethylene Glycol (Miralax (For Daily Use) -) 17 gm PO BID [facility] Last Admin: 07/03/18 09:27 Dose: 17 gm Promethazine HCl (Phenergan Injection -) 12.5 mg IVPB Q6H PRN PRN Reason: NAUSEA AND/OR VOMITING Senna (Senna -) 2 tab PO HS [facility] Last Admin: 07/02/18 23:43 Dose: Not Given Spironolactone (Aldactone -) 25 mg PO DAILY [facility] Sucralfate (Carafate -) 1 gm PO BIDAC [facility] Last Admin: 07/03/18 17:40 Dose: 1 gm Tramadol HCl (Ultram -) 25 mg PO Q12H PRN PRN Reason: PAIN LEVEL 7 - 10 Last Admin: 07/03/18 13:58 Dose: 25 mg - Objective Vital Signs: Vital Signs Temperature 97.3 F L 07/03/18 12:49 Pulse Rate 86 07/03/18 12:49 Respiratory Rate 20 07/03/18 12:49 Blood Pressure 125/81 07/03/18 12:49 O2 Sat by Pulse Oximetry (%) 97 07/03/18 09:00 Constitutional: Yes: No Distress, Calm Cardiovascular: Yes: Tachycardia Respiratory: Yes: Regular Gastrointestinal: Yes: Normal Bowel Sounds, Soft Genitourinary: Yes: WNL Wound/Incision: Yes: Other (Rt LE lateral wound with exposed tendon, no purulence, +tenderness) Neurological: Yes: Alert, Weakness Labs: CBC, BMP 07/03/18 12:39 07/03/18 07:00 INR, PTT INR 1.16 (0.83-1.09) H 06/24/18 15:49 Microbiology 07/01/18 09:50 Blood - Peripheral Venous Blood Culture - Preliminary NO GROWTH OBTAINED AFTER 48 HOURS, INCUBATION TO CONTINUE FOR 3 DAYS. 07/01/18 09:26 Blood - Peripheral Venous Blood Culture - Preliminary NO GROWTH OBTAINED AFTER 48 HOURS, INCUBATION TO CONTINUE FOR 3 DAYS. 07/01/18 17:00 Urine - Urine Clean Catch Urine Culture - Preliminary 06/30/18 10:00 Ulcer Gram Stain - Final 06/30/18 10:00 Ulcer Wound Culture - Final Escherichia Coli Enterococcus Faecalis Diphtheroid/Corynebacterium 06/24/18 17:00 Urine - Urine Shepard Urine Culture - Preliminary Salmonella Species - ....Imaging Chest X-ray: Report Reviewed Cat Scan: Report Reviewed Problem List - Problems (1) ELENI (acute kidney injury) Code(s): N17.9 - ACUTE KIDNEY FAILURE, UNSPECIFIED (2) Failure to thrive in adult Code(s): R62.7 - ADULT FAILURE TO THRIVE (3) History of stroke Code(s): Z86.73 - PRSNL HX OF TIA (TIA), AND CEREB INFRC W/O RESID DEFICITS (4) Sepsis Code(s): A41.9 - SEPSIS, UNSPECIFIED ORGANISM Qualifiers: Sepsis type: sepsis due to unspecified organism Qualified Code(s): A41.9 - Sepsis, unspecified organism (5) UTI (urinary tract infection) Code(s): N39.0 - URINARY TRACT INFECTION, SITE NOT SPECIFIED Qualifiers: Urinary tract infection type: catheter-associated UTI Indwelling urinary catheter type: indwelling urethral catheter Encounter type: initial encounter Qualified Code(s): T83.511A - Infection and inflammatory reaction due to indwelling urethral catheter, initial encounter; N39.0 - Urinary tract infection , site not specified (6) HLD (hyperlipidemia) Code(s): E78.5 - HYPERLIPIDEMIA, UNSPECIFIED (7) HTN (hypertension) Code(s): I10 - ESSENTIAL (PRIMARY) HYPERTENSION Qualifiers: Qualified Code(s): I10 - Essential (primary) hypertension Assessment/Plan Sepsis Infected RLE ulcers s/p debridement ELENI s/p treatment for UTI Hx of CVA -- wound culture results noted +E.coli/E. faecalis -- continue Aztreonam, add Vancomycin IV renally adjusted dose and monitor closely -- continue wound care, pain control pt currently afebrile, without distress
[2018-07-03] MEDS: VANCOMYCIN 1 GRAM (PRE-DOCKED) 1,000 MG/250 ML BAG IVPB SCH (18:42)
[2018-07-03] MEDS ORDERED: PT OWN MED DRAWER 7, Y5N ONE (21:51)
[2018-07-03] MEDS: DOCUSATE SODIUM 100 MG CAPSULE (FP) PO SCH (22:06)
[2018-07-03] MEDS: ATORVASTATIN CA 40 MG TABLET (FP) PO SCH (22:06)
[2018-07-03] MEDS: MIRTAZAPINE 15 MG TABLET (FP) PO SCH (22:06)
[2018-07-03] MEDS: SENNOSIDES 8.6MG TABLET (FP) PO SCH (22:06)
[2018-07-03] MEDS: SODIUM CHLORIDE 1,000 ML IV SCH (22:07)
[2018-07-04] MEDS: traMADol HCL 50 MG TABLET PO PRN ×2 (02:19→17:17)
[2018-07-04] MEDS: SUCRALFATE 1 GM TABLET (FP) PO SCH ×2 (06:22→17:17)
[2018-07-04 08:09] LABS: ANION GAP 4 MMOL/L (8-16); BLOOD UREA NITROGEN 26 mg/dL (7-18); CALCIUM 7.5 mg/dL (8.5-10.1); CHLORIDE 111 mmol/L (98-107); CO2 26 mmol/L (21-32); CREATININE 0.6 mg/dL (0.55-1.3); GLUCOSE,RANDOM 96 mg/dL (74-106); MAGNESIUM 1.8 mg/dL (1.8-2.4); PHOSPHOROUS 2.9 mg/dL (2.5-4.9); POTASSIUM 3.6 mmol/L (3.5-5.1); SODIUM 141 mmol/L (136-145)
[2018-07-04] MEDS ORDERED: MAGNESIUM SULF 50% (8.12 MEQ/2 ML-1 GM VIAL) IVPB ONE (09:00)
[2018-07-04] MEDS ORDERED: POTASSIUM CHLORIDE ORAL LIQUID 20 MEQ/15 ML PO ONE (10:02)
[2018-07-04] MEDS: AZTREONAM 1 GM in DEXTROSE 5%-WATER - 50 ML IVPB SCH ×2 (10:14→22:13)
[2018-07-04] MEDS: AMINO ACIDS/PROTEIN HYDROLYS 30 ML LIQUID.PKT PO SCH ×2 (10:14→17:17)
[2018-07-04] MEDS: FLUoxetine HCL 20 MG CAPSULE (FP) PO SCH (10:14)
[2018-07-04] MEDS: metoPROLOL SUCCINATE 25 MG TAB.SR.24H (FP) PO SCH (10:15)
[2018-07-04] MEDS: PANTOPRAZOLE 20 MG TABLET (FP) PO SCH (10:15)
[2018-07-04] MEDS: APIXABAN 5 MG TABLET PO SCH ×2 (10:15→22:14)
[2018-07-04] MEDS: COLLAGENASE CLOSTRIDIUM HIST. 30 GRAMS TUBE TP SCH (10:16)
[2018-07-04] MEDS: amLODIPine BESYLATE 5 MG TABLET (FP) PO SCH ×3 (10:16→10:24)
--- NOTE | 2018-07-04 10:16 | PN ---
Progress Note, Physician Chief Complaint: Pt lying in bed in no acute distress. mental status at baseline. talking and eating meals. pt reports feeling well, denies any chest pain, sob, n/v/d - Current Medication List Current Medications: Active Medications Acetaminophen (Tylenol -) 650 mg PO Q6H PRN PRN Reason: FEVER Last Admin: 07/01/18 09:49 Dose: 650 mg Al Hydroxide/Mg Hydroxide (Mylanta Oral Suspension -) 30 ml PO Q4H PRN PRN Reason: INDIGESTION Amino Acids (Prosource No Carb Liquid Pkt) 30 ml PO BID@0800,1730 [facility] Last Admin: 07/03/18 17:40 Dose: 30 ml Amlodipine Besylate (Norvasc -) 5 mg PO DAILY [facility] Apixaban (Eliquis -) 5 mg PO BID [facility] Last Admin: 07/03/18 22:06 Dose: 5 mg Atorvastatin Calcium (Lipitor -) 40 mg PO [facility] Last Admin: 07/03/18 22:06 Dose: 40 mg Bisacodyl (Dulcolax Suppository -) 10 mg RC PRN PRN PRN Reason: CONSTIPATION Last Admin: 07/01/18 14:31 Dose: 10 mg Collagenase (Santyl -) 1 applic TP DAILY [facility]; Protocol Last Admin: 07/03/18 09:19 Dose: 1 applic Docusate Sodium (Colace -) 100 mg PO [facility] Last Admin: 07/03/18 22:06 Dose: 100 mg Fluoxetine HCl (Prozac -) 20 mg PO DAILY [facility] Last Admin: 07/03/18 09:19 Dose: 20 mg Furosemide (Lasix -) 80 mg PO DAILY [facility] Aztreonam 1 gm/ Dextrose 50 mls @ 100 mls/hr IVPB BID [facility]; Protocol Last Admin: 07/03/18 22:05 Dose: 100 mls/hr Vancomycin HCl (Vancomycin (Pre-Docked)) 1,000 mg in 250 mls @ 166.667 mls/hr IVPB Q24H [facility]; Protocol Last Admin: 07/03/18 18:42 Dose: 166.667 mls/hr Metoprolol Succinate (Toprol Xl -) 25 mg PO DAILY [facility] Last Admin: 07/03/18 09:19 Dose: 25 mg Mirtazapine (Remeron -) 45 mg PO [facility] Last Admin: 07/03/18 22:06 Dose: 45 mg Pantoprazole Sodium (Protonix -) 20 mg PO DAILY [facility] Last Admin: 07/03/18 09:19 Dose: 20 mg Polyethylene Glycol (Miralax (For Daily Use) -) 17 gm PO BID [facility] Last Admin: 07/03/18 22:07 Dose: 17 gm Promethazine HCl (Phenergan Injection -) 12.5 mg IVPB Q6H PRN PRN Reason: NAUSEA AND/OR VOMITING Senna (Senna -) 2 tab PO HS [facility] Last Admin: 07/03/18 22:06 Dose: 2 tab Spironolactone (Aldactone -) 25 mg PO DAILY [facility] Sucralfate (Carafate -) 1 gm PO BIDAC [facility] Last Admin: 07/04/18 06:22 Dose: 1 gm Tramadol HCl (Ultram -) 25 mg PO Q12H PRN PRN Reason: PAIN LEVEL 7 - 10 Last Admin: 07/04/18 02:19 Dose: 25 mg Valsartan (Diovan -) 80 mg PO BID [facility] - Objective Vital Signs: Vital Signs Temperature 98.2 F 07/04/18 08:51 Pulse Rate 82 07/04/18 08:51 Respiratory Rate 20 07/04/18 08:51 Blood Pressure 124/61 07/04/18 08:51 O2 Sat by Pulse Oximetry (%) 97 07/03/18 09:00 Constitutional: Yes: Well Nourished, No Distress, Calm Cardiovascular: Yes: WNL, Regular Rate and Rhythm Respiratory: Yes: WNL, Regular, CTA Bilaterally. No: Accessory Muscle Use, SOB , Tachypnea, Wheezes Gastrointestinal: Yes: WNL, Normal Bowel Sounds, Soft, Abdomen, Obese. No: Distention, Tenderness Genitourinary: Yes: Shepard Present Edema: Yes Edema: RUE: 1+ Wound/Incision: Yes: Dressing Dry and Intact Neurological: Yes: WNL, Alert, Oriented, Pre-Existing Deficit (right hemiplegia) Psychiatric: Yes: WNL, Alert, Oriented Labs: CBC, BMP 07/03/18 12:39 07/04/18 07:10 INR, PTT INR 1.16 (0.83-1.09) H 06/24/18 15:49 Assessment/Plan (1) Sepsis Assessment/Plan: improved suspect 2/2 RLE wound mental status at baseline today chest xray neg, UA neg blood cultures neg antibx per ID Code(s): A41.9 - SEPSIS, UNSPECIFIED ORGANISM Qualifiers: Sepsis type: sepsis due to unspecified organism Qualified Code(s): A41.9 - Sepsis, unspecified organism (2) Metabolic encephalopathy Assessment/Plan: suspect 2/2 sepsis resolved Code(s): G93.41 - METABOLIC ENCEPHALOPATHY (3) UTI (urinary tract infection) Assessment/Plan: UC grew salmonella completed treatment Code(s): N39.0 - URINARY TRACT INFECTION, SITE NOT SPECIFIED Qualifiers: Urinary tract infection type: catheter-associated UTI Indwelling urinary catheter type: indwelling urethral catheter Encounter type: initial encounter Qualified Code(s): T83.511A - Infection and inflammatory reaction due to indwelling urethral catheter, initial encounter; N39.0 - Urinary tract infection , site not specified (4) Elevated troponin Assessment/Plan: ruled out Code(s): R74.8 - ABNORMAL LEVELS OF OTHER SERUM ENZYMES (5) Pulmonary embolism Assessment/Plan: subacute to chronic PE continue eliquis dapt stopped Code(s): I26.99 - OTHER PULMONARY EMBOLISM WITHOUT ACUTE COR PULMONALE Qualifiers: Pulmonary embolism type: unspecified Chronicity: chronic Acute cor pulmonale presence: without acute cor pulmonale Qualified Code(s): I27.82 - Chronic pulmonary embolism (6) CHF (congestive heart failure) Assessment/Plan: stable holding diuretics in the setting of eleni cardiology following Code(s): I50.9 - HEART FAILURE, UNSPECIFIED Qualifiers: Heart failure type: diastolic Heart failure chronicity: chronic Qualified Code(s): I50.32 - Chronic diastolic (congestive) heart failure (7) Atrial fibrillation and flutter Assessment/Plan: controlled eliquis/ toprol xl Code(s): I48.91 - UNSPECIFIED ATRIAL FIBRILLATION; I48.92 - UNSPECIFIED ATRIAL FLUTTER (8) Diabetes Assessment/Plan: controlled diab diet Code(s): E11.9 - TYPE 2 DIABETES MELLITUS WITHOUT COMPLICATIONS (9) HLD (hyperlipidemia) Assessment/Plan: controlled continue statin Code(s): E78.5 - HYPERLIPIDEMIA, UNSPECIFIED (10) HTN (hypertension) Assessment/Plan: controlled arb/spiranolactone restarted lasix on hold Code(s): I10 - ESSENTIAL (PRIMARY) HYPERTENSION Qualifiers: Qualified Code(s): I10 - Essential (primary) hypertension (11) Lower extremity pain, right Assessment/Plan: chronic Code(s): M79.604 - PAIN IN RIGHT LEG (12) History of stroke Assessment/Plan: hemiplegia Code(s): Z86.73 - PRSNL HX OF TIA (TIA), AND CEREB INFRC W/O RESID DEFICITS (13) Failure to thrive in adult Assessment/Plan: improving evaluated by manager program management high calorie diet glucerna Code(s): R62.7 - ADULT FAILURE TO THRIVE (14) Swelling of right upper extremity Assessment/Plan: chronic duplex neg case discussed w/ radiology regarding venogram, reports no clinical benefit in attaining this Code(s): M79.89 - OTHER SPECIFIED SOFT TISSUE DISORDERS (15) Decubitus skin ulcer Assessment/Plan: s/p debridement outpt wound care f/u Code(s): L89.90 - PRESSURE ULCER OF UNSPECIFIED SITE, UNSPECIFIED STAGE Qualifiers: Pressure injury location: calf Pressure injury stage: stage 3 Laterality : right Qualified Code(s): L89.893 - Pressure ulcer of other site, stage 3 (16) ELENI (acute kidney injury) Assessment/Plan: resolved ivf d/c'd encourage po intake Code(s): N17.9 - ACUTE KIDNEY FAILURE, UNSPECIFIED Dispo: SNF, pending ID clearance
[2018-07-04] MEDS: POLYETHYLENE GLYCOL 3350 119 GM BTL PO SCH ×2 (10:17→22:14)
[2018-07-04] MEDS: VALSARTAN 80 MG TABLET (UD) PO SCH ×2 (10:18→22:14)
[2018-07-04] MEDS ORDERED: FUROSEMIDE 40 MG TABLET (FP) PO SCH (13:23)
--- NOTE | 2018-07-04 13:24 | PN ---
Progress Note, Physician History of Present Illness: patient stable no new issues - Current Medication List Current Medications: Active Medications Acetaminophen (Tylenol -) 650 mg PO Q6H PRN PRN Reason: FEVER Last Admin: 07/01/18 09:49 Dose: 650 mg Al Hydroxide/Mg Hydroxide (Mylanta Oral Suspension -) 30 ml PO Q4H PRN PRN Reason: INDIGESTION Amino Acids (Prosource No Carb Liquid Pkt) 30 ml PO BID@0800,1730 [facility] Last Admin: 07/04/18 10:14 Dose: 30 ml Amlodipine Besylate (Norvasc -) 5 mg PO DAILY [facility] Last Admin: 07/04/18 10:24 Dose: 5 mg Apixaban (Eliquis -) 5 mg PO BID [facility] Last Admin: 07/04/18 10:15 Dose: 5 mg Atorvastatin Calcium (Lipitor -) 40 mg PO HS [facility] Last Admin: 07/03/18 22:06 Dose: 40 mg Bisacodyl (Dulcolax Suppository -) 10 mg RC PRN PRN PRN Reason: CONSTIPATION Last Admin: 07/01/18 14:31 Dose: 10 mg Collagenase (Santyl -) 1 applic TP DAILY [facility]; Protocol Last Admin: 07/04/18 10:16 Dose: 1 applic Docusate Sodium (Colace -) 100 mg PO [facility] Last Admin: 07/03/18 22:06 Dose: 100 mg Fluoxetine HCl (Prozac -) 20 mg PO DAILY [facility] Last Admin: 07/04/18 10:14 Dose: 20 mg Aztreonam 1 gm/ Dextrose 50 mls @ 100 mls/hr IVPB BID [facility]; Protocol Last Admin: 07/04/18 10:14 Dose: 100 mls/hr Vancomycin HCl (Vancomycin (Pre-Docked)) 1,000 mg in 250 mls @ 166.667 mls/hr IVPB Q24H [facility]; Protocol Last Admin: 07/03/18 18:42 Dose: 166.667 mls/hr Metoprolol Succinate (Toprol Xl -) 25 mg PO DAILY [facility] Last Admin: 07/04/18 10:15 Dose: 25 mg Mirtazapine (Remeron -) 45 mg PO [facility] Last Admin: 07/03/18 22:06 Dose: 45 mg Oxycodone HCl (Roxicodone -) 2.5 mg PO Q6H PRN PRN Reason: PAIN LEVEL 7 - 10 Pantoprazole Sodium (Protonix -) 20 mg PO DAILY [facility] Last Admin: 07/04/18 10:15 Dose: 20 mg Polyethylene Glycol (Miralax (For Daily Use) -) 17 gm PO BID [facility] Last Admin: 07/04/18 10:17 Dose: 17 gm Promethazine HCl (Phenergan Injection -) 12.5 mg IVPB Q6H PRN PRN Reason: NAUSEA AND/OR VOMITING Senna (Senna -) 2 tab PO HS [facility] Last Admin: 07/03/18 22:06 Dose: 2 tab Spironolactone (Aldactone -) 25 mg PO DAILY [facility] Sucralfate (Carafate -) 1 gm PO BIDAC [facility] Last Admin: 07/04/18 06:22 Dose: 1 gm Tramadol HCl (Ultram -) 25 mg PO Q12H PRN PRN Reason: PAIN LEVEL 7 - 10 Last Admin: 07/04/18 02:19 Dose: 25 mg Valsartan (Diovan -) 80 mg PO BID [facility] Last Admin: 07/04/18 10:18 Dose: 80 mg - Objective Vital Signs: Vital Signs Temperature 98.2 F 07/04/18 08:51 Pulse Rate 82 07/04/18 08:51 Respiratory Rate 20 07/04/18 08:51 Blood Pressure 124/61 07/04/18 08:51 O2 Sat by Pulse Oximetry (%) 95 07/04/18 09:00 Constitutional: Yes: No Distress, Calm Cardiovascular: Yes: S1, S2 Respiratory: Yes: Regular, CTA Bilaterally Gastrointestinal: Yes: Normal Bowel Sounds, Soft Musculoskeletal: Yes: Other Wound/Incision: Yes: Dressing Dry and Intact Neurological: Yes: Alert Psychiatric: Yes: Alert Labs: CBC, BMP 07/03/18 12:39 07/04/18 07:10 INR, PTT INR 1.16 (0.83-1.09) H 06/24/18 15:49 Assessment/Plan Assessment/Plan (1) Sepsis Code(s): A41.9 - SEPSIS, UNSPECIFIED ORGANISM Qualifiers: Sepsis type: sepsis due to unspecified organism Qualified Code(s): A41.9 - Sepsis, unspecified organism (2) Metabolic encephalopathy Code(s): G93.41 - METABOLIC ENCEPHALOPATHY (3) UTI (urinary tract infection) Code(s): N39.0 - URINARY TRACT INFECTION, SITE NOT SPECIFIED Qualifiers: Urinary tract infection type: catheter-associated UTI Indwelling urinary catheter type: indwelling urethral catheter Encounter type: initial encounter Qualified Code(s): T83.511A - Infection and inflammatory reaction due to indwelling urethral catheter, initial encounter; N39.0 - Urinary tract infection , site not specified (4) Elevated troponin Code(s): R74.8 - ABNORMAL LEVELS OF OTHER SERUM ENZYMES (5) Pulmonary embolism Code(s): I26.99 - OTHER PULMONARY EMBOLISM WITHOUT ACUTE COR PULMONALE Qualifiers: Pulmonary embolism type: unspecified Chronicity: chronic Acute cor pulmonale presence: without acute cor pulmonale Qualified Code(s): I27.82 - Chronic pulmonary embolism (6) CHF (congestive heart failure) Code(s): I50.9 - HEART FAILURE, UNSPECIFIED Qualifiers: Heart failure type: diastolic Heart failure chronicity: chronic Qualified Code(s): I50.32 - Chronic diastolic (congestive) heart failure (7) Atrial fibrillation and flutter Code(s): I48.91 - UNSPECIFIED ATRIAL FIBRILLATION; I48.92 - UNSPECIFIED ATRIAL FLUTTER (8) Diabetes Code(s): E11.9 - TYPE 2 DIABETES MELLITUS WITHOUT COMPLICATIONS (9) HLD (hyperlipidemia) Code(s): E78.5 - HYPERLIPIDEMIA, UNSPECIFIED (10) HTN (hypertension) Code(s): I10 - ESSENTIAL (PRIMARY) HYPERTENSION Qualifiers: Qualified Code(s): I10 - Essential (primary) hypertension (11) Lower extremity pain, right Code(s): M79.604 - PAIN IN RIGHT LEG (12) History of stroke Code(s): Z86.73 - PRSNL HX OF TIA (TIA), AND CEREB INFRC W/O RESID DEFICITS (13) Failure to thrive in adult Code(s): R62.7 - ADULT FAILURE TO THRIVE (14) Swelling of right upper extremity Code(s): M79.89 - OTHER SPECIFIED SOFT TISSUE DISORDERS (15) Decubitus skin ulcer Code(s): L89.90 - PRESSURE ULCER OF UNSPECIFIED SITE, UNSPECIFIED STAGE Qualifiers: Pressure injury location: calf Pressure injury stage: stage 3 Laterality : right Qualified Code(s): L89.893 - Pressure ulcer of other site, stage 3 (16) ELENI (acute kidney injury) Code(s): N17.9 - ACUTE KIDNEY FAILURE, UNSPECIFIED i think her source of infection could be coming from the skin patient tachy and febrile a worrisome picture plan continue current mgmt if patient remains stable will considering starting him on oral tomorrow rest as per the team
[2018-07-04] MEDS: oxyCODONE HCL 5 MG TABLET PO PRN ×2 (13:43→22:17)
--- NOTE | 2018-07-04 13:59 | PN ---
Progress Note (short form) - Note Progress Note: s: no cp sob palps dizzy, confused o: Vital Signs Period Temp Pulse Resp BP Sys/Vasquez Pulse Ox Last 24 Hr 97.7 F-98.2 F 79-82 19-20 114-141/57-61 95 NAD, calm JVD flat, neck supple CTAB, nl effort Irregular rhythm, regular rate nl s1, s2 no m/r/g + bs soft nt nd ext with trace edema, no clubbing or cyanosis no jaundice, diaphoresis Current Medications Acetaminophen (Tylenol -) 650 mg PO Q6H PRN PRN Reason: FEVER Last Admin: 07/01/18 09:49 Dose: 650 mg Al Hydroxide/Mg Hydroxide (Mylanta Oral Suspension -) 30 ml PO Q4H PRN PRN Reason: INDIGESTION Amino Acids (Prosource No Carb Liquid Pkt) 30 ml PO BID@0800,1730 [facility] Last Admin: 07/04/18 10:14 Dose: 30 ml Amlodipine Besylate (Norvasc -) 5 mg PO DAILY [facility] Last Admin: 07/04/18 10:24 Dose: 5 mg Apixaban (Eliquis -) 5 mg PO BID [facility] Last Admin: 07/04/18 10:15 Dose: 5 mg Atorvastatin Calcium (Lipitor -) 40 mg PO HS [facility] Last Admin: 07/03/18 22:06 Dose: 40 mg Bisacodyl (Dulcolax Suppository -) 10 mg RC PRN PRN PRN Reason: CONSTIPATION Last Admin: 07/01/18 14:31 Dose: 10 mg Collagenase (Santyl -) 1 applic TP DAILY [facility]; Protocol Last Admin: 07/04/18 10:16 Dose: 1 applic Docusate Sodium (Colace -) 100 mg PO HS [facility] Last Admin: 07/03/18 22:06 Dose: 100 mg Fluoxetine HCl (Prozac -) 20 mg PO DAILY [facility] Last Admin: 07/04/18 10:14 Dose: 20 mg Furosemide (Lasix -) 40 mg PO DAILY [facility] Aztreonam 1 gm/ Dextrose 50 mls @ 100 mls/hr IVPB BID [facility]; Protocol Last Admin: 07/04/18 10:14 Dose: 100 mls/hr Vancomycin HCl (Vancomycin (Pre-Docked)) 1,000 mg in 250 mls @ 166.667 mls/hr IVPB Q24H [facility]; Protocol Last Admin: 07/03/18 18:42 Dose: 166.667 mls/hr Metoprolol Succinate (Toprol Xl -) 25 mg PO DAILY [facility] Last Admin: 07/04/18 10:15 Dose: 25 mg Mirtazapine (Remeron -) 45 mg PO HS [facility] Last Admin: 07/03/18 22:06 Dose: 45 mg Oxycodone HCl (Roxicodone -) 2.5 mg PO Q6H PRN PRN Reason: PAIN LEVEL 7 - 10 Last Admin: 07/04/18 13:43 Dose: 2.5 mg Pantoprazole Sodium (Protonix -) 20 mg PO DAILY [facility] Last Admin: 07/04/18 10:15 Dose: 20 mg Polyethylene Glycol (Miralax (For Daily Use) -) 17 gm PO BID [facility] Last Admin: 07/04/18 10:17 Dose: 17 gm Promethazine HCl (Phenergan Injection -) 12.5 mg IVPB Q6H PRN PRN Reason: NAUSEA AND/OR VOMITING Senna (Senna -) 2 tab PO HS [facility] Last Admin: 07/03/18 22:06 Dose: 2 tab Spironolactone (Aldactone -) 25 mg PO DAILY [facility] Sucralfate (Carafate -) 1 gm PO BIDAC [facility] Last Admin: 07/04/18 06:22 Dose: 1 gm Tramadol HCl (Ultram -) 25 mg PO Q12H PRN PRN Reason: PAIN LEVEL 7 - 10 Last Admin: 07/04/18 02:19 Dose: 25 mg Valsartan (Diovan -) 80 mg PO BID [facility] Last Admin: 07/04/18 10:18 Dose: 80 mg EKG: A flutter, rbbb, rate 102 cta chest: subacute vs chronic right pe MIBI 10/10 (deena): AF/flutter, no STs; no ischemia (+ breast); nl EF, mild LVE, no TID SANTA 12/10: nl LV/RV, severe TANIKA, mild LAE; mild MR; mod-sev TR Echo 09/09: NL LV/RV; L/TANIKA, tethered MV with mod MR; mod TR; mod pHTN echo 08/2017: nl lv/rv, sev lae, mod tanika, mod mr/tr, mod phtn echo12/2017: tds; nl lv/rv, lae, mod mr Carotids 12/10: SANJAY 80-99% stenosis a/p: 82 yo f, patient of Dr. Coley, with history of persistent atrial fibrillation/flutter s/p cardioversion with reversion back to flutter, dCHF with mod pHTN, DM, HTN/HL and carotid stenosis s/p R CEA 07/2015 who was sent from [place] for FTT. wt loss, FTT: -? etiology. per hospitalist leg ulcers -s/p debridement uti: -abx per pmd RUE swelling/pain: -no DVT on sono -plan per hospitalist pe: -cta shows subacute vs chronic PE, pt now started on eliquis mixed syst/diast CHF: -pt with chronic HFpEF syndrome well-controlled with diuretics in past -presently with mod decr EF (40-45%) with echo evidence of high filling pressure and at least mod pulm HTN. - currently appears euvolemic, on admission reportedly mild JVD on exam and mild interstitial pulm congestion on CT - lasix was inc from 40 to 80 mg PO daily -global LV hypo, likely nonischemic etiology given many years of uncontrolled HTN (and DM?) prior to starting to see me few years back. (AF/flutter appears well-controlled, tachy-CMP unlikely). ? BUZZ--have to review prior office records re: PSGs, now s/p signif wt los. -plan to repeat ischemia eval with pharm MPI when acute issues resolve - metoprolol increased to 25 mg daily, continue - 1/3-4 holding arb, spironolactone, lasix in setting of ELENI (cr 0.9->1.8) - 1/ ELENI resolved, restart lasix at 40 mg daily (poor PO intake), valsartan, holding spironolactone, restart if renal function remains stable pos trop: -trop borderline elevated with flat trend and normal ck, levels similar to baseline in 2016. Not c/w acs. aflutter - rate controlled on bb - was on ac in past. had UGIB with gastric AVMs cauterized by dr montes--he cleared pt for trial of AC after that but she declined due to fears of bleeding. - now on AC given age-indeterminate PE. - if tolerates AC, would continue this indefinitely (holding asa and plavix, as these are not obligatory). HTN -resists increasing meds for long time as outpt -bp reasonably controlled here -rec target bp <130/80 given now with LV syst dysfunction - started on arb this admission valsartan 80 mg BID however now with ELENI, holding - restarted, ELENI resolved - amlodipine changed back to 5 mg daily, monitor BP s/p CEA - cont atorvastatin, asa
[2018-07-04] MEDS: VANCOMYCIN 1 GRAM (PRE-DOCKED) 1,000 MG/250 ML BAG IVPB SCH (17:17)
[2018-07-04] MEDS ORDERED: PT OWN MED DRAWER 7, Y5N ONE (22:12)
[2018-07-04] MEDS: MIRTAZAPINE 15 MG TABLET (FP) PO SCH (22:14)
[2018-07-04] MEDS: DOCUSATE SODIUM 100 MG CAPSULE (FP) PO SCH (22:14)
[2018-07-04] MEDS: ATORVASTATIN CA 40 MG TABLET (FP) PO SCH (22:14)
[2018-07-04] MEDS: SENNOSIDES 8.6MG TABLET (FP) PO SCH (22:15)
[2018-07-05] MEDS: SUCRALFATE 1 GM TABLET (FP) PO SCH ×2 (06:30→17:26)
[2018-07-05 07:50] LABS: BASO % 0.5 % (0-2.0); EOS % 4.4 % (0-4.5); HEMATOCRIT 27.6 % (32.4-45.2); HEMOGLOBIN 8.8 GM/dL (10.7-15.3); LYMPH % 30.8 % (8-40); MCH 28.6 pg (25.7-33.7); MCHC 31.7 g/dl (32.0-36.0); MEAN CELL VOLUME 90.4 fl (80-96); MEAN PLT VOLUME 9.3 fl (7.5-11.1); MONO % 8.6 % (3.8-10.2); NEUT % 55.7 % (42.8-82.8); PLATELET COUNT 271 K/MM3 (134-434); RBC 3.06 M/mm3 (3.60-5.2); RDW 16.6 % (11.6-15.6); WHITE BLOOD COUNT 6.5 K/mm3 (4.0-10.0)
[2018-07-05 08:03] LABS: ANION GAP 4 MMOL/L (8-16); BLOOD UREA NITROGEN 23 mg/dL (7-18); CALCIUM 7.8 mg/dL (8.5-10.1); CHLORIDE 111 mmol/L (98-107); CO2 25 mmol/L (21-32); CREATININE 0.5 mg/dL (0.55-1.3); GLUCOSE,RANDOM 103 mg/dL (74-106); POTASSIUM 3.9 mmol/L (3.5-5.1); SODIUM 139 mmol/L (136-145)
[2018-07-05] MEDS ORDERED: PT OWN MED DRAWER 7, Y5N ONE (09:09)
[2018-07-05] MEDS: AMINO ACIDS/PROTEIN HYDROLYS 30 ML LIQUID.PKT PO SCH ×2 (10:07→17:26)
[2018-07-05] MEDS: metoPROLOL SUCCINATE 25 MG TAB.SR.24H (FP) PO SCH (10:08)
[2018-07-05] MEDS: PANTOPRAZOLE 20 MG TABLET (FP) PO SCH (10:08)
[2018-07-05] MEDS: APIXABAN 5 MG TABLET PO SCH (10:08)
[2018-07-05] MEDS: VALSARTAN 80 MG TABLET (UD) PO SCH (10:08)
[2018-07-05] MEDS: amLODIPine BESYLATE 5 MG TABLET (FP) PO SCH (10:08)
[2018-07-05] MEDS: FLUoxetine HCL 20 MG CAPSULE (FP) PO SCH (10:09)
[2018-07-05] MEDS: POLYETHYLENE GLYCOL 3350 119 GM BTL PO SCH (10:09)
[2018-07-05] MEDS: AZTREONAM 1 GM in DEXTROSE 5%-WATER - 50 ML IVPB SCH (10:10)
[2018-07-05] MEDS: COLLAGENASE CLOSTRIDIUM HIST. 30 GRAMS TUBE TP SCH (10:13)
[2018-07-05] MEDS: oxyCODONE HCL 5 MG TABLET PO PRN (13:02)
--- NOTE | 2018-07-05 13:12 | PN ---
Progress Note, Physician History of Present Illness: patient stable no new issues had dirrhoea it seems after taking miralax yesterday - Current Medication List Current Medications: Active Medications Acetaminophen (Tylenol -) 650 mg PO Q6H PRN PRN Reason: FEVER Last Admin: 07/01/18 09:49 Dose: 650 mg Al Hydroxide/Mg Hydroxide (Mylanta Oral Suspension -) 30 ml PO Q4H PRN PRN Reason: INDIGESTION Amino Acids (Prosource No Carb Liquid Pkt) 30 ml PO BID@0800,1730 [facility] Last Admin: 07/05/18 10:07 Dose: 30 ml Amlodipine Besylate (Norvasc -) 5 mg PO DAILY [facility] Last Admin: 07/05/18 10:08 Dose: 5 mg Apixaban (Eliquis -) 5 mg PO BID [facility] Last Admin: 07/05/18 10:08 Dose: 5 mg Atorvastatin Calcium (Lipitor -) 40 mg PO HS [facility] Last Admin: 07/04/18 22:14 Dose: 40 mg Bisacodyl (Dulcolax Suppository -) 10 mg RC PRN PRN PRN Reason: CONSTIPATION Last Admin: 07/01/18 14:31 Dose: 10 mg Collagenase (Santyl -) 1 applic TP DAILY [facility]; Protocol Last Admin: 07/05/18 10:13 Dose: 1 applic Docusate Sodium (Colace -) 100 mg PO HS [facility] Last Admin: 07/04/18 22:14 Dose: Not Given Fluoxetine HCl (Prozac -) 20 mg PO DAILY [facility] Last Admin: 07/05/18 10:09 Dose: 20 mg Furosemide (Lasix -) 40 mg PO DAILY [facility] Last Admin: 07/05/18 10:08 Dose: 40 mg Aztreonam 1 gm/ Dextrose 50 mls @ 100 mls/hr IVPB BID [facility]; Protocol Last Admin: 07/05/18 10:10 Dose: 100 mls/hr Metoprolol Succinate (Toprol Xl -) 25 mg PO DAILY [facility] Last Admin: 07/05/18 10:08 Dose: 25 mg Mirtazapine (Remeron -) 45 mg PO HS [facility] Last Admin: 07/04/18 22:14 Dose: 45 mg Oxycodone HCl (Roxicodone -) 2.5 mg PO Q6H PRN PRN Reason: PAIN LEVEL 7 - 10 Last Admin: 07/05/18 13:02 Dose: 2.5 mg Pantoprazole Sodium (Protonix -) 20 mg PO DAILY [facility] Last Admin: 07/05/18 10:08 Dose: 20 mg Polyethylene Glycol (Miralax (For Daily Use) -) 17 gm PO BID [facility] Last Admin: 07/05/18 10:09 Dose: Not Given Promethazine HCl (Phenergan Injection -) 12.5 mg IVPB Q6H PRN PRN Reason: NAUSEA AND/OR VOMITING Last Admin: 07/05/18 11:56 Dose: 12.5 mg Senna (Senna -) 2 tab PO HS [facility] Last Admin: 07/04/18 22:15 Dose: Not Given Spironolactone (Aldactone -) 25 mg PO DAILY [facility] Last Admin: 07/05/18 10:08 Dose: 25 mg Sucralfate (Carafate -) 1 gm [facility] Last Admin: 07/05/18 06:30 Dose: 1 gm Tramadol HCl (Ultram -) 25 mg PO Q12H PRN PRN Reason: PAIN LEVEL 7 - 10 Last Admin: 07/04/18 17:17 Dose: 25 mg Valsartan (Diovan -) 80 mg PO BID [facility] Last Admin: 07/05/18 10:08 Dose: 80 mg - Objective Vital Signs: Vital Signs Temperature 98.9 F 07/05/18 06:06 Pulse Rate 82 07/05/18 06:06 Respiratory Rate 19 07/05/18 06:06 Blood Pressure 136/61 07/05/18 06:06 O2 Sat by Pulse Oximetry (%) 95 07/04/18 21:00 Constitutional: Yes: No Distress, Calm Cardiovascular: Yes: S1, S2 Respiratory: Yes: Regular, CTA Bilaterally Gastrointestinal: Yes: Normal Bowel Sounds, Soft Musculoskeletal: Yes: WNL Extremities: Yes: Other Neurological: Yes: Alert, Oriented Psychiatric: Yes: Alert, Oriented Labs: CBC, BMP 07/05/18 07:00 07/05/18 07:00 INR, PTT INR 1.16 (0.83-1.09) H 06/24/18 15:49 Assessment/Plan Assessment/Plan (1) Sepsis Code(s): A41.9 - SEPSIS, UNSPECIFIED ORGANISM Qualifiers: Sepsis type: sepsis due to unspecified organism Qualified Code(s): A41.9 - Sepsis, unspecified organism (2) Metabolic encephalopathy Code(s): G93.41 - METABOLIC ENCEPHALOPATHY (3) UTI (urinary tract infection) Code(s): N39.0 - URINARY TRACT INFECTION, SITE NOT SPECIFIED Qualifiers: Urinary tract infection type: catheter-associated UTI Indwelling urinary catheter type: indwelling urethral catheter Encounter type: initial encounter Qualified Code(s): T83.511A - Infection and inflammatory reaction due to indwelling urethral catheter, initial encounter; N39.0 - Urinary tract infection , site not specified (4) Elevated troponin Code(s): R74.8 - ABNORMAL LEVELS OF OTHER SERUM ENZYMES (5) Pulmonary embolism Code(s): I26.99 - OTHER PULMONARY EMBOLISM WITHOUT ACUTE COR PULMONALE Qualifiers: Pulmonary embolism type: unspecified Chronicity: chronic Acute cor pulmonale presence: without acute cor pulmonale Qualified Code(s): I27.82 - Chronic pulmonary embolism (6) CHF (congestive heart failure) Code(s): I50.9 - HEART FAILURE, UNSPECIFIED Qualifiers: Heart failure type: diastolic Heart failure chronicity: chronic Qualified Code(s): I50.32 - Chronic diastolic (congestive) heart failure (7) Atrial fibrillation and flutter Code(s): I48.91 - UNSPECIFIED ATRIAL FIBRILLATION; I48.92 - UNSPECIFIED ATRIAL FLUTTER (8) Diabetes Code(s): E11.9 - TYPE 2 DIABETES MELLITUS WITHOUT COMPLICATIONS (9) HLD (hyperlipidemia) Code(s): E78.5 - HYPERLIPIDEMIA, UNSPECIFIED (10) HTN (hypertension) Code(s): I10 - ESSENTIAL (PRIMARY) HYPERTENSION Qualifiers: Qualified Code(s): I10 - Essential (primary) hypertension (11) Lower extremity pain, right Code(s): M79.604 - PAIN IN RIGHT LEG (12) History of stroke Code(s): Z86.73 - PRSNL HX OF TIA (TIA), AND CEREB INFRC W/O RESID DEFICITS (13) Failure to thrive in adult Code(s): R62.7 - ADULT FAILURE TO THRIVE (14) Swelling of right upper extremity Code(s): M79.89 - OTHER SPECIFIED SOFT TISSUE DISORDERS (15) Decubitus skin ulcer Code(s): L89.90 - PRESSURE ULCER OF UNSPECIFIED SITE, UNSPECIFIED STAGE Qualifiers: Pressure injury location: calf Pressure injury stage: stage 3 Laterality : right Qualified Code(s): L89.893 - Pressure ulcer of other site, stage 3 (16) ELENI (acute kidney injury) Code(s): N17.9 - ACUTE KIDNEY FAILURE, UNSPECIFIED i think her source of infection could be coming from the skin patient tachy and febrile a worrisome picture plan will stop iv started on doxy will d/w the team rest as per the team
[2018-07-05 13:58] VITALS: PULSE 83
[2018-07-05 14:30] VITALS: BP 129/59; TEMP 99
--- NOTE | 2018-07-05 15:32 | DS ---
Physical Examination Vital Signs: Vital Signs Temperature 99.0 F 07/05/18 14:29 Pulse Rate 83 07/05/18 14:29 Respiratory Rate 18 07/05/18 09:30 Blood Pressure 129/59 L 07/05/18 14:29 O2 Sat by Pulse Oximetry (%) 95 07/04/18 21:00 Constitutional: Yes: Well Nourished, No Distress, Calm Cardiovascular: Yes: Regular Rate and Rhythm Respiratory: Yes: WNL, Regular, CTA Bilaterally. No: Accessory Muscle Use, SOB , Tachypnea, Wheezes Gastrointestinal: Yes: WNL, Normal Bowel Sounds, Soft. No: Distention, Tenderness, Vomiting Renal/: Yes: Shepard Present Edema: Yes Edema: RUE: 1+ Integumentary: Yes: Other (RLE ulcer) Wound/Incision: Yes: Dressing Dry and Intact Neurological: Yes: Alert, Oriented Psychiatric: Yes: Alert Labs: CBC, BMP 07/05/18 07:00 07/05/18 07:00 Discharge Summary Reason For Visit: ELEVATED TROPONIN LEVEL Current Active Problems ELENI (acute kidney injury) (Acute) Decubitus skin ulcer (Acute) Elevated troponin (Acute) Failure to thrive in adult (Acute) History of stroke (Acute) Metabolic encephalopathy (Acute) Pulmonary embolism (Acute) Sepsis (Acute) Swelling of right upper extremity (Acute) UTI (urinary tract infection) (Acute) Hospital Course: 82 year old female admitted from SNF for failure to thrive. Pt found to have UTI -salmonella, completed 7 day course of levaquin. RUE swelling noted, duplex negative, venogram ordered, however minimal clinical benefit in attaining this per radiologist. CTA revealed acute/sub acute PE, dapt stopped, pt started on eliquis. Pt evaluated by vascular/wound care for RLE ducubitus ulcer, pt underwent debridement, post op, pt noted to become septic w/ ams,tachycardia. Pt evaluated by ID, started on iv antibx, pt clinically improved, transitioned to po antibx. Pt evaluated by cardiology, echo revealed worsened lvef, lasix increased to 80mg initially, however pt noted to be in ELENI during her stay, multifactorial, case discussed w/ cardiology, lasix reduced to 40mg considering pt's variable po intake. ELENI resolved. Pt's mental status improved, eating meals however her eating pattern varies, encouraged po intake to pt and family. Discussed possibility of PEG if further deterioration in the future due to poor po intake, pt's daughter HCP and pt reports they would not want a PEG if needed. Pt is also DNR/DNI. Pt noted to have mild diarrhea after starting iv antibx, cdiff neg. Pt is cleared by ID, cardiology, vascular, and nephrology. Pt is medically stable for discharge from hospital to SNF. informed of pt's discharge and status. 40 minutes spent in discharge planning Condition: Stable - Instructions Diet, Activity, Other Instructions: dressing change daily: santyl to ankle wound, xeroform over tendons high calorie/high protein diet- give smaller meals w/ snacks glucerna supplements tid pro source bid encourage po intake, adequate hydration pt can easily get dehydrated as shes on multiple diuretics antibx x 5 more days try to minimize the number of meds pt taking if possible code status: pt is DNR/DNI, she also would not like a PEG if needed in the future, continue to discuss goals of care with family Referrals: Rajesh Mas MD [Primary Care Provider] - 1 Week Ubaldo Mena MD [Staff Physician] - 1 Week Bright Russo MD [Non Staff, Medical] - 2 Weeks Disposition: [facility] - Home Medications Comprehensive Discharge Medication List: Ambulatory Orders Amlodipine Besylate [Norvasc -] 5 mg PO DAILY 06/24/18 Baclofen 10 mg PO BID 06/24/18 Collagenase Clostridium Hist. [Santyl -] 1 applic TP DAILY 06/24/18 Docusate Sodium [Colace -] 100 mg PO HS 06/24/18 Fluoxetine HCl Liquid [Prozac 20mg/5mL Oral Solution -] 20 mg PO DAILY 06/24/18 Gabapentin 100 mg PO TID 06/24/18 Mirtazepine Alejandra Tabs [Remeron Soltab -] 45 mg PO DAILY 06/24/18 PE/Shark Liver Oil/Glyc/Wh.pet [Hemorrhoidal Cream] 1 applic RC Q8H PRN Polyethylene Glycol 3350 [Miralax 119 gm Btl -] 17 gm PO BID 06/24/18 Ranitidine [Zantac -] 150 mg PO DAILY 06/24/18 Sennosides [Senokot] 2 tab PO HS 06/24/18 Spironolactone [Aldactone -] 25 mg PO DAILY 06/24/18 metFORMIN HCL [Glucophage -] 500 mg PO HS 06/24/18 traMADol HCL [Ultram -] 50 mg PO TID PRN 06/24/18 Apixaban [Eliquis -] 5 mg PO BID tablet 06/29/18 Atorvastatin Ca [Lipitor] 40 mg PO HS tablet 06/29/18 Collagenase Clostridium Hist. [Santyl -] 1 applic TP DAILY tube 06/29/18 Metoprolol Succinate [Toprol XL -] 25 mg PO DAILY tab.sr.24h 06/29/18 Sucralfate [Carafate -] 1 gm PO BIDAC tablet 06/29/18 Valsartan [Diovan] 80 mg PO BID tablet 06/29/18 Amino Acids/Protein Hydrolys [Prosource No Carb Liquid Pkt] 30 ml PO BID@0800, 1730 packet 07/05/18 Bisacodyl Suppository [Dulcolax Suppository -] 10 mg RC PRN PRN supp.rect 07/05 Doxycycline Hyclate [Vibramycin -] 100 mg PO BID@1000,1800 5 Days capsule 07/05 Furosemide [Lasix -] 40 mg PO DAILY tablet 07/05/18 Pantoprazole Sodium [Protonix -] 20 mg PO DAILY tablet.ec 07/05/18
[2018-07-05] MEDS ORDERED: DOXYCYCLINE HYCLATE 100 MG CAPSULE PO SCH (18:00)
== END 2018-07-05 18:50 | DRG 981 ==
LOC: JER 14:45 → JERBED 20:32 → J4W 06-25 20:46 → J6S 06-28 16:56
PROVIDERS: ADMIT Internal Medicine; ATTEND Nurse Practitioner Family
PROC: 0LBN0ZZ Excision of Right Lower Leg Tendon, Open Approach (ICD-10-PCS; principal; 2018-06-30 10:30)
DX: T83.511A Infection and inflammatory reaction due to indwelling urethral catheter, initial encounter (principal); L89.513 Pressure ulcer of right ankle, stage 3; L89.893 Pressure ulcer of other site, stage 3; G93.41 Metabolic encephalopathy; I50.32 Chronic diastolic (congestive) heart failure; I27.82 Chronic pulmonary embolism; G81.93 Hemiplegia, unspecified affecting right nondominant side; I96 Gangrene, not elsewhere classified; I48.92 Unspecified atrial flutter; I69.351 Hemiplegia and hemiparesis following cerebral infarction affecting right dominant side; N17.9 Acute kidney failure, unspecified; Y83.9 Surgical procedure, unspecified as the cause of abnormal reaction of the patient, or of later complication, without mention of misadventure at the time of the procedure; N39.0 Urinary tract infection, site not specified; R62.51 Failure to thrive (child); I11.0 Hypertensive heart disease with heart failure; I48.91 Unspecified atrial fibrillation
CPT/HCPCS: 36415; 70450-TC; 71045-TC-FY; 71275-TC; 80048; 80053; 80061; 81003; 81015; 82272; 82550; 82570; 82728; 82962; 83540; 83550; 83721; 83735; 83880; 84100; 84134; 84156; 84300; 84443; 84466; 84484; 84540; 85025; 85027; 85610; 87040; 87070; 87077; 87086; 87186; 87205; 87324; 87449; 87804; 88304-TC; 93005; 93010; 93306-TC; 93970-TC; 93971; 94760; 97116-GP; 97162-GP; 99284-25; J0475; J7030

== ENCOUNTER 2018-08-04 12:42 | Day surgery (SDC) | payer OTHER ==
[2018-08-04] MEDS ORDERED: HEPARIN NA (PORCINE) 5,000 UNITS/ML 1ML VIAL ONE (14:11)
[2018-08-04] MEDS ORDERED: LIDOCAINE HCL 1%, 10 MG/ML (20ML VIAL) ONE ×2 (14:11)
[2018-08-04] MEDS ORDERED: DEXMEDETOMIDINE HCL 200 MCG/2 ML IVPB ONE (15:34)
[2018-08-04] MEDS ORDERED: MIDAZOLAM HCL 2 MG/2 ML SINGLE DOSE VIAL ONE (15:43)
[2018-08-04] MEDS ORDERED: METOPROLOL TARTRATE 5 MG/5 ML VIAL ONE (15:58)
[2018-08-04] MEDS ORDERED: ceFAZolin SODIUM 1 GM VIAL IVPB ONE (16:01)
[2018-08-04] MEDS ORDERED: LACTATED RINGERS SOLUTION 1,000 ML IV SCH ×2 (17:00→17:36)
--- NOTE | 2018-08-04 17:23 | OP ---
Operative Note - Note: Operative Date: 08/04/18 Pre-Operative Diagnosis: Right leg gangrene Operation: Aortogram, RLE angiogram, SFA orbital atherectomy, SFA DCB angioplasty, with sfa stent. Findings: SFA occlusion Post-Operative Diagnosis: Same as Pre-op Surgeon: Bright Russo Anesthesia: Fractional Estimated Blood Loss (mls): 50 Operative Report Dictated: Yes
--- NOTE | 2018-08-04 18:48 | HP ---
Admitting History and Physical - Admission Chief Complaint: right leg ulcer Limitations to Obtaining History: No Limitations - Past Medical History Cardiovascular: Yes: AFIB (Persistent. History of cardioversion. 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 History of Recent Travel: No Home Medications - Allergies Allergies/Adverse Reactions: Allergies Allergy/AdvReac Type Severity Reaction Status Date / Time pregabalin [From Lyrica] Allergy Severe Hives Verified 06/24/18 15:11 ceftriaxone sodium Allergy Intermediate Hives Verified 06/24/18 15:11 [From Rocephin] Penicillins Allergy Intermediate Hives Verified 06/24/18 15:11 chicken derived Allergy Mild Hives Verified 06/24/18 15:11 oats AdvReac Mild DIARRHEA Verified 06/24/18 15:11 - Home Medications Home Medications: Ambulatory Orders Amlodipine Besylate [Norvasc -] 5 mg PO DAILY 06/24/18 Baclofen 10 mg PO BID 06/24/18 Collagenase Clostridium Hist. [Santyl -] 1 applic TP DAILY 06/24/18 Docusate Sodium [Colace -] 100 mg PO HS 06/24/18 Gabapentin 100 mg PO TID 06/24/18 Mirtazepine Alejandra Tabs [Remeron Soltab -] 45 mg PO DAILY 06/24/18 PE/Shark Liver Oil/Glyc/Wh.pet [Hemorrhoidal Cream] 1 applic RC Q8H PRN Polyethylene Glycol 3350 [Miralax 119 gm Btl -] 17 gm PO BID 06/24/18 Sennosides [Senokot] 2 tab PO HS 06/24/18 Spironolactone [Aldactone -] 25 mg PO DAILY 06/24/18 metFORMIN HCL [Glucophage -] 500 mg PO HS 06/24/18 traMADol HCL [Ultram -] 50 mg PO TID PRN 06/24/18 Apixaban [Eliquis -] 5 mg PO BID tablet 06/29/18 Atorvastatin Ca [Lipitor] 40 mg PO HS tablet 06/29/18 Collagenase Clostridium Hist. [Santyl -] 1 applic TP DAILY tube 06/29/18 Metoprolol Succinate [Toprol XL -] 25 mg PO DAILY tab.sr.24h 06/29/18 Sucralfate [Carafate -] 1 gm PO BIDAC tablet 06/29/18 Valsartan [Diovan] 80 mg PO BID tablet 06/29/18 Amino Acids/Protein Hydrolys [Prosource No Carb Liquid Pkt] 30 ml PO BID@0800, 1730 packet 07/05/18 Bisacodyl Suppository [Dulcolax Suppository -] 10 mg RC PRN PRN supp.rect 07/05 Doxycycline Hyclate [Vibramycin -] 100 mg PO BID@1000,1800 5 Days capsule 07/05 Furosemide [Lasix -] 40 mg PO DAILY tablet 07/05/18 Pantoprazole Sodium [Protonix -] 20 mg PO DAILY tablet.ec 07/05/18 Oseltamivir Phosphate [Tamiflu -] 75 mg PO DAILY 08/01/18 Acetaminophen [Tylenol] 650 mg PO ASDIR 08/03/18 Family Disease History - Family Disease History Family Disease History: Other: Father (, hip fracture), Mother ( , unknown) Review of Systems - Review of Systems Constitutional: reports: No Symptoms Eyes: reports: No Symptoms HENT: reports: No Symptoms Neck: reports: No Symptoms Cardiovascular: reports: No Symptoms Respiratory: reports: No Symptoms Gastrointestinal: reports: No Symptoms Genitourinary: reports: No Symptoms Breasts: reports: No Symptoms Reported Musculoskeletal: reports: No Symptoms Integumentary: reports: No Symptoms Neurological: reports: No Symptoms Endocrine: reports: No Symptoms Hematology/Lymphatic: reports: No Symptoms Psychiatric: reports: No Symptoms Physical Examination Vital Signs: Vital Signs Temperature 14 F L 08/04/18 18:30 Pulse Rate 71 08/04/18 18:30 Respiratory Rate 15 08/04/18 18:15 Blood Pressure 134/107 H 08/04/18 18:30 O2 Sat by Pulse Oximetry (%) 100 08/04/18 18:30 Constitutional: Yes: Well Nourished, No Distress, Calm Eyes: Yes: WNL, Conjunctiva Clear, EOM Intact HENT: Yes: WNL, Atraumatic, Normocephalic Neck: Yes: WNL, Supple, Trachea Midline Cardiovascular: Yes: WNL, Regular Rate and Rhythm Respiratory: Yes: WNL, Regular, CTA Bilaterally Gastrointestinal: Yes: WNL, Normal Bowel Sounds Musculoskeletal: Yes: WNL Extremities: Yes: WNL, Other (right leg ulcer down to tendon) Edema: No Peripheral Pulses WNL: No Integumentary: Yes: WNL Neurological: Yes: WNL, Alert, Oriented ...Motor Strength: WNL Psychiatric: Yes: WNL Problem List - Problems (1) 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 Code(s): I70.239 - ATHSCL [place] ARTERIES OF RIGHT LEG W ULCER OF UNSP SITE
[2018-08-04] MEDS ORDERED: traMADol HCL 50 MG TABLET PO PRN (19:01)
[2018-08-04] MEDS: VALSARTAN 80 MG TABLET (UD) PO SCH (22:50)
[2018-08-04] MEDS: GABAPENTIN 100 MG CAPSULE (FP) PO SCH (22:50)
[2018-08-04] MEDS: APIXABAN 5 MG TABLET PO SCH (22:55)
[2018-08-05] MEDS: GABAPENTIN 100 MG CAPSULE (FP) PO SCH ×2 (06:29→13:33)
[2018-08-05] MEDS ORDERED: SPIRONOLACTONE 25 MG TABLET (FP) PO SCH (10:00)
[2018-08-05] MEDS ORDERED: MIRTAZAPINE 15 MG TABLET (FP) PO SCH (10:00)
[2018-08-05] MEDS ORDERED: amLODIPine BESYLATE 5 MG TABLET (FP) PO SCH (10:00)
[2018-08-05] MEDS ORDERED: COLLAGENASE CLOSTRIDIUM HIST. 30 GRAMS TUBE TP SCH (10:00)
[2018-08-05] MEDS ORDERED: metoPROLOL SUCCINATE 25 MG TAB.SR.24H (FP) PO SCH (10:00)
[2018-08-05] MEDS ORDERED: FUROSEMIDE 40 MG TABLET (FP) PO SCH (10:00)
--- NOTE | 2018-08-05 10:32 | PN ---
Progress Note (short form) - Note Progress Note: 82yo F s/p Rt leg angiogram with plasty and stent. Pt seen and examined at bedside. Pt denies any leg pain, or swelling at her groin. Denies fever, chills, n/v. Last Vital Signs Temp Pulse Resp BP Pulse Ox 98.6 F 111 H 20 127/85 94 L 08/05/18 07:03 08/05/18 07:03 08/05/18 07:03 08/05/18 07:03 08/05/18 01:58 PE: Gen: a&O x3 Resp: breathing comfortably Ext: Left groin, dressing in place incision is clean with no erythema or discharge. 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 Russo in clinic in 1 week Code(s): I70.239 - ATHSCL [place] ARTERIES OF RIGHT LEG W ULCER OF UNSP SITE
[2018-08-05] MEDS: VALSARTAN 80 MG TABLET (UD) PO SCH (11:10)
[2018-08-05] MEDS: APIXABAN 5 MG TABLET PO SCH (11:10)
[2018-08-05 15:18] VITALS: BMI 27.6
[2018-08-05 15:54] VITALS: BP 130/92; PULSE 98; TEMP 97.8
[2018-08-05] MEDS ORDERED: metFORMIN HCL 500 MG TABLET (FP) PO SCH (16:30)
--- NOTE | 2018-08-11 08:41 | OP ---
DATE OF OPERATION: 08/04/2018 PREOPERATIVE DIAGNOSIS: Right leg gangrene. POSTOPERATIVE DIAGNOSIS: Right leg gangrene. PROCEDURE: Aortogram, right lower extremity angiogram, superficial femoral artery orbital atherectomy, superficial femoral artery drug-coated balloon angioplasty with superficial femoral artery stent placement. FINDINGS: SFA occlusion. SURGEON: Bright Avina MD ANESTHESIA: Fractional. BLOOD LOSS: 50 mL. INDICATIONS: The patient is an 82-year-old female who has right herrera gangrene along with tendon exposure. Preoperative ultrasound showed that she has significant SFA occlusion. Patient came into ambulatory surgery. Patient was consented for the procedure understanding all risks, benefits, and alternatives and then taken to the operating room. PROCEDURE IN DETAIL: Once in the operating room, she was placed on the operating table in the supine manner, and the area of the left and right groin were prepped and draped in the sterile surgical manner. We then went ahead and injected 10 mL of lidocaine 1% over the left common femoral artery. We then used our micropuncture needle and punctured the left common femoral artery, and a micropuncture wire was inserted. Micropuncture sheath was inserted, and a traditional 5-[place] sheath was placed. We then placed a 0.035 floppy guidewire up into the aorta followed by Omniflush catheter. We then shot an aortogram via hand injection. Aortogram by hand injection showed that the aorta and the iliac arteries were without any disease. We then placed our 0.035 floppy guidewire up and over to the right common femoral artery, and the Omniflush catheter followed. We then shot an angiogram of the right lower extremity showing that the common femoral artery and the profunda were patent. The proximal SFA was patent, but the mid to distal SFA was occluded, and the popliteal artery was patent, and patient had 2-vessel runoff into the foot. At this point, we placed a 0.035 stiff guidewire down into the SFA. We removed our Omniflush catheter and placed a 6 x 45 crossover sheath, 5000 units of IV heparin were administered to the patient. We then brought our stiff guidewire down to the occlusion followed by a Quick-Cross catheter, and we were able to cross our occlusion and place the wire into the anterior tibial artery. We then exchanged the wire for a FiberWire. We then used a CSI orbital atherectomy device and performed atherectomy of the SFA on low and medium. We then went ahead and shot our completion angiogram showing that the SFA was still stenosed. We then went ahead and used a 5 x 6 drug-coated Lutonix balloon and we kept the balloon up for 2 minutes. Thereafter, completion angiogram showed that the SFA was now patent, but it was dissected. We then went ahead and placed a 6 x 6 LifeStent and ballooned it in place using a 5 x 6 balloon. Completion angiogram now showed that the SFA was patent, there was no dissection, and there was good brisk flow going all the way down to the foot. Patient had 2-vessel runoff at this point. No intervention was needed. At this point, there was no more intervention needed. We brought our sheath up and over. StarClose device was successfully deployed. In the left common femoral artery, pressure was held for 5 minutes, after which, there was no bleeding. The area was wet and dried, and a Dermabond was placed. The patient tolerated the procedure with no complications. Patient transferred to PACU in stable condition. Total blood loss 50 mL. BRIGHT AVINA DO [id number]
== END 2018-08-05 17:24 | disposition home or self-care (01) ==
LOC: JASU-SURG 12:42 → J8W 21:07 → JASU-SURG 08-05 17:24
PROVIDERS: ATTEND Surgery Vascular Surgery
PROC: 047K3D1 Dilation of Right Femoral Artery with Intraluminal Device, using Drug-Coated Balloon, Percutaneous Approach (ICD-10-PCS; principal; 2018-08-04 15:00)
DX: I70.261 Atherosclerosis of native arteries of extremities with gangrene, right leg (principal); E13.52 Other specified diabetes mellitus with diabetic peripheral angiopathy with gangrene; Z79.84 Long term (current) use of oral hypoglycemic drugs
CPT/HCPCS: 37227; C1877; 82962; 94760; J1644

== ENCOUNTER 2018-08-13 13:20 | Inpatient (IN) | payer OTHER ==
--- NOTE | 2018-08-13 14:48 | PDOC ---
History of Present Illness - General Chief Complaint: Altered Mental Status Stated Complaint: AMS Time Seen by Provider: 08/13/18 14:29 - History of Present Illness Initial Comments: 08/13/18 14:40 82 y/o F with PMH CVA (R hemiparesis; December 2017), DM, anemia, indwelling chu for urinary retention (April 2018), afib (on Eliquis), CHF, pulm HTN presents from [facility] for mental status changes and some left sided twiching. History unable to be obtained from patient and was thus taken from [place] paperwork and prior visits. Past History - Travel Traveled outside of the country in the last 30 days: No - Past Medical History Allergies/Adverse Reactions: Allergies Allergy/AdvReac Type Severity Reaction Status Date / Time pregabalin [From Lyrica] Allergy Severe Hives Verified 08/13/18 13:58 ceftriaxone sodium Allergy Intermediate Hives Verified 08/13/18 13:58 [From Rocephin] Penicillins Allergy Intermediate Hives Verified 08/13/18 13:58 chicken derived Allergy Mild Hives Verified 08/13/18 13:58 oats AdvReac Mild DIARRHEA Verified 08/13/18 13:58 Home Medications: Ambulatory Orders Amlodipine Besylate [Norvasc -] 5 mg PO DAILY 06/24/18 Baclofen 10 mg PO BID 06/24/18 Collagenase Clostridium Hist. [Santyl -] 1 applic TP DAILY 06/24/18 Docusate Sodium [Colace -] 100 mg PO HS 06/24/18 Gabapentin 100 mg PO TID 06/24/18 Mirtazepine Alejandra Tabs [Remeron Soltab -] 45 mg PO DAILY 06/24/18 PE/Shark Liver Oil/Glyc/Wh.pet [Hemorrhoidal Cream] 1 applic RC Q8H PRN Polyethylene Glycol 3350 [Miralax 119 gm Btl -] 17 gm PO BID 06/24/18 Sennosides [Senokot] 2 tab PO HS 06/24/18 Spironolactone [Aldactone -] 25 mg PO DAILY 06/24/18 metFORMIN HCL [Glucophage -] 500 mg PO HS 06/24/18 traMADol HCL [Ultram -] 50 mg PO TID PRN 06/24/18 Apixaban [Eliquis -] 5 mg PO BID tablet 06/29/18 Atorvastatin Ca [Lipitor] 40 mg PO HS tablet 06/29/18 Collagenase Clostridium Hist. [Santyl -] 1 applic TP DAILY tube 06/29/18 Sucralfate [Carafate -] 1 gm PO BIDAC tablet 06/29/18 Valsartan [Diovan] 80 mg PO BID tablet 06/29/18 Amino Acids/Protein Hydrolys [Prosource No Carb Liquid Pkt] 30 ml PO BID@0800, 1730 packet 07/05/18 Bisacodyl Suppository [Dulcolax Suppository -] 10 mg RC PRN PRN supp.rect 07/05 Doxycycline Hyclate [Vibramycin -] 100 mg PO BID@1000,1800 5 Days capsule 07/05 Furosemide [Lasix -] 40 mg PO DAILY tablet 07/05/18 Pantoprazole Sodium [Protonix -] 20 mg PO DAILY tablet.ec 07/05/18 Oseltamivir Phosphate [Tamiflu -] 75 mg PO DAILY 08/01/18 Acetaminophen [Tylenol] 650 mg PO ASDIR 08/03/18 Metoprolol Succinate [Toprol Xl] 0.5 tablet PO 08/13/18 Polyethylene Glycol 3350 [Miralax (For Daily Use) -] 17 gm PO BID 08/13/18 Remeron Soltab - 45 mg PO DAILY 08/13/18 Sucralfate [Carafate -] 1 gm PO BID 08/13/18 Anemia: Yes (iron deficiency, ascorbic acid) Asthma: No Cancer: No Cardiac Disorders: Yes (A FIB) CVA: Yes (right sided/pressure ulcers.) COPD: No CHF: No Dementia: No Diabetes: Yes GI Disorders: Yes (COLONIC POLYPS) Disorders: No HTN: Yes Hypercholesterolemia: Yes Kidney Stones: Yes Liver Disease: No Psychiatric Problems: Yes (depression) Seizures: No Thyroid Disease: No - Surgical History Abdominal Surgery: No Appendectomy: No Cardiac Surgery: Yes (CARDIOVERSION (12/10)) Cholecystectomy: No Lung Surgery: No Neurologic Surgery: No Orthopedic Surgery: No - Immunization History Immunization Up to Date: Yes - Suicide/Smoking/Psychosocial Hx Smoking History: Unknown if ever smoked Have you smoked in the past 12 months: No Number of Cigarettes Smoked Daily: 0 If you are a former smoker, when did you quit?: Never smoker Information on smoking cessation initiated: No Hx Alcohol Use: No Drug/Substance Use Hx: No Substance Use Type: None Hx Substance Use Treatment: No Review of Systems - Review of Systems Able to Perform ROS?: No *Physical Exam - Vital Signs Last Vital Signs Temp Pulse Resp BP Pulse Ox 98.8 F 114 H 18 137/75 100 08/13/18 13:48 08/13/18 13:48 08/13/18 13:48 08/13/18 13:48 08/13/18 13:48 - Physical Exam Comments: 08/13/18 14:50 GEN: Awake, minimally alert, nonresponsive to questioning, swats away sternal rub HEENT: PERRL, dry mucus membranes, no exudate noted NECK: supple, no lymphadenopathy HEART: Tachycardic, irregularly irregular LUNGS: CTA b/l no wheezes or rales ABDOMEN: Soft, difficult to assess tenderness, though patient swats away suprapubic palpation : Chu in place draining dark urine EXTREMITIES: Dependent edema noted in RUE, dressing of right foot in tact Moderate Sedation - Procedure Monitoring Vital Signs: Procedure Monitoring Vital Signs Temperature 98.8 F 08/13/18 13:48 Pulse Rate 114 H 08/13/18 13:48 Respiratory Rate 18 08/13/18 13:48 Blood Pressure 137/75 08/13/18 13:48 O2 Sat by Pulse Oximetry (%) 100 08/13/18 13:48 ED Treatment Course - LABORATORY CBC & Chemistry Diagram: 08/13/18 16:10 08/13/18 16:10 Medical Decision Making - Medical Decision Making 08/13/18 14:55 82 yo female with extensive PMH here from [facility] following change in mental status and some left sided twitching. Unable to obtain hx from patient. Will pursue infectious workup including CBC, CMP, CXR, UA. With twitching will CT head to assess for hemorrhage or ischemia. 08/13/18 15:[address] without any signs of acute bleed or infarct. Old left sided infarcts noted, unlikely related to acute presentation. 08/13/18 16:29 LE 3+, Urine WBC pending but likely will be elevated. Will send cultures and give dose of Levaquin following cultures due to past sensitivities and Rocephin/ PCN allergy. 08/13/18 16:54 Urine WBCs 384. Chemistry still pending. Will await result and discuss with hospitalist for likely admission due to clinical status, UTI, and need for IV Abx 08/13/18 19:00 Case discussed with Hospitalist who will accept for admission. EKG without concerning ST/Twave changes, hospitalist requests Stroke/tele unit due to subacute vs old left infarct on CT today. Will admit to stroke/tele. *DC/Admit/Observation/Transfer Diagnosis at time of Disposition: UTI (urinary tract infection) due to urinary indwelling catheter - Discharge Dispostion Condition at time of disposition: Guarded Decision to Admit order: Yes - Referrals Referrals: Rajesh Mas MD [Primary Care Provider] - - Patient Instructions - Post Discharge Activity
--- NOTE | 2018-08-13 15:37 | PDOC ---
Attending Attestation - Resident Resident Name: Mello Bishop - ED Attending Attestation I have performed the following: I have examined & evaluated the patient, The case was reviewed & discussed with the resident, I agree w/resident's findings & plan, Exceptions are as noted - HPI HPI: 08/13/18 15:35 82 F with h/o stroke w/ right sided hemiparesis and chu requirement, afib, CHF , HTN, pulmonary htn, anemia, DM, presenting from NH with lethargy and discolored urine. Pt in ED is arousable to painful stimuli but unable to contribute any history. Per NH, pt is at baseline awake and conversant but for several days has been progressively more lethargic. No fevers noted, but pt was found to have dark and ?bloody urine. - Physicial Exam PE: 08/13/18 15:36 GENERAL: Somnolent, in no acute distress. HEAD: No signs of trauma EYES: PERRLA, EOMI, sclera anicteric, conjunctiva clear ENT: Auricles normal inspection, hearing grossly normal, nares patent, oropharynx clear without exudates. Moist mucosa NECK: Nontender, no stepoffs, Normal ROM, supple, no lymphadenopathy, JVD, or masses LUNGS: Breath sounds equal, clear to auscultation bilaterally. No wheezes, and no crackles HEART: Regular rate and rhythm, normal S1 and S2, no murmurs, rubs or gallops ABDOMEN: Soft, nontender, normoactive bowel sounds. No guarding, no rebound. No masses EXTREMITIES: Normal range of motion, no edema. No clubbing or cyanosis. No cords, erythema, or tenderness NEUROLOGICAL: + R side weakness SKIN: Warm, Dry, normal turgor, no rashes or lesions noted. - Medical Decision Making 08/13/18 15:37 82 F with lethargy and discolored urine, found to be tachycardic in ED. Will evaluate for sepsis. Suspect urinary source. Also consider acute intracranial process. Pt exhibiting L arm twitching. ?focal seizures, but this is less likely as pt is awake and responsive during these episodes. - Labs - CXR, UA - CT head - IVF
[2018-08-13 16:17] LABS: BASO % 0.4 % (0-2.0); EOS % 0.4 % (0-4.5); HEMATOCRIT 33.5 % (32.4-45.2); LYMPH % 13.5 % (8-40); MCH 29.3 pg (25.7-33.7); MEAN PLT VOLUME 10.7 fl (7.5-11.1); MONO % 4.8 % (3.8-10.2); NEUT % 80.9 % (42.8-82.8); PLATELET COUNT 350 K/MM3 (134-434); RBC 3.76 M/mm3 (3.60-5.2); RDW 16.8 % (11.6-15.6)
[2018-08-13 16:18] LABS: URINE APPEARANCE CLOUDY; URINE BILIRUBIN NEGATIVE (<2.0 mg/dL); URINE COLOR AMBER; URINE GLUCOSE (UA) NEGATIVE (NEGATIVE); URINE KETONE NEGATIVE (NEGATIVE); URINE LEUK ESTERASE 3+ (NEGATIVE); URINE NITRITE NEGATIVE (NEGATIVE); URINE PROTEIN 1+ (NEGATIVE); URINE UROBILINOGEN NEGATIVE mg/dL (0.2-1.0)
[2018-08-13 16:38] LABS: URINE HYALINE CAST 12 /lpf; URINE MUCUS RARE; YEAST FEW
[2018-08-13 17:00] LABS: ALBUMIN 2.5 g/dl (3.4-5.0); ALK PHOS 108 U/L (45-117); BILIRUBIN,TOTAL 0.3 mg/dL (0.2-1); BLOOD UREA NITROGEN 27 mg/dL (7-18); CALCIUM 8.9 mg/dL (8.5-10.1); CHLORIDE 101 mmol/L (98-107); CO2 29 mmol/L (21-32); CREATININE 1.3 mg/dL (0.55-1.3); GLUCOSE,RANDOM 147 mg/dL (74-106); PHOSPHOROUS 4.3 mg/dL (2.5-4.9); SGPT/ALT 14 U/L (13-61); SODIUM 138 mmol/L (136-145)
[2018-08-13 17:01] LABS: ANION GAP 7 MMOL/L (8-16); MAGNESIUM 2.3 mg/dL (1.8-2.4); POTASSIUM 4.6 mmol/L (3.5-5.1); SGOT/AST 29 U/L (15-37); TOT PROT 9.1 g/dl (6.4-8.2)
--- NOTE | 2018-08-13 18:19 | HP ---
CHIEF COMPLAINT: sent from [facility] with AMS and ?left arm twitching PCP: Dr. Mas HISTORY OF PRESENT ILLNESS: 82 yof with mulitiple comorbidities including CVA (R hemiparesis; December 2017), NIDDM, anemia, indwelling chu for urinary retention (April), afib, CHF, pulm HTN,recently admitted to [facility] with failure to thrive, found with UTI/ subacute/chronic PE, then sepsis suspected from RLE wound infection and ELENI, and intermittent refusal to take PO and medications sent today with AMS and ? left arm twitching. Patient intermittently moaning, responds to name but unable to provide further information. Patient had recent RLE angiogram with stent placement with Dr. Russo on 2018. 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, bed bound, RLE decubitus ulcers with non healing wound s/p debridement in 06/2018, recent RLE angiogram with stenting on 08/04/2018, NIDDM, indwelling chu for urinary retention ([facility] 04/2018), Afib, CHF with recent reduced EF 40-45%, Pulmonary HTN, Subacute/Chronic PE on eliquis, failure to thrive, poor baseline functional /mental status PAST SURGICAL HISTORY: RLE wound debridement 06/2018, RLE angiogram with angioplasty/stent placement 08/04/2018, tonsillectomy Social History: Smoking: per charts, experimented with cigarettes in the past Alcohol: socially before Drugs: none [facility] resident, bed bound,poor baseline functional status Family History: Allergies pregabalin [From Lyrica] Allergy (Severe, Verified 08/13/18 13:58) Hives ceftriaxone sodium [From Rocephin] Allergy (Intermediate, Verified 08/13/18 13: 58) Hives Penicillins Allergy (Intermediate, Verified 08/13/18 13:58) Hives HIVES chicken derived Allergy (Mild, Verified 08/13/18 13:58) Hives oats Adverse Reaction (Mild, Verified 08/13/18 13:58) DIARRHEA HOME MEDICATIONS: Home Medications Medication Instructions Recorded Amlodipine Besylate [Norvasc -] 5 mg PO DAILY 06/24/18 Baclofen 10 mg PO BID 06/24/18 Collagenase Clostridium Hist. 1 applic TP DAILY 06/24/18 [Santyl -] Docusate Sodium [Colace -] 100 mg PO HS 06/24/18 Gabapentin 100 mg PO TID 06/24/18 Mirtazepine Alejandra Tabs [Remeron 45 mg PO DAILY 06/24/18 Soltab -] PE/Shark Liver Oil/Glyc/Wh.pet 1 applic RC Q8H PRN 06/24/18 [Hemorrhoidal Cream] Polyethylene Glycol 3350 [Miralax 17 gm PO BID 06/24/18 119 gm Btl -] Sennosides [Senokot] 2 tab PO HS 06/24/18 Spironolactone [Aldactone -] 25 mg PO DAILY 06/24/18 metFORMIN HCL [Glucophage -] 500 mg PO HS 06/24/18 traMADol HCL [Ultram -] 50 mg PO TID PRN 06/24/18 Apixaban [Eliquis -] 5 mg PO BID tablet 06/29/18 Atorvastatin Ca [Lipitor] 40 mg PO HS tablet 06/29/18 Collagenase Clostridium Hist. 1 applic TP DAILY tube 06/29/18 [Santyl -] Sucralfate [Carafate -] 1 gm PO BIDAC tablet 06/29/18 Valsartan [Diovan] 80 mg PO BID tablet 06/29/18 Amino Acids/Protein Hydrolys 30 ml PO BID@0800,1730 packet 07/05/18 [Prosource No Carb Liquid Pkt] Bisacodyl Suppository [Dulcolax 10 mg RC PRN PRN supp.rect 07/05/18 Suppository -] Doxycycline Hyclate [Vibramycin -] 100 mg PO BID@1000,1800 5 Days 07/05/18 capsule Furosemide [Lasix -] 40 mg PO DAILY tablet 07/05/18 Pantoprazole Sodium [Protonix -] 20 mg PO DAILY tablet.ec 07/05/18 Oseltamivir Phosphate [Tamiflu -] 75 mg PO DAILY 08/01/18 Acetaminophen [Tylenol] 650 mg PO ASDIR 08/03/18 Metoprolol Succinate [Toprol Xl] 0.5 tablet PO 08/13/18 Polyethylene Glycol 3350 [Miralax 17 gm PO BID 08/13/18 (For Daily Use) -] Remeron Soltab - 45 mg PO DAILY 08/13/18 Sucralfate [Carafate -] 1 gm PO BID 08/13/18 REVIEW OF SYSTEMS 12 point ROS attempted but unable given poor baseline mental status. PHYSICAL EXAMINATION Vital Signs - 24 hr 08/13/18 13:48 Temperature 98.8 F Pulse Rate 114 H Respiratory 18 Rate Blood Pressure 137/75 O2 Sat by Pulse 100 Oximetry (%) GENERAL: responds to name, moaning in bed, incomprehensible few words HEAD: Normal with no signs of trauma. EYES: left eyelid droop, moves eyes spontaneously EARS, NOSE, THROAT: Ears normal, nares patent, oropharynx clear without exudates. Moist mucous membranes. NECK: soft, supple, no JVD noted LUNGS: limited exam due to lack of co-operation, few rales HEART: S1S2 irregular, tachycardic ABDOMEN: Soft, nontender, not distended, normoactive bowel sounds, no guarding, no rebound, no masses. (initially patient noted with moaning on non specific palpation, when distracted, no suprapubic or CVA tenderness/voluntary or involuntary guarding or rigidity noted) MUSCULOSKELETAL: Right sided hemiparesis, limited exam. UPPER EXTREMITIES: no edema, positive pulses LOWER EXTREMITIES: RLE multiple decubitus ulcers on RLE lateral aspect, ulceration with mild foul smelling discharge in web space between 4th and 5th toe, multple ulcers with scant foul smelling discharge and minimal bleed, tender to touch, positive DP pulses bilaterally NEUROLOGICAL: Non specific moaning, responds to name, Right sided hemiparesis, further exam limited PSYCHIATRIC: not co-operative, does not follow commands SKIN: Warm, dry, normal turgor, no rashes or lesions noted, normal capillary refill. Laboratory Results - last 24 hr 08/13/18 08/13/18 08/13/18 14:54 16:10 16:10 WBC 8.0 RBC 3.76 Hgb 11.0 Hct 33.5 D MCV 89.0 MCH 29.3 MCHC 33.0 RDW 16.8 H Plt Count 350 D MPV 10.7 Absolute Neuts (auto) 6.4 Neutrophils % 80.9 D Lymphocytes % 13.5 D Monocytes % 4.8 Eosinophils % 0.4 Basophils % 0.4 Nucleated RBC % 0 PT with INR Cancelled INR Cancelled Sodium Potassium Chloride Carbon Dioxide Anion Gap BUN Creatinine Creat Clearance w eGFR Random Glucose Calcium Phosphorus Magnesium Total Bilirubin AST ALT Alkaline Phosphatase Total Protein Albumin Urine Color Maye Urine Appearance Cloudy Urine pH 5.0 Ur Specific [place] 1.018 Urine Protein 1+ H Urine Glucose (UA) Negative Urine Ketones Negative Urine Blood 2+ H Urine Nitrite Negative Urine Bilirubin Negative Urine Urobilinogen Negative Ur Leukocyte Esterase 3+ H Urine WBC (Auto) 384 Urine RBC (Auto) 35 Hyaline Casts 12 Urine Mucus Rare Urine Yeast Few 08/13/18 16:10 WBC RBC Hgb Hct MCV MCH MCHC RDW Plt Count MPV Absolute Neuts (auto) Neutrophils % Lymphocytes % Monocytes % Eosinophils % Basophils % Nucleated RBC % PT with INR INR Sodium 138 Potassium 4.6 Chloride 101 Carbon Dioxide 29 Anion Gap 7 L BUN 27 H Creatinine 1.3 Creat Clearance w eGFR 39.31 Random Glucose 147 H Calcium 8.9 Phosphorus 4.3 Magnesium 2.3 Total Bilirubin 0.3 AST 29 ALT 14 Alkaline Phosphatase 108 Total Protein 9.1 H Albumin 2.5 L Urine Color Urine Appearance Urine pH Ur Specific [place] Urine Protein Urine Glucose (UA) Urine Ketones Urine Blood Urine Nitrite Urine Bilirubin Urine Urobilinogen Ur Leukocyte Esterase Urine WBC (Auto) Urine RBC (Auto) Hyaline Casts Urine Mucus Urine Yeast CT head/CXR final read pending, discussed with radiology EKG pending ASSESSMENT/PLAN: 82 [facility] including [facility] (R hemiparesis; December 2017), NIDDM, anemia, indwelling chu for urinary retention (April), afib, CHF, pulm HTN,recently admitted to [facility] with failure to thrive, found with UTI/ subacute/chronic PE, then sepsis suspected from RLE wound infection and ELENI, and intermittent refusal to take PO and medications sent today with AMS and ? left arm twitching. -AMS, toxic metabolic encephalopathy from infection/hypovolumia, low suspicion of primary neurology progress (CVS vs seizur) -Complicated UTI with chronic indwelling chu -RLE decubitus ulcers with concern for ongoing infection -PAD s/p RLE angiogram with stent 08/04/2018 -ELENI, suspect hypovolumia +/- sepsis -?left arm twitching, r/o seizure, could be from prior h/o CVA and current infectious process -Subacute/Chronic PE -Atrial fibrillation -LV systolic dysfunction, EF 40-45% on recent echo -Pulmonary HTN -Intermittent failure to thrive Plan: Aztreonam. Urine/blood cultures. Chu changed in the ED. Repeat urine studies after chu change. Vascular surgery/ID consult. Gentle hydration, hold lasix, monitor volume status closely. Neurology input. Follow Hold ARB/losartan/Remeron Continue eliquis. Hold metformin, ISS,diabetic diet. Hold anti-psychotics till mental status improves. Patient with poor baseline function status, intermittent refusal to take PO and medications. recurrent admissions and overall poor quality of life. Palliative care consult to address overall goals of care including and will need to address transition to hospice if fails to improve Code status DNR/DNI, confirmed with daughter Dulce Cooper Dispo pending clinical improvement. Plan discussed with lucía Cardona in detail, all questions answered. Visit type - Emergency Visit Emergency Visit: Yes Care time: The patient presented to the Emergency Department on the above date and was hospitalized for further evaluation of their emergent condition. - New Patient This patient is new to me today: Yes Date on this admission: 08/13/18 - Critical Care Critical Care patient: No
[2018-08-13] MEDS ORDERED: BISACODYL 10 MG SUPP.RECT RC PRN (18:57)
[2018-08-13] MEDS ORDERED: ACETAMINOPHEN 325 MG TABLET (FP) PO PRN (18:59)
[2018-08-13] MEDS: SODIUM CHLORIDE 1,000 ML IV SCH (19:09)
[2018-08-13] MEDS ORDERED: AZTREONAM 2 GM in DEXTROSE 5%-WATER 100 ML IVPB ONE (19:15)
[2018-08-13 19:40] LABS: URINE APPEARANCE CLOUDY; URINE BILIRUBIN NEGATIVE (<2.0 mg/dL); URINE COLOR YELLOW; URINE GLUCOSE (UA) NEGATIVE (NEGATIVE); URINE KETONE NEGATIVE (NEGATIVE); URINE LEUK ESTERASE 1+ (NEGATIVE); URINE NITRITE NEGATIVE (NEGATIVE); URINE PROTEIN NEGATIVE (NEGATIVE); URINE UROBILINOGEN NEGATIVE mg/dL (0.2-1.0)
[2018-08-13 19:43] LABS: URINE HYALINE CAST 10 /lpf; URINE MUCUS RARE
[2018-08-13] MEDS: INSULIN SLIDING SCALE (NOVOLOG) 1 VIAL SQ SCH (22:39)
[2018-08-13] MEDS ORDERED: SUCRALFATE 1 GM TABLET (FP) ONE (22:48)
[2018-08-13] MEDS ORDERED: APIXABAN 5 MG TABLET PO ONE (22:48)
[2018-08-13] MEDS ORDERED: DOCUSATE SODIUM 100 MG CAPSULE (FP) PO ONE (22:49)
[2018-08-13] MEDS ORDERED: ATORVASTATIN CA 40 MG TABLET (FP) ONE (22:49)
[2018-08-13] MEDS: SUCRALFATE 1 GM TABLET (FP) PO SCH (23:01)
[2018-08-13] MEDS: APIXABAN 5 MG TABLET PO SCH (23:01)
[2018-08-13] MEDS: ATORVASTATIN CA 40 MG TABLET (FP) PO SCH (23:01)
[2018-08-13] MEDS: DOCUSATE SODIUM 100 MG CAPSULE (FP) PO SCH (23:01)
[2018-08-14] MEDS ORDERED: ACETAMINOPHEN 325 MG TABLET (FP) ONE (02:55)
[2018-08-14] MEDS: INSULIN SLIDING SCALE (NOVOLOG) 1 VIAL SQ SCH ×4 (07:04→22:19)
[2018-08-14] MEDS ORDERED: AZTREONAM 2 GM in DEXTROSE 5%-WATER - 100 ML IVPB ONE (08:00)
[2018-08-14] MEDS ORDERED: AZTREONAM 2 GM in DEXTROSE 5%-WATER 100 ML IVPB SCH (08:00)
[2018-08-14] MEDS: AMINO ACIDS/PROTEIN HYDROLYS 30 ML LIQUID.PKT PO SCH ×2 (08:04→17:36)
[2018-08-14] MEDS ORDERED: AZTREONAM 2 GM in DEXTROSE 5%-WATER 100 ML IVPB ONE (10:20)
[2018-08-14 10:22] LABS: BASO % 0.4 % (0-2.0); EOS % 2.4 % (0-4.5); HEMATOCRIT 29.6 % (32.4-45.2); HEMOGLOBIN 9.6 GM/dL (10.7-15.3); LYMPH % 29.3 % (8-40); MCH 29.2 pg (25.7-33.7); MCHC 32.4 g/dl (32.0-36.0); MEAN CELL VOLUME 90.1 fl (80-96); MEAN PLT VOLUME 10.8 fl (7.5-11.1); MONO % 7.4 % (3.8-10.2); NEUT % 60.5 % (42.8-82.8); PLATELET COUNT 349 K/MM3 (134-434); RBC 3.28 M/mm3 (3.60-5.2); RDW 16.9 % (11.6-15.6); WHITE BLOOD COUNT 5.8 K/mm3 (4.0-10.0)
--- NOTE | 2018-08-14 10:23 | PN ---
Physical Exam: SUBJECTIVE: Patient seen and examined, more awake, responds to name, pleasant, but unable to provide further details OBJECTIVE: Vital Signs Period Temp Pulse Resp BP Sys/Vasquez Pulse Ox Last 24 Hr 98.0 F-98.8 F 76-114 18-18 137-137/75-77 99-100 GENERAL: awake, responds to name, smiles and pleasant today Chest: poor effort, unable to appreciate rales or wheezing Abdomen:soft, NT, ND Extremities: RLE wounds unchanged Neuro: AA, oriented to self, right hemiparesis, more awake and pleasant today otherwise exam unchanged Laboratory Results - last 24 hr 08/13/18 08/13/18 08/13/18 14:54 16:10 16:10 WBC 8.0 RBC 3.76 Hgb 11.0 Hct 33.5 D MCV 89.0 MCH 29.3 MCHC 33.0 RDW 16.8 H Plt Count 350 D MPV 10.7 Absolute Neuts (auto) 6.4 Neutrophils % 80.9 D Lymphocytes % 13.5 D Monocytes % 4.8 Eosinophils % 0.4 Basophils % 0.4 Nucleated RBC % 0 PT with INR Cancelled INR Cancelled Sodium Potassium Chloride Carbon Dioxide Anion Gap BUN Creatinine Creat Clearance w eGFR Random Glucose Calcium Phosphorus Magnesium Total Bilirubin AST ALT Alkaline Phosphatase Total Protein Albumin Urine Color Maye Urine Appearance Cloudy Urine pH 5.0 Ur Specific [place] 1.018 Urine Protein 1+ H Urine Glucose (UA) Negative Urine Ketones Negative Urine Blood 2+ H Urine Nitrite Negative Urine Bilirubin Negative Urine Urobilinogen Negative Ur Leukocyte Esterase 3+ H Urine WBC (Auto) 384 Urine RBC (Auto) 35 Hyaline Casts 12 Urine Mucus Rare Urine Yeast Few 08/13/18 08/13/18 16:10 17:33 WBC RBC Hgb Hct MCV MCH MCHC RDW Plt Count MPV Absolute Neuts (auto) Neutrophils % Lymphocytes % Monocytes % Eosinophils % Basophils % Nucleated RBC % PT with INR INR Sodium 138 Potassium 4.6 Chloride 101 Carbon Dioxide 29 Anion Gap 7 L BUN 27 H Creatinine 1.3 Creat Clearance w eGFR 39.31 Random Glucose 147 H Calcium 8.9 Phosphorus 4.3 Magnesium 2.3 Total Bilirubin 0.3 AST 29 ALT 14 Alkaline Phosphatase 108 Total Protein 9.1 H Albumin 2.5 L Urine Color Yellow Urine Appearance Cloudy Urine pH 5.0 Ur Specific Silva 1.012 Urine Protein Negative Urine Glucose (UA) Negative Urine Ketones Negative Urine Blood Negative Urine Nitrite Negative Urine Bilirubin Negative Urine Urobilinogen Negative Ur Leukocyte Esterase 1+ H D Urine WBC (Auto) 23 Urine RBC (Auto) 1 Hyaline Casts 10 Urine Mucus Rare Urine Yeast Active Medications Generic Name Dose Route Start Last Admin Trade Name Freq PRN Reason Stop Dose Admin Acetaminophen 650 mg 08/13/18 18:59 08/14/18 02:57 Tylenol - PO 650 mg Q4H PRN Administration PAIN LEVEL 6-10 Amino Acids 30 ml 08/14/18 08:00 08/14/18 08:04 Prosource No Carb Liquid Pkt PO 30 ml BID@0800,1730 RAGINI Administration Apixaban 5 mg 08/13/18 22:00 08/13/18 23:01 Eliquis - PO 5 mg BID RAGINI Administration Atorvastatin Calcium 40 mg 08/13/18 22:00 08/13/18 23:01 Lipitor - PO 40 mg HS RAGINI Administration Bisacodyl 10 mg 08/13/18 18:57 Dulcolax Suppository - RC DAILY PRN CONSTIPATION Collagenase 1 applic 08/14/18 10:00 Santyl - TP DAILY RAGINI Protocol Docusate Sodium 100 mg 08/13/18 22:00 08/13/18 23:01 Colace - PO 100 mg HS RAGINI Administration Docusate Sodium 100 mg 08/14/18 22:00 Colace Liquid - PO BID RAGINI Sodium Chloride 1,000 mls @ 75 mls/hr 08/13/18 19:00 08/13/18 19:09 Normal Saline - IV 75 mls/hr ASDIR RAGINI Administration Aztreonam 2 gm/ Dextrose 100 mls @ 100 mls/hr 08/14/18 10:20 IVPB 08/14/18 11:19 ONCE ONE Protocol Insulin Aspart 1 vial 08/13/18 22:00 08/14/18 07:04 Novolog Vial Sliding Scale - SQ Not Given ACHS RAGINI Protocol Pantoprazole Sodium 20 mg 08/14/18 10:00 Protonix - PO DAILY RAGINI Senna 2 tab 08/14/18 22:00 Senna - PO HS RAGINI Sucralfate 1 gm 08/13/18 22:00 08/13/18 23:01 Carafate - PO 1 gm BID RAGINI Administration MRI brain results reviewed ASSESSMENT/PLAN: 82 yof with mulitiple comorbidities including CVA (R hemiparesis; December 2017), NIDDM, anemia, indwelling chu for urinary retention (April), afib, CHF, pulm HTN,recently admitted to [facility] with failure to thrive, found with UTI/ subacute/chronic PE, then sepsis suspected from RLE wound infection and ELENI, and intermittent refusal to take PO and medications sent today with AMS and ? left arm twitching. 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 Continue eliquis/statin. Carotid US. Had recent 2D echo. Follow up with neurology for further management and possible anti-epileptics. Neuro checks. Continue toprol. Resume other anti-HTN in 24 hours. Repeat urine studies after chu change better, suspect colonization. Emperic aztreonam, follow up urine cx. Vascular surgery/Wound care input for RLE wounds. D/c abx if no infection concerns from surgical standpoint and urine cx neg. Gentle hydration, hold lasix, monitor volume status closely. Bedside swallow eval, dysphagia puree diet with aspiration precautions accordingly. Speech/swallow input. Hold ARB/losartan Resume Remeron Hold metformin, ISS,diabetic diet. Patient with poor baseline function status, intermittent refusal to take PO and medications. recurrent admissions and overall poor quality of life. Palliative care consult to address overall goals of care including and will need to address transition to hospice if fails to improve Code status DNR/DNI, confirmed with daughter Dulce , also advance directives from [place] stating DNR. Dispo pending clinical improvement. Plan discussed with ED RN, all questions answered. Visit type - Emergency Visit Emergency Visit: Yes ED Registration Date: 08/13/18 Care time: The patient presented to the Emergency Department on the above date and was hospitalized for further evaluation of their emergent condition. - New Patient This patient is new to me today: No - Critical Care Critical Care patient: No - Discharge Referral Referred to [facility] No
[2018-08-14] MEDS: APIXABAN 5 MG TABLET PO SCH ×2 (10:32→23:05)
[2018-08-14] MEDS: SUCRALFATE 1 GM TABLET (FP) PO SCH ×2 (10:32→23:05)
[2018-08-14] MEDS: PANTOPRAZOLE 20 MG TABLET (FP) PO SCH (10:32)
[2018-08-14] MEDS: COLLAGENASE CLOSTRIDIUM HIST. 30 GRAMS TUBE TP SCH (10:33)
[2018-08-14 10:38] LABS: INR 1.83 (0.83-1.09); PROTHROMBIN TIME (PATIENT) 21.7 SEC (9.7-13.0)
[2018-08-14 10:45] LABS: ANION GAP 10 MMOL/L (8-16); BLOOD UREA NITROGEN 25 mg/dL (7-18); CALCIUM 8.8 mg/dL (8.5-10.1); CHLORIDE 103 mmol/L (98-107); CO2 26 mmol/L (21-32); GLUCOSE,RANDOM 128 mg/dL (74-106); MAGNESIUM 1.7 mg/dL (1.8-2.4); PHOSPHOROUS 3.1 mg/dL (2.5-4.9); POTASSIUM 4.2 mmol/L (3.5-5.1); SODIUM 139 mmol/L (136-145)
[2018-08-14] MEDS ORDERED: MAGNESIUM SULF 50% (8.12 MEQ/2 ML-1 GM VIAL) IVPB ONE (10:57)
[2018-08-14] MEDS ORDERED: MAGNESIUM 1GM/D5W - 2 GM/200 ML IVPB IVPB ONE (11:17)
--- NOTE | 2018-08-14 11:56 | CONSULT ---
Consult - text type - Consultation Consultation Note: Neurology CHIEF COMPLAINT: sent from [facility] with AMS and ?left arm twitching PCP: Dr. Mas HISTORY OF PRESENT ILLNESS: 82 y/o F with PMH CVA (R hemiparesis; December 2017), DM, anemia, indwelling chu for urinary retention (April 2018), afib (on Eliquis), CHF, pulm HTN presented from [facility]. On day of admission, unresponsive for mental status changes and some left sided twiching. Patient intermittently moaning, responded to name but unable to provide further information. Patient had recent RLE angiogram with stent placement with Dr. Russo on 08/04/2018. CT of Brain completed , awaiting final report. Brain MRI completed, results indicated acute/subacute infarction, L thalamic. Patient in ER, awake and alert, conversive, does not appear to have focal deficits and sensory remains intact. Is confused but unsure if this is her baseline. 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, bed bound, RLE decubitus ulcers with non healing wound s/p debridement in 06/2018, recent RLE angiogram with stenting on 08/04/2018, NIDDM, indwelling chu for urinary retention (sinec 04/2018), Afib, CHF with recent reduced EF 40-45%, Pulmonary HTN, Subacute/Chronic PE on eliquis, failure to thrive, poor baseline functional /mental status PAST SURGICAL HISTORY: RLE wound debridement 06/2018, RLE angiogram with angioplasty/stent placement 08/04/2018, tonsillectomy Social History: Smoking: per charts, experimented with cigarettes in the past Alcohol: socially before Drugs: none [facility] resident, bed bound,poor baseline functional status Allergies pregabalin [From Lyrica] Allergy (Severe, Verified 08/13/18 13:58) Hives ceftriaxone sodium [From Rocephin] Allergy (Intermediate, Verified 08/13/18 13: 58) Hives Penicillins Allergy (Intermediate, Verified 08/13/18 13:58) Hives HIVES chicken derived Allergy (Mild, Verified 08/13/18 13:58) Hives oats Adverse Reaction (Mild, Verified 08/13/18 13:58) DIARRHEA HOME MEDICATIONS: Home Medications Medication Instructions Recorded Amlodipine Besylate [Norvasc -] 5 mg PO DAILY 06/24/18 Baclofen 10 mg PO BID 06/24/18 Collagenase Clostridium Hist. 1 applic TP DAILY 06/24/18 [Santyl -] Docusate Sodium [Colace -] 100 mg PO HS 06/24/18 Gabapentin 100 mg PO TID 06/24/18 Mirtazepine Alejandra Tabs [Remeron 45 mg PO DAILY 06/24/18 Soltab -] PE/Shark Liver Oil/Glyc/Wh.pet 1 applic RC Q8H PRN 06/24/18 [Hemorrhoidal Cream] Polyethylene Glycol 3350 [Miralax 17 gm PO BID 06/24/18 119 gm Btl -] Sennosides [Senokot] 2 tab PO HS 06/24/18 Spironolactone [Aldactone -] 25 mg PO DAILY 06/24/18 metFORMIN HCL [Glucophage -] 500 mg PO HS 06/24/18 traMADol HCL [Ultram -] 50 mg PO TID PRN 06/24/18 Apixaban [Eliquis -] 5 mg PO BID tablet 06/29/18 Atorvastatin Ca [Lipitor] 40 mg PO HS tablet 06/29/18 Collagenase Clostridium Hist. 1 applic TP DAILY tube 06/29/18 [Santyl -] Sucralfate [Carafate -] 1 gm PO BIDAC tablet 06/29/18 Valsartan [Diovan] 80 mg PO BID tablet 06/29/18 Amino Acids/Protein Hydrolys 30 ml PO BID@0800,1730 packet 07/05/18 [Prosource No Carb Liquid Pkt] Bisacodyl Suppository [Dulcolax 10 mg RC PRN PRN supp.rect 07/05/18 Suppository -] Doxycycline Hyclate [Vibramycin -] 100 mg PO BID@1000,1800 5 Days 07/05/18 capsule Furosemide [Lasix -] 40 mg PO DAILY tablet 07/05/18 Pantoprazole Sodium [Protonix -] 20 mg PO DAILY tablet.ec 07/05/18 Oseltamivir Phosphate [Tamiflu -] 75 mg PO DAILY 08/01/18 Acetaminophen [Tylenol] 650 mg PO ASDIR 08/03/18 Metoprolol Succinate [Toprol Xl] 0.5 tablet PO 08/13/18 Polyethylene Glycol 3350 [Miralax 17 gm PO BID 08/13/18 (For Daily Use) -] Remeron Soltab - 45 mg PO DAILY 08/13/18 Sucralfate [Carafate -] 1 gm PO BID 08/13/18 REVIEW OF SYSTEMS 12 point ROS attempted but unable given poor baseline mental status. PHYSICAL EXAMINATION Vital Signs Temperature 98.1 F 08/14/18 11:00 Pulse Rate 90 08/14/18 11:00 Respiratory Rate 18 08/14/18 11:00 Blood Pressure 125/70 08/14/18 11:00 O2 Sat by Pulse Oximetry (%) 100 08/14/18 11:00 GENERAL: responds to name, moaning in bed, incomprehensible few words HEAD: Normal with no signs of trauma. EYES: left eyelid droop, moves eyes spontaneously EARS, NOSE, THROAT: Ears normal, nares patent, oropharynx clear without exudates. Moist mucous membranes. NECK: soft, supple, no JVD noted LUNGS: limited exam due to lack of co-operation, few rales HEART: S1S2 irregular, tachycardic ABDOMEN: Soft, nontender, not distended, normoactive bowel sounds, no guarding, no rebound, no masses. (initially patient noted with moaning on non specific palpation, when distracted, no suprapubic or CVA tenderness/voluntary or involuntary guarding or rigidity noted) MUSCULOSKELETAL: Right sided hemiparesis, limited exam. UPPER EXTREMITIES: no edema, positive pulses LOWER EXTREMITIES: RLE multiple decubitus ulcers on RLE lateral aspect, ulceration with mild foul smelling discharge in web space between 4th and 5th toe, multple ulcers with scant foul smelling discharge and minimal bleed, tender to touch, positive DP pulses bilaterally NEUROLOGICAL: Non specific moaning, responds to name, Right sided hemiparesis, further exam limited PSYCHIATRIC: not co-operative, does not follow commands SKIN: Warm, dry, normal turgor, no rashes or lesions noted, normal capillary refill. CBCD WBC 5.8 K/mm3 (4.0-10.0) 08/14/18 10:05 RBC 3.28 M/mm3 (3.60-5.2) L 08/14/18 10:05 Hgb 9.6 GM/dL (10.7-15.3) L 08/14/18 10:05 Hct 29.6 % (32.4-45.2) L 08/14/18 10:05 MCV 90.1 fl (80-96) 08/14/18 10:05 MCHC 32.4 g/dl (32.0-36.0) 08/14/18 10:05 RDW 16.9 % (11.6-15.6) H 08/14/18 10:05 Plt Count 349 K/MM3 (134-434) 08/14/18 10:05 MPV 10.8 fl (7.5-11.1) 08/14/18 10:05 CMP Sodium 139 mmol/L (136-145) 08/14/18 10:05 Potassium 4.2 mmol/L (3.5-5.1) 08/14/18 10:05 Chloride 103 mmol/L (98-107) 08/14/18 10:05 Carbon Dioxide 26 mmol/L (21-32) 08/14/18 10:05 Anion Gap 10 MMOL/L (8-16) 08/14/18 10:05 BUN 25 mg/dL (7-18) H 08/14/18 10:05 Creatinine 1.0 mg/dL (0.55-1.3) 08/14/18 10:05 Creat Clearance w eGFR 53.21 (>60) 08/14/18 10:05 Random Glucose 128 mg/dL (74-106) H 08/14/18 10:05 Calcium 8.8 mg/dL (8.5-10.1) 08/14/18 10:05 Total Bilirubin 0.3 mg/dL (0.2-1) 08/13/18 16:10 AST 29 U/L (15-37) 08/13/18 16:10 ALT 14 U/L (13-61) 08/13/18 16:10 Alkaline Phosphatase 108 U/L (45-117) 08/13/18 16:10 Total Protein 9.1 g/dl (6.4-8.2) H 08/13/18 16:10 Albumin 2.5 g/dl (3.4-5.0) L 08/13/18 16:10 Diagnostics: Head CT - completed, results pending Brain MRI - completed ASSESSMENT/PLAN: 82 y/o F with PMH CVA (R hemiparesis; December 2017), DM, anemia, indwelling chu for urinary retention (April 2018), afib (on Eliquis), CHF, pulm HTN presented from [facility]. On day of admission, unresponsive for mental status changes and some left sided twiching. Patient intermittently moaning, responded to name but unable to provide further information. Patient had recent RLE angiogram with stent placement with Dr. Russo on 08/04/2018. CT of Brain completed , awaiting final report. Brain MRI completed, results indicated acute/subacute infarction, L thalamic. Patient in ER, awake and alert, conversive, does not appear to have focal deficits and sensory remains intact. Is confused but unsure if this is her baseline. Continue medical mgmt for AMS, toxic metabolic encephalopathy. Likely infection (UTI, decub ulcer)/hypovolumia). Left arm twitch not visualized. Will hold off on adding medication. Has h/o Afib and possible further emboli causing in infarcts. Already on AC as noted, would be hesitant to add further blood thinners for risk of catastrophic bleed. Recent echo reviewed, tele monitoring, cardiology follow/eval recommended. Consider Carotid doppler check if not completed recently. Monitor blood pressure, can allow up to 16/90 for now. Continue statin, physical therapy as tolerated.
--- NOTE | 2018-08-14 12:31 | CON.ID ---
Consult - History of Present Illness History of Present Illness: 82 y.o. female with PMH of AFIB, CVA with Rt HP, Urinary retention with chronic indwelling chu, RLE ulcers s/p debridement last month, PAD s/p angioplasty/ stent on 08/04/18, CHF, pulm HTN, DM, Anemia presenting from [facility] with reported progressive lethargy over past 4 days with decreased responsiveness and Lt sided twitching. Patient currently in ER, verbally responsive, of questionable reliability. Denies chills, HUIZAR, cough/shortness of breath, chest pain, abd pain/ n/v/d. Noted to be afebrile. MRI results noted revealing subacute/acute nonhemorrhagic infarcts. RLE ulcers necrotic with malodor. U/A 3+ leukocytes/ wbc 384. 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: CVA Cardio/Vascular: Yes: AFIB, Pulmonary Hypertension, CHF, HTN, Hyperlipdemia, Other Renal/: Yes: Other (urinary retention) Heme/Onc: Yes: Anemia Musculoskeletal: Yes: Hemiparesis Endocrine: Yes: Diabetes Mellitus Dermatology: Yes: Cellulitis - Past Surgical History Past Surgical History: Yes: Tonsillectomy, Colonoscopy - Alcohol/Substance Use Hx Alcohol Use: No History of Substance Use: reports: None - Smoking History Smoking history: Unknown if ever smoked Have you smoked in the past 12 months: No Aproximately how many cigarettes per day: 0 If you are a former smoker, when did you quit?: Never smoker - Social History ADL: Independent 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 History of Recent Travel: No Home Medications - Allergies Allergies/Adverse Reactions: Allergies Allergy/AdvReac Type Severity Reaction Status Date / Time pregabalin [From Lyrica] Allergy Severe Hives Verified 08/13/18 13:58 ceftriaxone sodium Allergy Intermediate Hives Verified 08/13/18 13:58 [From Rocephin] Penicillins Allergy Intermediate Hives Verified 08/13/18 13:58 chicken derived Allergy Mild Hives Verified 08/13/18 13:58 oats AdvReac Mild DIARRHEA Verified 08/13/18 13:58 - Home Medications Home Medications: Ambulatory Orders Amlodipine Besylate [Norvasc -] 5 mg PO DAILY 06/24/18 Baclofen 10 mg PO BID 06/24/18 Docusate Sodium [Colace -] 100 mg PO HS 06/24/18 Gabapentin 100 mg PO TID 06/24/18 Mirtazepine Alejandra Tabs [Remeron Soltab -] 45 mg PO DAILY 06/24/18 PE/Shark Liver Oil/Glyc/Wh.pet [Hemorrhoidal Cream] 1 applic RC Q8H PRN Sennosides [Senokot] 2 tab PO HS 06/24/18 Spironolactone [Aldactone -] 25 mg PO DAILY 06/24/18 metFORMIN HCL [Glucophage -] 500 mg PO HS 06/24/18 traMADol HCL [Ultram -] 50 mg PO TID PRN 06/24/18 Apixaban [Eliquis -] 5 mg PO BID tablet 06/29/18 Atorvastatin Ca [Lipitor] 40 mg PO HS tablet 06/29/18 Collagenase Clostridium Hist. [Santyl -] 1 applic TP DAILY tube 06/29/18 Sucralfate [Carafate -] 1 gm PO BIDAC tablet 06/29/18 Valsartan [Diovan] 80 mg PO BID tablet 06/29/18 Amino Acids/Protein Hydrolys [Prosource No Carb Liquid Pkt] 30 ml PO BID@0800, 1730 packet 07/05/18 Bisacodyl Suppository [Dulcolax Suppository -] 10 mg RC PRN PRN supp.rect 07/05 Doxycycline Hyclate [Vibramycin -] 100 mg PO BID@1000,1800 5 Days capsule 07/05 Furosemide [Lasix -] 40 mg PO DAILY tablet 07/05/18 Pantoprazole Sodium [Protonix -] 20 mg PO DAILY tablet.ec 07/05/18 Oseltamivir Phosphate [Tamiflu -] 75 mg PO DAILY 08/01/18 Acetaminophen [Tylenol] 650 mg PO ASDIR 08/03/18 Metoprolol Succinate [Toprol Xl] 0.5 tablet PO DAILY 08/13/18 Polyethylene Glycol 3350 [Miralax (For Daily Use) -] 17 gm PO BID 08/13/18 Sucralfate [Carafate -] 1 gm PO BID 08/13/18 Family Disease History - Family Disease History Family Disease History: Other: Father (, hip fracture), Mother ( , unknown) Review of Systems - Review of Systems Constitutional: reports: Weakness. denies: No Symptoms, Chills, Diaphoresis, Fever, Lethargy, Loss of Appetite, Malaise, Night Sweats, Unintentional Wgt. Loss, Other Eyes: reports: No Symptoms. denies: Blind Spots, Blurred Vision, Double Vision , Eye Pain, Floaters, Photophobia, Recent Change in Vision, Other HENT: reports: No Symptoms. denies: Difficult Swallowing, Ear Discharge, Ear Pain, Epistaxis, Gingival Bleeding, Hearing Loss, Mouth Swelling, Nasal Congestion, Ocular Prosthesis, Throat Pain, Toothache, Ringing in Ears, Other Neck: reports: No Symptoms. denies: Decreased ROM, Lumps, Pain on Movement, Stiffness, Swollen Glands, Tenderness, Other Cardiovascular: reports: No Symptoms. denies: Chest Pain, Edema, Palpitations, Shortness of Breath, Other Respiratory: reports: No Symptoms Gastrointestinal: reports: No Symptoms. denies: Abdominal Pain, Bloating, Constipation, Diarrhea, Dysphagia, Indigestion, Melena, Nausea, Rectal Bleeding , Vomiting, Vomiting Blood, Other Genitourinary: reports: No Symptoms. denies: Burning, Discharge, Dysuria, Flank Pain, Frequency, Hematuria, Incontinence, Lesions, Menses, Pain, Testicular Mass, Testicular Pain, Testicular Swelling, Urgency, Vaginal Bleeding , Other Breasts: reports: No Symptoms Reported. denies: See HPI, Breast Implants, Discharge from Nipple, Lumps, Pain, Skin Changes, Other Musculoskeletal: reports: No Symptoms. denies: Back Pain, Crepitus, Decreased ROM, Extremity Pain, Joint Pain, Joint Swelling, Muscle Pain, Muscle Cramps, Muscle Weakness, Other Integumentary: reports: Wound (multiple RLE ulcers) Neurological: reports: Weakness. denies: No Symptoms, Change in LOC, Change in Speech, Confusion, Dizziness, Headache, Incoordination, Numbness, Parasthesia, Pre-Existing Deficit, Seizure, Syncope, Tremors, Unsteady Gait, Other Endocrine: reports: No Symptoms. denies: Excessive Sweating, Flushing, Increased Hunger, Increased Thirst, Intolerance to Cold, Intolerance to Heat, Unexplained Weight Gain, Unexplained Weight Loss, Other Hematology/Lymphatic: reports: No Symptoms. denies: Easily Bruised, Excessive Bleeding, Swollen Glands, Other Physical Exam Vital Signs: Vital Signs Temperature 98.1 F 08/14/18 11:00 Pulse Rate 90 08/14/18 11:00 Respiratory Rate 18 08/14/18 11:00 Blood Pressure 125/70 08/14/18 11:00 O2 Sat by Pulse Oximetry (%) 100 08/14/18 11:00 Constitutional: Yes: No Distress, Calm Eyes: Yes: Conjunctiva Clear, EOM Intact HENT: Yes: Atraumatic Neck: Yes: Supple Cardiovascular: Yes: Pulse Irregular Respiratory: Yes: Other (poor inspiratory effort, no audible r/r/w) Gastrointestinal: Yes: Normal Bowel Sounds, Soft Renal/: Yes: Chu Present Edema: Yes (RUE dependent edema) Wound/Incision: Yes: Other (Rt lateral leg ulcer necrotic slightly purulent/ malodorous Rt lower lat leg ulcer/clean Rt lateral heel necrotic Rt interdigital ulcer/purulent 4th/5th toe) Neurological: Yes: Alert, Weakness, Other (Rt hemiparesis) Labs: CBC, BMP 08/14/18 10:05 08/14/18 10:05 Laboratory Tests 08/13/18 08/13/18 08/13/18 14:54 16:10 16:10 WBC 8.0 RBC 3.76 Hgb 11.0 Hct 33.5 D MCV 89.0 MCH 29.3 MCHC 33.0 RDW 16.8 H Plt Count 350 D MPV 10.7 Absolute Neuts (auto) 6.4 Neutrophils % 80.9 D Lymphocytes % 13.5 D Monocytes % 4.8 Eosinophils % 0.4 Basophils % 0.4 Nucleated RBC % 0 PT with INR Cancelled INR Cancelled Sodium Potassium Chloride Carbon Dioxide Anion Gap BUN Creatinine Creat Clearance w eGFR Random Glucose Calcium Phosphorus Magnesium Total Bilirubin AST ALT Alkaline Phosphatase Total Protein Albumin Urine Color Maye Urine Appearance Cloudy Urine pH 5.0 Ur Specific Luana 1.018 Urine Protein 1+ H Urine Glucose (UA) Negative Urine Ketones Negative Urine Blood 2+ H Urine Nitrite Negative Urine Bilirubin Negative Urine Urobilinogen Negative Ur Leukocyte Esterase 3+ H Urine WBC (Auto) 384 Urine RBC (Auto) 35 Hyaline Casts 12 Urine Mucus Rare Urine Yeast Few 08/13/18 08/13/18 08/14/18 16:10 17:33 10:05 WBC 5.8 RBC 3.28 L Hgb 9.6 L Hct 29.6 L MCV 90.1 MCH 29.2 MCHC 32.4 RDW 16.9 H Plt Count 349 MPV 10.8 Absolute Neuts (auto) 3.5 Neutrophils % 60.5 D Lymphocytes % 29.3 D Monocytes % 7.4 Eosinophils % 2.4 D Basophils % 0.4 Nucleated RBC % 0 PT with INR INR Sodium 138 Potassium 4.6 Chloride 101 Carbon Dioxide 29 Anion Gap 7 L BUN 27 H Creatinine 1.3 Creat Clearance w eGFR 39.31 Random Glucose 147 H Calcium 8.9 Phosphorus 4.3 Magnesium 2.3 Total Bilirubin 0.3 AST 29 ALT 14 Alkaline Phosphatase 108 Total Protein 9.1 H Albumin 2.5 L Urine Color Yellow Urine Appearance Cloudy Urine pH 5.0 Ur Specific Luana 1.012 Urine Protein Negative Urine Glucose (UA) Negative Urine Ketones Negative Urine Blood Negative Urine Nitrite Negative Urine Bilirubin Negative Urine Urobilinogen Negative Ur Leukocyte Esterase 1+ H D Urine WBC (Auto) 23 Urine RBC (Auto) 1 Hyaline Casts 10 Urine Mucus Rare Urine Yeast 08/14/18 08/14/18 10:05 10:05 WBC RBC Hgb Hct MCV MCH MCHC RDW Plt Count MPV Absolute Neuts (auto) Neutrophils % Lymphocytes % Monocytes % Eosinophils % Basophils % Nucleated RBC % PT with INR 21.70 H INR 1.83 H Sodium 139 Potassium 4.2 Chloride 103 Carbon Dioxide 26 Anion Gap 10 BUN 25 H Creatinine 1.0 Creat Clearance w eGFR 53.21 Random Glucose 128 H Calcium 8.8 Phosphorus 3.1 Magnesium 1.7 L Total Bilirubin AST ALT Alkaline Phosphatase Total Protein Albumin Urine Color Urine Appearance Urine pH Ur Specific Luana Urine Protein Urine Glucose (UA) Urine Ketones Urine Blood Urine Nitrite Urine Bilirubin Urine Urobilinogen Ur Leukocyte Esterase Urine WBC (Auto) Urine RBC (Auto) Hyaline Casts Urine Mucus Urine Yeast Imaging - Results Chest X-ray: Report Reviewed MRI: Report Reviewed Problem List - Problems (1) UTI (urinary tract infection) due to urinary indwelling catheter Code(s): T83.511A - I/I REACT D/T INDWELLING URETHRAL CATHETER, INIT; N39.0 - URINARY TRACT INFECTION, SITE NOT SPECIFIED (2) ELENI (acute kidney injury) Code(s): N17.9 - ACUTE KIDNEY FAILURE, UNSPECIFIED (3) Acute CVA (cerebrovascular accident) Code(s): I63.9 - CEREBRAL INFARCTION, UNSPECIFIED (4) 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 Code(s): I70.239 - ATHSCL [place] ARTERIES OF RIGHT LEG W ULCER OF UNSP SITE (5) Atrial fibrillation and flutter Code(s): I48.91 - UNSPECIFIED ATRIAL FIBRILLATION; I48.92 - UNSPECIFIED ATRIAL FLUTTER (6) CHF (congestive heart failure) Code(s): I50.9 - HEART FAILURE, UNSPECIFIED Qualifiers: Heart failure type: diastolic Heart failure chronicity: chronic Qualified Code(s): I50.32 - Chronic diastolic (congestive) heart failure (7) Diabetes Code(s): E11.9 - TYPE 2 DIABETES MELLITUS WITHOUT COMPLICATIONS (8) Failure to thrive in adult Code(s): R62.7 - ADULT FAILURE TO THRIVE (9) HLD (hyperlipidemia) Code(s): E78.5 - HYPERLIPIDEMIA, UNSPECIFIED (10) HTN (hypertension) Code(s): I10 - ESSENTIAL (PRIMARY) HYPERTENSION Qualifiers: Qualified Code(s): I10 - Essential (primary) hypertension (11) History of stroke Code(s): Z86.73 - PRSNL HX OF TIA (TIA), AND CEREB INFRC W/O RESID DEFICITS (12) Swelling of right upper extremity Code(s): M79.89 - OTHER SPECIFIED SOFT TISSUE DISORDERS Assessment/Plan 82 y.o. female with PMH of AFIB, CVA with Rt HP, Urinary retention with chronic indwelling chu, RLE ulcers s/p debridement last month, PAD s/p angioplasty/ stent on 08/04/18, CHF, pulm HTN, DM, and anemia presenting with AMS/lethargy UTI with indwelling chu Infected/necrotic RLE ulcers with previous debridement PAD s/p angioplasty/stent Acute CVA DM Hx of CVA/Rt HP AFIB CHF PCN/Ceftriaxone allergies -- continue Aztreonam IV empirically for now -- follow up Urine/Blood cultures -- Wound cultures Rt lateral leg -- consider further debridement of leg ulcers -- continue wound care -- Neurology following Will follow Thank you
--- NOTE | 2018-08-14 12:52 | EKG ---
Test Reason : Blood Pressure : / mmHG Vent. Rate : 106 BPM Atrial Rate : 117 BPM P-R Int : 000 ms QRS Dur : 124 ms QT Int : 350 ms P-R-T Axes : 000 201 081 degrees QTc Int : 464 ms SUSPECT ARM LEAD REVERSAL, INTERPRETATION ASSUMES NO REVERSAL BASELINE ARTIFACT POOR DATA QUALITY, INTERPRETATION MAY BE ADVERSELY AFFECTED ATRIAL FLUTTER CANNOT RULE OUT ANTEROLATERAL INFARCT , AGE UNDETERMINED ABNORMAL ECG Confirmed by SAJI ELENA MD ([id number]) on 08/14/2018 12:52:01 PM Referred By: Confirmed By:SAJI ELENA MD
[2018-08-14] MEDS: AZTREONAM 1 GM in DEXTROSE 5%-WATER - 50 ML IVPB SCH (18:17)
[2018-08-14] MEDS: SODIUM CHLORIDE 1,000 ML IV SCH (20:07)
[2018-08-14] MEDS: ATORVASTATIN CA 40 MG TABLET (FP) PO SCH (23:05)
[2018-08-14] MEDS: SENNOSIDES 8.6MG TABLET (FP) PO SCH (23:05)
[2018-08-14] MEDS: DOCUSATE SODIUM 100 MG CAPSULE (FP) PO SCH (23:05)
[2018-08-14] MEDS: DOCUSATE NA 100 MG/10 ML UNIT-DOSE CUPS PO SCH (23:05)
[2018-08-15] MEDS: AZTREONAM 1 GM in DEXTROSE 5%-WATER - 50 ML IVPB SCH ×3 (02:31→19:00)
[2018-08-15 07:07] LABS: BASO % 0.4 % (0-2.0); EOS % 3.2 % (0-4.5); MCH 28.8 pg (25.7-33.7); MCHC 32.3 g/dl (32.0-36.0); MEAN CELL VOLUME 89.4 fl (80-96); MEAN PLT VOLUME 10.3 fl (7.5-11.1); MONO % 8.3 % (3.8-10.2); NEUT % 58.1 % (42.8-82.8); PLATELET COUNT 187 K/MM3 (134-434); RBC 1.95 M/mm3 (3.60-5.2); RDW 16.5 % (11.6-15.6); WHITE BLOOD COUNT 3.8 K/mm3 (4.0-10.0)
[2018-08-15 07:13] LABS: HEMATOCRIT 17.5 % (32.4-45.2); HEMOGLOBIN 5.6 GM/dL (10.7-15.3)
[2018-08-15] MEDS: INSULIN SLIDING SCALE (NOVOLOG) 1 VIAL SQ SCH ×4 (07:40→21:45)
[2018-08-15] MEDS ORDERED: PT OWN MED DRAWER 7, Y5N ONE (08:30)
[2018-08-15 09:19] LABS: HEMATOCRIT 28.6 % (32.4-45.2); MCH 28.9 pg (25.7-33.7); MCHC 33.1 g/dl (32.0-36.0); MEAN CELL VOLUME 87.3 fl (80-96); MEAN PLT VOLUME 9.9 fl (7.5-11.1); PLATELET COUNT 295 K/MM3 (134-434); RBC 3.28 M/mm3 (3.60-5.2); RDW 17.2 % (11.6-15.6); WHITE BLOOD COUNT 5.8 K/mm3 (4.0-10.0)
[2018-08-15 09:28] LABS: HEMOGLOBIN 9.5 GM/dL (10.7-15.3)
[2018-08-15] MEDS: AMINO ACIDS/PROTEIN HYDROLYS 30 ML LIQUID.PKT PO SCH ×2 (10:57→18:22)
[2018-08-15] MEDS: SUCRALFATE 1 GM TABLET (FP) PO SCH ×2 (11:04→21:45)
[2018-08-15] MEDS: APIXABAN 5 MG TABLET PO SCH ×2 (11:05→21:45)
[2018-08-15] MEDS: PANTOPRAZOLE 20 MG TABLET (FP) PO SCH (11:05)
[2018-08-15] MEDS: DOCUSATE NA 100 MG/10 ML UNIT-DOSE CUPS PO SCH ×2 (11:05→21:45)
--- NOTE | 2018-08-15 11:45 | PN ---
Teaching Attending Note Name of Resident: Dewayne Campos ATTENDING PHYSICIAN STATEMENT I saw and evaluated the patient. I reviewed the resident's note and discussed the case with the resident. I agree with the resident's findings and plan as documented with exceptions below. SUBJECTIVE: Patient seen and examined. awake, conversant, fully oriented, denies any pain. OBJECTIVE: Vital Signs Period Temp Pulse Resp BP Sys/Vasquez Pulse Ox Last 24 Hr 98.2 F 83-92 18-19 115-119/64-83 99-100 Intake & Output 08/12/18 08/13/18 08/14/18 08/15/18 23:59 23:59 23:59 23:59 Output Total 20 Balance -20 Weight 166 lb General: sitting in bed, awake, pleasant, fully oriented Chest: decreased effort, no rales or wheezing Abdomen:Soft, obese, NT Extremities: RLE decubitus wounds overall unchanged Active Medications Acetaminophen (Tylenol -) 650 mg PO Q4H PRN PRN Reason: PAIN LEVEL 6-10 Last Admin: 08/14/18 02:57 Dose: 650 mg Amino Acids (Prosource No Carb Liquid Pkt) 30 ml PO BID@0800,1730 [facility] Last Admin: 08/14/18 17:36 Dose: 30 ml Apixaban (Eliquis -) 5 mg PO BID [facility] Last Admin: 08/14/18 23:05 Dose: 5 mg Atorvastatin Calcium (Lipitor -) 40 mg PO HS [facility] Last Admin: 08/14/18 23:05 Dose: 40 mg Bisacodyl (Dulcolax Suppository -) 10 mg RC DAILY PRN PRN Reason: CONSTIPATION Collagenase (Santyl -) 1 applic TP DAILY [facility]; Protocol Last Admin: 08/14/18 10:33 Dose: Not Given Docusate Sodium (Colace -) 100 mg PO HS [facility] Last Admin: 08/14/18 23:05 Dose: 100 mg Docusate Sodium (Colace Liquid -) 100 mg PO BID [facility] Last Admin: 08/14/18 23:05 Dose: Not Given Sodium Chloride (Normal Saline -) 1,000 mls @ 75 mls/hr IV ASDIR [facility] Last Admin: 08/14/18 20:07 Dose: 75 mls/hr Aztreonam 1 gm/ Dextrose 50 mls @ 100 mls/hr IVPB Q8H-IV [facility]; Protocol Last Admin: 08/15/18 02:31 Dose: 100 mls/hr Insulin Aspart (Novolog Vial Sliding Scale -) 1 vial SQ ACHS [facility]; Protocol Last Admin: 08/15/18 07:40 Dose: Not Given Metoprolol Succinate (Toprol Xl -) 12.5 mg PO DAILY [facility] Pantoprazole Sodium (Protonix -) 20 mg PO DAILY [facility] Last Admin: 08/14/18 10:32 Dose: 20 mg Senna (Senna -) 2 tab PO HS [facility] Last Admin: 08/14/18 23:05 Dose: 2 tab Sucralfate (Carafate -) 1 gm PO BID [facility] Last Admin: 08/14/18 23:05 Dose: 1 gm Laboratory Results - last 24 hr 08/14/18 08/15/18 08/15/18 17:29 05:30 05:30 WBC 3.8 L RBC 1.95 L Hgb 5.6 L* Hct 17.5 L D MCV 89.4 MCH 28.8 MCHC 32.3 RDW 16.5 H Plt Count 187 D MPV 10.3 Absolute Neuts (auto) 2.2 Neutrophils % 58.1 Lymphocytes % 30.0 Monocytes % 8.3 Eosinophils % 3.2 Basophils % 0.4 Nucleated RBC % 0 Sodium Cancelled Potassium Cancelled Chloride Cancelled Carbon Dioxide Cancelled Anion Gap Cancelled BUN Cancelled Creatinine Cancelled Creat Clearance w eGFR Cancelled POC Glucometer 114 Random Glucose Cancelled Calcium Cancelled Phosphorus Cancelled Magnesium Cancelled Total Bilirubin Cancelled AST Cancelled ALT Cancelled Alkaline Phosphatase Cancelled Total Protein Cancelled Albumin Cancelled 08/15/18 08/15/18 09:10 11:40 WBC 5.8 RBC 3.28 L Hgb 9.5 L Hct 28.6 L D MCV 87.3 MCH 28.9 MCHC 33.1 RDW 17.2 H Plt Count 295 D MPV 9.9 Absolute Neuts (auto) Neutrophils % Lymphocytes % Monocytes % Eosinophils % Basophils % Nucleated RBC % Sodium Potassium Chloride Carbon Dioxide Anion Gap BUN Creatinine Creat Clearance w eGFR POC Glucometer 117 Random Glucose Calcium Phosphorus Magnesium Total Bilirubin AST ALT Alkaline Phosphatase Total Protein Albumin Microbiology 08/14/18 10:05 Blood - Peripheral Venous Blood Culture - Preliminary NO GROWTH OBTAINED AFTER 24 HOURS, INCUBATION TO CONTINUE FOR 4 DAYS. 08/14/18 10:05 Blood - Peripheral Venous Blood Culture - Preliminary NO GROWTH OBTAINED AFTER 24 HOURS, INCUBATION TO CONTINUE FOR 4 DAYS. 08/13/18 17:33 Urine - Urine Chu Urine Culture - Preliminary Non Lactose Fermenting Gnb Non Lactose Fermenting Gnb#2 08/13/18 16:01 Urine - Urine Chu Urine Culture - Preliminary Non Lactose Fermenting Gnb ASSESSMENT AND PLAN: 82 yof with mulitiple comorbidities including CVA (R hemiparesis; December 2017), NIDDM, anemia, indwelling chu for urinary retention (April), afib, CHF, pulm HTN,recently admitted to [facility] with failure to thrive, found with UTI/ subacute/chronic PE, then sepsis suspected from RLE wound infection and ELENI, and intermittent refusal to take PO and medications sent today with AMS and ? left arm twitching. -AMS, left arm arm twitching, suspect from new Acute/Subacute Left thalamic CVA extending into left cerebral peduncle -Left arm twitching, r/o seizure from focus from current/prior CVA -Complicated UTI vs colonization -RLE Decubitus ulcers s/p recent debridement/RLE angiogram with stenting, concern for secondary infection -PAD s/p RLE angiogram with stent 08/04/2018 -ELENI, suspect hypovolumia +/- sepsis -Subacute/Chronic PE diagnosed in 06/2018 -Atrial fibrillation -LV systolic dysfunction, EF 40-45% on recent echo -Pulmonary HTN -Intermittent failure to thrive Plan: h/h this AM suspect erroneous, repeat stable. No concerns for bleed or hemodynamic instability MRI brain noted, suspected etiology for AMS/left arm twitching. Rapid improvement in mental status, ?dehydrated on admission. Continue eliquis/statin. Carotid US results noted. Outpatient follow up.. Had recent 2D echo. Neurology input noted. Continue toprol. Hold valsartan/amlodipine for now given SBP 110s-120s. Repeat urine studies after chu change better, suspect colonization. Emperic aztreonam day 3, follow up urine cx. Vascular surgery/Wound care input for RLE wounds. Decrease IVF, d/c in 24hours if tolerating po well and no concerns. Bedside swallow eval, dysphagia puree diet with aspiration precautions accordingly. Mental status better, speech/swallow input. Continue Remeron Hold metformin, ISS,diabetic diet. DVTPPX eliquis Patient with poor baseline function status, intermittent refusal to take PO and medications. recurrent admissions and overall poor quality of life. Palliative care consult to address overall goals of care including and will need to address transition to hospice if fails to improve Code status DNR/DNI, confirmed with daughter Dulce , also advance directives from NH stating DNR. Dispo plan for d/c back to NH in 24 hours if improved, pending urine cx if no concerns. Plan discussed with RN, all questions answered.
[2018-08-15] MEDS: COLLAGENASE CLOSTRIDIUM HIST. 30 GRAMS TUBE TP SCH (11:47)
[2018-08-15] MEDS: SODIUM CHLORIDE 1,000 ML IV SCH ×2 (11:48→13:02)
--- NOTE | 2018-08-15 11:55 | PN ---
Progress Note, Physician - Current Medication List Current Medications: Active Medications Acetaminophen (Tylenol -) 650 mg PO Q4H PRN PRN Reason: PAIN LEVEL 6-10 Last Admin: 08/14/18 02:57 Dose: 650 mg Amino Acids (Prosource No Carb Liquid Pkt) 30 ml PO BID@0800,1730 [facility] Last Admin: 08/15/18 10:57 Dose: 30 ml Apixaban (Eliquis -) 5 mg PO BID [facility] Last Admin: 08/15/18 11:05 Dose: 5 mg Atorvastatin Calcium (Lipitor -) 40 mg PO HS [facility] Last Admin: 08/14/18 23:05 Dose: 40 mg Bisacodyl (Dulcolax Suppository -) 10 mg RC DAILY PRN PRN Reason: CONSTIPATION Collagenase (Santyl -) 1 applic TP DAILY [facility]; Protocol Last Admin: 08/15/18 11:47 Dose: Not Given Docusate Sodium (Colace -) 100 mg PO [facility] Last Admin: 08/14/18 23:05 Dose: 100 mg Docusate Sodium (Colace Liquid -) 100 mg PO BID [facility] Last Admin: 08/15/18 11:05 Dose: 100 mg Aztreonam 1 gm/ Dextrose 50 mls @ 100 mls/hr IVPB Q8H-IV [facility]; Protocol Last Admin: 08/15/18 11:02 Dose: 100 mls/hr Sodium Chloride (Normal Saline -) 1,000 mls @ 50 mls/hr IV ASDIR [facility] Insulin Aspart (Novolog Vial Sliding Scale -) 1 vial SQ ACHS [facility]; Protocol Last Admin: 08/15/18 11:47 Dose: Not Given Metoprolol Succinate (Toprol Xl -) 12.5 mg PO DAILY [facility] Pantoprazole Sodium (Protonix -) 20 mg PO DAILY [facility] Last Admin: 08/15/18 11:05 Dose: 20 mg Senna (Senna -) 2 tab PO HS [facility] Last Admin: 08/14/18 23:05 Dose: 2 tab Sucralfate (Carafate -) 1 gm PO BID [facility] Last Admin: 08/15/18 11:04 Dose: 1 gm - Objective Vital Signs: Vital Signs Temperature 98.2 F 08/14/18 15:00 Pulse Rate 83 08/15/18 06:32 Respiratory Rate 19 08/15/18 06:32 Blood Pressure 119/64 08/15/18 06:32 O2 Sat by Pulse Oximetry (%) 100 08/15/18 06:32 Labs: CBC, BMP 08/15/18 09:10 08/15/18 05:30 INR, PTT INR 1.83 (0.83-1.09) H 08/14/18 10:05
[2018-08-15] MEDS: metoPROLOL SUCCINATE 25 MG TAB.SR.24H (FP) PO SCH (13:00)
[2018-08-15 13:35] LABS: ANION GAP 6 MMOL/L (8-16); BLOOD UREA NITROGEN 23 mg/dL (7-18); CALCIUM 8.3 mg/dL (8.5-10.1); CHLORIDE 104 mmol/L (98-107); CO2 27 mmol/L (21-32); CREATININE 0.8 mg/dL (0.55-1.3); GLUCOSE,RANDOM 147 mg/dL (74-106); MAGNESIUM 2.1 mg/dL (1.8-2.4); PHOSPHOROUS 2.6 mg/dL (2.5-4.9); SODIUM 137 mmol/L (136-145)
--- NOTE | 2018-08-15 13:50 | EKG ---
Test Reason : Blood Pressure : / mmHG Vent. Rate : 086 BPM Atrial Rate : 250 BPM P-R Int : 000 ms QRS Dur : 116 ms QT Int : 386 ms P-R-T Axes : 000 -22 093 degrees QTc Int : 461 ms ATRIAL FLUTTER WITH VARIABLE A-V BLOCK WITH PREMATURE VENTRICULAR OR ABERRANTLY CONDUCTED COMPLEXES POSSIBLE ANTERIOR INFARCT (CITED ON OR BEFORE 19-JAN-2018) ABNORMAL ECG WHEN COMPARED WITH ECG OF 13-AUG-2018 19:10, COMPARED TO EKG NO SIGNIFICANT CHANGE IS FOUND Confirmed by JOSLYN MARS MD ([id number]) on 08/15/2018 1:50:25 PM Referred By: Confirmed By:JOSLYN MARS MD
--- NOTE | 2018-08-15 16:05 | PN ---
Physical Exam: SUBJECTIVE: Patient seen and examined pt feels good no new complaints overnight. afebrile OBJECTIVE: Vital Signs Period Temp Pulse Resp BP Sys/Vasquez Pulse Ox Last 24 Hr 98.2 F-98.4 F 82-117 17-20 119-129/64-75 98-100 GENERAL: The patient is awake, alert, and fully oriented, in no acute distress. ENT: moist mucous membranes LUNGS: Breath sounds equal, clear to auscultation bilaterally, no wheezes, no crackles, no accessory muscle use. HEART: Regular rate and rhythm, S1, S2 without murmur, rub or gallop. ABDOMEN: Soft, nontender, nondistended, normoactive bowel sounds, no guarding, no rebound, PSYCH: Normal mood, SKIN: Warm, dry, Laboratory Results - last 24 hr 08/14/18 08/15/18 08/15/18 17:29 05:30 05:30 WBC 3.8 L RBC 1.95 L Hgb 5.6 L* Hct 17.5 L D MCV 89.4 MCH 28.8 MCHC 32.3 RDW 16.5 H Plt Count 187 D MPV 10.3 Absolute Neuts (auto) 2.2 Neutrophils % 58.1 Lymphocytes % 30.0 Monocytes % 8.3 Eosinophils % 3.2 Basophils % 0.4 Nucleated RBC % 0 Sodium Cancelled Potassium Cancelled Chloride Cancelled Carbon Dioxide Cancelled Anion Gap Cancelled BUN Cancelled Creatinine Cancelled Creat Clearance w eGFR Cancelled POC Glucometer 114 Random Glucose Cancelled Calcium Cancelled Phosphorus Cancelled Magnesium Cancelled Total Bilirubin Cancelled AST Cancelled ALT Cancelled Alkaline Phosphatase Cancelled Total Protein Cancelled Albumin Cancelled 08/15/18 08/15/18 08/15/18 09:10 11:40 12:20 WBC 5.8 RBC 3.28 L Hgb 9.5 L Hct 28.6 L D MCV 87.3 MCH 28.9 MCHC 33.1 RDW 17.2 H Plt Count 295 D MPV 9.9 Absolute Neuts (auto) Neutrophils % Lymphocytes % Monocytes % Eosinophils % Basophils % Nucleated RBC % Sodium 137 Potassium 4.0 Chloride 104 Carbon Dioxide 27 Anion Gap 6 L BUN 23 H Creatinine 0.8 Creat Clearance w eGFR > 60 POC Glucometer 117 Random Glucose 147 H Calcium 8.3 L Phosphorus 2.6 Magnesium 2.1 Total Bilirubin AST ALT Alkaline Phosphatase Total Protein Albumin Active Medications Generic Name Dose Route Start Last Admin Trade Name Freq PRN Reason Stop Dose Admin Acetaminophen 650 mg 08/13/18 18:59 08/14/18 02:57 Tylenol - PO 650 mg Q4H PRN Administration PAIN LEVEL 6-10 Amino Acids 30 ml 08/14/18 08:00 08/15/18 10:57 Prosource No Carb Liquid Pkt PO 30 ml BID@0800,1730 [facility] Administration Apixaban 5 mg 08/13/18 22:00 08/15/18 11:05 Eliquis - PO 5 mg BID [facility] Administration Atorvastatin Calcium 40 mg 08/13/18 22:00 08/14/18 23:05 Lipitor - PO 40 mg HS [facility] Administration Bisacodyl 10 mg 08/13/18 18:57 Dulcolax Suppository - RC DAILY PRN CONSTIPATION Collagenase 1 applic 08/14/18 10:00 08/15/18 11:47 Santyl - TP Not Given DAILY [facility] Protocol Docusate Sodium 100 mg 08/13/18 22:00 08/14/18 23:05 Colace - PO 100 mg HS [facility] Administration Docusate Sodium 100 mg 08/14/18 22:00 08/15/18 11:05 Colace Liquid - PO 100 mg BID [facility] Administration Aztreonam 1 gm/ Dextrose 50 mls @ 100 mls/hr 08/14/18 18:00 08/15/18 11:02 IVPB 100 mls/hr Q8H-IV [facility] Administration Protocol Sodium Chloride 1,000 mls @ 50 mls/hr 08/15/18 11:49 08/15/18 13:02 Normal Saline - IV 50 mls/hr ASDIR [facility] Administration Insulin Aspart 1 vial 08/13/18 22:00 08/15/18 11:47 Novolog Vial Sliding Scale - SQ Not Given ACHS [facility] Protocol Metoprolol Succinate 12.5 mg 08/15/18 11:45 08/15/18 13:00 Toprol Xl - PO 12.5 mg DAILY [facility] Administration Pantoprazole Sodium 20 mg 08/14/18 10:00 08/15/18 11:05 Protonix - PO 20 mg DAILY [facility] Administration Senna 2 tab 08/14/18 22:00 08/14/18 23:05 Senna - PO 2 tab HS [facility] Administration Sucralfate 1 gm 08/13/18 22:00 08/15/18 11:04 Carafate - PO 1 gm BID [facility] Administration ASSESSMENT/PLAN: ASSESSMENT AND PLAN: 82 yof with mulitiple comorbidities including CVA (R hemiparesis; December 2017), NIDDM, anemia, indwelling chu for urinary retention (April), afib, CHF, pulm HTN,recently admitted to [facility] with failure to thrive, found with UTI/ subacute/chronic PE, then sepsis suspected from RLE wound infection and ELENI, and intermittent refusal to take PO and medications sent today with AMS and ? left arm twitching. -AMS, left arm arm twitching, AMS could aslo from dehydration as it has rapid improvement after iv hydration AMS resolved, AOx3 MRI brain noted acute/subacute thalmic stroke neurology on case carotid doppler reviewed. echo done recently :LV systolic dysfunction, EF 40-45% on recent echo as an outpatinet. continue with eliquis, statin, toprol hold valsartan/ amlodipine for now -Complicated UTI vs colonization continue with antibiotics aztreonam. started on 08/13/18 follow up culture ID on case HLD; continue lipitor -RLE Decubitus ulcers s/p recent debridement/RLE angiogram with stenting, concern for secondary infection change position q2h wound care consult. PAD s/p RLE angiogram with stent 08/04/2018 ELENI, suspect hypovolumia +/- sepsis iv hydration monitor cr avoid nephrotoxic drugs -Subacute/Chronic PE diagnosed in 06/2018 continue eliquis -Atrial fibrillation continue eliquis continue toprol xl 12.5 ecxho reviewed from 06/27 DM hold metfornmin for now bgm insulin sliding scale diabetic diet fluid: ns50ml/hr electrolyte: repeat in am nutrition ; diabetic diet dvt pro: on elequis gi pro protonix 20 daily Visit type - Emergency Visit Emergency Visit: Yes ED Registration Date: 08/13/18 Care time: The patient presented to the Emergency Department on the above date and was hospitalized for further evaluation of their emergent condition. - New Patient This patient is new to me today: Yes Date on this admission: 08/15/18 - Critical Care Critical Care patient: No
[2018-08-15] MEDS: DOCUSATE SODIUM 100 MG CAPSULE (FP) PO SCH (21:45)
[2018-08-15] MEDS: ATORVASTATIN CA 40 MG TABLET (FP) PO SCH (21:45)
[2018-08-15] MEDS: SENNOSIDES 8.6MG TABLET (FP) PO SCH (21:45)
[2018-08-16] MEDS: AZTREONAM 1 GM in DEXTROSE 5%-WATER - 50 ML IVPB SCH ×3 (02:50→17:42)
[2018-08-16] MEDS: INSULIN SLIDING SCALE (NOVOLOG) 1 VIAL SQ SCH ×4 (06:07→23:00)
[2018-08-16 06:51] LABS: BASO % 0.3 % (0-2.0); EOS % 2.6 % (0-4.5); HEMATOCRIT 25.6 % (32.4-45.2); HEMOGLOBIN 8.4 GM/dL (10.7-15.3); LYMPH % 35.1 % (8-40); MCH 28.7 pg (25.7-33.7); MCHC 32.8 g/dl (32.0-36.0); MEAN CELL VOLUME 87.7 fl (80-96); MONO % 9.2 % (3.8-10.2); NEUT % 52.8 % (42.8-82.8); PLATELET COUNT 296 K/MM3 (134-434); RBC 2.92 M/mm3 (3.60-5.2); RDW 16.7 % (11.6-15.6); WHITE BLOOD COUNT 6.2 K/mm3 (4.0-10.0)
[2018-08-16 07:21] LABS: ALBUMIN 1.9 g/dl (3.4-5.0); ALK PHOS 76 U/L (45-117); ANION GAP 6 MMOL/L (8-16); BILIRUBIN,TOTAL 0.5 mg/dL (0.2-1); BLOOD UREA NITROGEN 22 mg/dL (7-18); CALCIUM 8.2 mg/dL (8.5-10.1); CHLORIDE 108 mmol/L (98-107); CO2 25 mmol/L (21-32); CREATININE 0.6 mg/dL (0.55-1.3); GLUCOSE,RANDOM 131 mg/dL (74-106); POTASSIUM 3.7 mmol/L (3.5-5.1); SGOT/AST 14 U/L (15-37); SGPT/ALT 9 U/L (13-61); SODIUM 139 mmol/L (136-145); TOT PROT 6.6 g/dl (6.4-8.2)
[2018-08-16] MEDS ORDERED: PT OWN MED DRAWER 7, Y5N ONE ×3 (09:02→17:42)
--- NOTE | 2018-08-16 09:20 | PN ---
Progress Note (short form) - Note Progress Note: Neurology HISTORY OF PRESENT ILLNESS: 82 y/o F with PMH CVA (R hemiparesis; December 2017), DM, anemia, indwelling chu for urinary retention (April 2018), afib (on Eliquis), CHF, pulm HTN presented from [facility]. On day of admission, unresponsive for mental status changes and some left sided twiching. Patient intermittently moaning, responded to name but unable to provide further information. Patient had recent RLE angiogram with stent placement with Dr. Russo on 08/04/2018. CT of Brain completed , awaiting final report. Brain MRI completed, results indicated acute/subacute infarction, L thalamic. Patient in ER, awake and alert, conversive, does not appear to have focal deficits and sensory remains intact. Is confused but unsure if this is her baseline. Is getting ongoing treatment for UTI. Remains in good spirits and denies new neurologic events. Allergies pregabalin [From Lyrica] Allergy (Severe, Verified 08/13/18 13:58) Hives ceftriaxone sodium [From Rocephin] Allergy (Intermediate, Verified 08/13/18 13: 58) Hives Penicillins Allergy (Intermediate, Verified 08/13/18 13:58) Hives HIVES chicken derived Allergy (Mild, Verified 08/13/18 13:58) Hives oats Adverse Reaction (Mild, Verified 08/13/18 13:58) DIARRHEA Active Medications Acetaminophen (Tylenol -) 650 mg PO Q4H PRN PRN Reason: PAIN LEVEL 6-10 Last Admin: 08/14/18 02:57 Dose: 650 mg Amino Acids (Prosource No Carb Liquid Pkt) 30 ml PO BID@0800,1730 [facility] Last Admin: 08/15/18 18:22 Dose: 30 ml Apixaban (Eliquis -) 5 mg PO BID [facility] Last Admin: 08/15/18 21:45 Dose: 5 mg Atorvastatin Calcium (Lipitor -) 40 mg PO HS [facility] Last Admin: 08/15/18 21:45 Dose: 40 mg Bisacodyl (Dulcolax Suppository -) 10 mg RC DAILY PRN PRN Reason: CONSTIPATION Collagenase (Santyl -) 1 applic TP DAILY [facility]; Protocol Last Admin: 08/15/18 11:47 Dose: Not Given Docusate Sodium (Colace Liquid -) 100 mg PO BID [facility] Last Admin: 08/15/18 21:45 Dose: 100 mg Aztreonam 1 gm/ Dextrose 50 mls @ 100 mls/hr IVPB Q8H-IV [facility]; Protocol Last Admin: 08/16/18 02:50 Dose: 100 mls/hr Sodium Chloride (Normal Saline -) 1,000 mls @ 50 mls/hr IV ASDIR [facility] Last Admin: 08/15/18 13:02 Dose: 50 mls/hr Insulin Aspart (Novolog Vial Sliding Scale -) 1 vial SQ ACHS [facility]; Protocol Last Admin: 08/16/18 06:07 Dose: Not Given Metoprolol Succinate (Toprol Xl -) 12.5 mg PO DAILY [facility] Last Admin: 08/15/18 13:00 Dose: 12.5 mg Pantoprazole Sodium (Protonix -) 20 mg PO DAILY [facility] Last Admin: 08/15/18 11:05 Dose: 20 mg Senna (Senna -) 2 tab PO HS [facility] Last Admin: 08/15/18 21:45 Dose: 2 tab Sucralfate (Carafate -) 1 gm PO BID [facility] Last Admin: 08/15/18 21:45 Dose: 1 gm PHYSICAL EXAMINATION Vital Signs Period Temp Pulse Resp BP Sys/Vasquez Pulse Ox Last 24 Hr 98.0 F-98.9 F 82-117 17-20 118-129/60-84 98-100 GENERAL: responds to name, moaning in bed, incomprehensible few words HEAD: Normal with no signs of trauma. EYES: left eyelid droop, moves eyes spontaneously EARS, NOSE, THROAT: Ears normal, nares patent, oropharynx clear without exudates. Moist mucous membranes. NECK: soft, supple, no JVD noted LUNGS: limited exam due to lack of co-operation, few rales HEART: S1S2 irregular, tachycardic ABDOMEN: Soft, nontender, not distended, normoactive bowel sounds, no guarding, no rebound, no masses. (initially patient noted with moaning on non specific palpation, when distracted, no suprapubic or CVA tenderness/voluntary or involuntary guarding or rigidity noted) MUSCULOSKELETAL: Right sided hemiparesis, limited exam. UPPER EXTREMITIES: no edema, positive pulses LOWER EXTREMITIES: RLE multiple decubitus ulcers on RLE lateral aspect, ulceration with mild foul smelling discharge in web space between 4th and 5th toe, multple ulcers with scant foul smelling discharge and minimal bleed, tender to touch, positive DP pulses bilaterally NEUROLOGICAL: Minimal verbalization, responds to name, Right sided hemiparesis , sensory intact on L, limited on R, gait deferred PSYCHIATRIC: not co-operative, does not follow commands SKIN: Warm, dry, normal turgor, no rashes or lesions noted, normal capillary refill. CBCD WBC 6.2 K/mm3 (4.0-10.0) 08/16/18 06:30 RBC 2.92 M/mm3 (3.60-5.2) L 08/16/18 06:30 Hgb 8.4 GM/dL (10.7-15.3) L 08/16/18 06:30 Hct 25.6 % (32.4-45.2) L 08/16/18 06:30 MCV 87.7 fl (80-96) 08/16/18 06:30 MCHC 32.8 g/dl (32.0-36.0) 08/16/18 06:30 RDW 16.7 % (11.6-15.6) H 08/16/18 06:30 Plt Count 296 K/MM3 (134-434) 08/16/18 06:30 MPV 10.0 fl (7.5-11.1) 08/16/18 06:30 CMP Sodium 139 mmol/L (136-145) 08/16/18 06:30 Potassium 3.7 mmol/L (3.5-5.1) 08/16/18 06:30 Chloride 108 mmol/L (98-107) H 08/16/18 06:30 Carbon Dioxide 25 mmol/L (21-32) 08/16/18 06:30 Anion Gap 6 MMOL/L (8-16) L 08/16/18 06:30 BUN 22 mg/dL (7-18) H 08/16/18 06:30 Creatinine 0.6 mg/dL (0.55-1.3) 08/16/18 06:30 Creat Clearance w eGFR > 60 (>60) 08/16/18 06:30 Random Glucose 131 mg/dL (74-106) H 08/16/18 06:30 Calcium 8.2 mg/dL (8.5-10.1) L 08/16/18 06:30 Total Bilirubin 0.5 mg/dL (0.2-1) 08/16/18 06:30 AST 14 U/L (15-37) L 08/16/18 06:30 ALT 9 U/L (13-61) L 08/16/18 06:30 Alkaline Phosphatase 76 U/L (45-117) 08/16/18 06:30 Total Protein 6.6 g/dl (6.4-8.2) 08/16/18 06:30 Albumin 1.9 g/dl (3.4-5.0) L 08/16/18 06:30 Diagnostics: Head CT - completed, results pending Brain MRI - completed ASSESSMENT/PLAN: 82 y/o F with PMH CVA (R hemiparesis; December 2017), DM, anemia, indwelling chu for urinary retention (April 2018), afib (on Eliquis), CHF, pulm HTN presented from [facility]. On day of admission, unresponsive for mental status changes and some left sided twiching. Patient intermittently moaning, responded to name but unable to provide further information. Patient had recent RLE angiogram with stent placement with Dr. Russo on 08/04/2018. CT of Brain completed , awaiting final report. Brain MRI completed, results indicated acute/subacute infarction, L thalamic. Patient in ER, awake and alert, conversive, does not appear to have focal deficits and sensory remains intact. Is confused but unsure if this is her baseline. Continue medical mgmt for AMS, toxic metabolic encephalopathy. Likely infection (UTI, decub ulcer)/hypovolumia). Left arm twitch not visualized. Will hold off on adding medication. Has h/o Afib and possible further emboli causing in infarcts. Already on AC as noted, would be hesitant to add further blood thinners for risk of catastrophic bleed. Recent echo reviewed, tele monitoring, cardiology follow/eval recommended. Is getting ongoing treatment for UTI, more likely etiology for her symptoms. Remains in good spirits and denies new neurologic events. Monitor blood pressure, recommended < 14/90 for now, < 130/80 as outpatient. Continue statin, physical therapy as tolerated.
[2018-08-16] MEDS: DOCUSATE NA 100 MG/10 ML UNIT-DOSE CUPS PO SCH ×3 (09:49→22:59)
[2018-08-16] MEDS: SUCRALFATE 1 GM TABLET (FP) PO SCH ×2 (09:49→22:59)
[2018-08-16] MEDS: APIXABAN 5 MG TABLET PO SCH ×2 (09:49→22:59)
[2018-08-16] MEDS: metoPROLOL SUCCINATE 25 MG TAB.SR.24H (FP) PO SCH (09:50)
[2018-08-16] MEDS: AMINO ACIDS/PROTEIN HYDROLYS 30 ML LIQUID.PKT PO SCH ×2 (09:50→17:35)
[2018-08-16] MEDS: PANTOPRAZOLE 20 MG TABLET (FP) PO SCH (09:50)
--- NOTE | 2018-08-16 11:04 | DS ---
Physical Exam: SUBJECTIVE: Patient seen and examined feels good no new complaints. OBJECTIVE: Vital Signs Period Temp Pulse Resp BP Sys/Vasquez Pulse Ox Last 24 Hr 98.0 F-98.9 F 82-117 17-20 118-126/60-84 98-100 PHYSICAL EXAM GENERAL: The patient is awake, alert, and fully oriented, in no acute distress. ENT: moist mucous membranes LUNGS: Breath sounds equal, clear to auscultation bilaterally, no wheezes, no crackles, no accessory muscle use. HEART: Regular rate and rhythm, S1, S2 without murmur, rub or gallop. ABDOMEN: Soft, nontender, nondistended, normoactive bowel sounds, no guarding, no rebound, PSYCH: Normal mood, SKIN: Warm, dry, LABS Laboratory Results - last 24 hr 08/15/18 08/15/18 08/15/18 11:40 12:20 18:20 WBC RBC Hgb Hct MCV MCH MCHC RDW Plt Count MPV Absolute Neuts (auto) Neutrophils % Lymphocytes % Monocytes % Eosinophils % Basophils % Nucleated RBC % Sodium 137 Potassium 4.0 Chloride 104 Carbon Dioxide 27 Anion Gap 6 L BUN 23 H Creatinine 0.8 Creat Clearance w eGFR > 60 POC Glucometer 117 146 Random Glucose 147 H Calcium 8.3 L Phosphorus 2.6 Magnesium 2.1 Total Bilirubin AST ALT Alkaline Phosphatase Total Protein Albumin 08/16/18 08/16/18 08/16/18 05:41 06:30 06:30 WBC 6.2 RBC 2.92 L Hgb 8.4 L Hct 25.6 L MCV 87.7 MCH 28.7 MCHC 32.8 RDW 16.7 H Plt Count 296 MPV 10.0 Absolute Neuts (auto) 3.3 Neutrophils % 52.8 Lymphocytes % 35.1 Monocytes % 9.2 Eosinophils % 2.6 Basophils % 0.3 Nucleated RBC % 0 Sodium 139 Potassium 3.7 Chloride 108 H Carbon Dioxide 25 Anion Gap 6 L BUN 22 H Creatinine 0.6 Creat Clearance w eGFR > 60 POC Glucometer 126 Random Glucose 131 H Calcium 8.2 L Phosphorus Magnesium Total Bilirubin 0.5 AST 14 L ALT 9 L Alkaline Phosphatase 76 Total Protein 6.6 Albumin 1.9 L HOSPITAL COURSE: 82 yof with mulitiple comorbidities including CVA (R hemiparesis; December 2017), NIDDM, anemia, indwelling chu for urinary retention ( April), afib, CHF, pulm HTN,recently admitted to [facility] with failure to thrive , found with UTI/subacute/chronic PE, then sepsis suspected from RLE wound infection and ELENI, and intermittent refusal to take PO and medications sent today with AMS and ?left arm twitching. Patient intermittently moaning, responds to name but unable to provide further information. In hospital MRI was done which shows small acute/subacute thalmic stroke. For stroke Neurology was consulted no active intervention required as pt has multiple comorbities and she is already on elequis . Pt also found to have UTI and dehydration. Pt improved with IV fluid and antibiotics( aztreonam). Now pt is Aox3 as per pt she is back to her base line. Patel is eating and drinking orally. t id dc to halfway on po antibiotics. Consults: Dr blankenship, Dr fierro Antibiotic Cefuroxime 500 mg twice daily for 5 days. Your lasix is decreased to 20 mg daily. 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 Change your laxatives as needed. Your gabapentin and baclofen have been stopped Please resume gabapentin at a lower dose per your doctor if needed. Date of Admission:08/13/18 Date of Discharge: 08/16/18 Minutes to complete discharge: 45 Discharge Summary Reason For Visit: URINANRY TRACT INFECTION Current Active Problems UTI (urinary tract infection) due to urinary indwelling catheter (Acute) Condition: Stable - Instructions Diet, Activity, Other Instructions: MEDICATIONS; . Your lasix is decreased to 20 mg daily. 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 Hold your amlodipine on discharge, if you BP stays higher, can be resumed by the halfway doctor. Change your laxatives to as needed. Your gabapentin and baclofen have been stopped Please resume gabapentin at a lower dose per your doctor if needed. Continue other medications as before. DIET dyphagia puree diet with thin liquids, advance as tolerated ACTIVITY: Check weight daily, if you notice gain > 3lbs in 2 days,discuss with your doctor to increase lasix back to 40 mg daily. WOUND CARE: Santyl to ankle, xeroform to tendon wounds, change daily Follow up with Dr. Russo in wound care clinic in 1 week. FOLLOW UP: Primary care physician in [address] Pierre in 2-[address] Hough in 2-[address] Russo in 1 week Change chu catheter every 2-3 weeks. If you notice any new fevers, change in mental status, foul smelling discharge from leg wound or new concerns, please call 911 or come to ED immediately. Referrals: Rajesh Mas MD [Primary Care Provider] - Anirudh Hough MD [Staff Physician] - William Pierre MD [Staff Physician] - Bright Russo MD [Staff Physician] - Disposition: RESIDENTIAL FACILITY - Home Medications Comprehensive Discharge Medication List: Ambulatory Orders Amlodipine Besylate [Norvasc -] 5 mg PO DAILY 06/24/18 Baclofen 10 mg PO BID 06/24/18 Docusate Sodium [Colace -] 100 mg PO HS 06/24/18 Gabapentin 100 mg PO TID 06/24/18 Mirtazepine Alejandra Tabs [Remeron Soltab -] 45 mg PO DAILY 06/24/18 PE/Shark Liver Oil/Glyc/Wh.pet [Hemorrhoidal Cream] 1 applic RC Q8H PRN Sennosides [Senokot] 2 tab PO HS 06/24/18 Spironolactone [Aldactone -] 25 mg PO DAILY 06/24/18 metFORMIN HCL [Glucophage -] 500 mg PO HS 06/24/18 traMADol HCL [Ultram -] 50 mg PO TID PRN 06/24/18 Apixaban [Eliquis -] 5 mg PO BID tablet 06/29/18 Atorvastatin Ca [Lipitor] 40 mg PO HS tablet 06/29/18 Collagenase Clostridium Hist. [Santyl -] 1 applic TP DAILY tube 06/29/18 Sucralfate [Carafate -] 1 gm PO BIDAC tablet 06/29/18 Valsartan [Diovan] 80 mg PO BID tablet 06/29/18 Amino Acids/Protein Hydrolys [Prosource No Carb Liquid Pkt] 30 ml PO BID@0800, 1730 packet 07/05/18 Bisacodyl Suppository [Dulcolax Suppository -] 10 mg RC PRN PRN supp.rect 07/05 Doxycycline Hyclate [Vibramycin -] 100 mg PO BID@1000,1800 5 Days capsule 07/05 Furosemide [Lasix -] 40 mg PO DAILY tablet 07/05/18 Pantoprazole Sodium [Protonix -] 20 mg PO DAILY tablet.ec 07/05/18 Oseltamivir Phosphate [Tamiflu -] 75 mg PO DAILY 08/01/18 Acetaminophen [Tylenol] 650 mg PO ASDIR 08/03/18 Metoprolol Succinate [Toprol Xl] 0.5 tablet PO DAILY 08/13/18 Polyethylene Glycol 3350 [Miralax (For Daily Use) -] 17 gm PO BID 08/13/18 Sucralfate [Carafate -] 1 gm PO BID 08/13/18 This patient is new to me today: No Emergency Visit: Yes ED Registration Date: 08/13/18 Care time: The patient presented to the Emergency Department on the above date and was hospitalized for further evaluation of their emergent condition. Critical Care patient: No - Discharge Referral Referred to [facility] Med P.C.: No
--- NOTE | 2018-08-16 11:25 | PN ---
Teaching Attending Note Name of Resident: Dewayne Campos ATTENDING PHYSICIAN STATEMENT I saw and evaluated the patient. I reviewed the resident's note and discussed the case with the resident. I agree with the resident's findings and plan as documented with exceptions below. SUBJECTIVE: Patient seen and examined. awake, pleasant, reports had multiple BM with laxatives overnight, does not want to use for a week. No complaints, pleasant, tolerating diet well. OBJECTIVE: Vital Signs Period Temp Pulse Resp BP Sys/Vasquez Pulse Ox Last 24 Hr 98.0 F-98.9 F 82-117 17-20 118-126/60-84 98-100 Intake & Output 08/13/18 08/14/18 08/15/18 08/16/18 23:59 23:59 23:59 23:59 Intake Total 1125 350 Output Total 20 1300 Balance -20 -175 350 Weight 166 lb 172 lb 9.6 oz General: sitting in bed, pleasant, interactive, no acute distress Chest: improved effort and air entry, no rales or wheezing Abdomen;Soft, obese, NT Extremities: RLE wound dressing, overall unchanged neuro: AAOX3, right hemiparesis, exam unchanged from yesterday Home Medications Medication Instructions Recorded Docusate Sodium [Colace -] 100 mg PO HS 06/24/18 Mirtazepine Alejandra Tabs [Remeron 45 mg PO DAILY 06/24/18 Soltab -] PE/Shark Liver Oil/Glyc/Wh.pet 1 applic RC Q8H PRN 06/24/18 [Hemorrhoidal Cream] Sennosides [Senokot] 2 tab PO HS 06/24/18 Spironolactone [Aldactone -] 25 mg PO DAILY 06/24/18 metFORMIN HCL [Glucophage -] 500 mg PO HS 06/24/18 Apixaban [Eliquis -] 5 mg PO BID tablet 06/29/18 Atorvastatin Ca [Lipitor] 40 mg PO HS tablet 06/29/18 Collagenase Clostridium Hist. 1 applic TP DAILY tube 06/29/18 [Santyl -] Sucralfate [Carafate -] 1 gm PO BIDAC tablet 06/29/18 Amino Acids/Protein Hydrolys 30 ml PO BID@0800,1730 packet 07/05/18 [Prosource No Carb Liquid Pkt] Bisacodyl Suppository [Dulcolax 10 mg RC PRN PRN supp.rect 07/05/18 Suppository -] Pantoprazole Sodium [Protonix -] 20 mg PO DAILY tablet.ec 07/05/18 Oseltamivir Phosphate [Tamiflu -] 75 mg PO DAILY 08/01/18 Metoprolol Succinate [Toprol Xl] 0.5 tablet PO DAILY 08/13/18 Polyethylene Glycol 3350 [Miralax 17 gm PO BID 08/13/18 (For Daily Use) -] Acetaminophen [Tylenol .Regular 650 mg PO Q4H PRN #15 tablet 08/16/18 Strength -] Furosemide [Lasix] 20 mg PO DAILY #30 tablet 08/16/18 Insulin Sliding Scale [Novolog 1 vial SQ ACHS units 08/16/18 Vial Sliding Scale -] Valsartan 40 mg PO BID #60 tablet 08/16/18 Active Medications Acetaminophen (Tylenol -) 650 mg PO Q4H PRN PRN Reason: PAIN LEVEL 6-10 Last Admin: 08/14/18 02:57 Dose: 650 mg Amino Acids (Prosource No Carb Liquid Pkt) 30 ml PO BID@0800,1730 [facility] Last Admin: 08/16/18 09:50 Dose: 30 ml Apixaban (Eliquis -) 5 mg PO BID [facility] Last Admin: 08/16/18 09:49 Dose: 5 mg Atorvastatin Calcium (Lipitor -) 40 mg PO HS [facility] Last Admin: 08/15/18 21:45 Dose: 40 mg Bisacodyl (Dulcolax Suppository -) 10 mg RC DAILY PRN PRN Reason: CONSTIPATION Collagenase (Santyl -) 1 applic TP DAILY [facility]; Protocol Last Admin: 08/15/18 11:47 Dose: Not Given Docusate Sodium (Colace Liquid -) 100 mg PO BID [facility] Last Admin: 08/16/18 09:55 Dose: Not Given Aztreonam 1 gm/ Dextrose 50 mls @ 100 mls/hr IVPB Q8H-IV [facility]; Protocol Last Admin: 08/16/18 02:50 Dose: 100 mls/hr Sodium Chloride (Normal Saline -) 1,000 mls @ 50 mls/hr IV ASDIR [facility] Last Admin: 08/15/18 13:02 Dose: 50 mls/hr Insulin Aspart (Novolog Vial Sliding Scale -) 1 vial SQ ACHS [facility]; Protocol Last Admin: 08/16/18 06:07 Dose: Not Given Metoprolol Succinate (Toprol Xl -) 12.5 mg PO DAILY [facility] Last Admin: 08/16/18 09:50 Dose: 12.5 mg Pantoprazole Sodium (Protonix -) 20 mg PO DAILY [facility] Last Admin: 08/16/18 09:50 Dose: 20 mg Senna (Senna -) 2 tab PO HS [facility] Last Admin: 08/15/18 21:45 Dose: 2 tab Sucralfate (Carafate -) 1 gm PO BID [facility] Last Admin: 08/16/18 09:49 Dose: 1 gm Laboratory Results - last 24 hr 08/15/18 08/15/18 08/15/18 11:40 12:20 18:20 WBC RBC Hgb Hct MCV MCH MCHC RDW Plt Count MPV Absolute Neuts (auto) Neutrophils % Lymphocytes % Monocytes % Eosinophils % Basophils % Nucleated RBC % Sodium 137 Potassium 4.0 Chloride 104 Carbon Dioxide 27 Anion Gap 6 L BUN 23 H Creatinine 0.8 Creat Clearance w eGFR > 60 POC Glucometer 117 146 Random Glucose 147 H Calcium 8.3 L Phosphorus 2.6 Magnesium 2.1 Total Bilirubin AST ALT Alkaline Phosphatase Total Protein Albumin 08/16/18 08/16/18 08/16/18 05:41 06:30 06:30 WBC 6.2 RBC 2.92 L Hgb 8.4 L Hct 25.6 L MCV 87.7 MCH 28.7 MCHC 32.8 RDW 16.7 H Plt Count 296 MPV 10.0 Absolute Neuts (auto) 3.3 Neutrophils % 52.8 Lymphocytes % 35.1 Monocytes % 9.2 Eosinophils % 2.6 Basophils % 0.3 Nucleated RBC % 0 Sodium 139 Potassium 3.7 Chloride 108 H Carbon Dioxide 25 Anion Gap 6 L BUN 22 H Creatinine 0.6 Creat Clearance w eGFR > 60 POC Glucometer 126 Random Glucose 131 H Calcium 8.2 L Phosphorus Magnesium Total Bilirubin 0.5 AST 14 L ALT 9 L Alkaline Phosphatase 76 Total Protein 6.6 Albumin 1.9 L Microbiology 08/13/18 17:33 Urine - Urine Chu Urine Culture - Preliminary Escherichia Coli Salmonella Species 08/14/18 10:05 Blood - Peripheral Venous Blood Culture - Preliminary NO GROWTH OBTAINED AFTER 48 HOURS, INCUBATION TO CONTINUE FOR 3 DAYS. 08/14/18 10:05 Blood - Peripheral Venous Blood Culture - Preliminary NO GROWTH OBTAINED AFTER 48 HOURS, INCUBATION TO CONTINUE FOR 3 DAYS. 08/13/18 16:01 Urine - Urine Chu Urine Culture - Final Escherichia Coli 82 yof with mulitiple comorbidities including CVA (R hemiparesis; December 2017), NIDDM, anemia, indwelling chu for urinary retention (April), afib, CHF, pulm HTN,recently admitted to [facility] with failure to thrive, found with UTI/ subacute/chronic PE, then sepsis suspected from RLE wound infection and ELENI, and intermittent refusal to take PO and medications sent today with AMS and ? left arm twitching. -AMS, left arm arm twitching, suspect from new Acute/Subacute Left thalamic CVA extending into left cerebral peduncle -Left arm twitching, r/o seizure from focus from current/prior CVA -Complicated UTI vs colonization -RLE Decubitus ulcers s/p recent debridement/RLE angiogram with stenting, concern for secondary infection -PAD s/p RLE angiogram with stent 08/04/2018 -ELENI, suspect hypovolumia +/- sepsis -Subacute/Chronic PE diagnosed in 06/2018 -Atrial fibrillation -LV systolic dysfunction, EF 40-45% on recent echo -Pulmonary HTN -Intermittent failure to thrive Plan: No concerns. mental status improved, pleasant. MRI/carotid duplex results noted. Discussed with Dr. Pierre, continue eliquis/statin. D/c IVF. Resume lasix 20 mg daily on dc with outpatient monitoring. Patient with poor baseline function, unreliable po intake, improved with hydration here. Will decrease valsartan, hold amlodipine and continue metoprolol on discharge Multiple sedative meds, hold on d/c resume remeron d/c to [facility] today after discussion with ID Discussed with CM.
[2018-08-16] MEDS: COLLAGENASE CLOSTRIDIUM HIST. 30 GRAMS TUBE TP SCH (11:49)
[2018-08-16 12:10] VITALS: BMI 26.1
--- NOTE | 2018-08-16 13:20 | PN ---
Progress Note, Physician History of Present Illness: feels very weak saying she is sob morning she was better - Current Medication List Current Medications: Active Medications Acetaminophen (Tylenol -) 650 mg PO Q4H PRN PRN Reason: PAIN LEVEL 6-10 Last Admin: 08/14/18 02:57 Dose: 650 mg Amino Acids (Prosource No Carb Liquid Pkt) 30 ml PO BID@0800,1730 [facility] Last Admin: 08/16/18 09:50 Dose: 30 ml Apixaban (Eliquis -) 5 mg PO BID [facility] Last Admin: 08/16/18 09:49 Dose: 5 mg Atorvastatin Calcium (Lipitor -) 40 mg PO HS [facility] Last Admin: 08/15/18 21:45 Dose: 40 mg Bisacodyl (Dulcolax Suppository -) 10 mg RC DAILY PRN PRN Reason: CONSTIPATION Collagenase (Santyl -) 1 applic TP DAILY [facility]; Protocol Last Admin: 08/16/18 11:49 Dose: 1 applic Docusate Sodium (Colace Liquid -) 100 mg PO BID [facility] Last Admin: 08/16/18 09:55 Dose: Not Given Aztreonam 1 gm/ Dextrose 50 mls @ 100 mls/hr IVPB Q8H-IV [facility]; Protocol Last Admin: 08/16/18 11:49 Dose: 100 mls/hr Sodium Chloride (Normal Saline -) 1,000 mls @ 50 mls/hr IV ASDIR [facility] Last Admin: 08/15/18 13:02 Dose: 50 mls/hr Insulin Aspart (Novolog Vial Sliding Scale -) 1 vial SQ ACHS [facility]; Protocol Last Admin: 08/16/18 11:50 Dose: Not Given Metoprolol Succinate (Toprol Xl -) 12.5 mg PO DAILY [facility] Last Admin: 08/16/18 09:50 Dose: 12.5 mg Pantoprazole Sodium (Protonix -) 20 mg PO DAILY [facility] Last Admin: 08/16/18 09:50 Dose: 20 mg Senna (Senna -) 2 tab PO HS [facility] Last Admin: 08/15/18 21:45 Dose: 2 tab Sucralfate (Carafate -) 1 gm PO BID [facility] Last Admin: 08/16/18 09:49 Dose: 1 gm - Objective Vital Signs: Vital Signs Temperature 97.5 F L 08/16/18 10:00 Pulse Rate 92 H 02/19/19 10:00 Respiratory Rate 18 08/16/18 10:00 Blood Pressure 134/70 08/16/18 10:00 O2 Sat by Pulse Oximetry (%) 100 08/15/18 23:46 Constitutional: Yes: Calm, Mild Distress Cardiovascular: Yes: S1, S2 Respiratory: Yes: Poor Air Entry (bases poor) Gastrointestinal: Yes: Normal Bowel Sounds, Soft Musculoskeletal: Yes: WNL Extremities: Yes: WNL Neurological: Yes: Alert, Oriented Psychiatric: Yes: Alert, Oriented Labs: CBC, BMP 08/16/18 06:30 08/16/18 06:30 INR, PTT INR 1.83 (0.83-1.09) H 08/14/18 10:05 Assessment/Plan Problem List - Problems (1) UTI (urinary tract infection) due to urinary indwelling catheter Code(s): T83.511A - I/I REACT D/T INDWELLING URETHRAL CATHETER, INIT; N39.0 - URINARY TRACT INFECTION, SITE NOT SPECIFIED (2) ELENI (acute kidney injury) Code(s): N17.9 - ACUTE KIDNEY FAILURE, UNSPECIFIED (3) Acute CVA (cerebrovascular accident) Code(s): I63.9 - CEREBRAL INFARCTION, UNSPECIFIED (4) 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 Code(s): I70.239 - ATHSCL [place] ARTERIES OF RIGHT LEG W ULCER OF UNSP SITE (5) Atrial fibrillation and flutter Code(s): I48.91 - UNSPECIFIED ATRIAL FIBRILLATION; I48.92 - UNSPECIFIED ATRIAL FLUTTER (6) CHF (congestive heart failure) Code(s): I50.9 - HEART FAILURE, UNSPECIFIED Qualifiers: Heart failure type: diastolic Heart failure chronicity: chronic Qualified Code(s): I50.32 - Chronic diastolic (congestive) heart failure (7) Diabetes Code(s): E11.9 - TYPE 2 DIABETES MELLITUS WITHOUT COMPLICATIONS (8) Failure to thrive in adult Code(s): R62.7 - ADULT FAILURE TO THRIVE (9) HLD (hyperlipidemia) Code(s): E78.5 - HYPERLIPIDEMIA, UNSPECIFIED (10) HTN (hypertension) Code(s): I10 - ESSENTIAL (PRIMARY) HYPERTENSION Qualifiers: Qualified Code(s): I10 - Essential (primary) hypertension (11) History of stroke Code(s): Z86.73 - PRSNL HX OF TIA (TIA), AND CEREB INFRC W/O RESID DEFICITS (12) Swelling of right upper extremity Code(s): M79.89 - OTHER SPECIFIED SOFT TISSUE DISORDERS Assessment/Plan 82 y.o. female with PMH of AFIB, CVA with Rt HP, Urinary retention with chronic indwelling chu, RLE ulcers s/p debridement last month, PAD s/p angioplasty/ stent on 08/04/18, CHF, pulm HTN, DM, and anemia presenting with AMS/lethargy i think we should get a repeat urine cx if cx negative then we will be able to send the patient home
[2018-08-16] MEDS: SODIUM CHLORIDE 1,000 ML IV SCH (17:43)
[2018-08-16] MEDS: ATORVASTATIN CA 40 MG TABLET (FP) PO SCH (23:00)
[2018-08-16] MEDS: SENNOSIDES 8.6MG TABLET (FP) PO SCH (23:00)
[2018-08-17] MEDS: AZTREONAM 1 GM in DEXTROSE 5%-WATER - 50 ML IVPB SCH ×2 (03:46→12:58)
[2018-08-17] MEDS: INSULIN SLIDING SCALE (NOVOLOG) 1 VIAL SQ SCH ×4 (06:12→21:46)
--- NOTE | 2018-08-17 08:45 | PN ---
Progress Note, Physician History of Present Illness: says she feels better no complaints - Current Medication List Current Medications: Active Medications Acetaminophen (Tylenol -) 650 mg PO Q4H PRN PRN Reason: PAIN LEVEL 6-10 Last Admin: 08/14/18 02:57 Dose: 650 mg Amino Acids (Prosource No Carb Liquid Pkt) 30 ml PO BID@0800,1730 [facility] Last Admin: 08/16/18 17:35 Dose: 30 ml Apixaban (Eliquis -) 5 mg PO BID [facility] Last Admin: 08/16/18 22:59 Dose: 5 mg Atorvastatin Calcium (Lipitor -) 40 mg PO HS [facility] Last Admin: 08/16/18 23:00 Dose: 40 mg Bisacodyl (Dulcolax Suppository -) 10 mg RC DAILY PRN PRN Reason: CONSTIPATION Collagenase (Santyl -) 1 applic TP DAILY [facility]; Protocol Last Admin: 08/16/18 11:49 Dose: 1 applic Docusate Sodium (Colace Liquid -) 100 mg PO BID [facility] Last Admin: 08/16/18 22:59 Dose: 100 mg Aztreonam 1 gm/ Dextrose 50 mls @ 100 mls/hr IVPB Q8H-IV [facility]; Protocol Last Admin: 08/17/18 03:46 Dose: Not Given Sodium Chloride (Normal Saline -) 1,000 mls @ 50 mls/hr IV ASDIR [facility] Last Admin: 08/16/18 17:43 Dose: 50 mls/hr Insulin Aspart (Novolog Vial Sliding Scale -) 1 vial SQ ACHS [facility]; Protocol Last Admin: 08/17/18 06:12 Dose: Not Given Metoprolol Succinate (Toprol Xl -) 12.5 mg PO DAILY [facility] Last Admin: 08/16/18 09:50 Dose: 12.5 mg Pantoprazole Sodium (Protonix -) 20 mg PO DAILY [facility] Last Admin: 08/16/18 09:50 Dose: 20 mg Senna (Senna -) 2 tab PO HS [facility] Last Admin: 08/16/18 23:00 Dose: 2 tab Sucralfate (Carafate -) 1 gm PO BID [facility] Last Admin: 08/16/18 22:59 Dose: 1 gm - Objective Vital Signs: Vital Signs Temperature 98 F 08/17/18 05:00 Pulse Rate 89 08/17/18 05:00 Respiratory Rate 18 0220/19 05:00 Blood Pressure 129/76 08/17/18 05:00 O2 Sat by Pulse Oximetry (%) 100 08/16/18 21:00 Constitutional: Yes: No Distress, Calm Cardiovascular: Yes: S1, S2 Respiratory: Yes: Regular, CTA Bilaterally Gastrointestinal: Yes: Normal Bowel Sounds, Soft Musculoskeletal: Yes: WNL Extremities: Yes: Other Neurological: Yes: Alert, Oriented Psychiatric: Yes: Alert, Oriented Labs: CBC, BMP 08/16/18 06:30 08/16/18 06:30 INR, PTT INR 1.83 (0.83-1.09) H 08/14/18 10:05 Assessment/Plan Problem List - Problems (1) UTI (urinary tract infection) due to urinary indwelling catheter Code(s): T83.511A - I/I REACT D/T INDWELLING URETHRAL CATHETER, INIT; N39.0 - URINARY TRACT INFECTION, SITE NOT SPECIFIED (2) ELENI (acute kidney injury) Code(s): N17.9 - ACUTE KIDNEY FAILURE, UNSPECIFIED (3) Acute CVA (cerebrovascular accident) Code(s): I63.9 - CEREBRAL INFARCTION, UNSPECIFIED (4) 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 Code(s): I70.239 - ATHSCL [place] [employer] ARTERIES OF RIGHT LEG W ULCER OF UNSP SITE (5) Atrial fibrillation and flutter Code(s): I48.91 - UNSPECIFIED ATRIAL FIBRILLATION; I48.92 - UNSPECIFIED ATRIAL FLUTTER (6) CHF (congestive heart failure) Code(s): I50.9 - HEART FAILURE, UNSPECIFIED Qualifiers: Heart failure type: diastolic Heart failure chronicity: chronic Qualified Code(s): I50.32 - Chronic diastolic (congestive) heart failure (7) Diabetes Code(s): E11.9 - TYPE 2 DIABETES MELLITUS WITHOUT COMPLICATIONS (8) Failure to thrive in adult Code(s): R62.7 - ADULT FAILURE TO THRIVE (9) HLD (hyperlipidemia) Code(s): E78.5 - HYPERLIPIDEMIA, UNSPECIFIED (10) HTN (hypertension) Code(s): I10 - ESSENTIAL (PRIMARY) HYPERTENSION Qualifiers: Qualified Code(s): I10 - Essential (primary) hypertension (11) History of stroke Code(s): Z86.73 - PRSNL HX OF TIA (TIA), AND CEREB INFRC W/O RESID DEFICITS (12) Swelling of right upper extremity Code(s): M79.89 - OTHER SPECIFIED SOFT TISSUE DISORDERS Assessment/Plan await for the ct scan report await for cx reports rest as per the team
[2018-08-17] MEDS ORDERED: PT OWN MED DRAWER 7, Y5N ONE (09:03)
--- NOTE | 2018-08-17 09:24 | PN ---
Progress Note (short form) - Note Progress Note: Neurology HISTORY OF PRESENT ILLNESS: 82 y/o F with PMH CVA (R hemiparesis; December 2017), DM, anemia, indwelling chu for urinary retention (April 2018), afib (on Eliquis), CHF, pulm HTN presented from [facility]. On day of admission, unresponsive for mental status changes and some left sided twiching. Patient intermittently moaning, responded to name but unable to provide further information. Patient had recent RLE angiogram with stent placement with Dr. Russo on 08/04/2018. CT of Brain completed , awaiting final report. Brain MRI completed, results indicated acute/subacute infarction, L thalamic. Patient in ER, awake and alert, conversive, does not appear to have focal deficits and sensory remains intact. Is confused but unsure if this is her baseline. Is getting ongoing treatment for UTI, ID notes reviewed. Remains in good spirits and denies new neurologic events. CT Abd/ pelvis completed, awaiting report. Allergies pregabalin [From Lyrica] Allergy (Severe, Verified 08/13/18 13:58) Hives ceftriaxone sodium [From Rocephin] Allergy (Intermediate, Verified 08/13/18 13: 58) Hives Penicillins Allergy (Intermediate, Verified 08/13/18 13:58) Hives HIVES chicken derived Allergy (Mild, Verified 08/13/18 13:58) Hives oats Adverse Reaction (Mild, Verified 08/13/18 13:58) DIARRHEA Active Medications Acetaminophen (Tylenol -) 650 mg PO Q4H PRN PRN Reason: PAIN LEVEL 6-10 Last Admin: 08/14/18 02:57 Dose: 650 mg Amino Acids (Prosource No Carb Liquid Pkt) 30 ml PO BID@0800,1730 [facility] Last Admin: 08/16/18 17:35 Dose: 30 ml Apixaban (Eliquis -) 5 mg PO BID [facility] Last Admin: 08/16/18 22:59 Dose: 5 mg Atorvastatin Calcium (Lipitor -) 40 mg PO HS [facility] Last Admin: 08/16/18 23:00 Dose: 40 mg Bisacodyl (Dulcolax Suppository -) 10 mg RC DAILY PRN PRN Reason: CONSTIPATION Collagenase (Santyl -) 1 applic TP DAILY [facility]; Protocol Last Admin: 08/16/18 11:49 Dose: 1 applic Docusate Sodium (Colace Liquid -) 100 mg PO BID [facility] Last Admin: 08/16/18 22:59 Dose: 100 mg Aztreonam 1 gm/ Dextrose 50 mls @ 100 mls/hr IVPB Q8H-IV [facility]; Protocol Last Admin: 08/17/18 03:46 Dose: Not Given Sodium Chloride (Normal Saline -) 1,000 mls @ 50 mls/hr IV ASDIR [facility] Last Admin: 08/16/18 17:43 Dose: 50 mls/hr Insulin Aspart (Novolog Vial Sliding Scale -) 1 vial SQ ACHS [facility]; Protocol Last Admin: 08/17/18 06:12 Dose: Not Given Metoprolol Succinate (Toprol Xl -) 12.5 mg PO DAILY [facility] Last Admin: 08/16/18 09:50 Dose: 12.5 mg Pantoprazole Sodium (Protonix -) 20 mg PO DAILY [facility] Last Admin: 08/16/18 09:50 Dose: 20 mg Senna (Senna -) 2 tab PO HS [facility] Last Admin: 08/16/18 23:00 Dose: 2 tab Sucralfate (Carafate -) 1 gm PO BID [facility] Last Admin: 08/16/18 22:59 Dose: 1 gm PHYSICAL EXAMINATION Vital Signs Period Temp Pulse Resp BP Sys/Vasquez Pulse Ox Last 24 Hr 97.5 F-98.9 F 83-92 18-20 129-142/50-76 100 GENERAL: responds to name, moaning in bed, incomprehensible few words HEAD: Normal with no signs of trauma. EYES: left eyelid droop, moves eyes spontaneously EARS, NOSE, THROAT: Ears normal, nares patent, oropharynx clear without exudates. Moist mucous membranes. NECK: soft, supple, no JVD noted LUNGS: limited exam due to lack of co-operation, few rales HEART: S1S2 irregular, tachycardic ABDOMEN: Soft, nontender, not distended, normoactive bowel sounds, no guarding, no rebound, no masses. (initially patient noted with moaning on non specific palpation, when distracted, no suprapubic or CVA tenderness/voluntary or involuntary guarding or rigidity noted) MUSCULOSKELETAL: Right sided hemiparesis, limited exam. UPPER EXTREMITIES: no edema, positive pulses LOWER EXTREMITIES: RLE multiple decubitus ulcers on RLE lateral aspect, ulceration with mild foul smelling discharge in web space between 4th and 5th toe, multple ulcers with scant foul smelling discharge and minimal bleed, tender to touch, positive DP pulses bilaterally NEUROLOGICAL: Minimal verbalization, responds to name, Right sided hemiparesis , sensory intact on L, limited on R, gait deferred PSYCHIATRIC: not co-operative, does not follow commands SKIN: Warm, dry, normal turgor, no rashes or lesions noted, normal capillary refill. CBCD WBC 6.2 K/mm3 (4.0-10.0) 08/16/18 06:30 RBC 2.92 M/mm3 (3.60-5.2) L 08/16/18 06:30 Hgb 8.4 GM/dL (10.7-15.3) L 08/16/18 06:30 Hct 25.6 % (32.4-45.2) L 08/16/18 06:30 MCV 87.7 fl (80-96) 08/16/18 06:30 MCHC 32.8 g/dl (32.0-36.0) 08/16/18 06:30 RDW 16.7 % (11.6-15.6) H 08/16/18 06:30 Plt Count 296 K/MM3 (134-434) 08/16/18 06:30 MPV 10.0 fl (7.5-11.1) 08/16/18 06:30 CMP Sodium 139 mmol/L (136-145) 08/16/18 06:30 Potassium 3.7 mmol/L (3.5-5.1) 08/16/18 06:30 Chloride 108 mmol/L (98-107) H 08/16/18 06:30 Carbon Dioxide 25 mmol/L (21-32) 08/16/18 06:30 Anion Gap 6 MMOL/L (8-16) L 08/16/18 06:30 BUN 22 mg/dL (7-18) H 08/16/18 06:30 Creatinine 0.6 mg/dL (0.55-1.3) 08/16/18 06:30 Creat Clearance w eGFR > 60 (>60) 08/16/18 06:30 Random Glucose 131 mg/dL (74-106) H 08/16/18 06:30 Calcium 8.2 mg/dL (8.5-10.1) L 08/16/18 06:30 Total Bilirubin 0.5 mg/dL (0.2-1) 08/16/18 06:30 AST 14 U/L (15-37) L 08/16/18 06:30 ALT 9 U/L (13-61) L 08/16/18 06:30 Alkaline Phosphatase 76 U/L (45-117) 08/16/18 06:30 Total Protein 6.6 g/dl (6.4-8.2) 08/16/18 06:30 Albumin 1.9 g/dl (3.4-5.0) L 08/16/18 06:30 Diagnostics: Head CT - completed, results pending Brain MRI - completed ASSESSMENT/PLAN: 82 y/o F with PMH CVA (R hemiparesis; December 2017), DM, anemia, indwelling chu for urinary retention (April 2018), afib (on Eliquis), CHF, pulm HTN presented from [facility]. On day of admission, unresponsive for mental status changes and some left sided twiching. Patient intermittently moaning, responded to name but unable to provide further information. Patient had recent RLE angiogram with stent placement with Dr. Russo on 08/04/2018. CT of Brain completed , awaiting final report. Brain MRI completed, results indicated acute/subacute infarction, L thalamic. Patient in ER, awake and alert, conversive, does not appear to have focal deficits and sensory remains intact. Is confused but unsure if this is her baseline. Continue medical mgmt for AMS, toxic metabolic encephalopathy. Likely infection (UTI, decub ulcer)/hypovolumia). Left arm twitch not visualized. Will hold off on adding medication. Has h/o Afib and possible further emboli causing in infarcts. Already on AC as noted, would be hesitant to add further blood thinners for risk of catastrophic bleed. Recent echo reviewed, tele monitoring, cardiology follow/eval recommended. Is getting ongoing treatment for UTI, on Abx, more likely etiology for her symptoms. Remains in good spirits and denies new neurologic events. Monitor blood pressure, recommended < 14/90 for now, < 130/80 as outpatient. Continue statin, physical therapy as tolerated.
--- NOTE | 2018-08-17 10:40 | PN ---
Physical Exam: SUBJECTIVE: Patient seen and examined no new issues overnight afebile ct abdomen done last night: no colovesical fistula urine culture pending started on spirometry OBJECTIVE: Vital Signs Period Temp Pulse Resp BP Sys/Vasquez Pulse Ox Last 24 Hr 98 F-98.9 F 83-91 18-20 129-142/50-76 100 GENERAL: The patient is awake, alert, and fully oriented, in no acute distress. ENT: moist mucous membranes LUNGS: Breath sounds equal, clear to auscultation bilaterally, no wheezes, no crackles, no accessory muscle use. HEART: Regular rate and rhythm, S1, S2 without murmur, rub or gallop. ABDOMEN: Soft, nontender, nondistended, normoactive bowel sounds, no guarding, no rebound, right upper limb chronic edema. PSYCH: Normal mood, SKIN: Warm, dry, Laboratory Results - last 24 hr 08/16/18 08/16/18 08/17/18 11:48 17:10 05:36 POC Glucometer 121 97 90 Active Medications Generic Name Dose Route Start Last Admin Trade Name Freq PRN Reason Stop Dose Admin Acetaminophen 650 mg 08/13/18 18:59 08/14/18 02:57 Tylenol - PO 650 mg Q4H PRN Administration PAIN LEVEL 6-10 Amino Acids 30 ml 08/14/18 08:00 08/16/18 17:35 Prosource No Carb Liquid Pkt PO 30 ml BID@0800,1730 [facility] Administration Apixaban 5 mg 08/13/18 22:00 08/16/18 22:59 Eliquis - PO 5 mg BID [facility]AG[facility]I Administration Atorvastatin Calcium 40 mg 08/13/18 22:00 08/16/18 23:00 Lipitor - PO 40 mg HS RAG[facility]I Administration Bisacodyl 10 mg 08/13/18 18:57 Dulcolax Suppository - RC DAILY PRN CONSTIPATION Collagenase 1 applic 08/14/18 10:00 08/16/18 11:49 Santyl - TP 1 applic DAILY [facility] Administration Protocol Docusate Sodium 100 mg 08/14/18 22:00 08/16/18 22:59 Colace Liquid - PO 100 mg BID [facility] Administration Aztreonam 1 gm/ Dextrose 50 mls @ 100 mls/hr 08/14/18 18:00 08/17/18 03:46 IVPB Not Given Q8H-IV [facility] Protocol Sodium Chloride 1,000 mls @ 50 mls/hr 08/15/18 11:49 08/16/18 17:43 Normal Saline - IV 50 mls/hr ASDIR RAGINI Administration Insulin Aspart 1 vial 08/13/18 22:00 08/17/18 06:12 Novolog Vial Sliding Scale - SQ Not Given ACHS [facility] Protocol Metoprolol Succinate 12.5 mg 08/15/18 11:45 08/16/18 09:50 Toprol Xl - PO 12.5 mg DAILY [facility] Administration Pantoprazole Sodium 20 mg 08/14/18 10:00 08/16/18 09:50 Protonix - PO 20 mg DAILY [facility] Administration Senna 2 tab 08/14/18 22:00 08/16/18 23:00 Senna - PO 2 tab HS [facility] Administration Sucralfate 1 gm 08/13/18 22:00 08/16/18 22:59 Carafate - PO 1 gm BID [facility] Administration ASSESSMENT/PLAN: 82 yof with mulitiple comorbidities including CVA (R hemiparesis; December 2017), NIDDM, anemia, indwelling chu for urinary retention ( April), afib, CHF, pulm HTN,recently admitted to [facility] with failure to thrive , found with UTI/subacute/chronic PE, then sepsis suspected from RLE wound infection and ELENI, and intermittent refusal to take PO and medications sent today with AMS and ?left arm twitching. -AMS, left arm arm twitching, resolved AMS resolved, AOx3 MRI brain noted acute/subacute thalmic stroke neurology on case carotid doppler reviewed. echo done recently :LV systolic dysfunction, EF 40-45% on recent echo continue with eliquis, statin, toprol hold valsartan/ amlodipine for now -Complicated UTI vs colonization continue with antibiotics aztreonam. started on 08/13/18 follow up culture ID on case CT : no colovesical fistula repeat cx pending HLD; continue lipitor -RLE Decubitus ulcers s/p recent debridement/RLE angiogram with stenting, concern for secondary infection change position q2h wound care consult. PAD s/p RLE angiogram with stent 08/04/2018 -Subacute/Chronic PE diagnosed in 06/2018 continue eliquis -Atrial fibrillation continue eliquis continue toprol xl 12.5 ecxho reviewed from 06/27 DM hold metfornmin for now bgm insulin sliding scale diabetic diet fluid: ns50ml/hr electrolyte: repeat in am nutrition ; diabetic diet dvt pro: on elequis gi pro protonix 20 daily Visit type - Emergency Visit Emergency Visit: Yes ED Registration Date: 08/13/18 Care time: The patient presented to the Emergency Department on the above date and was hospitalized for further evaluation of their emergent condition. - New Patient This patient is new to me today: No - Critical Care Critical Care patient: No
[2018-08-17] MEDS: COLLAGENASE CLOSTRIDIUM HIST. 30 GRAMS TUBE TP SCH (10:47)
[2018-08-17] MEDS: AMINO ACIDS/PROTEIN HYDROLYS 30 ML LIQUID.PKT PO SCH ×2 (10:48→17:04)
[2018-08-17] MEDS: metoPROLOL SUCCINATE 25 MG TAB.SR.24H (FP) PO SCH (10:48)
[2018-08-17] MEDS: APIXABAN 5 MG TABLET PO SCH ×2 (10:48→21:29)
[2018-08-17] MEDS: SUCRALFATE 1 GM TABLET (FP) PO SCH ×2 (10:48→21:29)
[2018-08-17] MEDS: DOCUSATE NA 100 MG/10 ML UNIT-DOSE CUPS PO SCH ×3 (10:48→21:45)
[2018-08-17] MEDS: PANTOPRAZOLE 20 MG TABLET (FP) PO SCH (10:50)
[2018-08-17] MEDS: SODIUM CHLORIDE 1,000 ML IV SCH (13:08)
--- NOTE | 2018-08-17 14:59 | PN ---
Teaching Attending Note Name of Resident: Dewayne Campos ATTENDING PHYSICIAN STATEMENT I saw and evaluated the patient. I reviewed the resident's note and discussed the case with the resident. I agree with the resident's findings and plan as documented. SUBJECTIVE: Ms Cooper says she is feeling well today. No cp, sob, n/v. OBJECTIVE: Last Vital Signs Temp Pulse Resp BP Pulse Ox 36.8 C 86 18 129/85 99 08/17/18 14:40 08/17/18 14:40 08/17/18 14:40 08/17/18 14:40 08/17/18 09:00 Gen: nad Pulm: ctab w/o w/r/r CV: rrr w/o m/r/g Abd: +bs, s/nt/nd Ext: no c/c/e CBC, BMP 08/16/18 06:30 08/16/18 06:30 ASSESSMENT AND PLAN: -case d/w Dr Lamar -concern for salmonella in urine -CT scan performed, no fistula noted -repeat urine culture pending -continue aztreonam -continue current management -discharge planning when repeat urine culture results Problem List - Problems (1) UTI (urinary tract infection) due to urinary indwelling catheter Code(s): T83.511A - I/I REACT D/T INDWELLING URETHRAL CATHETER, INIT; N39.0 - URINARY TRACT INFECTION, SITE NOT SPECIFIED (2) ELENI (acute kidney injury) Code(s): N17.9 - ACUTE KIDNEY FAILURE, UNSPECIFIED (3) Anemia Code(s): D64.9 - ANEMIA, UNSPECIFIED (4) Atrial fibrillation and flutter Code(s): I48.91 - UNSPECIFIED ATRIAL FIBRILLATION; I48.92 - UNSPECIFIED ATRIAL FLUTTER (5) CHF (congestive heart failure) Code(s): I50.9 - HEART FAILURE, UNSPECIFIED Qualifiers: Heart failure type: diastolic Heart failure chronicity: chronic Qualified Code(s): I50.32 - Chronic diastolic (congestive) heart failure (6) Diabetes Code(s): E11.9 - TYPE 2 DIABETES MELLITUS WITHOUT COMPLICATIONS (7) HLD (hyperlipidemia) Code(s): E78.5 - HYPERLIPIDEMIA, UNSPECIFIED (8) HTN (hypertension) Code(s): I10 - ESSENTIAL (PRIMARY) HYPERTENSION Qualifiers: Qualified Code(s): I10 - Essential (primary) hypertension (9) History of stroke Code(s): Z86.73 - PRSNL HX OF TIA (TIA), AND CEREB INFRC W/O RESID DEFICITS (10) Pulmonary embolism Code(s): I26.99 - OTHER PULMONARY EMBOLISM WITHOUT ACUTE COR PULMONALE Qualifiers: Pulmonary embolism type: unspecified Chronicity: chronic Acute cor pulmonale presence: without acute cor pulmonale Qualified Code(s): I27.82 - Chronic pulmonary embolism
[2018-08-17] MEDS ORDERED: DOXYCYCLINE HYCLATE 100 MG CAPSULE PO SCH (16:30)
[2018-08-17] MEDS: DOXYCYCLINE HYCLATE 100 MG CAPSULE PO SCH (17:00)
[2018-08-17] MEDS ORDERED: BISACODYL 10 MG SUPP.RECT RC PRN (20:04)
[2018-08-17] MEDS ORDERED: ACETAMINOPHEN 325 MG TABLET (FP) PO PRN (20:04)
[2018-08-17] MEDS: SENNOSIDES 8.6MG TABLET (FP) PO SCH ×2 (21:29→21:44)
[2018-08-17] MEDS ORDERED: ATORVASTATIN CA 40 MG TABLET (FP) PO SCH (22:00)
[2018-08-18] MEDS: INSULIN SLIDING SCALE (NOVOLOG) 1 VIAL SQ SCH ×2 (06:36→12:32)
[2018-08-18] MEDS ORDERED: AMINO ACIDS/PROTEIN HYDROLYS 30 ML LIQUID.PKT PO SCH (08:00)
[2018-08-18 08:20] LABS: BASO % 0.3 % (0-2.0); EOS % 0.7 % (0-4.5); HEMATOCRIT 27.4 % (32.4-45.2); LYMPH % 22.9 % (8-40); MCH 29.1 pg (25.7-33.7); MCHC 32.8 g/dl (32.0-36.0); MEAN CELL VOLUME 88.8 fl (80-96); MEAN PLT VOLUME 10.6 fl (7.5-11.1); MONO % 8.1 % (3.8-10.2); PLATELET COUNT 295 K/MM3 (134-434); RBC 3.09 M/mm3 (3.60-5.2); RDW 16.7 % (11.6-15.6); WHITE BLOOD COUNT 5.8 K/mm3 (4.0-10.0)
[2018-08-18 09:00] LABS: ALBUMIN 2.1 g/dl (3.4-5.0); ALK PHOS 86 U/L (45-117); ANION GAP 9 MMOL/L (8-16); BILIRUBIN,TOTAL 0.5 mg/dL (0.2-1); BLOOD UREA NITROGEN 16 mg/dL (7-18); CALCIUM 8.5 mg/dL (8.5-10.1); CHLORIDE 106 mmol/L (98-107); CO2 23 mmol/L (21-32); CREATININE 0.6 mg/dL (0.55-1.3); GLUCOSE,RANDOM 96 mg/dL (74-106); SGOT/AST 18 U/L (15-37); SGPT/ALT 10 U/L (13-61); SODIUM 138 mmol/L (136-145); TOT PROT 7.3 g/dl (6.4-8.2)
--- NOTE | 2018-08-18 09:10 | PN ---
Progress Note (short form) - Note Progress Note: Neurology HISTORY OF PRESENT ILLNESS: 82 y/o F with PMH CVA (R hemiparesis; December 2017), DM, anemia, indwelling chu for urinary retention (April 2018), afib (on Eliquis), CHF, pulm HTN presented from [facility]. On day of admission, unresponsive for mental status changes and some left sided twiching. Patient intermittently moaning, responded to name but unable to provide further information. Patient had recent RLE angiogram with stent placement with Dr. Russo on 08/04/2018. CT of Brain completed , awaiting final report. Brain MRI completed, results indicated acute/subacute infarction, L thalamic. Patient in ER, awake and alert, conversive, does not appear to have focal deficits and sensory remains intact. Less confused now. Is getting ongoing treatment for UTI, ID notes reviewed. Remains in good spirits and denies new neurologic events. Is recognizing me this AM and is in good spirits. Remains on Levaquin, mental status seems to be improving. Encouragement provided. Allergies pregabalin [From Lyrica] Allergy (Severe, Verified 08/13/18 13:58) Hives ceftriaxone sodium [From Rocephin] Allergy (Intermediate, Verified 08/13/18 13: 58) Hives Penicillins Allergy (Intermediate, Verified 08/13/18 13:58) Hives HIVES chicken derived Allergy (Mild, Verified 08/13/18 13:58) Hives oats Adverse Reaction (Mild, Verified 08/13/18 13:58) DIARRHEA Active Medications Acetaminophen (Tylenol -) 650 mg PO Q4H PRN PRN Reason: PAIN LEVEL 6-10 Last Admin: 08/18/18 06:26 Dose: 650 mg Amino Acids (Prosource No Carb Liquid Pkt) 30 ml PO BID@0800,1730 [facility] Apixaban (Eliquis -) 5 mg PO BID [facility] Last Admin: 08/17/18 21:29 Dose: 5 mg Atorvastatin Calcium (Lipitor -) 40 mg PO HS [facility] Last Admin: 08/17/18 21:29 Dose: 40 mg Bisacodyl (Dulcolax Suppository -) 10 mg RC DAILY PRN PRN Reason: CONSTIPATION Collagenase (Santyl -) 1 applic TP DAILY [facility]; Protocol Docusate Sodium (Colace Liquid -) 100 mg PO BID [facility] Last Admin: 08/17/18 21:45 Dose: Not Given Doxycycline Hyclate (Vibramycin -) 100 mg PO BID@1000,1800 [facility] Last Admin: 08/17/18 17:00 Dose: 100 mg Insulin Aspart (Novolog Vial Sliding Scale -) 1 vial SQ ACHS [facility]; Protocol Last Admin: 08/18/18 06:36 Dose: Not Given Levofloxacin (Levaquin -) 750 mg PO DAILY@0600 [facility] Last Admin: 08/18/18 06:26 Dose: 750 mg Metoprolol Succinate (Toprol Xl -) 12.5 mg PO DAILY [facility] Pantoprazole Sodium (Protonix -) 20 mg PO DAILY [facility] Senna (Senna -) 2 tab PO HS [facility] Last Admin: 08/17/18 21:44 Dose: Not Given Sucralfate (Carafate -) 1 gm PO BID [facility] Last Admin: 08/17/18 21:29 Dose: 1 gm PHYSICAL EXAMINATION Vital Signs Period Temp Pulse Resp BP Sys/Vasquez Pulse Ox Last 24 Hr 97.5 F-98.9 F 86-97 18-20 113-145/51-85 99 GENERAL: responds to name, moaning in bed, incomprehensible few words HEAD: Normal with no signs of trauma. EYES: left eyelid droop, moves eyes spontaneously EARS, NOSE, THROAT: Ears normal, nares patent, oropharynx clear without exudates. Moist mucous membranes. NECK: soft, supple, no JVD noted LUNGS: limited exam due to lack of co-operation, few rales HEART: S1S2 irregular, tachycardic ABDOMEN: Soft, nontender, not distended, normoactive bowel sounds, no guarding, no rebound, no masses. (initially patient noted with moaning on non specific palpation, when distracted, no suprapubic or CVA tenderness/voluntary or involuntary guarding or rigidity noted) MUSCULOSKELETAL: Right sided hemiparesis, limited exam. UPPER EXTREMITIES: no edema, positive pulses LOWER EXTREMITIES: RLE multiple decubitus ulcers on RLE lateral aspect, ulceration with mild foul smelling discharge in web space between 4th and 5th toe, multple ulcers with scant foul smelling discharge and minimal bleed, tender to touch, positive DP pulses bilaterally NEUROLOGICAL: Minimal verbalization, responds to name, Right sided hemiparesis , sensory intact on L, limited on R, gait deferred PSYCHIATRIC: not co-operative, does not follow commands SKIN: Warm, dry, normal turgor, no rashes or lesions noted, normal capillary refill. CBCD WBC 5.8 K/mm3 (4.0-10.0) 08/18/18 06:25 RBC 3.09 M/mm3 (3.60-5.2) L 08/18/18 06:25 Hgb 9.0 GM/dL (10.7-15.3) L 08/18/18 06:25 Hct 27.4 % (32.4-45.2) L 08/18/18 06:25 MCV 88.8 fl (80-96) 08/18/18 06:25 MCHC 32.8 g/dl (32.0-36.0) 08/18/18 06:25 RDW 16.7 % (11.6-15.6) H 08/18/18 06:25 Plt Count 295 K/MM3 (134-434) 08/18/18 06:25 MPV 10.6 fl (7.5-11.1) 08/18/18 06:25 CMP Sodium 138 mmol/L (136-145) 08/18/18 06:25 Potassium 4.0 mmol/L (3.5-5.1) 08/18/18 06:25 Chloride 106 mmol/L (98-107) 08/18/18 06:25 Carbon Dioxide 23 mmol/L (21-32) 08/18/18 06:25 Anion Gap 9 MMOL/L (8-16) 08/18/18 06:25 BUN 16 mg/dL (7-18) 08/18/18 06:25 Creatinine 0.6 mg/dL (0.55-1.3) 08/18/18 06:25 Creat Clearance w eGFR > 60 (>60) 08/18/18 06:25 Random Glucose 96 mg/dL (74-106) 08/18/18 06:25 Calcium 8.5 mg/dL (8.5-10.1) 08/18/18 06:25 Total Bilirubin 0.5 mg/dL (0.2-1) 08/18/18 06:25 AST 18 U/L (15-37) 02/21/19 06:25 ALT 10 U/L (13-61) L 08/18/18 06:25 Alkaline Phosphatase 86 U/L (45-117) 08/18/18 06:25 Total Protein 7.3 g/dl (6.4-8.2) 08/18/18 06:25 Albumin 2.1 g/dl (3.4-5.0) L 08/18/18 06:25 Diagnostics: Head CT - completed, results pending Brain MRI - completed ASSESSMENT/PLAN: 82 y/o F with PMH CVA (R hemiparesis; December 2017), DM, anemia, indwelling chu for urinary retention (April 2018), afib (on Eliquis), CHF, pulm HTN presented from [facility]. On day of admission, unresponsive for mental status changes and some left sided twiching. Patient intermittently moaning, responded to name but unable to provide further information. Patient had recent RLE angiogram with stent placement with Dr. Russo on 08/04/2018. CT of Brain completed , awaiting final report. Brain MRI completed, results indicated acute/subacute infarction, L thalamic. Patient in ER, awake and alert, conversive, does not appear to have focal deficits and sensory remains intact. Is confused but unsure if this is her baseline. Continue medical mgmt for AMS, toxic metabolic encephalopathy. Likely infection (UTI, decub ulcer)/hypovolumia). Left arm twitch not visualized. Will hold off on adding medication. Has h/o Afib and possible further emboli causing in infarcts. Already on AC as noted, would be hesitant to add further blood thinners for risk of bleed. Recent echo reviewed, tele monitoring, cardiology follow/eval recommended. Less confused now. Is getting ongoing treatment for UTI, ID notes reviewed. Remains in good spirits and denies new neurologic events. Is recognizing me this AM and is in good spirits. Remains on Levaquin, mental status seems to be improving. Encouragement provided. Monitor blood pressure, recommended < 14/90 for now, < 130/80 as outpatient. Continue statin, physical therapy as tolerated.
[2018-08-18] MEDS: APIXABAN 5 MG TABLET PO SCH (09:21)
[2018-08-18] MEDS: DOXYCYCLINE HYCLATE 100 MG CAPSULE PO SCH (09:21)
[2018-08-18] MEDS: DOCUSATE NA 100 MG/10 ML UNIT-DOSE CUPS PO SCH (09:21)
[2018-08-18] MEDS: SUCRALFATE 1 GM TABLET (FP) PO SCH (09:21)
[2018-08-18] MEDS ORDERED: PANTOPRAZOLE 20 MG TABLET (FP) PO SCH (10:00)
[2018-08-18] MEDS ORDERED: COLLAGENASE CLOSTRIDIUM HIST. 30 GRAMS TUBE TP SCH (10:00)
[2018-08-18] MEDS ORDERED: metoPROLOL SUCCINATE 25 MG TAB.SR.24H (FP) PO SCH (10:00)
--- NOTE | 2018-08-18 10:17 | PN ---
Progress Note, Physician - Current Medication List Current Medications: Active Medications Acetaminophen (Tylenol -) 650 mg PO Q4H PRN PRN Reason: PAIN LEVEL 6-10 Last Admin: 08/18/18 06:26 Dose: 650 mg Amino Acids (Prosource No Carb Liquid Pkt) 30 ml PO BID@0800,1730 [facility] Last Admin: 08/18/18 09:21 Dose: 30 ml Apixaban (Eliquis -) 5 mg PO BID [facility] Last Admin: 08/18/18 09:21 Dose: 5 mg Atorvastatin Calcium (Lipitor -) 40 mg PO HS [facility] Last Admin: 08/17/18 21:29 Dose: 40 mg Bisacodyl (Dulcolax Suppository -) 10 mg RC DAILY PRN PRN Reason: CONSTIPATION Collagenase (Santyl -) 1 applic TP DAILY [facility]; Protocol Docusate Sodium (Colace Liquid -) 100 mg PO BID [facility] Last Admin: 08/18/18 09:21 Dose: 100 mg Doxycycline Hyclate (Vibramycin -) 100 mg PO BID@1000,1800 [facility] Last Admin: 08/18/18 09:21 Dose: 100 mg Insulin Aspart (Novolog Vial Sliding Scale -) 1 vial SQ ACHS [facility]; Protocol Last Admin: 08/18/18 06:36 Dose: Not Given Levofloxacin (Levaquin -) 750 mg PO DAILY@0600 [facility] Last Admin: 08/18/18 06:26 Dose: 750 mg Metoprolol Succinate (Toprol Xl -) 12.5 mg PO DAILY [facility] Last Admin: 08/18/18 09:21 Dose: 12.5 mg Pantoprazole Sodium (Protonix -) 20 mg PO DAILY [facility] Last Admin: 08/18/18 09:21 Dose: 20 mg Senna (Senna -) 2 tab PO [facility] Last Admin: 08/17/18 21:44 Dose: Not Given Sucralfate (Carafate -) 1 gm PO BID [facility] Last Admin: 08/18/18 09:21 Dose: 1 gm - Objective Vital Signs: Vital Signs Temperature 97.5 F L 08/18/18 06:59 Pulse Rate 89 08/18/18 06:59 Respiratory Rate 20 08/18/18 06:59 Blood Pressure 144/69 08/18/18 06:59 O2 Sat by Pulse Oximetry (%) 99 02/20/19 21:00 Labs: CBC, BMP 02/21/19 06:25 08/18/18 06:25 INR, PTT INR 1.83 (0.83-1.09) H 08/14/18 10:05
--- NOTE | 2018-08-18 14:28 | DS ---
Physical Exam: SUBJECTIVE: Patient seen and examined no new events overnight. OBJECTIVE: Vital Signs Period Temp Pulse Resp BP Sys/Vasquez Pulse Ox Last 24 Hr 97.5 F-98.9 F 86-105 18-20 113-145/51-85 99 PHYSICAL EXAM GENERAL: The patient is awake, alert, and fully oriented, in no acute distress. ENT: moist mucous membranes LUNGS: Breath sounds equal, clear to auscultation bilaterally, no wheezes, no crackles, no accessory muscle use. HEART: Regular rate and rhythm, S1, S2 without murmur, rub or gallop. ABDOMEN: Soft, nontender, nondistended, normoactive bowel sounds, no guarding, no rebound, PSYCH: Normal mood, SKIN: Warm, dry, LABS Laboratory Results - last 24 hr 08/17/18 08/17/18 08/18/18 16:24 20:42 06:21 WBC RBC Hgb Hct MCV MCH MCHC RDW Plt Count MPV Absolute Neuts (auto) Neutrophils % Lymphocytes % Monocytes % Eosinophils % Basophils % Nucleated RBC % Sodium Potassium Chloride Carbon Dioxide Anion Gap BUN Creatinine Creat Clearance w eGFR POC Glucometer 74 78 77 Random Glucose Calcium Total Bilirubin AST ALT Alkaline Phosphatase Total Protein Albumin 08/18/18 08/18/18 06:25 06:25 WBC 5.8 RBC 3.09 L Hgb 9.0 L Hct 27.4 L MCV 88.8 MCH 29.1 MCHC 32.8 RDW 16.7 H Plt Count 295 MPV 10.6 Absolute Neuts (auto) 4.0 Neutrophils % 68.0 D Lymphocytes % 22.9 D Monocytes % 8.1 Eosinophils % 0.7 Basophils % 0.3 Nucleated RBC % 0 Sodium 138 Potassium 4.0 Chloride 106 Carbon Dioxide 23 Anion Gap 9 BUN 16 Creatinine 0.6 Creat Clearance w eGFR > 60 POC Glucometer Random Glucose 96 Calcium 8.5 Total Bilirubin 0.5 AST 18 ALT 10 L Alkaline Phosphatase 86 Total Protein 7.3 Albumin 2.1 L HOSPITAL COURSE: 82 yof with mulitiple comorbidities including CVA (R hemiparesis; December 2017), NIDDM, anemia, indwelling chu for urinary retention ( April), afib, CHF, pulm HTN,recently admitted to [facility] with failure to thrive , found with UTI/subacute/chronic PE, then sepsis suspected from RLE wound infection and ELENI, and intermittent refusal to take PO and medications sent today with AMS and ?left arm twitching. Patient intermittently moaning, responds to name but unable to provide further information. In hospital MRI was done which shows small acute/subacute thalmic stroke. For stroke Neurology was consulted no active intervention required as pt has multiple comorbities and she is already on elequis . Pt also found to have UTI and dehydration. Pt mental status improved with IV fluid and antibiotics( aztreonam). Now pt is Aox3 as per pt she is back to her base line. Patient is eating and drinking orally. Pt is dc to [facility] on po antibiotics. Consults: Dr blankenship, Dr lamar Antibiotic levofloxacin and doxycyclin Your lasix is decreased to 20 mg daily. Your valsartan has been decreased to 40 mg twice daily, titrate up as tolerated per your tank charger. Change your laxatives as needed. Your gabapentin and baclofen have been stopped Please resume gabapentin at a lower dose per your doctor if needed. Date of Admission:08/13/18 Date of Discharge: 08/18/18 Minutes to complete discharge: 45 Discharge Summary Reason For Visit: URINANRY TRACT INFECTION Current Active Problems UTI (urinary tract infection) due to urinary indwelling catheter (Acute) Condition: Stable - Instructions Diet, Activity, Other Instructions: MEDICATIONS; . Your lasix is decreased to 20 mg daily. Your valsartan has been decreased to 40 mg twice daily, titrate up as tolerated per your tank charger. Hold your amlodipine on discharge, if you BP stays higher, can be resumed by the [facility] doctor. Change your laxatives to as needed. Your gabapentin and baclofen have been stopped Please resume gabapentin at a lower dose per your doctor if needed. Take antibiotics as prescribed levofloxacin 750mg daily for 4 days and doxicyclin 100 mg bid for 4 days Continue other medications as before. DIET dyphagia puree diet with thin liquids, advance as tolerated ACTIVITY: Check weight daily, if you notice gain > 3lbs in 2 days,discuss with your doctor to increase lasix back to 40 mg daily. WOUND CARE: Santyl to ankle, xeroform to tendon wounds, change daily Follow up with Dr. Russo in wound care clinic in 1 week. FOLLOW UP: Primary care physician in [address] Pierre in 2-3 weeks Painting Department Supervisor Dr. Hough in 2-[address] Lamar in 1-[address] Russo in 1 week Change chu catheter every 2-3 weeks. If you notice any new fevers, change in mental status, foul smelling discharge from leg wound or new concerns, please call 911 or come to ED immediately. Referrals: Rosemary Lamar MD [Staff Physician] - 1 Week Rajesh Mas MD [Primary Care Provider] - Anirudh Hough MD [Staff Physician] - William Pierre MD [Staff Physician] - Bright Russo MD [Staff Physician] - Disposition: [facility] - Home Medications Comprehensive Discharge Medication List: Ambulatory Orders Docusate Sodium [Colace -] 100 mg PO HS 06/24/18 Mirtazepine Alejandra Tabs [Remeron Soltab -] 45 mg PO DAILY 06/24/18 PE/Shark Liver Oil/Glyc/Wh.pet [Hemorrhoidal Cream] 1 applic RC Q8H PRN Sennosides [Senokot] 2 tab PO HS 06/24/18 Spironolactone [Aldactone -] 25 mg PO DAILY 06/24/18 metFORMIN HCL [Glucophage -] 500 mg PO HS 06/24/18 Apixaban [Eliquis -] 5 mg PO BID tablet 06/29/18 Atorvastatin Ca [Lipitor] 40 mg PO HS tablet 06/29/18 Collagenase Clostridium Hist. [Santyl -] 1 applic TP DAILY tube 06/29/18 Sucralfate [Carafate -] 1 gm PO BIDAC tablet 06/29/18 Amino Acids/Protein Hydrolys [Prosource No Carb Liquid Pkt] 30 ml PO BID@0800, 1730 packet 07/05/18 Bisacodyl Suppository [Dulcolax Suppository -] 10 mg RC PRN PRN supp.rect 07/05 Pantoprazole Sodium [Protonix -] 20 mg PO DAILY tablet.ec 07/05/18 Oseltamivir Phosphate [Tamiflu -] 75 mg PO DAILY 08/01/18 Metoprolol Succinate [Toprol Xl] 0.5 tablet PO DAILY 08/13/18 Polyethylene Glycol 3350 [Miralax (For Daily Use) -] 17 gm PO BID 08/13/18 Acetaminophen [Tylenol .Regular Strength -] 650 mg PO Q4H PRN #15 tablet Furosemide [Lasix] 20 mg PO DAILY #30 tablet 08/16/18 Insulin Sliding Scale [Novolog Vial Sliding Scale -] 1 vial SQ ACHS units 08/16 Valsartan 40 mg PO BID #60 tablet 08/16/18 Doxycycline Hyclate 100 mg PO BID #8 tablet 08/18/18 levoFLOXacin [Levaquin] 750 mg PO DAILY #4 tab 08/18/18 This patient is new to me today: Yes Date on this admission: 08/18/18 Emergency Visit: Yes ED Registration Date: 08/13/18 Care time: The patient presented to the Emergency Department on the above date and was hospitalized for further evaluation of their emergent condition. Critical Care patient: No - Discharge Referral Referred to [facility] Med [facility] No
[2018-08-18 14:37] VITALS: BP 143/80; PULSE 78; TEMP 98.2
[2018-08-18] MEDS ORDERED: PT OWN MED DRAWER 7, Y5N ONE (14:43)
--- NOTE | 2018-08-18 15:07 | PN ---
Teaching Attending Note Name of Resident: Dewayne Campos ATTENDING PHYSICIAN STATEMENT I saw and evaluated the patient. I reviewed the resident's note and discussed the case with the resident. I agree with the resident's findings and plan as documented. SUBJECTIVE: Ms Cooper says she is feeling well today. No cp, sob, n/v. Patient said she cannot go home secondary to someone needing to clean her house. Reminded patient that she was informed of discharge today and she is going to SNF. OBJECTIVE: Last Vital Signs Temp Pulse Resp BP Pulse Ox 36.8 C 78 18 143/80 99 08/18/18 14:35 08/18/18 14:35 08/18/18 14:35 08/18/18 14:35 08/17/18 21:00 Gen: nad Pulm: ctab w/o w/r/r CV: rrr w/o m/r/g Abd: +bs, s/nt/nd Ext: no c/c/e CBC, BMP 08/18/18 06:25 08/18/18 06:25 ASSESSMENT AND PLAN: -case d/w Dr Lamar -changed to levaquin and doxycycline -repeat urine culture negative for salmonella -no fistula noted on CT scan -safe for discharge back to SNF on oral antibiotics Problem List - Problems (1) UTI (urinary tract infection) due to urinary indwelling catheter Code(s): T83.511A - I/I REACT D/T INDWELLING URETHRAL CATHETER, INIT; N39.0 - URINARY TRACT INFECTION, SITE NOT SPECIFIED (2) ELENI (acute kidney injury) Code(s): N17.9 - ACUTE KIDNEY FAILURE, UNSPECIFIED (3) Anemia Code(s): D64.9 - ANEMIA, UNSPECIFIED (4) Atrial fibrillation and flutter Code(s): I48.91 - UNSPECIFIED ATRIAL FIBRILLATION; I48.92 - UNSPECIFIED ATRIAL FLUTTER (5) CHF (congestive heart failure) Code(s): I50.9 - HEART FAILURE, UNSPECIFIED Qualifiers: Heart failure type: diastolic Heart failure chronicity: chronic Qualified Code(s): I50.32 - Chronic diastolic (congestive) heart failure (6) Diabetes Code(s): E11.9 - TYPE 2 DIABETES MELLITUS WITHOUT COMPLICATIONS (7) HLD (hyperlipidemia) Code(s): E78.5 - HYPERLIPIDEMIA, UNSPECIFIED (8) HTN (hypertension) Code(s): I10 - ESSENTIAL (PRIMARY) HYPERTENSION Qualifiers: Qualified Code(s): I10 - Essential (primary) hypertension (9) History of stroke Code(s): Z86.73 - PRSNL HX OF TIA (TIA), AND CEREB INFRC W/O RESID DEFICITS (10) Pulmonary embolism Code(s): I26.99 - OTHER PULMONARY EMBOLISM WITHOUT ACUTE COR PULMONALE Qualifiers: Pulmonary embolism type: unspecified Chronicity: chronic Acute cor pulmonale presence: without acute cor pulmonale Qualified Code(s): I27.82 - Chronic pulmonary embolism
== END 2018-08-18 15:51 | DRG 64 ==
LOC: JER 13:20 → JERBED 19:09 → J7W 08-15 23:35 → J8W 08-17 15:05
PROVIDERS: ADMIT Hospitalist; ATTEND Internal Medicine
DX: I63.9 Cerebral infarction, unspecified (principal); G92 Toxic encephalopathy; N17.9 Acute kidney failure, unspecified; T83.511A Infection and inflammatory reaction due to indwelling urethral catheter, initial encounter; I69.351 Hemiplegia and hemiparesis following cerebral infarction affecting right dominant side; I27.82 Chronic pulmonary embolism; N39.0 Urinary tract infection, site not specified; I50.22 Chronic systolic (congestive) heart failure; I11.0 Hypertensive heart disease with heart failure; E11.9 Type 2 diabetes mellitus without complications; I48.91 Unspecified atrial fibrillation; Z79.01 Long term (current) use of anticoagulants; I27.20 Pulmonary hypertension, unspecified; I50.9 Heart failure, unspecified; D50.9 Iron deficiency anemia, unspecified; F32.9 Major depressive disorder, single episode, unspecified; Z74.01 Bed confinement status; R62.7 Adult failure to thrive; Z68.26 Body mass index [BMI] 26.0-26.9, adult; Z87.891 Personal history of nicotine dependence; Z66 Do not resuscitate; Z79.84 Long term (current) use of oral hypoglycemic drugs; E86.0 Dehydration; E66.9 Obesity, unspecified; B96.29 Other Escherichia coli [E. coli] as the cause of diseases classified elsewhere; Z88.0 Allergy status to penicillin; I73.9 Peripheral vascular disease, unspecified; Y84.6 Urinary catheterization as the cause of abnormal reaction of the patient, or of later complication, without mention of misadventure at the time of the procedure; Y92.122 Bedroom in nursing home as the place of occurrence of the external cause; L89.899 Pressure ulcer of other site, unspecified stage
CPT/HCPCS: 36415; 70450-TC; 70551-TC; 71045-TC-FY; 74176-TC; 80048; 80053; 81003; 81015; 82962; 83735; 84100; 85025; 85027; 85610; 87040; 87070; 87077; 87086; 87186; 87205; 93005; 93010; 93880-TC; 97161-GP; 99285-25; J7030; Q9967

== ENCOUNTER 2019-01-08 05:20 | Inpatient (IN) | payer OTHER ==
[2019-01-08 05:43] VITALS: BMI 23.8
--- NOTE | 2019-01-08 08:10 | PDOC ---
History of Present Illness - General Chief Complaint: Altered Mental Status Stated Complaint: SLURRED SPEECH,ALTERED MENTAL STATUS Time Seen by Provider: 01/08/19 07:09 History Source: Patient, Skilled Nursing Records Exam Limitations: Clinical Condition (poor historian, uncooperative) - History of Present Illness Initial Comments: Pt is an 83 yo F, with PMH of CVA (deficits R hemiparesis), PAD (R-sided) with R foot osteomyelitis (PICC line, getting vanco and ertapenem), DM, anemia, AFib (on Eliquis), CHF, and pulmonary HTN, who is presenting via EMS from [facility] for "slurred speech and disorientation" when she was woken this AM around 6:45-7:00. Last well known was yesterday evening (pt was checked at 11pm and 330am, but the pt was asleep). Pt states she has pain in her R arm and R leg , which is at her baseline, and otherwise does not know why she is here. Pts weakness in her R arm and leg have been present since her last CVA. Pt denies any confusion this morning and says "[facility] sent me here". Pts ROS is limited due to her cooperation, but she denies any fevers/chills, headache, vision changes, syncope, chest pain, SOB, vomiting, abdominal pain, urinary symptoms, or diarrhea. *PT IS DNR/DNI* Daughter is POA: Ms. Dulce Cooper [phone] PCP: Dr. Mas Cards: [place] Renal: Master Neuro: Malkani Social: Pt denies any cigarette, alcohol, or drug use. Pt denies any recent travel or sick contacts. Surgical: no relevant history. Family: no relevant history. 01/08/19 11:05 01/08/19 15:39 Past History - Travel Traveled outside of the country in the last 30 days: No Close contact w/someone who was outside of country & ill: No - Past Medical History Allergies/Adverse Reactions: Allergies Allergy/AdvReac Type Severity Reaction Status Date / Time pregabalin [From Lyrica] Allergy Severe Hives Verified 08/13/18 13:58 ceftriaxone sodium Allergy Intermediate Hives Verified 08/13/18 13:58 [From Rocephin] Penicillins Allergy Intermediate Hives Verified 08/13/18 13:58 chicken derived Allergy Mild Hives Verified 08/13/18 13:58 oats AdvReac Mild DIARRHEA Verified 08/13/18 13:58 turkey AdvReac Unknown Verified 01/08/19 05:50 meat AdvReac Unknown Uncoded 01/08/19 05:50 Home Medications: Ambulatory Orders Docusate Sodium [Colace -] 100 mg PO HS 06/24/18 Mirtazepine Alejandra Tabs [Remeron Soltab -] 45 mg PO DAILY 06/24/18 PE/Shark Liver Oil/Glyc/Wh.pet [Hemorrhoidal Cream] 1 applic RC Q8H PRN Sennosides [Senokot] 2 tab PO HS 06/24/18 Spironolactone [Aldactone -] 25 mg PO DAILY 06/24/18 metFORMIN HCL [Glucophage -] 500 mg PO HS 06/24/18 Apixaban [Eliquis -] 5 mg PO BID tablet 06/29/18 Atorvastatin Ca [Lipitor] 40 mg PO HS tablet 06/29/18 Sucralfate [Carafate -] 1 gm PO BIDAC tablet 06/29/18 Amino Acids/Protein Hydrolys [Prosource No Carb Liquid Pkt] 30 ml PO BID@0800, 1730 packet 07/05/18 Bisacodyl Suppository [Dulcolax Suppository -] 10 mg RC PRN PRN supp.rect 07/05 Pantoprazole Sodium [Protonix -] 20 mg PO DAILY tablet.ec 07/05/18 Metoprolol Succinate [Toprol Xl] 0.5 tablet PO DAILY 08/13/18 Polyethylene Glycol 3350 [Miralax (For Daily Use) -] 17 gm PO BID 08/13/18 Acetaminophen [Tylenol .Regular Strength -] 650 mg PO Q4H PRN #15 tablet Insulin Sliding Scale [Novolog Vial Sliding Scale -] 1 vial SQ ACHS units 08/16 Glucophage Xr - 500 mg PO DAILY 12/16/18 Lasix 20 mg PO DAILY 12/16/18 Valsartan 80 mg PO BID 12/16/18 Vitamin C 500 mg PO BID 12/16/18 Acetaminophen W/ Codeine #3 [Tylenol # 3 -] 1 tab PO TID 01/08/19 Ertapenem Sodium - 1 Gram [Invanz (Pre-Docked)] 1 gm IVPB DAILY 01/08/19 Ferrous Sulfate 325 mg PO BID 01/08/19 Multivitamin [Multiple Vitamins] 1 each PO DAILY 01/08/19 Tobramycin Sulf/Dexamethasone [Tobradex *Eye Ointment*] 1 applic TID 01/08/19 Vancomycin 1 Gram (Pre-Docked) [Vancomycin (Pre-Docked)] 1,000 mg IVPB ONCE Anemia: Yes (iron deficiency, ascorbic acid) Asthma: No Cancer: No Cardiac Disorders: Yes (A FIB) CVA: Yes (right sided/pressure ulcers.) COPD: No CHF: No Dementia: No Diabetes: Yes GI Disorders: Yes (COLONIC POLYPS) Disorders: No HTN: Yes Hypercholesterolemia: Yes Kidney Stones: Yes Liver Disease: No Psychiatric Problems: Yes (depression) Seizures: No Thyroid Disease: No Other medical history: R foot osteomyelitis, failure to thrive, - Surgical History Abdominal Surgery: No Appendectomy: No Cardiac Surgery: Yes (CARDIOVERSION (12/10)) Cholecystectomy: No Lung Surgery: No Neurologic Surgery: No Orthopedic Surgery: No - Immunization History Immunization Up to Date: Yes - Suicide/Smoking/Psychosocial Hx Smoking History: Unknown if ever smoked Have you smoked in the past 12 months: No Number of Cigarettes Smoked Daily: 0 If you are a former smoker, when did you quit?: Never smoker Hx Alcohol Use: No Drug/Substance Use Hx: No Substance Use Type: None Hx Substance Use Treatment: No Review of Systems - Review of Systems Able to Perform ROS?: Yes (limited per cooperation) Is the patient limited Irish proficient: No Constitutional: No: Fever, Loss of Appetite HEENTM: No: Recent change in vision, Throat Pain, Difficulty Swallowing Respiratory: No: Cough, Shortness of Breath Cardiac (ROS): No: Chest Pain, Syncope ABD/GI: No: Diarrhea, Vomiting : No: Burning, Pain Musculoskeletal: Yes: Joint Pain (R arm and R leg pain at baseline, per pt) Integumentary: Yes: Other (sacral pressure ulcers, osteo to R foot/5th digit) Neurological: Yes: Other (per [facility] "slurred speech, disorientation" this AM). No: Headache, Unsteady Gait (pt bed-bound) Psychiatric: No: Sleep Pattern Change, Change in Appetite Hematologic/Lymphatic: Yes: Anemia (per records), Blood Clots (PAD, CVA) *Physical Exam - Vital Signs Last Vital Signs Temp Pulse Resp BP Pulse Ox 98.7 F 112 H 20 158/106 H 100 01/08/19 05:25 01/08/19 05:25 01/08/19 05:25 01/08/19 05:25 01/08/19 05:25 - Physical Exam Comments: Vitals stable on exam (Afib at 90s, BP 132/65), pt afebrile (98.5 rectal). Pt in NAD, but is uncooperative with exam. Normal body habitus. Pt alert and oriented to person and place. 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 No facial droop noted. No midline spinal tenderness, step-offs, or crepitus. Head normocephalic, atraumatic. Eyes PERRLA, EOMI. Oropharynx without erythema or exudates, no LAD b/l. Dry oral mucosa. No nasal congestion, hearing intact. Clear heart sounds, S1/S2, no JVD, b/l pedal edema, or heart murmur. Clear lung sounds, no respiratory distress, wheezes, crackles, or accessory muscle use. No abdominal or CVA tenderness to palpation, no rebound, no guarding. Abdomen soft, non-distended, and with normoactive bowel sounds. Ulcers to sacrum (stage 2) and R heel/5th digit (covered with clean bandages changed 01/07). Skin otherwise without jaundice or rash. 01/08/19 08:10 01/08/19 08:58 Vital Signs - Vital Signs #1 Blood Pressure: 132/65 MAP: 87 BP Location: Left Arm Blood Pressure Position: Sitting Pulse Rate: 90 Respiratory Rate: 14 Temperature: 98.5 F Temperature Source: Rectal O2 Sat by Pulse Oximetry (%): 97 Oxygen Delivery Method: Room Air ED Treatment Course - LABORATORY CBC & Chemistry Diagram: 01/08/19 07:39 01/08/19 07:39 - RADIOLOGY Radiology Studies Ordered: Category Date Time Status HEAD CT WITHOUT CONTRAST [CT] Stat CT Scan 01/08/19 07:41 Ordered CHEST X-RAY PORTABLE* [RAD] Stat Radiology 01/08/19 07:11 Ordered Medical Decision Making - Medical Decision Making Pt was seen at bedside, also will be seen by attending Dr. Montiel. Pt presenting via EMS from [facility] for "slurred speech and disorientation" when she was woken this AM around 6:45-7:00. Last well known was yesterday evening ( pt was checked at 11pm and 330am, but the pt was asleep). Pt states she has pain in her R arm and R leg, which is at her baseline, and otherwise does not know why she is here. Pts weakness in her R arm and leg have been present since her last CVA. Pt denies any confusion this morning and says "[facility] sent me here ". Pts ROS is limited due to her cooperation, but she denies any fevers/chills, headache, vision changes, syncope, chest pain, SOB, vomiting, abdominal pain, urinary symptoms, or diarrhea. Considering CVA/TIA (will obtain head CT) vs infectious (septic work-up ordered ) vs ACS (ECG, cardiac profile) vs electrolyte abnormalities vs hypoglycemia ( BGM 130s). Provided 500 mL IVF for improvement of dehydration. Will continue to reassess pt and monitor for symptomatic improvement. ECG: A flutter with AV block/PVCs (HR 95, QRS 130, QTc 485). No TWIs or significant ST segment changes. No significant changes from prior ECG (08/15/2018 ). 01/08/19 09:19 CBC and CMP WNL for pt BNP 10,567, trop 0.76 lactic 1.7 [address]A negative for infection CT head showed no evidence of acute infarction or bleed. Pt admitted to hospitalist team (Dr. Mills for Dr. Mas). Providing AM dose of eliquis. Paging Dr. Pierre (Neuro) to discuss further CVA vs TIA work-up. Pt was discussed with Dr. Torres (covering for Dr. Pierre) who agreed with plan for inpatient stay, Eliquis dose, and brain MRI. Pt vitals stable, receiving 500 mL IVF, pt endorses no pain at this time. No active facial droop or muscular deficits compared to pt baseline. 01/08/19 09:52 01/08/19 13:28 01/08/19 15:38 *DC/Admit/Observation/Transfer Diagnosis at time of Disposition: History of CVA (cerebrovascular accident) Altered mental state Qualifiers: Altered mental status type: unspecified Qualified Code(s): R41.82 - Altered mental status, unspecified Osteomyelitis Qualifiers: Osteomyelitis type: other chronic Osteomyelitis location: foot Laterality: right Qualified Code(s): M86.671 - Other chronic osteomyelitis, right ankle and foot - Discharge Dispostion Condition at time of disposition: Stable Decision to Admit order: Yes - Referrals - Patient Instructions - Post Discharge Activity
[2019-01-08 08:21] LABS: URINE APPEARANCE CLOUDY; URINE BILIRUBIN NEGATIVE (NEGATIVE); URINE COLOR YELLOW; URINE GLUCOSE (UA) NEGATIVE (NEGATIVE); URINE KETONE NEGATIVE (NEGATIVE); URINE LEUK ESTERASE NEGATIVE (NEGATIVE); URINE NITRITE NEGATIVE (NEGATIVE); URINE PROTEIN TRACE (NEGATIVE); URINE UROBILINOGEN 0.2 mg/dL (0.2-1.0)
[2019-01-08 08:27] LABS: BASO % 0.5 % (0-2.0); EOS % 3.7 % (0-4.5); HEMATOCRIT 31.2 % (32.4-45.2); HEMOGLOBIN 10.3 GM/dL (10.7-15.3); LYMPH % 23.2 % (8-40); MCH 27.5 pg (25.7-33.7); MCHC 33.1 g/dl (32.0-36.0); MEAN CELL VOLUME 83.1 fl (80-96); MEAN PLT VOLUME 10.9 fl (7.5-11.1); MONO % 5.4 % (3.8-10.2); NEUT % 67.2 % (42.8-82.8); RBC 3.75 M/mm3 (3.60-5.2); RDW 16.6 % (11.6-15.6); WHITE BLOOD COUNT 4.2 K/mm3 (4.0-10.0)
--- NOTE | 2019-01-08 08:31 | PDOC ---
Attending Attestation - Resident Resident Name: Malgorzata Abdullahi - ED Attending Attestation I have performed the following: I have examined & evaluated the patient, The case was reviewed & discussed with the resident, I agree w/resident's findings & plan, Exceptions are as noted - HPI HPI: 01/08/19 08:18 83y F hx of cva (r hemiparesis), PAD, osteo w picc line on vancomycin and ertapenem, DM, anemia, afib on eliquis, chf, pulm htn presenst with complaint fomr adira for aMS. Was found to have slurred speech and disorientation this morning when she woke around 7am. Last known well was yesterday afternoon/ evening. Pt notes her speech is normal for her. Denies any complaints, denies any cp, sob, fever/chills, n/v, headache, dysuria, diarrhea, bpr. GENERAL: The patient is awake, alert, and fully oriented, Nontoxic - in no acute distress. HEAD: Normocephalic, atraumatic. EYES: extraocular movements intact, sclera anicteric, conjunctiva clear. ENT: Normal voice, dry mucous membranes. NECK: Normal range of motion, supple LUNGS: Breath sounds equal, clear to auscultation bilaterally. No wheezes, no rhonchi, no rales. HEART: slightly tachycardic ABDOMEN: Soft, nontender, No guarding, no rebound. No CVA tenderness EXTREMITIES: Normal range of motion, RUE edema NEUROLOGICAL: speech slightly slurred, RUE minimal movement (thumb flexion), No movement of RLE, normal movement of LUE, LLE, sensation intact throughout. no facial assymetry PSYCH: Normal mood, normal affect. SKIN: Warm, Dry, normal turgor, ddx - occult infection, possible tia will obtain ct head to r/o cva will dw neuo - Physicial Exam PE: 01/09/19 08:10 see above - Medical Decision Making 01/08/19 09:55 pts labs erviewed trop at .7 - pt denies any cp nonischemic ekg pt on eliquis for afib so is anticoagulated already will admit for further management
[2019-01-08 08:39] LABS: INR 1.66 (0.83-1.09); PROTHROMBIN TIME (PATIENT) 19.7 SEC (9.7-13.0)
[2019-01-08 08:45] LABS: PLATELET COUNT 235 K/MM3 (134-434)
[2019-01-08] MEDS ORDERED: SODIUM CHLORIDE 500 ML IV SCH (09:00)
[2019-01-08 09:09] LABS: ALBUMIN 2.8 g/dl (3.4-5.0); BILIRUBIN,TOTAL 0.5 mg/dL (0.2-1); BLOOD UREA NITROGEN 13.2 mg/dL (7-18); CALCIUM 8.7 mg/dL (8.5-10.1); CREATININE 0.7 mg/dL (0.55-1.3); MAGNESIUM 1.6 mg/dL (1.8-2.4); N-TERMINAL BNP 10567.2 pg/ml (5-450); POTASSIUM 3.6 mmol/L (3.5-5.1); TOT PROT 7.2 g/dl (6.4-8.2)
[2019-01-08] MEDS ORDERED: APIXABAN 5 MG TABLET PO STA (10:04)
[2019-01-08] MEDS ORDERED: APIXABAN 5 MG TABLET PO SCH (10:15)
[2019-01-08] MEDS ORDERED: APIXABAN 5 MG TABLET PO ONE (11:00)
[2019-01-08] MEDS ORDERED: ERTAPENEM SODIUM 1 GM VIAL IVPB SCH (11:15)
[2019-01-08] MEDS ORDERED: ACETAMINOPHEN 325 MG TABLET (FP) PO PRN (11:34)
--- NOTE | 2019-01-08 11:38 | HP ---
Admitting History and Physical - Primary Care Physician PCP: Rajesh Mas - Admission Chief Complaint: I am tired History of Present Illness: Ms Cooper is a pleasant 83 year old female who was sent in from [facility]. Per ER resident patient was sent in for slurred speech and disorientation from [facility]. Upon seeing patient she was more lethargic than normal but states she has not been sleeping well the past 2 nights secondary to pain in her back and buttocks. She says otherwise that she is fine and her speech was not slurred this morning. She denies fevers, chills, lightheadedness, dizziness, passing out , chest pain, shortness of breath, nausea, vomiting, diarrhea, constipation, difficulty or pain on urination, increased swelling, or any other concerns. 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 Cardiovascular: Yes: AFIB, Pulmonary Hypertension, CHF, HTN, Hyperlipdemia, Other Renal/: Yes: Other Heme/Onc: Yes: Anemia Musculoskeletal: Yes: Hemiparesis Endocrine: Yes: Diabetes Mellitus Dermatology: Yes: Cellulitis - Past Surgical History Past Surgical History: Yes: Tonsillectomy, Colonoscopy - Smoking History Smoking history: Unknown if ever smoked Have you smoked in the past 12 months: No Aproximately how many cigarettes per day: 0 If you are a former smoker, when did you quit?: Never smoker - Alcohol/Substance Use Hx Alcohol Use: No History of Substance Use: reports: None - Social History Usual Living Arrangement: Yes: [facility] ADL: Support Services 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 History of Recent Travel: No Home Medications - Allergies Allergies/Adverse Reactions: Allergies Allergy/AdvReac Type Severity Reaction Status Date / Time pregabalin [From Lyrica] Allergy Severe Hives Verified 08/13/18 13:58 ceftriaxone sodium Allergy Intermediate Hives Verified 08/13/18 13:58 [From Rocephin] Penicillins Allergy Intermediate Hives Verified 08/13/18 13:58 chicken derived Allergy Mild Hives Verified 08/13/18 13:58 oats AdvReac Mild DIARRHEA Verified 08/13/18 13:58 turkey AdvReac Unknown Verified 01/08/19 05:50 meat AdvReac Unknown Uncoded 01/08/19 05:50 - Home Medications Home Medications: Ambulatory Orders Docusate Sodium [Colace -] 100 mg PO HS 06/24/18 Mirtazepine Alejandra Tabs [Remeron Soltab -] 45 mg PO DAILY 06/24/18 PE/Shark Liver Oil/Glyc/Wh.pet [Hemorrhoidal Cream] 1 applic RC Q8H PRN Sennosides [Senokot] 2 tab PO HS 06/24/18 Spironolactone [Aldactone -] 25 mg PO DAILY 06/24/18 metFORMIN HCL [Glucophage -] 500 mg PO HS 06/24/18 Apixaban [Eliquis -] 5 mg PO BID tablet 06/29/18 Atorvastatin Ca [Lipitor] 40 mg PO HS tablet 06/29/18 Sucralfate [Carafate -] 1 gm PO BIDAC tablet 06/29/18 Amino Acids/Protein Hydrolys [Prosource No Carb Liquid Pkt] 30 ml PO BID@0800, 1730 packet 07/05/18 Bisacodyl Suppository [Dulcolax Suppository -] 10 mg RC PRN PRN supp.rect 07/05 Pantoprazole Sodium [Protonix -] 20 mg PO DAILY tablet.ec 07/05/18 Metoprolol Succinate [Toprol Xl] 0.5 tablet PO DAILY 08/13/18 Polyethylene Glycol 3350 [Miralax (For Daily Use) -] 17 gm PO BID 08/13/18 Acetaminophen [Tylenol .Regular Strength -] 650 mg PO Q4H PRN #15 tablet Insulin Sliding Scale [Novolog Vial Sliding Scale -] 1 vial SQ ACHS units 08/16 Glucophage Xr - 500 mg PO DAILY 12/16/18 Lasix 20 mg PO DAILY 12/16/18 Valsartan 80 mg PO BID 12/16/18 Vitamin C 500 mg PO BID 12/16/18 Acetaminophen W/ Codeine #3 [Tylenol # 3 -] 1 tab PO TID 01/08/19 Ertapenem Sodium - 1 Gram [Invanz (Pre-Docked)] 1 gm IVPB DAILY 01/08/19 Ferrous Sulfate 325 mg PO BID 01/08/19 Multivitamin [Multiple Vitamins] 1 each PO DAILY 01/08/19 Tobramycin Sulf/Dexamethasone [Tobradex *Eye Ointment*] 1 applic TID 01/08/19 Vancomycin 1 Gram (Pre-Docked) [Vancomycin (Pre-Docked)] 1,000 mg IVPB ONCE Family Disease History - Family Disease History Family Disease History: Other: Father (, hip fracture), Mother ( , unknown) Review of Systems Findings/Remarks: full review of systems obtained, as per HPI and otherwise negative Physical Examination Vital Signs: Vital Signs Temperature 36.9 C 01/08/19 11:07 Pulse Rate 90 01/08/19 11:07 Respiratory Rate 14 01/08/19 11:07 Blood Pressure 132/65 01/08/19 11:07 O2 Sat by Pulse Oximetry (%) 97 01/08/19 11:07 Constitutional: Yes: Well Nourished, No Distress, Other (lethargic but easily arousable) Eyes: Yes: WNL, Conjunctiva Clear, EOM Intact, PERRL HENT: Yes: Atraumatic, Normocephalic Cardiovascular: Yes: Regular Rate and Rhythm. No: Gallop, Murmur, Rub Respiratory: Yes: Regular, CTA Bilaterally. No: Rales, Rhonchi, Wheezes Gastrointestinal: Yes: Normal Bowel Sounds, Soft. No: Distention, Tenderness Extremities: Yes: WNL Edema: Yes Edema: RUE: 2+ Labs: CBC, BMP 01/08/19 07:39 01/08/19 07:39 Imaging - Results Chest X-ray: Report Reviewed, Image Reviewed Cat Scan: Report Reviewed MRI: Report Reviewed Problem List - Problems (1) Lethargy Assessment/Plan: -unclear cause -may be secondary to medications, patient is on remeron -concern for CVA but MRI negative -neurology note reviewed -monitor on telemetry -hold remeron currently Code(s): R53.83 - OTHER FATIGUE (2) Osteomyelitis Assessment/Plan: -continue vancomycin and ertapenem -ID consulted -no signs of active infection -follow up cultures Code(s): M86.9 - OSTEOMYELITIS, UNSPECIFIED Qualifiers: Osteomyelitis type: other chronic Osteomyelitis location: foot Laterality : right Qualified Code(s): M86.671 - Other chronic osteomyelitis, right ankle and foot (3) 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 Assessment/Plan: -chronic and unchanged Code(s): I69.351 - HEMIPLGA FOLLOWING CEREBRAL INFRC AFF RIGHT DOMINANT SIDE (4) Atrial fibrillation and flutter Assessment/Plan: -continue toprol xl and eliquis -appreciate cardiology assistance Code(s): I48.91 - UNSPECIFIED ATRIAL FIBRILLATION; I48.92 - UNSPECIFIED ATRIAL FLUTTER (5) CHF (congestive heart failure) Assessment/Plan: -not in exacerbation -patient not septic so will stop IVF to prevent fluid overload Code(s): I50.9 - HEART FAILURE, UNSPECIFIED Qualifiers: Heart failure type: diastolic Heart failure chronicity: chronic Qualified Code(s): I50.32 - Chronic diastolic (congestive) heart failure (6) Decubitus skin ulcer Assessment/Plan: -present on admission -wound care consult Code(s): L89.90 - PRESSURE ULCER OF UNSPECIFIED SITE, UNSPECIFIED STAGE Qualifiers: Pressure injury location: calf Pressure injury stage: stage 3 Laterality : right Qualified Code(s): L89.893 - Pressure ulcer of other site, stage 3 (7) Diabetes Assessment/Plan: -diabetic diet -FSBS and SSI Code(s): E11.9 - TYPE 2 DIABETES MELLITUS WITHOUT COMPLICATIONS (8) Elevated troponin Assessment/Plan: -chronic -will trend Code(s): R74.8 - ABNORMAL LEVELS OF OTHER SERUM ENZYMES (9) HLD (hyperlipidemia) Assessment/Plan: -continue lipitor Code(s): E78.5 - HYPERLIPIDEMIA, UNSPECIFIED (10) HTN (hypertension) Assessment/Plan: -continue home regimen Code(s): I10 - ESSENTIAL (PRIMARY) HYPERTENSION Qualifiers: Qualified Code(s): I10 - Essential (primary) hypertension
--- NOTE | 2019-01-08 11:54 | EKG ---
Test Reason : Blood Pressure : / mmHG Vent. Rate : 095 BPM Atrial Rate : 271 BPM P-R Int : 000 ms QRS Dur : 130 ms QT Int : 386 ms P-R-T Axes : 000 -16 087 degrees QTc Int : 485 ms ATRIAL FLUTTER WITH VARIABLE A-V BLOCK WITH PREMATURE VENTRICULAR OR ABERRANTLY CONDUCTED COMPLEXES NON-SPECIFIC INTRA-VENTRICULAR CONDUCTION BLOCK CANNOT RULE OUT ANTERIOR INFARCT (CITED ON OR BEFORE 19-JAN-2018) ABNORMAL ECG WHEN COMPARED WITH ECG OF 15-AUG-2018 11:24, NO SIGNIFICANT CHANGE WAS FOUND Confirmed by CLIFF SCHERER, YUMI ([id number]) on 01/08/2019 11:53:57 AM Referred By: Confirmed By:YUMI CORONADO MD
--- NOTE | 2019-01-08 12:13 | CON.NEURO ---
Consult - History of Present Illness History of Present Illness: NEUROLOGY COVERING FOR DR HAMPTON 83y F hx of cva (r hemiparesis), PAD, osteo w picc line on vancomycin and ertapenem, DM, anemia, afib on eliquis, chf, pulm htn presenst with complaint fomr adira for aMS. Was found to have slurred speech and disorientation this morning when she woke around 7am. Last known well was yesterday afternoon/ evening. Pt notes her speech is normal for her. Denies any complaints, denies any cp, sob, fever/chills, n/v, headache, dysuria, diarrhea, bpr. feels she is close to baseline, limited HX. CT HD There is no evidence of acute intracranial hemorrhage, mass lesions or infarctions. There is a mild degree of diffuse cerebral atrophy with sulcal widening and ventricular dilatation. There is an old infarct in the left basal ganglia and thalamic region. There are hypodense changes within the periventricular white matter consistent with chronic, small vessel ischemia. Since prior study of 08/13/2018, there has been no significant change. IMPRESSION : No evidence of acute intracranial pathology. 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 Cardio/Vascular: Yes: AFIB, Pulmonary Hypertension, CHF, HTN, Hyperlipdemia, Other Renal/: Yes: Other Musculoskeletal: Yes: Hemiparesis Endocrine: Yes: Diabetes Mellitus Dermatology: Yes: Cellulitis - Past Surgical History Past Surgical History: Yes: Tonsillectomy, Colonoscopy - Alcohol/Substance Use Hx Alcohol Use: No History of Substance Use: reports: None - Smoking History Smoking history: Unknown if ever smoked Have you smoked in the past 12 months: No Aproximately how many cigarettes per day: 0 If you are a former smoker, when did you quit?: Never smoker - Social History ADL: Independent 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 History of Recent Travel: No Home Medications - Allergies Allergies/Adverse Reactions: Allergies Allergy/AdvReac Type Severity Reaction Status Date / Time pregabalin [From Lyrica] Allergy Severe Hives Verified 08/13/18 13:58 ceftriaxone sodium Allergy Intermediate Hives Verified 08/13/18 13:58 [From Rocephin] Penicillins Allergy Intermediate Hives Verified 08/13/18 13:58 chicken derived Allergy Mild Hives Verified 08/13/18 13:58 oats AdvReac Mild DIARRHEA Verified 08/13/18 13:58 turkey AdvReac Unknown Verified 01/08/19 05:50 meat AdvReac Unknown Uncoded 01/08/19 05:50 - Home Medications Home Medications: Ambulatory Orders Docusate Sodium [Colace -] 100 mg PO HS 06/24/18 Mirtazepine Alejnadra Tabs [Remeron Soltab -] 45 mg PO DAILY 06/24/18 PE/Shark Liver Oil/Glyc/Wh.pet [Hemorrhoidal Cream] 1 applic RC Q8H PRN Sennosides [Senokot] 2 tab PO HS 06/24/18 Spironolactone [Aldactone -] 25 mg PO DAILY 06/24/18 metFORMIN HCL [Glucophage -] 500 mg PO HS 06/24/18 Apixaban [Eliquis -] 5 mg PO BID tablet 06/29/18 Atorvastatin Ca [Lipitor] 40 mg PO HS tablet 06/29/18 Sucralfate [Carafate -] 1 gm PO BIDAC tablet 06/29/18 Amino Acids/Protein Hydrolys [Prosource No Carb Liquid Pkt] 30 ml PO BID@0800, 1730 packet 07/05/18 Bisacodyl Suppository [Dulcolax Suppository -] 10 mg RC PRN PRN supp.rect 07/05 Pantoprazole Sodium [Protonix -] 20 mg PO DAILY tablet.ec 07/05/18 Metoprolol Succinate [Toprol Xl] 0.5 tablet PO DAILY 08/13/18 Polyethylene Glycol 3350 [Miralax (For Daily Use) -] 17 gm PO BID 08/13/18 Acetaminophen [Tylenol .Regular Strength -] 650 mg PO Q4H PRN #15 tablet Insulin Sliding Scale [Novolog Vial Sliding Scale -] 1 vial SQ ACHS units 08/16 Glucophage Xr - 500 mg PO DAILY 12/16/18 Lasix 20 mg PO DAILY 12/16/18 Valsartan 80 mg PO BID 12/16/18 Vitamin C 500 mg PO BID 12/16/18 Acetaminophen W/ Codeine #3 [Tylenol # 3 -] 1 tab PO TID 01/08/19 Ertapenem Sodium - 1 Gram [Invanz (Pre-Docked)] 1 gm IVPB DAILY 01/08/19 Ferrous Sulfate 325 mg PO BID 01/08/19 Multivitamin [Multiple Vitamins] 1 each PO DAILY 01/08/19 Tobramycin Sulf/Dexamethasone [Tobradex *Eye Ointment*] 1 applic TID 01/08/19 Vancomycin 1 Gram (Pre-Docked) [Vancomycin (Pre-Docked)] 1,000 mg IVPB ONCE Family Disease History - Family Disease History Family Disease History: Other: Father (, hip fracture), Mother ( , unknown) Physical Exam-Neuro Vital Signs: Vital Signs Temperature 98.5 F 01/08/19 11:07 Pulse Rate 90 01/08/19 11:07 Respiratory Rate 14 01/08/19 11:07 Blood Pressure 132/65 01/08/19 11:07 O2 Sat by Pulse Oximetry (%) 97 01/08/19 11:07 Labs: CBC, BMP 01/08/19 07:39 01/08/19 07:39 INR, PTT INR 1.66 (0.83-1.09) H 01/08/19 07:39 - Neuro Exam Level Of Consciousness: Yes: Sedated (somnolent, awakens easily, converses, poor HX, follows basic requets, EOMI, dense R flaccid hemniplgia, moving LUE and LLE to gravity ) Problem List - Problems (1) 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 Was found to have slurred speech and disorientation this morning when she woke around 7am. Last known well was yesterday afternoon/ evening. Pt notes her speech is normal for her. Denies any complaints, denies any cp, sob, fever/chills, n/v, headache, dysuria, diarrhea, bpr. CT HD There is no evidence of acute intracranial hemorrhage, mass lesions or infarctions. There is a mild degree of diffuse cerebral atrophy with sulcal widening and ventricular dilatation. There is an old infarct in the left basal ganglia and thalamic region. There are hypodense changes within the periventricular white matter consistent with chronic, small vessel ischemia. Since prior study of 08/13/2018, there has been no significant change. IMPRESSION : No evidence of acute intracranial pathology. MRI PRELIM : no new infarct to me eye , chronic white matter changes AP : transient dysarthria , HX of CVA residual R hemiparesis, AFib on AC being treated for osetomyleitis with ABX MRI prelim does not show new infarct -FU official ? metabolic vs infectious decompensation vs breakthrough TIA UA (-), check ERS/CRP consider adding ASA in conjunction with Eliquis given possible breakthrough vascular event DR HAMPTON to FU DR ROLLINS
[2019-01-08] MEDS ORDERED: VANCOMYCIN 1 GM PREMIX - 1 GM/200 ML BAG IVPB ONE (13:00)
[2019-01-08] MEDS ORDERED: VANCOMYCIN 1 GRAM (PRE-DOCKED) 1,000 MG/250 ML BAG IVPB ONE (13:15)
[2019-01-08] MEDS ORDERED: DEXTROSE 5%-NORMAL SALINE 1,000 ML IV ONE (13:25)
--- NOTE | 2019-01-08 13:35 | CON.CARD ---
Cardiology Consult (text) - Consultation Consultation Note: CC: sent [facility], slurred speech hpi: 83 yo f with history of persistent atrial fibrillation/flutter s/p cardioversion with reversion back to flutter, dCHF with mod pHTN, DM, HTN/HL and carotid stenosis s/p R CEA 07/2015 who was sent from [facility] for ams, slurred speech. Pt denies complaints, does not know why in ER, confused. No cp sob palps dizzy loc pnd orthopnea le edema. Being evaluated for possible cva. Past Medical hx: per hpi past surg hx: Colonoscopy, Tonsillectomy Social hx: Former tobacco (as teenager), no etoh or illicits Family hx: Mother with unknown heart problems. ROS: per hpi; pt confused but denies complaints; all others nl Home Medications Medication Instructions Recorded Docusate Sodium [Colace -] 100 mg PO HS 06/24/18 Mirtazepine Alejandra Tabs [Remeron 45 mg PO DAILY 06/24/18 Soltab -] PE/Shark Liver Oil/Glyc/Wh.pet 1 applic RC Q8H PRN 06/24/18 [Hemorrhoidal Cream] Sennosides [Senokot] 2 tab PO HS 06/24/18 Spironolactone [Aldactone -] 25 mg PO DAILY 06/24/18 metFORMIN HCL [Glucophage -] 500 mg PO HS 06/24/18 Apixaban [Eliquis -] 5 mg PO BID tablet 06/29/18 Atorvastatin Ca [Lipitor] 40 mg PO HS tablet 06/29/18 Sucralfate [Carafate -] 1 gm PO BIDAC tablet 06/29/18 Amino Acids/Protein Hydrolys 30 ml PO BID@0800,1730 packet 07/05/18 [Prosource No Carb Liquid Pkt] Bisacodyl Suppository [Dulcolax 10 mg RC PRN PRN supp.rect 07/05/18 Suppository -] Pantoprazole Sodium [Protonix -] 20 mg PO DAILY tablet.ec 07/05/18 Metoprolol Succinate [Toprol Xl] 0.5 tablet PO DAILY 08/13/18 Polyethylene Glycol 3350 [Miralax 17 gm PO BID 08/13/18 (For Daily Use) -] Acetaminophen [Tylenol .Regular 650 mg PO Q4H PRN #15 tablet 08/16/18 Strength -] Insulin Sliding Scale [Novolog 1 vial SQ ACHS units 08/16/18 Vial Sliding Scale -] Glucophage Xr - 500 mg PO DAILY 12/16/18 Lasix 20 mg PO DAILY 12/16/18 Valsartan 80 mg PO BID 12/16/18 Vitamin C 500 mg PO BID 12/16/18 Acetaminophen W/ Codeine #3 1 tab PO TID 01/08/19 [Tylenol # 3 -] Ertapenem Sodium - 1 Gram [Invanz 1 gm IVPB DAILY 01/08/19 (Pre-Docked)] Ferrous Sulfate 325 mg PO BID 01/08/19 Multivitamin [Multiple Vitamins] 1 each PO 01/08/19 Tobramycin Sulf/Dexamethasone 1 applic TID 01/08/19 [Tobradex *Eye Ointment*] Vancomycin 1 Gram (Pre-Docked) 1,000 mg IVPB ONCE 01/08/19 [Vancomycin (Pre-Docked)] Vital Signs Period Temp Pulse Resp BP Sys/Vasquez Pulse Ox Last 24 Hr 98.5 F-98.9 F 90-112 14-20 132-158/65-106 96-100 NAD, calm JVD flat, neck supple CTAB, nl effort Irregular rhythm, regular rate nl s1, s2 no m/r/g + bs soft nt nd ext with trace edema, no clubbing or cyanosis + dp/pt, no carotid bruits no jaundice, diaphoresis alert awake confused Laboratory Last Values WBC 4.2 K/mm3 (4.0-10.0) 01/08/19 07:39 RBC 3.75 M/mm3 (3.60-5.2) 01/08/19 07:39 Hgb 10.3 GM/dL (10.7-15.3) L 01/08/19 07:39 Hct 31.2 % (32.4-45.2) L 01/08/19 07:39 MCV 83.1 fl (80-96) 01/08/19 07:39 MCH 27.5 pg (25.7-33.7) 01/08/19 07:39 MCHC 33.1 g/dl (32.0-36.0) 01/08/19 07:39 RDW 16.6 % (11.6-15.6) H 01/08/19 07:39 Plt Count 235 K/MM3 (134-434) D 01/08/19 07:39 MPV 10.9 fl (7.5-11.1) 01/08/19 07:39 Absolute Neuts (auto) 2.8 K/mm3 (1.5-8.0) 01/08/19 07:39 Neutrophils % 67.2 % (42.8-82.8) 01/08/19 07:39 Lymphocytes % 23.2 % (8-40) 01/08/19 07:39 Monocytes % 5.4 % (3.8-10.2) 01/08/19 07:39 Eosinophils % 3.7 % (0-4.5) D 01/08/19 07:39 Basophils % 0.5 % (0-2.0) 01/08/19 07:39 Nucleated RBC % 0 % (0-0) 01/08/19 07:39 PT with INR 19.70 SEC (9.7-13.0) H 01/08/19 07:39 INR 1.66 (0.83-1.09) H 01/08/19 07:39 Sodium 142 mmol/L (136-145) 01/08/19 07:39 Potassium 3.6 mmol/L (3.5-5.1) 01/08/19 07:39 Chloride 108 mmol/L (98-107) H 01/08/19 07:39 Carbon Dioxide 27 mmol/L (21-32) 01/08/19 07:39 Anion Gap 7 MMOL/L (8-16) L 01/08/19 07:39 BUN 13.2 mg/dL (7-18) 01/08/19 07:39 Creatinine 0.7 mg/dL (0.55-1.3) 01/08/19 07:39 Est GFR (CKD-EPI)AfAm 93.52 01/08/19 07:39 Est GFR (CKD-EPI)NonAf 80.69 01/08/19 07:39 Random Glucose 133 mg/dL (74-106) H 01/08/19 07:39 Lactic Acid 1.7 mmol/L (0.4-2.0) 01/08/19 08:09 Calcium 8.7 mg/dL (8.5-10.1) 01/08/19 07:39 Magnesium 1.6 mg/dL (1.8-2.4) L 01/08/19 07:39 Total Bilirubin 0.5 mg/dL (0.2-1) 01/08/19 07:39 AST 14 U/L (15-37) L 01/08/19 07:39 ALT 12 U/L (13-61) L 01/08/19 07:39 Alkaline Phosphatase 94 U/L (45-117) 01/08/19 07:39 Creatine Kinase 45 U/L (26-192) 01/08/19 07:39 Troponin I 0.74 ng/ml (0.00-0.05) H* 01/08/19 07:39 B-Natriuretic Peptide 41826.2 pg/ml (5-450) H 01/08/19 07:39 Total Protein 7.2 g/dl (6.4-8.2) 01/08/19 07:39 Albumin 2.8 g/dl (3.4-5.0) L 01/08/19 07:39 Urine Color Yellow 01/08/19 07:39 Urine Appearance Cloudy 01/08/19 07:39 Urine pH 5.0 (5.0-8.0) 01/08/19 07:39 Ur Specific [place] 1.021 (1.010-1.035) 01/08/19 07:39 Urine Protein Trace (NEGATIVE) 01/08/19 07:39 Urine Glucose (UA) Negative (NEGATIVE) 01/08/19 07:39 Urine Ketones Negative (NEGATIVE) 01/08/19 07:39 Urine Blood Negative (NEGATIVE) 01/08/19 07:39 Urine Nitrite Negative (NEGATIVE) 01/08/19 07:39 Urine Bilirubin Negative (NEGATIVE) 01/08/19 07:39 Urine Urobilinogen 0.2 mg/dL (0.2-1.0) 01/08/19 07:39 Ur Leukocyte Esterase Negative (NEGATIVE) 01/08/19 07:39 EKG: A flutter, rate 90s, old rbbb cxr: clear lungs MIBI 10/10 (deena): AF/flutter, no STs; no ischemia (+ breast); nl EF, mild LVE, no TID SANTA 12/10: nl LV/RV, severe TANIKA, mild LAE; mild MR; mod-sev TR Echo 09/09: NL LV/RV; L/TANIKA, tethered MV with mod MR; mod TR; mod pHTN echo 08/2017: nl lv/rv, sev lae, mod tanika, mod mr/tr, mod phtn echo12/2017: tds; nl lv/rv, lae, mod mr Carotids 12/10: SANJAY 80-99% stenosis a/p: 83 yo f with history of persistent atrial fibrillation/flutter s/p cardioversion with reversion back to flutter, dCHF with mod pHTN, DM, HTN/HL and carotid stenosis s/p R CEA 07/2015 who was sent [facility], slurred speech. ams, possible cva: -neuro consulted -mri pending pos trop: -does not appear to be acs -trop mildly elevated with nl ck. ECG w/o ischemic changes. Pt has chronically mildly elevated trop, so possibly this is her baseline but would cont to trend ce's and monitor on tele. -check echo hx of pe: -on ac chronic mixed syst/diast CHF: -vol status stable, cont home diuretic regimen aflutter - rate controlled on bb - cont eliquis HTN -cont home meds hld: -cont statin
[2019-01-08] MEDS: ERTAPENEM SODIUM 1 GM in SODIUM CHLORIDE 50 ML IVPB SCH (14:07)
[2019-01-08] MEDS: TOBRAMYCIN/DEXAMETHASONE OPHTH. OINTMENT 1 TUBE OU SCH ×2 (14:08→23:11)
[2019-01-08] MEDS: SUCRALFATE 1 GM TABLET (FP) PO SCH (16:36)
[2019-01-08] MEDS: ASCORBIC ACID 500 MG TABLET (FP) PO SCH (16:53)
[2019-01-08] MEDS: AMINO ACIDS/PROTEIN HYDROLYS 30 ML LIQUID.PKT PO SCH (16:53)
[2019-01-08] MEDS: FERROUS SO4 325 MG TABLET (FP) PO SCH (16:53)
[2019-01-08] MEDS ORDERED: ACETAMINOPHEN 325 MG TABLET (FP) ONE (16:55)
[2019-01-08] MEDS ORDERED: INSULIN (NOVOLOG) ASPART 100 UNITS/ML 10ML VIAL ONE (19:01)
[2019-01-08] MEDS: APIXABAN 5 MG TABLET PO SCH (21:52)
[2019-01-08] MEDS ORDERED: SENNOSIDES 8.6MG TABLET (FP) PO ONE (21:55)
[2019-01-08] MEDS ORDERED: TOBRAMYCIN/DEXAMETHASONE OPHTH. OINTMENT 1 TUBE ONE (21:55)
[2019-01-08] MEDS ORDERED: VALSARTAN 80 MG TABLET (UD) ONE (21:56)
[2019-01-08] MEDS ORDERED: ATORVASTATIN CA 40 MG TABLET (FP) ONE (21:56)
[2019-01-08] MEDS ORDERED: DOCUSATE SODIUM 100 MG CAPSULE (FP) PO ONE (21:56)
[2019-01-08] MEDS: SENNOSIDES 8.6MG TABLET (FP) PO SCH (23:11)
[2019-01-08] MEDS: VALSARTAN 80 MG TABLET (UD) PO SCH (23:11)
[2019-01-08] MEDS: ATORVASTATIN CA 40 MG TABLET (FP) PO SCH (23:11)
[2019-01-08] MEDS: POLYETHYLENE GLYCOL 3350 119 GM BTL PO SCH (23:11)
[2019-01-08] MEDS: DOCUSATE SODIUM 100 MG CAPSULE (FP) PO SCH (23:11)
[2019-01-09] MEDS: SUCRALFATE 1 GM TABLET (FP) PO SCH ×2 (06:34→17:49)
[2019-01-09] MEDS: TOBRAMYCIN/DEXAMETHASONE OPHTH. OINTMENT 1 TUBE OU SCH ×3 (06:34→22:47)
[2019-01-09 07:23] LABS: HEMATOCRIT 30.1 % (32.4-45.2); HEMOGLOBIN 9.7 GM/dL (10.7-15.3); MCH 27.1 pg (25.7-33.7); MCHC 32.4 g/dl (32.0-36.0); MEAN CELL VOLUME 83.7 fl (80-96); MEAN PLT VOLUME 10.6 fl (7.5-11.1); PLATELET COUNT 185 K/MM3 (134-434); RDW 16.4 % (11.6-15.6); WHITE BLOOD COUNT 4.8 K/mm3 (4.0-10.0)
[2019-01-09 07:45] LABS: BLOOD UREA NITROGEN 11.6 mg/dL (7-18); CALCIUM 8.3 mg/dL (8.5-10.1); CREATININE 0.6 mg/dL (0.55-1.3); MAGNESIUM 1.5 mg/dL (1.8-2.4); PHOSPHOROUS 3.2 mg/dL (2.5-4.9); POTASSIUM 3.6 mmol/L (3.5-5.1)
[2019-01-09] MEDS: AMINO ACIDS/PROTEIN HYDROLYS 30 ML LIQUID.PKT PO SCH ×2 (08:26→17:53)
[2019-01-09] MEDS ORDERED: FERROUS SO4 325 MG TABLET (FP) ONE (08:27)
[2019-01-09] MEDS ORDERED: PT OWN MED DRAWER 7, Y5N ONE ×3 (08:28→21:32)
[2019-01-09] MEDS: FERROUS SO4 325 MG TABLET (FP) PO SCH ×2 (08:29→17:49)
[2019-01-09] MEDS: ASCORBIC ACID 500 MG TABLET (FP) PO SCH ×2 (08:29→17:50)
--- NOTE | 2019-01-09 08:51 | PN ---
Progress Note, Physician Chief Complaint: dysarthria History of Present Illness: pt equivocal on whether speech is changed for her. s/p thalamic CVA (left) 08/16. neuro notes reviewed. chronic R arm pain no change. no cp denies sob, leg swelling no palpitations - Current Medication List Current Medications: Active Medications Acetaminophen (Tylenol -) 650 mg PO Q4H PRN PRN Reason: FEVER Last Admin: 01/08/19 16:54 Dose: 650 mg Amino Acids (Prosource No Carb Liquid Pkt) 30 ml PO BID@0800,1730 [facility] Last Admin: 01/09/19 08:26 Dose: Not Given Apixaban (Eliquis -) 5 mg PO BID [facility] Last Admin: 01/08/19 21:52 Dose: 5 mg Ascorbic Acid (Vitamin C -) 500 mg PO BIDWM [facility] Last Admin: 01/09/19 08:29 Dose: 500 mg Atorvastatin Calcium (Lipitor -) 40 mg PO [facility] Last Admin: 01/08/19 23:11 Dose: 40 mg Docusate Sodium (Colace -) 100 mg PO HS [facility] Last Admin: 01/08/19 23:11 Dose: 100 mg Ferrous Sulfate (Feosol -) 325 mg PO BIDWM [facility] Last Admin: 01/09/19 08:29 Dose: 325 mg Ertapenem 1 gm/ Sodium (Chloride) 50 mls @ 100 mls/hr IVPB DAILY [facility] Last Admin: 01/08/19 14:07 Dose: 100 mls/hr Metoprolol Succinate (Toprol Xl -) 12.5 mg PO DAILY [facility] Multivitamins/Minerals/Vitamin C (Tab-A-Vit -) 1 tab PO DAILY [facility] Pantoprazole Sodium (Protonix -) 20 mg PO DAILY [facility] Polyethylene Glycol (Miralax (For Daily Use) -) 17 gm PO BID [facility] Last Admin: 01/08/19 23:11 Dose: 17 gm Senna (Senna -) 2 tab PO HS [facility] Last Admin: 01/08/19 23:11 Dose: 2 tab Sucralfate (Carafate -) 1 gm PO BIDAC [facility] Last Admin: 01/09/19 06:34 Dose: 1 gm Tobramycin/Dexamethasone (Tobradex Ophthalmic Ointment -) 1 applic OU TID [facility] Last Admin: 01/09/19 06:34 Dose: 1 applic Valsartan (Diovan -) 80 mg PO BID [facility] Last Admin: 01/08/19 23:11 Dose: 80 mg Vancomycin HCl (Vancomycin (Pre-Docked)) 1,000 mg IVPB DAILY@1300 [facility]; Protocol - Objective Vital Signs: Vital Signs Temperature 97.6 F 01/09/19 08:15 Pulse Rate 68 01/09/19 08:15 Respiratory Rate 16 01/09/19 08:15 Blood Pressure 143/69 01/09/19 08:15 O2 Sat by Pulse Oximetry (%) 97 01/09/19 08:15 Constitutional: Yes: Well Nourished, No Distress, Calm Cardiovascular: Yes: Pulse Irregular, S1, S2. No: JVD, Gallop, Murmur Respiratory: Yes: Regular, CTA Bilaterally. No: Accessory Muscle Use, Rales Extremities: No: Cold Edema: No Neurological: Yes: Alert, Oriented Psychiatric: No: Agitated Labs: CBC, BMP 01/09/19 06:00 01/09/19 06:00 INR, PTT INR 1.66 (0.83-1.09) H 01/08/19 07:39 Assessment/Plan EKG: A flutter, rate 90s, old rbbb cxr: clear lungs MIBI 10/10 (deena): AF/flutter, no STs; no ischemia (+ breast); nl EF, mild LVE, no TID Echo 08/2017: nl lv/rv, sev lae, mod serena, mod mr/tr, mod phtn Echo 12/2017: tds; nl lv/rv, lae, mod mr tele: afib/flutter, HRs controlled a/p: 83 yo f with history of persistent atrial fibrillation/flutter s/p cardioversion with reversion back to flutter, dCHF with mod pHTN, DM, HTN/HL and carotid stenosis s/p R CEA 07/2015 [place], slurred speech. 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 MRI no acute infarction, ? breakthrough TIA vs other. -anti-thrombotic med rec.s per neuro (on NOAC from before) h/o UGIB: -treated as outpatient (dr montes) -chronic, stable anemia pos trop: -no sx's of ACS -trop mildly elevated with nl ck, flat slope. known chronically mildly elevated trop = likely sec to chronic CHF -repeat echo hx of pe: -on eliquis chronic mixed syst/diast CHF: -appears euvolemic--cont home diuretic regimen lasix 20 qd -bun/creat normal, monitor labs, po intake aflutter - rate controlled on bb--same regimen - cont eliquis HTN -bp reasonable -cont home meds hld: -cont statin d/c telemetry
--- NOTE | 2019-01-09 09:07 | PN ---
Progress Note (short form) - Note Progress Note: Neurology Coverage by Dr. Torres appreciated over the weekend 83y F hx of cva (r hemiparesis), PAD, osteo w picc line on vancomycin and ertapenem, DM, anemia, afib on eliquis, chf, pulm htn presenst with complaint fomr adira for aMS. Was found to have slurred speech and disorientation the morning of admission when she woke around 7am. Last known well was day before afternoon/evening. Pt noted her speech was normal for her. Denies any complaints, denies any cp, sob, fever/chills, n/v, headache, dysuria, diarrhea, bpr. feels she is close to baseline, limited HX. Ct head showed no evidence of acute intracranial hemorrhage, mass lesions or infarctions. There was a mild degree of diffuse cerebral atrophy with sulcal widening and ventricular dilatation. There is an old infarct in the left basal ganglia and thalamic region. There are hypodense changes within the periventricular white matter consistent with chronic, small vessel ischemia. Since prior study of 08/13/2018, there has been no significant change. MRI brain completed and reviewed and no acute infarct noted. Seen by me in ER this AM, asleep but easily awoken, hat she is at [facility], knows the name of the president,was able to recognize me immediately. No focal deficits noted but does appear to have generalized fatigue. Active Medications Acetaminophen (Tylenol -) 650 mg PO Q4H PRN PRN Reason: FEVER Last Admin: 01/08/19 16:54 Dose: 650 mg Amino Acids (Prosource No Carb Liquid Pkt) 30 ml PO BID@0800,1730 [facility] Last Admin: 01/09/19 08:26 Dose: Not Given Apixaban (Eliquis -) 5 mg PO BID [facility] Last Admin: 01/08/19 21:52 Dose: 5 mg Ascorbic Acid (Vitamin C -) 500 mg PO BIDWM [facility] Last Admin: 01/09/19 08:29 Dose: 500 mg Atorvastatin Calcium (Lipitor -) 40 mg PO HS [facility] Last Admin: 01/08/19 23:11 Dose: 40 mg Docusate Sodium (Colace -) 100 mg PO HS [facility] Last Admin: 01/08/19 23:11 Dose: 100 mg Ferrous Sulfate (Feosol -) 325 mg PO BIDWM [facility] Last Admin: 01/09/19 08:29 Dose: 325 mg Ertapenem 1 gm/ Sodium (Chloride) 50 mls @ 100 mls/hr IVPB DAILY [facility] Last Admin: 01/08/19 14:07 Dose: 100 mls/hr Metoprolol Succinate (Toprol Xl -) 12.5 mg PO DAILY [facility] Multivitamins/Minerals/Vitamin C (Tab-A-Vit -) 1 tab PO DAILY [facility] Pantoprazole Sodium (Protonix -) 20 mg PO DAILY [facility] Polyethylene Glycol (Miralax (For Daily Use) -) 17 gm PO BID [facility] Last Admin: 01/08/19 23:11 Dose: 17 gm Senna (Senna -) 2 tab PO HS [facility] Last Admin: 01/08/19 23:11 Dose: 2 tab Sucralfate (Carafate -) 1 gm PO BIDAC [facility] Last Admin: 01/09/19 06:34 Dose: 1 gm Tobramycin/Dexamethasone (Tobradex Ophthalmic Ointment -) 1 applic OU TID [facility] Last Admin: 01/09/19 06:34 Dose: 1 applic Valsartan (Diovan -) 80 mg PO BID [facility] Last Admin: 01/08/19 23:11 Dose: 80 mg Vancomycin HCl (Vancomycin (Pre-Docked)) 1,000 mg IVPB DAILY@1300 [facility]; Protocol Physical Exam-Neuro Vital Signs: Vital Signs Temperature 98.5 F 01/08/19 11:07 Pulse Rate 90 01/08/19 11:07 Respiratory Rate 14 01/08/19 11:07 Blood Pressure 132/65 01/08/19 11:07 O2 Sat by Pulse Oximetry (%) 97 01/08/19 11:07 Gen: Awake, alert, responds to questions appropriately Card: RRR, nml S1,S2 Resp: Normal symmetric effort, lungs clear to auscultation Abdomen: Soft, nontender, bowel sounds active Musculoskeletal: Adequate range of motion without significant deformity Neuro Head atraumatic and normocephalic CN: PERRL, EOMI intact, no apparent facial droop, no abnormalities in facial sensation, palate elevates, uvula and tongue midline Motor: LUE and LLE limited to gravity Sensory: Intact to Temperature, light touch, in all extremities Gait: Deferred CBCD WBC 4.8 K/mm3 (4.0-10.0) 01/09/19 06:00 RBC 3.60 M/mm3 (3.60-5.2) 01/09/19 06:00 Hgb 9.7 GM/dL (10.7-15.3) L 01/09/19 06:00 Hct 30.1 % (32.4-45.2) L 01/09/19 06:00 MCV 83.7 fl (80-96) 01/09/19 06:00 MCHC 32.4 g/dl (32.0-36.0) 01/09/19 06:00 RDW 16.4 % (11.6-15.6) H 01/09/19 06:00 Plt Count 185 K/MM3 (134-434) D 01/09/19 06:00 MPV 10.6 fl (7.5-11.1) 01/09/19 06:00 CMP Sodium 145 mmol/L (136-145) 01/09/19 06:00 Potassium 3.6 mmol/L (3.5-5.1) 01/09/19 06:00 Chloride 108 mmol/L (98-107) H 01/09/19 06:00 Carbon Dioxide 29 mmol/L (21-32) 01/09/19 06:00 Anion Gap 8 MMOL/L (8-16) 01/09/19 06:00 BUN 11.6 mg/dL (7-18) 01/09/19 06:00 Creatinine 0.6 mg/dL (0.55-1.3) 01/09/19 06:00 Random Glucose 70 mg/dL (74-106) L 01/09/19 06:00 Calcium 8.3 mg/dL (8.5-10.1) L 01/09/19 06:00 Total Bilirubin 0.5 mg/dL (0.2-1) 01/08/19 07:39 AST 14 U/L (15-37) L 01/08/19 07:39 ALT 12 U/L (13-61) L 01/08/19 07:39 Alkaline Phosphatase 94 U/L (45-117) 01/08/19 07:39 Total Protein 7.2 g/dl (6.4-8.2) 01/08/19 07:39 Albumin 2.8 g/dl (3.4-5.0) L 01/08/19 07:39 CARDIAC ENZYMES Creatine Kinase 56 U/L (26-192) 01/09/19 05:30 Troponin I 0.66 ng/ml (0.00-0.05) H* 01/09/19 05:30 Assessment/Plan 83y F hx of cva (r hemiparesis), PAD, osteo w picc line on vancomycin and ertapenem, DM, anemia, afib on eliquis, chf, pulm htn presenst with complaint fomr adira for aMS. Was found to have slurred speech and disorientation the morning of admission when she woke around 7am. Last known well was day before afternoon/evening. Pt noted her speech was normal for her. Denies any complaints, denies any cp, sob, fever/chills, n/v, headache, dysuria, diarrhea, bpr. feels she is close to baseline, limited HX. Ct head showed no evidence of acute intracranial hemorrhage, mass lesions or infarctions. There was a mild degree of diffuse cerebral atrophy with sulcal widening and ventricular dilatation. There is an old infarct in the left basal ganglia and thalamic region. There are hypodense changes within the periventricular white matter consistent with chronic, small vessel ischemia. Since prior study of 08/13/2018, there has been no significant change. MRI brain completed and reviewed and no acute infarct noted. Seen by me in ER this AM, asleep but easily awoken, hat she is at [facility], knows the name of the president,was able to recognize me immediately. No focal deficits noted but does appear to have generalized fatigue. continue medical optimization, maintain blood pressure normotensive range, follow-up cardiology recommendations. Remains on Eliquis for atrial fibrillation, can be continued. Monitor diabetes, maintain euglycemic range. Maintain adequate hydration.
[2019-01-09] MEDS: MULTIVITAMINS (DAILY MVI) TABLET (FP) PO SCH (09:09)
[2019-01-09] MEDS: PANTOPRAZOLE 20 MG TABLET (FP) PO SCH (09:09)
[2019-01-09] MEDS: VALSARTAN 80 MG TABLET (UD) PO SCH ×2 (09:09→23:34)
[2019-01-09] MEDS: APIXABAN 5 MG TABLET PO SCH ×2 (09:09→22:46)
[2019-01-09] MEDS: metoPROLOL SUCCINATE 25 MG TAB.SR.24H (FP) PO SCH (09:09)
--- NOTE | 2019-01-09 09:34 | PN ---
Progress Note, Physician Chief Complaint: Ms Cooper says she is doing well today. No cp, sob, n/v. No longer with aching pain from yesterday. - Current Medication List Current Medications: Active Medications Acetaminophen (Tylenol -) 650 mg PO Q4H PRN PRN Reason: FEVER Last Admin: 01/08/19 16:54 Dose: 650 mg Amino Acids (Prosource No Carb Liquid Pkt) 30 ml PO BID@0800,1730 [facility] Last Admin: 01/09/19 08:26 Dose: Not Given Apixaban (Eliquis -) 5 mg PO BID [facility] Last Admin: 01/09/19 09:09 Dose: 5 mg Ascorbic Acid (Vitamin C -) 500 mg PO BIDWM [facility] Last Admin: 01/09/19 08:29 Dose: 500 mg Atorvastatin Calcium (Lipitor -) 40 mg PO HS [facility] Last Admin: 01/08/19 23:11 Dose: 40 mg Docusate Sodium (Colace -) 100 mg PO HS [facility] Last Admin: 01/08/19 23:11 Dose: 100 mg Ferrous Sulfate (Feosol -) 325 mg PO BIDWM [facility] Last Admin: 01/09/19 08:29 Dose: 325 mg Ertapenem 1 gm/ Sodium (Chloride) 50 mls @ 100 mls/hr IVPB DAILY [facility] Last Admin: 01/08/19 14:07 Dose: 100 mls/hr Metoprolol Succinate (Toprol Xl -) 12.5 mg PO DAILY [facility] Last Admin: 01/09/19 09:09 Dose: 12.5 mg Multivitamins/Minerals/Vitamin C (Tab-A-Vit -) 1 tab PO DAILY [facility] Last Admin: 01/09/19 09:09 Dose: 1 tab Pantoprazole Sodium (Protonix -) 20 mg PO DAILY [facility] Last Admin: 01/09/19 09:09 Dose: 20 mg Polyethylene Glycol (Miralax (For Daily Use) -) 17 gm PO BID [facility] Last Admin: 01/08/19 23:11 Dose: 17 gm Senna (Senna -) 2 tab PO HS [facility] Last Admin: 01/08/19 23:11 Dose: 2 tab Sucralfate (Carafate -) 1 gm PO BIDAC [facility] Last Admin: 01/09/19 06:34 Dose: 1 gm Tobramycin/Dexamethasone (Tobradex Ophthalmic Ointment -) 1 applic OU TID [facility] Last Admin: 01/09/19 06:34 Dose: 1 applic Valsartan (Diovan -) 80 mg PO BID [facility] Last Admin: 01/09/19 09:09 Dose: 80 mg Vancomycin HCl (Vancomycin (Pre-Docked)) 1,000 mg IVPB DAILY@1300 [facility]; Protocol - Objective Vital Signs: Vital Signs Temperature 36.4 C 01/09/19 08:15 Pulse Rate 68 01/09/19 08:15 Respiratory Rate 16 01/09/19 08:15 Blood Pressure 143/69 01/09/19 08:15 O2 Sat by Pulse Oximetry (%) 97 01/09/19 08:15 Constitutional: Yes: Well Nourished, No Distress, Calm, Other (lethargic but easily arousable. Still not at baseline from previous admissions) Cardiovascular: Yes: Bradycardia. No: Gallop, Murmur, Rub Respiratory: Yes: Regular, CTA Bilaterally. No: Rales, Rhonchi, Wheezes Gastrointestinal: Yes: Normal Bowel Sounds, Soft. 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 Code(s): I69.351 - HEMIPLGA FOLLOWING CEREBRAL INFRC AFF RIGHT DOMINANT SIDE (4) Atrial fibrillation and flutter Code(s): I48.91 - UNSPECIFIED ATRIAL FIBRILLATION; I48.92 - UNSPECIFIED ATRIAL FLUTTER (5) CHF (congestive heart failure) Code(s): I50.9 - HEART FAILURE, UNSPECIFIED Qualifiers: Heart failure type: diastolic Heart failure chronicity: chronic Qualified Code(s): I50.32 - Chronic diastolic (congestive) heart failure (6) Decubitus skin ulcer Code(s): L89.90 - PRESSURE ULCER OF UNSPECIFIED SITE, UNSPECIFIED STAGE Qualifiers: Pressure injury location: calf Pressure injury stage: stage 3 Laterality : right Qualified Code(s): L89.893 - Pressure ulcer of other site, stage 3 (7) Diabetes Code(s): E11.9 - TYPE 2 DIABETES MELLITUS WITHOUT COMPLICATIONS (8) Elevated troponin Code(s): R74.8 - ABNORMAL LEVELS OF OTHER SERUM ENZYMES (9) HLD (hyperlipidemia) Code(s): E78.5 - HYPERLIPIDEMIA, UNSPECIFIED (10) HTN (hypertension) Code(s): I10 - ESSENTIAL (PRIMARY) HYPERTENSION Qualifiers: Qualified Code(s): I10 - Essential (primary) hypertension Assessment/Plan (1) Lethargy Assessment/Plan: -improving but still unclear -not at baseline from previous admissions -continue to hold remeron -appreciate neurology assistance Code(s): R53.83 - OTHER FATIGUE (2) Osteomyelitis Assessment/Plan: -continue vancomycin and ertapenem -ID consulted -no signs of active infection -follow up cultures Code(s): M86.9 - OSTEOMYELITIS, UNSPECIFIED Qualifiers: Osteomyelitis type: other chronic Osteomyelitis location: foot Laterality : right Qualified Code(s): M86.671 - Other chronic osteomyelitis, right ankle and foot (3) 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 Assessment/Plan: -chronic and unchanged Code(s): I69.351 - HEMIPLGA FOLLOWING CEREBRAL INFRC AFF RIGHT DOMINANT SIDE (4) Atrial fibrillation and flutter Assessment/Plan: -continue toprol xl and eliquis -appreciate cardiology assistance -slightly bradycardic today Code(s): I48.91 - UNSPECIFIED ATRIAL FIBRILLATION; I48.92 - UNSPECIFIED ATRIAL FLUTTER (5) CHF (congestive heart failure) Assessment/Plan: -not in exacerbation -will order ECHO per Dr Mena's recommendations Code(s): I50.9 - HEART FAILURE, UNSPECIFIED Qualifiers: Heart failure type: diastolic Heart failure chronicity: chronic Qualified Code(s): I50.32 - Chronic diastolic (congestive) heart failure (6) Decubitus skin ulcer Assessment/Plan: -present on admission -wound care consult Code(s): L89.90 - PRESSURE ULCER OF UNSPECIFIED SITE, UNSPECIFIED STAGE Qualifiers: Pressure injury location: calf Pressure injury stage: stage 3 Laterality : right Qualified Code(s): L89.893 - Pressure ulcer of other site, stage 3 (7) Diabetes Assessment/Plan: -diabetic diet -FSBS and SSI Code(s): E11.9 - TYPE 2 DIABETES MELLITUS WITHOUT COMPLICATIONS (8) Elevated troponin Assessment/Plan: -chronic -will trend Code(s): R74.8 - ABNORMAL LEVELS OF OTHER SERUM ENZYMES (9) HLD (hyperlipidemia) Assessment/Plan: -continue lipitor Code(s): E78.5 - HYPERLIPIDEMIA, UNSPECIFIED (10) HTN (hypertension) Assessment/Plan: -continue home regimen Code(s): I10 - ESSENTIAL (PRIMARY) HYPERTENSION Qualifiers: Qualified Code(s): I10 - Essential (primary) hypertension Dispo -possible discharge tomorrow
[2019-01-09] MEDS ORDERED: MAGNESIUM SULF 50% (8.12 MEQ/2 ML-1 GM VIAL) IVPB ONE (10:00)
[2019-01-09] MEDS: POLYETHYLENE GLYCOL 3350 119 GM BTL PO SCH ×2 (10:18→22:47)
[2019-01-09] MEDS: ERTAPENEM SODIUM 1 GM in SODIUM CHLORIDE 50 ML IVPB SCH (10:28)
--- NOTE | 2019-01-09 15:04 | ECHO ---
Name: SEBASTIEN HEATH Exam:Adult Echocardiogram Study Date: 01/09/2019 12:49 PM Age: 83 yrs Reason For Study: elevated troponin Height: 67 in Weight: 152 lb BSA: 1.8 m2 MMode/2D Measurements & Calculations IVSd: 0.79 cm Ao root diam: 3.2 cm LVIDd: 6.0 cm LA dimension: 4.1 cm LVIDs: 5.4 cm ACS: 1.7 cm LVPWd: 0.79 cm IVSs: 0.93 cm LVPWs: 0.96 cm EDV(Teich): 181.0 ml ESV(Teich): 140.4 ml Doppler Measurements & Calculations MV E max deandre: 92.3 cm/sec Ao V2 max: 129.6 cm/sec Ao max P.7 mmHg Ao V2 mean: 84.0 cm/sec Ao mean P.2 mmHg Ao V2 VTI: 23.1 cm MR max deandre: 428.7 cm/sec TR max deandre: 335.2 cm/sec MR max P.3 mmHg TR max P.4 mmHg PI end-d deandre: 144.4 cm/sec Procedure A complete two-dimensional transthoracic echocardiogram was performed (2D, M-mode, Doppler and color flow Doppler). Left Ventricle The left ventricle is mildly dilated. Left ventricular systolic function is severely reduced. Ejectio n Fraction = 20-25%. The transmitral spectral Doppler flow pattern is suggestive of restrictive physiol ogy. There is severe global hypokinesis of the left ventricle. Right Ventricle The right ventricle is not well visualized. Atria The left atrium is mildly dilated. Right atrial size is normal. Mitral Valve There is mild mitral valve thickening. There is moderate mitral regurgitation. Tricuspid Valve The tricuspid valve is normal in structure and function. There is moderate tricuspid regurgitation. P ulmonary artery systolic pressure is at least 57 mmHg assuming RA pressure of 3 mmHg. Aortic Valve There is mild aortic sclerosis.;. No aortic regurgitation is present. Pulmonic Valve The pulmonic valve is not well visualized. Mild pulmonic valvular regurgitation. Great Vessels The aortic root is normal size. Pericardium/Pleura Small pericardial effusion (<1cm). Interpretation Summary The left ventricle is mildly dilated. Left ventricular systolic function is severely reduced. There is severe global hypokinesis of the left ventricle. Ejection Fraction = 20-25%. The right ventricle is not well visualized. The left atrium is mildly dilated. Right atrial size is normal. There is mild mitral valve thickening. There is moderate mitral regurgitation. There is moderate tricuspid regurgitation. Pulmonary artery systolic pressure is at least 57 mmHg assuming RA pressure of 3 mmHg There is mild aortic sclerosis.; Mild pulmonic valvular regurgitation. The transmitral spectral Doppler flow pattern is suggestive of restrictive physiology. Small pericardial effusion (<1cm) When compared to study dated 06/27/18, LVEF has diminished Darrion Lantigua MD 01/09/2019 03:03 PM
--- NOTE | 2019-01-09 16:42 | CONSULT ---
- Consultation REQUESTING PROVIDER: CONSULT REQUEST: We have been asked to surgically evaluate this patient for ( decubitus ulcer/le ulcer). PCP:Crescencio Mills MD HISTORY OF PRESENT ILLNESS: 83 y/o F [place] ([place] known to Vascular (Dr Russo) w/ PMhx CVA (r hemiparesis), s/p R CEA (Dr Russo, 08/23/15), PAD s/p Aortogram, RLE angiogram, SFA orbital atherectomy, SFA DCB angioplasty, with sfa stent (Dr Russo, 08/04/18) , chronic RLE leg wound s/p Excisional debridement right lateral leg -- skin, subcutaneous tissue, muscle, tendon x 2 (Dr Russo, 06/30/18), h/o osteo w/ picc line on vancomycin and ertapenem, DM, anemia, afib on eliquis, chf, pulm htn sent for NH for lethargy. Wound Care contacted for decubitus ulcer. Pt reports she has been seeing Dr Russo in the wound care office, has had HBO in the past. Last seen in wound care on 12/16/18, dressing changes with Marsha. PMHx: as above PSHx: as above Home Medications Medication Instructions Recorded Docusate Sodium [Colace -] 100 mg PO HS 06/24/18 Mirtazepine Alejandra Tabs [Remeron 45 mg PO DAILY 06/24/18 Soltab -] PE/Shark Liver Oil/Glyc/Wh.pet 1 applic RC Q8H PRN 06/24/18 [Hemorrhoidal Cream] Sennosides [Senokot] 2 tab PO HS 06/24/18 Spironolactone [Aldactone -] 25 mg PO DAILY 06/24/18 metFORMIN HCL [Glucophage -] 500 mg PO HS 06/24/18 Apixaban [Eliquis -] 5 mg PO BID tablet 06/29/18 Atorvastatin Ca [Lipitor] 40 mg PO HS tablet 06/29/18 Sucralfate [Carafate -] 1 gm PO BIDAC tablet 06/29/18 Amino Acids/Protein Hydrolys 30 ml PO BID@0800,1730 packet 07/05/18 [Prosource No Carb Liquid Pkt] Bisacodyl Suppository [Dulcolax 10 mg RC PRN PRN supp.rect 07/05/18 Suppository -] Pantoprazole Sodium [Protonix -] 20 mg PO DAILY tablet.ec 07/05/18 Metoprolol Succinate [Toprol Xl] 0.5 tablet PO DAILY 08/13/18 Polyethylene Glycol 3350 [Miralax 17 gm PO BID 08/13/18 (For Daily Use) -] Acetaminophen [Tylenol .Regular 650 mg PO Q4H PRN #15 tablet 08/16/18 Strength -] Insulin Sliding Scale [Novolog 1 vial SQ ACHS units 08/16/18 Vial Sliding Scale -] Glucophage Xr - 500 mg PO DAILY 12/16/18 Lasix 20 mg PO DAILY 12/16/18 Valsartan 80 mg PO BID 12/16/18 Vitamin C 500 mg PO BID 12/16/18 Acetaminophen W/ Codeine #3 1 tab PO TID 01/08/19 [Tylenol # 3 -] Ertapenem Sodium - 1 Gram [Invanz 1 gm IVPB DAILY 01/08/19 (Pre-Docked)] Ferrous Sulfate 325 mg PO BID 01/08/19 Multivitamin [Multiple Vitamins] 1 each PO DAILY 01/08/19 Tobramycin Sulf/Dexamethasone 1 applic TID 01/08/19 [Tobradex *Eye Ointment*] Vancomycin 1 Gram (Pre-Docked) 1,000 mg IVPB ONCE 01/08/19 [Vancomycin (Pre-Docked)] Allergies Allergy/AdvReac Type Severity Reaction Status Date / Time pregabalin [From Lyrica] Allergy Severe Hives Verified 08/13/18 13:58 ceftriaxone sodium Allergy Intermediate Hives Verified 08/13/18 13:58 [From Rocephin] Penicillins Allergy Intermediate Hives Verified 08/13/18 13:58 chicken derived Allergy Mild Hives Verified 08/13/18 13:58 oats AdvReac Mild DIARRHEA Verified 08/13/18 13:58 turkey AdvReac Unknown Verified 01/08/19 05:50 meat AdvReac Unknown Uncoded 01/08/19 05:50 REVIEW OF SYSTEMS: CONSTITUTIONAL: Absent: fever, chills CARDIOVASCULAR: Absent: chest pain RESPIRATORY: Absent: cough GASTROINTESTINAL: Absent: abdominal pain PHYSICAL EXAM: GENERAL: Awake, alert, and fully oriented, in no acute distress. HEAD: Normal with no signs of trauma. LUNGS: Unlabored on RA, No accessory muscle use. Sacral: approx 6x 4cm sacral ulcer by islands of skin, mostly stage 1 , small area on left lateral side that is stage 2. Clean based, no erythema or drainage. EXT: RUE/RLE hemiplegic. LOWER EXTREMITIES: R heel with approx 1.5x1.5x1cm ulcer at lateral aspect with fibrinous exudate, serous drainage, no erythema or foul odor. R lateral leg with 2.5x1.5cm ulcer proximally with granular wound bed, scant fibrinous exudate at lateral aspects, 1.5x1 cm ulcer just distal to this with granular wound bed, no erythema or drainage from either ulcer. R foot with 1.5x1x.5cm ulcer over lateral 5th met head with fibrinous exudate no erythema or drainage. Vasc: palpable dp b/l Vital Signs Temperature 97.5 F L 01/09/19 14:10 Pulse Rate 68 01/09/19 14:10 Respiratory Rate 18 01/09/19 14:10 Blood Pressure 136/59 L 01/09/19 14:10 O2 Sat by Pulse Oximetry (%) 97 01/09/19 10:59 Lab Results WBC 4.8 K/mm3 (4.0-10.0) 01/09/19 06:00 RBC 3.60 M/mm3 (3.60-5.2) 01/09/19 06:00 Hgb 9.7 GM/dL (10.7-15.3) L 01/09/19 06:00 Hct 30.1 % (32.4-45.2) L 01/09/19 06:00 MCV 83.7 fl (80-96) 01/09/19 06:00 MCHC 32.4 g/dl (32.0-36.0) 01/09/19 06:00 RDW 16.4 % (11.6-15.6) H 01/09/19 06:00 Plt Count 185 K/MM3 (134-434) D 01/09/19 06:00 Sodium 145 mmol/L (136-145) 01/09/19 06:00 Potassium 3.6 mmol/L (3.5-5.1) 01/09/19 06:00 Chloride 108 mmol/L (98-107) H 01/09/19 06:00 Carbon Dioxide 29 mmol/L (21-32) 01/09/19 06:00 Anion Gap 8 MMOL/L (8-16) 01/09/19 06:00 BUN 11.6 mg/dL (7-18) 01/09/19 06:00 Creatinine 0.6 mg/dL (0.55-1.3) 01/09/19 06:00 Random Glucose 70 mg/dL (74-106) L 01/09/19 06:00 Calcium 8.3 mg/dL (8.5-10.1) L 01/09/19 06:00 INR 1.66 (0.83-1.09) H 01/08/19 07:39 A/P; 83 y/o F [place] resident ([place]) known to Vascular (Dr Russo) w/ PMhx CVA (r hemiparesis), s/p R CEA (Dr Russo, 08/23/15), PAD s/p Aortogram, RLE angiogram, SFA orbital atherectomy, SFA DCB angioplasty, with sfa stent (Dr Russo, 08/04/18) , chronic RLE leg wound s/p Excisional debridement right lateral leg -- skin, subcutaneous tissue, muscle, tendon x 2 (Dr Russo, 06/30/18), h/o osteo w/ picc line on vancomycin and ertapenem, DM, anemia, afib on eliquis, chf, pulm htn sent for NH for lethargy. Wound Care contacted for decubitus ulcer. Decubitus ulcer without signs of infection RLE with multiple ulcer that appear to be in healing stages, no signs of infection -Continue santyl to RLE ulcers, wrap with 4x4s and kerlix -Allevyn to sacrum -Reposition every two hours while in bed -Air mattress recommended -Use drawsheets and Trendelenburg when repositioning to reduce friction and shear -Manageincontinence via timely cleansing, use of appropriate incontinence disposables and use of barrier ointment to intact skin -Ensure adequate hydration/nutrition, supplementation per primary team -Ensure off-loading to all bony areas (heels, ankles, hips and tailbone) with Allevyn/Optifoam d/w attending dr Russo
[2019-01-09] MEDS ORDERED: VANCOMYCIN 1 GRAM (PRE-DOCKED) 1,000 MG/250 ML BAG IVPB ONE (17:30)
[2019-01-09] MEDS: SENNOSIDES 8.6MG TABLET (FP) PO SCH ×2 (22:46→22:50)
[2019-01-09] MEDS: DOCUSATE SODIUM 100 MG CAPSULE (FP) PO SCH ×2 (22:46→22:50)
[2019-01-09] MEDS: ATORVASTATIN CA 40 MG TABLET (FP) PO SCH (22:46)
[2019-01-10] MEDS ORDERED: PT OWN MED DRAWER 7, Y5N ONE ×2 (06:26→08:58)
[2019-01-10] MEDS: TOBRAMYCIN/DEXAMETHASONE OPHTH. OINTMENT 1 TUBE OU SCH ×2 (06:53→13:59)
[2019-01-10] MEDS: SUCRALFATE 1 GM TABLET (FP) PO SCH ×2 (06:53→18:18)
[2019-01-10 06:59] LABS: BASO % 0.3 % (0-2.0); EOS % 8.9 % (0-4.5); HEMATOCRIT 31.3 % (32.4-45.2); HEMOGLOBIN 10.2 GM/dL (10.7-15.3); LYMPH % 32.4 % (8-40); MCH 27.3 pg (25.7-33.7); MCHC 32.6 g/dl (32.0-36.0); MEAN CELL VOLUME 83.8 fl (80-96); MEAN PLT VOLUME 10.5 fl (7.5-11.1); MONO % 8.4 % (3.8-10.2); RBC 3.74 M/mm3 (3.60-5.2); RDW 16.8 % (11.6-15.6); WHITE BLOOD COUNT 3.9 K/mm3 (4.0-10.0)
[2019-01-10 07:29] LABS: BLOOD UREA NITROGEN 10.8 mg/dL (7-18); CALCIUM 8.5 mg/dL (8.5-10.1); CREATININE 0.6 mg/dL (0.55-1.3); PHOSPHOROUS 3.1 mg/dL (2.5-4.9); POTASSIUM 3.4 mmol/L (3.5-5.1)
[2019-01-10 08:06] LABS: PLATELET COUNT 179 K/MM3 (134-434)
--- NOTE | 2019-01-10 08:54 | PN ---
Progress Note (short form) - Note Progress Note: Neurology 83y F hx of cva (r hemiparesis), PAD, osteo w picc line on vancomycin and ertapenem, DM, anemia, afib on eliquis, chf, pulm htn presenst with complaint fomr adira for aMS. Was found to have slurred speech and disorientation the morning of admission when she woke around 7am. Last known well was day before afternoon/evening. Pt noted her speech was normal for her. Denies any complaints, denies any cp, sob, fever/chills, n/v, headache, dysuria, diarrhea, bpr. feels she is close to baseline, limited HX. Ct head showed no evidence of acute intracranial hemorrhage, mass lesions or infarctions. There was a mild degree of diffuse cerebral atrophy with sulcal widening and ventricular dilatation. There is an old infarct in the left basal ganglia and thalamic region. There are hypodense changes within the periventricular white matter consistent with chronic, small vessel ischemia. Since prior study of 08/13/2018, there has been no significant change. MRI brain completed and reviewed and no acute infarct noted. Patient floor status, asleep but easily awoken, aware she is at [facility], knows the name of the president,was able to recognize me. No focal deficits noted but does appear to have generalized fatigue. Being treated with IV Abx. Does not appear to be at baseline yet but improved from presentation. Echo reviewed, LV function reduced, systolic function impaired, EF 20-25%. Physical Exam-Neuro Vital Signs: Vital Signs Period Temp Pulse Resp BP Sys/Vasquez Pulse Ox Last 24 Hr 97.5 F-98.0 F 65-75 16-18 136-149/52-85 95-97 Gen: Awake, alert, responds to questions appropriately Card: RRR, nml S1,S2 Resp: Normal symmetric effort, lungs clear to auscultation Abdomen: Soft, nontender, bowel sounds active Musculoskeletal: Adequate range of motion without significant deformity Neuro Head atraumatic and normocephalic CN: PERRL, EOMI intact, no apparent facial droop, no abnormalities in facial sensation, palate elevates, uvula and tongue midline Motor: LUE and LLE limited to gravity Sensory: Intact to Temperature, light touch, in all extremities Gait: Deferred CBCD WBC 3.9 K/mm3 (4.0-10.0) L 01/10/19 05:30 RBC 3.74 M/mm3 (3.60-5.2) 01/10/19 05:30 Hgb 10.2 GM/dL (10.7-15.3) L 01/10/19 05:30 Hct 31.3 % (32.4-45.2) L 01/10/19 05:30 MCV 83.8 fl (80-96) 01/10/19 05:30 MCHC 32.6 g/dl (32.0-36.0) 01/10/19 05:30 RDW 16.8 % (11.6-15.6) H 01/10/19 05:30 Plt Count 179 K/MM3 (134-434) 01/10/19 05:30 MPV 10.5 fl (7.5-11.1) 01/10/19 05:30 CMP Sodium 142 mmol/L (136-145) 01/10/19 05:30 Potassium 3.4 mmol/L (3.5-5.1) L 01/10/19 05:30 Chloride 108 mmol/L (98-107) H 01/10/19 05:30 Carbon Dioxide 30 mmol/L (21-32) 01/10/19 05:30 Anion Gap 4 MMOL/L (8-16) L 01/10/19 05:30 BUN 10.8 mg/dL (7-18) 01/10/19 05:30 Creatinine 0.6 mg/dL (0.55-1.3) 01/10/19 05:30 Random Glucose 85 mg/dL (74-106) 01/10/19 05:30 Calcium 8.5 mg/dL (8.5-10.1) 01/10/19 05:30 Total Bilirubin 0.5 mg/dL (0.2-1) 01/08/19 07:39 AST 14 U/L (15-37) L 01/08/19 07:39 ALT 12 U/L (13-61) L 01/08/19 07:39 Alkaline Phosphatase 94 U/L (45-117) 01/08/19 07:39 Total Protein 7.2 g/dl (6.4-8.2) 01/08/19 07:39 Albumin 2.8 g/dl (3.4-5.0) L 01/08/19 07:39 CARDIAC ENZYMES Creatine Kinase 56 U/L (26-192) 01/09/19 05:30 Troponin I 0.66 ng/ml (0.00-0.05) H* 01/09/19 05:30 Assessment/Plan 83y F hx of cva (r hemiparesis), PAD, osteo w picc line on vancomycin and ertapenem, DM, anemia, afib on eliquis, chf, pulm htn presenst with complaint fomr adira for aMS. Was found to have slurred speech and disorientation the morning of admission when she woke around 7am. Last known well was day before afternoon/evening. Pt noted her speech was normal for her. Denies any complaints, denies any cp, sob, fever/chills, n/v, headache, dysuria, diarrhea, bpr. feels she is close to baseline, limited HX. Ct head showed no evidence of acute intracranial hemorrhage, mass lesions or infarctions. There was a mild degree of diffuse cerebral atrophy with sulcal widening and ventricular dilatation. There is an old infarct in the left basal ganglia and thalamic region. There are hypodense changes within the periventricular white matter consistent with chronic, small vessel ischemia. Since prior study of 08/13/2018, there has been no significant change. MRI brain completed and reviewed and no acute infarct noted. Patient floor status, asleep but easily awoken, aware she is at [facility], knows the name of the president,was able to recognize me. No focal deficits noted but does appear to have generalized fatigue. Being treated with IV Abx. Does not appear to be at baseline yet but improved from presentation. Continue medical optimization, maintain blood pressure normotensive range, follow-up cardiology recommendations. Echo reviewed , LV function reduced, systolic function impaired, EF 20-25%. Remains on Eliquis for atrial fibrillation, can be continued. Monitor diabetes, maintain euglycemic range. Maintain adequate hydration.
[2019-01-10] MEDS: ASCORBIC ACID 500 MG TABLET (FP) PO SCH ×2 (09:10→18:19)
[2019-01-10] MEDS: metoPROLOL SUCCINATE 25 MG TAB.SR.24H (FP) PO SCH (09:11)
[2019-01-10] MEDS: FERROUS SO4 325 MG TABLET (FP) PO SCH ×2 (09:11→18:18)
[2019-01-10] MEDS: APIXABAN 5 MG TABLET PO SCH (09:11)
[2019-01-10] MEDS: MULTIVITAMINS (DAILY MVI) TABLET (FP) PO SCH (09:11)
[2019-01-10] MEDS: PANTOPRAZOLE 20 MG TABLET (FP) PO SCH (09:11)
[2019-01-10] MEDS: VALSARTAN 80 MG TABLET (UD) PO SCH (09:11)
[2019-01-10] MEDS: ERTAPENEM SODIUM 1 GM in SODIUM CHLORIDE 50 ML IVPB SCH (09:12)
[2019-01-10] MEDS: POLYETHYLENE GLYCOL 3350 119 GM BTL PO SCH (09:12)
[2019-01-10] MEDS: AMINO ACIDS/PROTEIN HYDROLYS 30 ML LIQUID.PKT PO SCH ×2 (09:12→18:18)
[2019-01-10] MEDS ORDERED: COLLAGENASE CLOSTRIDIUM HIST. 30 GRAMS TUBE TP SCH (10:00)
[2019-01-10] MEDS ORDERED: FUROSEMIDE 20 MG TABLET (FP) PO SCH (10:00)
[2019-01-10] MEDS ORDERED: VANCOMYCIN 1 GM in D5W (PRE-DOCKED) 1,000 MG/250 ML IVPB SCH (13:00)
--- NOTE | 2019-01-10 13:13 | PN ---
Progress Note (short form) - Note Progress Note: s: no chest pain, palps, dizziness, dyspnea Current Medications Acetaminophen (Tylenol -) 650 mg PO Q4H PRN PRN Reason: FEVER Last Admin: 01/08/19 16:54 Dose: 650 mg Amino Acids (Prosource No Carb Liquid Pkt) 30 ml PO BID@0800,1730 [facility] Last Admin: 01/10/19 09:12 Dose: Not Given Apixaban (Eliquis -) 5 mg PO BID [facility] Last Admin: 01/10/19 09:11 Dose: 5 mg Ascorbic Acid (Vitamin C -) 500 mg PO BIDWM [facility] Last Admin: 01/10/19 09:10 Dose: 500 mg Atorvastatin Calcium (Lipitor -) 40 mg PO HS [facility] Last Admin: 01/09/19 22:46 Dose: 40 mg Collagenase (Santyl -) 1 applic TP DAILY [facility]; Protocol Last Admin: 01/10/19 11:28 Dose: 1 applic Docusate Sodium (Colace -) 100 mg PO [facility] Last Admin: 01/09/19 22:50 Dose: Not Given Ferrous Sulfate (Feosol -) 325 mg PO BIDWM [facility] Last Admin: 01/10/19 09:11 Dose: 325 mg Furosemide (Lasix -) 20 mg PO DAILY [facility] Last Admin: 01/10/19 09:10 Dose: 20 mg Ertapenem 1 gm/ Sodium (Chloride) 50 mls @ 100 mls/hr IVPB DAILY [facility] Last Admin: 01/10/19 09:12 Dose: 100 mls/hr Metoprolol Succinate (Toprol Xl -) 12.5 mg PO DAILY [facility] Last Admin: 01/10/19 09:11 Dose: 12.5 mg Multivitamins/Minerals/Vitamin C (Tab-A-Vit -) 1 tab PO DAILY [facility] Last Admin: 01/10/19 09:11 Dose: 1 tab Pantoprazole Sodium (Protonix -) 20 mg PO DAILY [facility] Last Admin: 01/10/19 09:11 Dose: 20 mg Polyethylene Glycol (Miralax (For Daily Use) -) 17 gm PO BID [facility] Last Admin: 01/10/19 09:12 Dose: Not Given Senna (Senna -) 2 tab PO HS [facility] Last Admin: 01/09/19 22:50 Dose: Not Given Sucralfate (Carafate -) 1 gm PO BIDAC [facility] Last Admin: 01/10/19 06:53 Dose: 1 gm Tobramycin/Dexamethasone (Tobradex Ophthalmic Ointment -) 1 applic OU TID [facility] Last Admin: 01/10/19 06:53 Dose: 1 applic Valsartan (Diovan -) 80 mg PO BID [facility] Last Admin: 01/10/19 09:11 Dose: 80 mg Vancomycin HCl (Vancomycin (Pre-Docked)) 1,000 mg IVPB DAILY@1300 [facility]; Protocol Vital Signs Period Temp Pulse Resp BP Sys/Vasquez Pulse Ox Last 24 Hr 97.5 F-98.0 F 65-75 16-18 136-149/52-85 95-95 Constitutional: Yes: Well Nourished, No Distress, Calm Cardiovascular: Yes: Pulse Irregular, S1, S2. No: JVD, Gallop, Murmur Respiratory: Yes: Regular, CTA Bilaterally. No: Accessory Muscle Use, Rales Extremities: No: Cold Edema: No Neurological: Yes: Alert, Oriented Psychiatric: No: Agitated Assessment/Plan EKG: A flutter, rate 90s, old rbbb cxr: clear lungs MIBI 10/10 (deena): AF/flutter, no STs; no ischemia (+ breast); nl EF, mild LVE, no TID Echo 08/2017: nl lv/rv, sev lae, mod serena, mod mr/tr, mod phtn Echo 12/2017: tds; nl lv/rv, lae, mod mr echo 12/2018 LV function severely reduced, EF 20-25%, LA mildly dilated, mod MR, mod TR, PASP at least 57 mmHg, small pericardial effusion tele: afib/flutter, HRs controlled a/p: 83 yo f with history of persistent atrial fibrillation/flutter s/p cardioversion with reversion back to flutter, dCHF with mod pHTN, DM, HTN/HL and carotid stenosis s/p R CEA 07/2015 who was sent from in for ams, slurred speech. 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 MRI no acute infarction, ? breakthrough TIA vs other. -anti-thrombotic med rec.s per neuro (on NOAC from before) h/o UGIB: -treated as outpatient (dr montes) -chronic, stable anemia pos trop: -no sx's of ACS -trop mildly elevated with nl ck, flat slope. known chronically mildly elevated trop = likely sec to chronic CHF hx of pe: -on eliquis chronic mixed syst/diast CHF: - echo here with severely reduced LV function - prior echos here nl LV function - on valsartan, metoprolol - continue -appears euvolemic--cont home diuretic regimen lasix 20 qd -bun/creat normal, monitor labs, po intake aflutter - rate controlled on bb--same regimen - cont eliquis HTN -bp reasonable -cont home meds hld: -cont statin d/c telemetry
--- NOTE | 2019-01-10 14:03 | DS ---
Physical Exam: SUBJECTIVE: Patient seen and examined, awake, oriented to self, denies any complaints. OBJECTIVE: Vital Signs Period Temp Pulse Resp BP Sys/Vasquez Pulse Ox Last 24 Hr 97.5 F-98.0 F 65-75 16-18 136-149/52-85 95-95 Intake & Output 01/07/19 01/08/19 01/09/19 01/10/19 23:59 23:59 23:59 23:59 Intake Total 750 10 Balance 750 10 Weight 152 lb 152 lb PHYSICAL EXAM GENERAL: sitting in bed, pleasant, oriented to self no acute distress Neck: soft, supple, no JVD Chest: Decreased effort, no rales or wheezing Abdomen:Soft, obese, NT Neuro: AAOx1 (to self), right hemiplegia, Extremities: no edema, chronic ulcerative /decub findings, no active erythema or discharge LABS Laboratory Results - last 24 hr 01/10/19 01/10/19 01/10/19 05:30 05:30 05:30 WBC 3.9 L RBC 3.74 Hgb 10.2 L Hct 31.3 L MCV 83.8 MCH 27.3 MCHC 32.6 RDW 16.8 H Plt Count 179 MPV 10.5 Absolute Neuts (auto) 1.9 Neutrophils % 50.0 D Lymphocytes % 32.4 D Monocytes % 8.4 Eosinophils % 8.9 H D Basophils % 0.3 Nucleated RBC % 0 ESR 16 Sodium 142 Potassium 3.4 L Chloride 108 H Carbon Dioxide 30 Anion Gap 4 L BUN 10.8 Creatinine 0.6 Est GFR (CKD-EPI)AfAm 98.38 Est GFR (CKD-EPI)NonAf 84.88 Random Glucose 85 Calcium 8.5 Phosphorus 3.1 Magnesium 2.0 MRI brain The midline structures unremarkable. On the T2 and FLAIR weighted images again noted ischemic changes white matter of both cerebral hemisphere with old completed infarction in the left external capsule sequela most with long- standing hypertension or small vessel atherosclerosis. No evidence of acute infarction the diffusion weighted images unremarkable. Opinion finding is a mucosal thickening right and left mastoids compatible with bilateral mastoiditis. Impression: When compared to previous MRI of 08/13/2018 there is no evidence of acute infarction. Ischemic changes in the white matter of both cerebral hemispheres sequela most probably to long- standing hypertension or small vessel atherosclerosis. No evidence acute intracerebral hemorrhage, subdural fluid collection. Same degree of moderate dilatation of lateral ventricles. The new finding is extensive mucosal thickening right and left mastoid cells compatible with bilateral mastoiditis. 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 She was seen by neurology and had MRI brain which was negative for new findings. Her mental status improved and infectious screen was negative for new concerns. She had mild troponin elevation, was seen by cardiology and had 2D echo with EF 20-25% and severely reduced LV function. She is advised close outpatient cardiology follow up for further manangement and testing but no additional inpatient interventions. She will be discharged back to [facility] in stable condition Condition: Stable - Instructions Diet, Activity, Other Instructions: You were admitted with change in mental status and seen by neurologist. you had MRI brain which was negative for new concerns. You also had 2D echocardiogram showing decreased cardiac function. You were seen by planning associate and will need close outpatient follow up and further testing. MEDICATIONS: Continue all your medications including your antibiotics Invanz and Vancomycin as before, no changes have been made. FOLLOW UP: Heating Engineer follow up in 1-2 weeks (to discuss further testing for your heart) If you notice any new confusion, swelling or new concerns, please call 911 or come to the ED. Referrals: Rajesh Mas MD [Staff Physician] - Ubaldo Mena MD [Staff Physician] - Disposition[facility] - Home Medications Comprehensive Discharge Medication List: Ambulatory Orders Docusate Sodium [Colace -] 100 mg PO HS 06/24/18 Mirtazepine Alejandra Tabs [Remeron Soltab -] 45 mg PO DAILY 06/24/18 PE/Shark Liver Oil/Glyc/Wh.pet [Hemorrhoidal Cream] 1 applic RC Q8H PRN Sennosides [Senokot] 2 tab PO HS 06/24/18 Spironolactone [Aldactone -] 25 mg PO DAILY 06/24/18 metFORMIN HCL [Glucophage -] 500 mg PO HS 06/24/18 Apixaban [Eliquis -] 5 mg PO BID tablet 06/29/18 Atorvastatin Ca [Lipitor] 40 mg PO HS tablet 06/29/18 Sucralfate [Carafate -] 1 gm PO BIDAC tablet 06/29/18 Amino Acids/Protein Hydrolys [Prosource No Carb Liquid Pkt] 30 ml PO BID@0800, 1730 packet 07/05/18 Bisacodyl Suppository [Dulcolax Suppository -] 10 mg RC PRN PRN supp.rect 07/05 Pantoprazole Sodium [Protonix -] 20 mg PO DAILY tablet.ec 07/05/18 Metoprolol Succinate [Toprol Xl] 0.5 tablet PO DAILY 08/13/18 Polyethylene Glycol 3350 [Miralax 119 gm Btl -] 17 gm PO BID 08/13/18 Acetaminophen [Tylenol .Regular Strength -] 650 mg PO Q4H PRN #15 tablet Insulin Sliding Scale [Novolog Vial Sliding Scale -] 1 vial SQ ACHS units 08/16 Glucophage Xr - 500 mg PO DAILY 12/16/18 Lasix 20 mg PO DAILY 12/16/18 Valsartan 80 mg PO BID 12/16/18 Vitamin C 500 mg PO BID 12/16/18 Acetaminophen W/ Codeine #3 [Tylenol # 3 -] 1 tab PO TID 01/08/19 Ertapenem Sodium - 1 Gram [Invanz (Pre-Docked)] 1 gm IVPB DAILY 01/08/19 Ferrous Sulfate 325 mg PO BID 01/08/19 Multivitamin [Multiple Vitamins] 1 each PO DAILY 01/08/19 Tobramycin Sulf/Dexamethasone [Tobradex Ophthalmic Ointment -] 1 applic TID Vancomycin 1 Gram (Pre-Docked) [Vancomycin (Pre-Docked)] 1,000 mg IVPB DAILY Collagenase Clostridium Hist. [Santyl -] 1 applic TP DAILY tube 01/10/19 This patient is new to me today: Yes Date on this admission: 01/10/19 Emergency Visit: Yes ED Registration Date: 01/08/19 Care time: The patient presented to the Emergency Department on the above date and was hospitalized for further evaluation of their emergent condition. Critical Care patient: No - Discharge Referral Referred to [facility] Med P.C.: No
[2019-01-10 14:58] VITALS: TEMP 97.8
--- NOTE | 2019-01-10 15:11 | CON.ID ---
Consult Consult Specialty:: infectious diseases Referred by:: Reason for Consultation:: Sepsis,ams - History of Present Illness Chief Complaint: confusion History of Present Illness: 83 year old female who was sent in from [facility]. Per ER resident patient was sent in for slurred speech and disorientation from [facility]. Upon seeing patient she was more lethargic than normal but states she has not been sleeping well the past 2 nights secondary to pain in her back and buttocks. She says otherwise that she is fine and her speech was not slurred this morning. She denies fevers , chills, lightheadedness, dizziness, passing out, chest pain, shortness of breath, nausea, vomiting, diarrhea, constipation, difficulty or pain on urination, increased swelling, or any other concerns. - History Source History Provided By: Patient, Medical Record Limitations to Obtaining History: Poor Historian - Past Medical History LEAK HUNTER: Yes: CVA Cardio/Vascular: Yes: AFIB, Pulmonary Hypertension, CHF, HTN, Hyperlipdemia, Other Renal/: Yes: Other Musculoskeletal: Yes: Hemiparesis Endocrine: Yes: Diabetes Mellitus Dermatology: Yes: Cellulitis - Past Surgical History Past Surgical History: Yes: Tonsillectomy, Colonoscopy - Alcohol/Substance Use Hx Alcohol Use: No History of Substance Use: reports: None - Smoking History Smoking history: Never smoked Have you smoked in the past 12 months: No Aproximately how many cigarettes per day: 0 If you are a former smoker, when did you quit?: Never smoker - Social History ADL: Support Services 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 History of Recent Travel: No Home Medications - Allergies Allergies/Adverse Reactions: Allergies Allergy/AdvReac Type Severity Reaction Status Date / Time pregabalin [From Lyrica] Allergy Severe Hives Verified 08/13/18 13:58 ceftriaxone sodium Allergy Intermediate Hives Verified 08/13/18 13:58 [From Rocephin] Penicillins Allergy Intermediate Hives Verified 08/13/18 13:58 chicken derived Allergy Mild Hives Verified 08/13/18 13:58 oats AdvReac Mild DIARRHEA Verified 08/13/18 13:58 turkey AdvReac Unknown Verified 01/08/19 05:50 meat AdvReac Unknown Uncoded 01/08/19 05:50 - Home Medications Home Medications: Ambulatory Orders Docusate Sodium [Colace -] 100 mg PO HS 06/24/18 Mirtazepine Alejandra Tabs [Remeron Soltab -] 45 mg PO DAILY 06/24/18 PE/Shark Liver Oil/Glyc/Wh.pet [Hemorrhoidal Cream] 1 applic RC Q8H PRN Sennosides [Senokot] 2 tab PO HS 06/24/18 Spironolactone [Aldactone -] 25 mg PO DAILY 06/24/18 metFORMIN HCL [Glucophage -] 500 mg PO HS 06/24/18 Apixaban [Eliquis -] 5 mg PO BID tablet 06/29/18 Atorvastatin Ca [Lipitor] 40 mg PO HS tablet 06/29/18 Sucralfate [Carafate -] 1 gm PO BIDAC tablet 06/29/18 Amino Acids/Protein Hydrolys [Prosource No Carb Liquid Pkt] 30 ml PO BID@0800, 1730 packet 07/05/18 Bisacodyl Suppository [Dulcolax Suppository -] 10 mg RC PRN PRN supp.rect 07/05 Pantoprazole Sodium [Protonix -] 20 mg PO DAILY tablet.ec 07/05/18 Metoprolol Succinate [Toprol Xl] 0.5 tablet PO DAILY 08/13/18 Polyethylene Glycol 3350 [Miralax 119 gm Btl -] 17 gm PO BID 08/13/18 Acetaminophen [Tylenol .Regular Strength -] 650 mg PO Q4H PRN #15 tablet Insulin Sliding Scale [Novolog Vial Sliding Scale -] 1 vial SQ ACHS units 08/16 Glucophage Xr - 500 mg PO DAILY 12/16/18 Lasix 20 mg PO DAILY 12/16/18 Valsartan 80 mg PO BID 12/16/18 Vitamin C 500 mg PO BID 12/16/18 Acetaminophen W/ Codeine #3 [Tylenol # 3 -] 1 tab PO TID 01/08/19 Ertapenem Sodium - 1 Gram [Invanz (Pre-Docked)] 1 gm IVPB DAILY 01/08/19 Ferrous Sulfate 325 mg PO BID 01/08/19 Multivitamin [Multiple Vitamins] 1 each PO DAILY 01/08/19 Tobramycin Sulf/Dexamethasone [Tobradex Ophthalmic Ointment -] 1 applic TID Vancomycin 1 Gram (Pre-Docked) [Vancomycin (Pre-Docked)] 1,000 mg IVPB DAILY Collagenase Clostridium Hist. [Santyl -] 1 applic TP DAILY tube 01/10/19 Family Disease History - Family Disease History Family Disease History: Other: Father (, hip fracture), Mother ( , unknown) Review of Systems - Review of Systems Constitutional: reports: No Symptoms Eyes: reports: No Symptoms HENT: reports: No Symptoms Neck: reports: No Symptoms Cardiovascular: reports: No Symptoms Respiratory: reports: No Symptoms Gastrointestinal: reports: No Symptoms Genitourinary: reports: No Symptoms Musculoskeletal: reports: No Symptoms Integumentary: reports: No Symptoms Neurological: reports: Confusion Endocrine: reports: No Symptoms Hematology/Lymphatic: reports: No Symptoms Psychiatric: reports: No Symptoms Physical Exam Vital Signs: Vital Signs Temperature 97.8 F 01/10/19 14:00 Pulse Rate 75 01/10/19 14:00 Respiratory Rate 20 01/10/19 14:00 Blood Pressure 116/79 01/10/19 14:00 O2 Sat by Pulse Oximetry (%) 95 01/10/19 09:00 Constitutional: Yes: No Distress, Calm Cardiovascular: Yes: Pulse Irregular Respiratory: Yes: Regular, CTA Bilaterally Gastrointestinal: Yes: Normal Bowel Sounds, Soft Musculoskeletal: Yes: WNL Extremities: Yes: Other Neurological: Yes: Alert, Oriented Psychiatric: Yes: Alert, Oriented Labs: CBC, BMP 01/10/19 05:30 01/10/19 05:30 Assessment/Plan Problem List - Problems (1) Lethargy Code(s): R53.83 - OTHER FATIGUE (2) Osteomyelitis Code(s): M86.9 - OSTEOMYELITIS, UNSPECIFIED Qualifiers: Osteomyelitis type: other chronic Osteomyelitis location: foot Laterality : right Qualified Code(s): M86.671 - Other chronic osteomyelitis, right ankle and foot (3) 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 Code(s): I69.351 - HEMIPLGA FOLLOWING CEREBRAL INFRC AFF RIGHT DOMINANT SIDE (4) Atrial fibrillation and flutter Code(s): I48.91 - UNSPECIFIED ATRIAL FIBRILLATION; I48.92 - UNSPECIFIED ATRIAL FLUTTER (5) CHF (congestive heart failure) Code(s): I50.9 - HEART FAILURE, UNSPECIFIED Qualifiers: Heart failure type: diastolic Heart failure chronicity: chronic Qualified Code(s): I50.32 - Chronic diastolic (congestive) heart failure (6) Decubitus skin ulcer Code(s): L89.90 - PRESSURE ULCER OF UNSPECIFIED SITE, UNSPECIFIED STAGE Qualifiers: Pressure injury location: calf Pressure injury stage: stage 3 Laterality : right Qualified Code(s): L89.893 - Pressure ulcer of other site, stage 3 (7) Diabetes Code(s): E11.9 - TYPE 2 DIABETES MELLITUS WITHOUT COMPLICATIONS (8) Elevated troponin Code(s): R74.8 - ABNORMAL LEVELS OF OTHER SERUM ENZYMES (9) HLD (hyperlipidemia) Code(s): E78.5 - HYPERLIPIDEMIA, UNSPECIFIED (10) HTN (hypertension) Code(s): I10 - ESSENTIAL (PRIMARY) HYPERTENSION Qualifiers: Qualified Code(s): I10 - Essential (primary) hypertension Assessment/Plan plan continue her mgmt for osteo as planned stable doing well
--- NOTE | 2019-01-10 15:14 | PN ---
Progress Note, Physician History of Present Illness: stable no new issues - Current Medication List Current Medications: Active Medications Acetaminophen (Tylenol -) 650 mg PO Q4H PRN PRN Reason: FEVER Last Admin: 01/08/19 16:54 Dose: 650 mg Amino Acids (Prosource No Carb Liquid Pkt) 30 ml PO BID@0800,1730 PENDING SALE TO [facility] Last Admin: 01/10/19 09:12 Dose: Not Given Apixaban (Eliquis -) 5 mg PO BID PENDING SALE TO [facility] Last Admin: 01/10/19 09:11 Dose: 5 mg Ascorbic Acid (Vitamin C -) 500 mg PO BIDWM PENDING SALE TO [facility] Last Admin: 01/10/19 09:10 Dose: 500 mg Atorvastatin Calcium (Lipitor -) 40 mg PO HS PENDING SALE TO [facility] Last Admin: 01/09/19 22:46 Dose: 40 mg Collagenase (Santyl -) 1 applic TP DAILY PENDING SALE TO [facility]; Protocol Last Admin: 01/10/19 11:28 Dose: 1 applic Docusate Sodium (Colace -) 100 mg PO HS PENDING SALE TO [facility] Last Admin: 01/09/19 22:50 Dose: Not Given Ferrous Sulfate (Feosol -) 325 mg PO BIDWM PENDING SALE TO [facility] Last Admin: 01/10/19 09:11 Dose: 325 mg Furosemide (Lasix -) 20 mg PO DAILY PENDING SALE TO [facility] Last Admin: 01/10/19 09:10 Dose: 20 mg Ertapenem 1 gm/ Sodium (Chloride) 50 mls @ 100 mls/hr IVPB DAILY PENDING SALE TO [facility] Last Admin: 01/10/19 09:12 Dose: 100 mls/hr Metoprolol Succinate (Toprol Xl -) 12.5 mg PO DAILY PENDING SALE TO [facility] Last Admin: 01/10/19 09:11 Dose: 12.5 mg Multivitamins/Minerals/Vitamin C (Tab-A-Vit -) 1 tab PO DAILY PENDING SALE TO [facility] Last Admin: 01/10/19 09:11 Dose: 1 tab Pantoprazole Sodium (Protonix -) 20 mg PO DAILY PENDING SALE TO [facility] Last Admin: 01/10/19 09:11 Dose: 20 mg Polyethylene Glycol (Miralax (For Daily Use) -) 17 gm PO BID PENDING SALE TO [facility] Last Admin: 01/10/19 09:12 Dose: Not Given Senna (Senna -) 2 tab PO HS PENDING SALE TO [facility] Last Admin: 01/09/19 22:50 Dose: Not Given Sucralfate (Carafate -) 1 gm PO BIDAC PENDING SALE TO [facility] Last Admin: 01/10/19 06:53 Dose: 1 gm Tobramycin/Dexamethasone (Tobradex Ophthalmic Ointment -) 1 applic OU TID PENDING SALE TO [facility] Last Admin: 01/10/19 13:59 Dose: 1 applic Valsartan (Diovan -) 80 mg PO BID PENDING SALE TO [facility] Last Admin: 01/10/19 09:11 Dose: 80 mg Vancomycin HCl (Vancomycin (Pre-Docked)) 1,000 mg IVPB DAILY@1300 RAGINI; Protocol - Objective Vital Signs: Vital Signs Temperature 97.8 F 01/10/19 14:00 Pulse Rate 75 01/10/19 14:00 Respiratory Rate 20 01/10/19 14:00 Blood Pressure 116/79 01/10/19 14:00 O2 Sat by Pulse Oximetry (%) 95 01/10/19 09:00 Constitutional: Yes: No Distress, Calm Cardiovascular: Yes: S1, S2 Respiratory: Yes: CTA Bilaterally Gastrointestinal: Yes: Normal Bowel Sounds, Soft Musculoskeletal: Yes: WNL Extremities: Yes: Other Neurological: Yes: Alert Psychiatric: Yes: Alert Labs: CBC, BMP 01/10/19 05:30 01/10/19 05:30 INR, PTT INR 1.66 (0.83-1.09) H 01/08/19 07:39 Assessment/Plan Problem List - Problems (1) Lethargy Code(s): R53.83 - OTHER FATIGUE (2) Osteomyelitis Code(s): M86.9 - OSTEOMYELITIS, UNSPECIFIED Qualifiers: Osteomyelitis type: other chronic Osteomyelitis location: foot Laterality : right Qualified Code(s): M86.671 - Other chronic osteomyelitis, right ankle and foot (3) 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 Code(s): I69.351 - HEMIPLGA FOLLOWING CEREBRAL INFRC AFF RIGHT DOMINANT SIDE (4) Atrial fibrillation and flutter Code(s): I48.91 - UNSPECIFIED ATRIAL FIBRILLATION; I48.92 - UNSPECIFIED ATRIAL FLUTTER (5) CHF (congestive heart failure) Code(s): I50.9 - HEART FAILURE, UNSPECIFIED Qualifiers: Heart failure type: diastolic Heart failure chronicity: chronic Qualified Code(s): I50.32 - Chronic diastolic (congestive) heart failure (6) Decubitus skin ulcer Code(s): L89.90 - PRESSURE ULCER OF UNSPECIFIED SITE, UNSPECIFIED STAGE Qualifiers: Pressure injury location: calf Pressure injury stage: stage 3 Laterality : right Qualified Code(s): L89.893 - Pressure ulcer of other site, stage 3 (7) Diabetes Code(s): E11.9 - TYPE 2 DIABETES MELLITUS WITHOUT COMPLICATIONS (8) Elevated troponin Code(s): R74.8 - ABNORMAL LEVELS OF OTHER SERUM ENZYMES (9) HLD (hyperlipidemia) Code(s): E78.5 - HYPERLIPIDEMIA, UNSPECIFIED (10) HTN (hypertension) Code(s): I10 - ESSENTIAL (PRIMARY) HYPERTENSION Qualifiers: Qualified Code(s): I10 - Essential (primary) hypertension Assessment/Plan plan continue her mgmt for osteo as planned stable doing well
[2019-01-10 17:45] VITALS: BP 132/74; PULSE 67
== END 2019-01-10 18:28 | DRG 56 ==
LOC: JER 05:20 → JERBED 09:47 → J4W 01-09 09:45
PROVIDERS: ADMIT Internal Medicine; ATTEND Hospitalist
DX: I69.398 Other sequelae of cerebral infarction (principal); L89.893 Pressure ulcer of other site, stage 3; I50.42 Chronic combined systolic (congestive) and diastolic (congestive) heart failure; I69.351 Hemiplegia and hemiparesis following cerebral infarction affecting right dominant side; I48.92 Unspecified atrial flutter; R41.82 Altered mental status, unspecified; D64.9 Anemia, unspecified; E11.69 Type 2 diabetes mellitus with other specified complication; I48.91 Unspecified atrial fibrillation; I27.20 Pulmonary hypertension, unspecified; I73.9 Peripheral vascular disease, unspecified; R47.1 Dysarthria and anarthria; E78.5 Hyperlipidemia, unspecified; I11.0 Hypertensive heart disease with heart failure
CPT/HCPCS: 36415; 70450-TC; 70551-TC; 71045-TC-FY; 80048; 80053; 81003; 82550; 82962; 83605; 83735; 83880; 84100; 84484; 85025; 85027; 85610; 85651; 86140; 87040; 87086; 93005; 93010; 93306-TC; 97161-GP; 99285-25; J7030